=== PATIENT | female | born 1935 | race Hispanic/Latino ===

== ENCOUNTER 2018-01-11 03:57 | Inpatient (IN) | payer MEDICARE ==
[2018-01-11] MEDS ORDERED: Albuterol-Ipratrop 3 mg / 0.5 (3 ml) UD ONE (04:16)
[2018-01-11] MEDS ORDERED: Albuterol-Ipratrop 3 mg / 0.5 (3 ml) UD INH STA ×3 (04:17→04:22)
--- NOTE | 2018-01-11 04:21 | C.PDOC ---
History Of Present Illness <Abelardo Mane R - Last Filed: 01/11/18 06:49> <Arnol May M - Last Filed: 01/11/18 07:44> 82 year old female presents to the ER with a complaint a sudden onset of SOB tonight. Patient has a Hx of COPD and is on a nebulizer at home. Denies chest pain. (Abelardo Mane) History Per: Patient History/Exam Limitations: no limitations Onset/Duration Of Symptoms: Hrs, Sudden Onset Current Symptoms Are (Timing): Still Present Initiating Event: Other (Not known) Current Respiratory Medications: Other (Nebulizer) Associated Symptoms: denies: Fever, Chills, Chest Pain Recent travel outside of the [place]: No <Abelardo Mane - Last Filed: 01/11/18 06:49> <Arnol May M - Last Filed: 01/11/18 07:44> Chief Complaint (Nursing): Respiratory Distress Past Medical History Reviewed: Historical Data, Nursing Documentation, Vital Signs - Medical History PMH: Anxiety, Arthritis, COPD (on home O2), Rheumatoid Arthritis Surgical History: Cholecystectomy Family History: States: Unknown Family Hx - Social History Hx Tobacco Use: Yes (2 years when teenager) Hx Alcohol Use: No Hx Substance Use: No - Immunization History Hx Tetanus Toxoid Vaccination: No Hx Influenza Vaccination: No Hx Pneumococcal Vaccination: No <Abelardo Mane - Last Filed: 01/11/18 06:49> Vital Signs: Last Vital Signs Temp 97.6 F 01/11/18 04:06 Pulse 105 H 01/11/18 06:18 Resp 24 01/11/18 06:18 BP 118/90 01/11/18 06:18 Pulse Ox 95 01/11/18 06:18 - [facility] Procedures ASSISTANCE WITH RESPIRATORY VENTILATION, 24-96 HRS, CPAP (07/23/15) Review Of Systems Constitutional: Negative for: Fever, Chills Eyes: Negative for: Vision Change ENT: Negative for: Mouth Swelling, Throat Swelling Cardiovascular: Negative for: Chest Pain, Palpitations Respiratory: Positive for: Shortness of Breath Gastrointestinal: Negative for: Nausea, Vomiting Genitourinary: Negative for: Dysuria, Hematuria Skin: Negative for: Rash Neurological: Negative for: Weakness, Numbness <Abelardo aMne - Last Filed: 01/11/18 06:49> Physical Exam - Physical Exam Appears: Other (Moderately dyspneic) Skin: Normal Color, Warm, Dry Head: Atraumatic, Normacephalic Eye(s): bilateral: Normal Inspection Oral Mucosa: Moist Throat: Normal, No Other (Swelling) Neck: Normal, Supple Chest: Symmetrical, No Tenderness Cardiovascular: Rhythm Regular Respiratory: Decreased Breath Sounds, Rales (Bilateral at bases), No Rhonchi, No Wheezing Gastrointestinal/Abdominal: Soft, No Tenderness Extremity: No Pedal Edema Neurological/Psych: Oriented x3, Normal Speech <Abelardo Mane - Last Filed: 01/11/18 06:49> ED Course And Treatment - Laboratory Results Result Diagrams: 01/11/18 04:25 01/11/18 04:25 ECG: Interpreted By Me, Viewed By Me ECG Rhythm: Sinus Rhythm, R BBB, ST/T Changes ECG Interpretation: Abnormal Interpretation Of ECG: Sinus tachycardia, no acute changes, St-T abnormality . Rate From EC - Radiology CXR: Viewed By Me, Read By Radiologist CXR Interpretation: Yes: Other (Abnormal, patchy densities in the left lower lobe, a new finding, suspicious for pneumonia.) Progress Note: Blood work, EKG, and CXR ordered. Albuterol and mag sulfate administered. Dr. Solis called and will evaluate patient at bedside for possible ICU admission. <Abelardo Mane - Last Filed: 01/11/18 06:49> - Laboratory Results Result Diagrams: 01/11/18 04:25 01/11/18 04:25 <Arnol May M - Last Filed: 01/11/18 07:44> Disposition Counseled Patient/Family Regarding: Diagnosis - POA Present On Arrival: None <Abelardo Mane - Last Filed: 01/11/18 06:49> Discussed With : Rivas Mendez Doctor Will See Patient In The: ED - Disposition Disposition Time: 07:44 <Arnol May - Last Filed: 01/11/18 07:44> - Disposition Disposition: HOSPITALIZED Condition: GUARDED Forms: [facility] (Vietnamese) - Clinical Impression Clinical Impression: COPD exacerbation, Respiratory failure, Pneumonia, Non-ST elevated myocardial infarction (non-STEMI) - Scribe Statement The provider has reviewed the documentation as recorded by the Scribe <Abelardo Mane - Last Filed: 01/11/18 06:49> <Arnol May - Last Filed: 01/11/18 07:44> - Scribe Statement Raymond Chavira All medical record entries made by the Scribe were at my direction and personally dictated by me. I have reviewed the chart and agree that the record accurately reflects my personal performance of the history, physical exam, medical decision making, and the department course for this patient. I have also personally directed, reviewed, and agree with the discharge instructions and disposition. (Abelardo Mane) Addendum <Abelardo Mane - Last Filed: 01/11/18 06:49> <Arnol May - Last Filed: 01/11/18 07:44> Addendum: 01/11/18 07:43 Received patient in s/o pending critical care consult. ICU has agreed to admit patient to ICU, hospitalist service. (Arnol May)
[2018-01-11 04:33] LABS: BASO # 0.1 K/uL (0.0-0.2); BASO % 0.7 % (0.0-2.0); EOS # 0.2 K/uL (0.0-0.7); HEMOGLOBIN 11.6 g/dL (11.0-16.0); LYMPH # 2.6 K/uL (1.0-4.3); LYMPH % 14.6 % (20.0-40.0); MEAN CELL VOLUME 90.7 fL (81.0-99.0); MEAN CORPUSCULAR HEMOGLOBIN 28.5 pg (27.0-31.0); MEAN CORPUSCULAR HGB CONC 31.4 g/dL (33.0-37.0); MEAN PLATELET VOLUME 7.9 fL (7.2-11.7); MONO # 1.6 K/uL (0.0-0.8); MONO % 8.9 % (0.0-10.0); NEUT # 13.5 K/uL (1.8-7.0); NEUT % 74.8 % (50.0-75.0); RBC 4.09 Mil/uL (3.80-5.20); RED CELL DISTRIBUTION WIDTH 13.4 % (11.5-14.5); WHITE BLOOD COUNT 18.1 K/uL (4.8-10.8)
[2018-01-11 04:36] LABS: ABG ALLEN TEST POS; ARTERIAL BLOOD GAS HEMOGLOBIN 11.2 g/dL (11.7-17.4); ARTERIAL BLOOD GAS O2 SAT 99.6 % (95-98); ARTERIAL BLOOD GAS PCO2 92 mm/Hg (35-45); ARTERIAL BLOOD GAS PH 7.24 (7.35-7.45); ARTERIAL BLOOD GAS PO2 336 mm/Hg (80-100); ARTERIAL BLOOD GAS TCO2 42.2 mmol/L (22-28)
[2018-01-11] MEDS ORDERED: Magnesium Sulfate 1 gm in D5W 1 GM/100 ML BAG IVPB ONE ×2 (04:40→04:41)
[2018-01-11] MEDS ORDERED: Magnesium Sulfate 1 gm in D5W 2 GM/200 ML BAG IVPB ONE (04:51)
[2018-01-11 05:14] LABS: CALCIUM 8.4 mg/dl (8.6-10.4); GFR AFRICAN-AMERICAN > 60; GFR NON-AFRICAN AMERICAN > 60
[2018-01-11] MEDS ORDERED: Albuterol 0.083% Inhal Sol (2.5 mg/3 mL) UD ONE (05:26)
[2018-01-11 05:28] LABS: ABG ALLEN TEST POS; ARTERIAL BLOOD GAS HCO3 33.5 mmol/L (21-28); ARTERIAL BLOOD GAS HEMOGLOBIN 10.9 g/dL (11.7-17.4); ARTERIAL BLOOD GAS O2 SAT 93.9 % (95-98); ARTERIAL BLOOD GAS PCO2 69 mm/Hg (35-45); ARTERIAL BLOOD GAS PH 7.36 (7.35-7.45); ARTERIAL BLOOD GAS PO2 59 mm/Hg (80-100); ARTERIAL BLOOD GAS TCO2 41.1 mmol/L (22-28)
[2018-01-11 05:32] LABS: ALB/GLOB RATIO 1.2 (1.0-2.1); ALBUMIN 4.7 g/dL (3.5-5.0); ALT/SGPT < 6 U/L (9-52); AST/SGOT 50 U/L (14-36); B-TYPE NATRIURETIC PEPTIDE 2970 pg/mL (0-900); BLOOD UREA NITROGEN 19 mg/dL (7-17)
--- NOTE | 2018-01-11 05:33 | RAD ---
EXAM: XR Chest, 1 View EXAM DATE/TIME: 01/11/2018 4:16 AM CLINICAL HISTORY: 82 years old, female; Signs and symptoms; Shortness of breath; Additional info: SOB TECHNIQUE: Frontal view of the chest. COMPARISON: Prior chest radiographs of 2015-07-26 FINDINGS: LIMITATIONS: Patient rotation. LUNGS: Abnormal, patchy densities seen in the left lower lobe, a new finding, suspicious for pneumonia, in an acute setting. Lungs are hyperinflated, suggestive of underlying COPD. No evidence of diffuse pulmonary vascular congestion. PLEURAL SPACE: No pneumothorax or pleural effusions seen. HEART: Heart appears mildly enlarged. Heart size appears stable. MEDIASTINUM: See below. BONES/JOINTS: Bony structures appear demineralized. VASCULATURE: Thoracic aorta appears mildly ectatic. IMPRESSION: - Abnormal, patchy densities in the left lower lobe, a new finding, suspicious for pneumonia. Recommend radiographic followup to document clearing. - See above for remaining findings.
[2018-01-11] MEDS ORDERED: Azithromycin 500mg/250ML NS 500 MG/250 ML BAG IV STA (06:08)
[2018-01-11] MEDS ORDERED: cefTRIAXone IV 1 gm in Dextros 50 ML IVPB ONE ×2 (06:08→06:25)
[2018-01-11] MEDS ORDERED: Enoxaparin 40 mg Syringe SC STA ×2 (06:30→06:55)
[2018-01-11] MEDS ORDERED: Enoxaparin 40 mg Syringe ONE (06:37)
[2018-01-11 06:42] LABS: PROTHROMBIN TIME 10.6 SECONDS (9.7-12.2)
--- NOTE | 2018-01-11 07:22 | CP.PCM.HP ---
<Vipin Junior - Last Filed: 01/11/18 08:50> History of Present Illness - History of Present Illness History of Present Illness: CC: Sudden onset SOB FULL CODE PMD: Dr. Mayen This is an 82yo F w/ a PMhx of HTN, CAD, RA, COPD (lifelong non smoker) on 2L of 24 hour home O2, CHF systolic and diastolic dysfunction from 2014, who is coming into the hospital with a 12hour history of sudden onset shortness of breath and "gas" in the epigastric region; the patient states she was at home and suddenly got short of breath sitting in her chair which did not get better which is why she came in. For the past week, she has also had a cough with white sputum, but denies fevers/chills, chest pain, N/V/D, dysuria/freq/urg or lower extremity pain/swelling at that time. She denies sick contacts, recent travel, and has never smoked. In the ED, the patient was placed on BiPap, given azithromycin and breathing treatments which helped the patients shortness of breath. She is pending CT PE protocol study, venous duplex of the lower extremities, and echo. PMhx: HTN, CAD, RA, COPD (lifelong non smoker) on 2L of 24 hour home O2, CHF systolic and diastolic dysfunction from 2014 Meds: Breo Ellipta 100/24, Incruse 62.5, Leflumonide 20mg, Bisoprodol 5mg, Moteleuklast 10mg, Xanax 0.25mg, Feosol, Metalazone 2.5mg, Celebrex 200, Chlorthiadone 25mg Allergies: Denies Surgeries: C section 40+ years ago Social: On home O2 2L, does not walk with cane, independent in ADL and most IADL ; son lives with her and is main grand scribe, denies smoking history or illicit drug use. Present on Admission - Present on Admission Any Indicators Present on Admission: Yes History of DVT/PE: No History of Uncontrolled Diabetes: No Urinary Catheter: No Decubitus Ulcer Present: No Past Patient History - Infectious Disease Hx of Infectious Diseases: None - Past Medical History & Family History Past Medical History?: Yes - Past Social History Smoking Status: Never Smoked - CARDIAC Hx Cardiac Disorders: No - PULMONARY Hx Chronic Obstructive Pulmonary Disease (COPD): Yes (on home O2) - NEUROLOGICAL Hx Neurological Disorder: No - HEENT Hx HEENT Problems: No - RENAL Hx Chronic Kidney Disease: No - ENDOCRINE/METABOLIC Hx Endocrine Disorders: No - HEMATOLOGICAL/ONCOLOGICAL Hx Blood Disorders: No - INTEGUMENTARY Hx Dermatological Problems: No - MUSCULOSKELETAL/RHEUMATOLOGICAL Hx Arthritis: Yes Hx Rheumatoid Arthritis: Yes - GASTROINTESTINAL Hx Gastrointestinal Disorders: No - GENITOURINARY/GYNECOLOGICAL Hx Genitourinary Disorders: No - PSYCHIATRIC Hx Anxiety: Yes Hx Substance Use: No - SURGICAL HISTORY Hx Cholecystectomy: Yes - ANESTHESIA Hx Anesthesia: Yes Hx Anesthesia Reactions: No Hx Malignant Hyperthermia: No Meds Allergies/Adverse Reactions: Allergies Allergy/AdvReac Type Severity Reaction Status Date / Time No Known Allergies Allergy Verified 01/11/18 04:10 Physical Exam - Constitutional Appears: Non-toxic, No Acute Distress - Head Exam Head Exam: ATRAUMATIC (with BiPap on, speaking through BiPap) - Eye Exam Eye Exam: EOMI, Normal appearance, PERRL. absent: Scleral icterus - ENT Exam ENT Exam: Mucous Membranes Dry - Neck Exam Neck exam: Positive for: Full Rom. Negative for: Lymphadenopathy - Respiratory Exam Respiratory Exam: Prolonged Expiratory Phase, Rales. absent: Chest Wall Tenderness, Clear to Auscultation Bilateral, Rhonchi, Wheezes, Respiratory Distress, Stridor, NORMAL BREATHING PATTERN (tachypneic ) - Cardiovascular Exam Cardiovascular Exam: Tachycardia, +S1, +S2, Systolic Murmur - GI/Abdominal Exam GI & Abdominal Exam: Normal Bowel Sounds, Soft. absent: Tenderness - Extremities Exam Extremities exam: Positive for: calf tenderness, pedal edema (+2 pitting edema up to knees ) - Back Exam Back exam: NORMAL INSPECTION. absent: CVA tenderness (L), CVA tenderness (R) - Neurological Exam Neurological exam: Alert, Oriented x3 Results - Vital Signs Recent Vital Signs: Last Vital Signs Temp 97.6 F 01/11/18 04:06 Pulse 105 H 01/11/18 06:18 Resp 24 01/11/18 06:18 BP 118/90 01/11/18 06:18 Pulse Ox 95 01/11/18 06:18 - Labs Result Diagrams: 01/11/18 04:25 01/11/18 04:25 Labs: Laboratory Results - last 24 hr 01/11/18 01/11/18 01/11/18 04:25 04:25 04:25 WBC 18.1 H D RBC 4.09 Hgb 11.6 Hct 37.1 MCV 90.7 MCH 28.5 MCHC 31.4 L RDW 13.4 Plt Count 364 MPV 7.9 Neut % (Auto) 74.8 Lymph % (Auto) 14.6 L [place] % (Auto) 8.9 Eos % (Auto) 1.0 Baso % (Auto) 0.7 Neut # (Auto) 13.5 H Lymph # (Auto) 2.6 [place] # (Auto) 1.6 H Eos # (Auto) 0.2 Baso # (Auto) 0.1 PT INR APTT D-Dimer, Quantitative 526 H Puncture Site pCO2 pO2 HCO3 ABG pH ABG Total CO2 ABG O2 Saturation ABG Base Excess ABG Hemoglobin ABG Carboxyhemoglobin POC ABG HHb (Measured) ABG Methemoglobin Steve Test A-a O2 Difference Respiratory Index Hgb O2 Saturation Vent Mode FiO2 Inspiratory BiPAP Expiratory BiPAP Crit Value Called To Crit Value Called By Crit Value Read Back Blood Gas Notified Time Sodium 141 Potassium 5.9 H Chloride 97 L Carbon Dioxide 35 H Anion Gap 15 BUN 19 H Creatinine 0.7 Est GFR ( Amer) > 60 Est GFR (Non-Af Amer) > 60 Random Glucose 185 H Calcium 8.4 L Total Bilirubin 1.7 H AST 50 H D ALT < 6 L D Alkaline Phosphatase 96 Troponin I 1.6700 H* NT-Pro-B Natriuret Pep 2970 H Total Protein 8.8 H Albumin 4.7 Globulin 4.0 H Albumin/Globulin Ratio 1.2 01/11/18 01/11/18 01/11/18 04:30 05:24 06:35 WBC RBC Hgb Hct MCV MCH MCHC RDW Plt Count MPV Neut % (Auto) Lymph % (Auto) [place] % (Auto) Eos % (Auto) Baso % (Auto) Neut # (Auto) Lymph # (Auto) [place] # (Auto) Eos # (Auto) Baso # (Auto) PT 10.6 INR 1.0 APTT 30 D-Dimer, Quantitative Puncture Site Rr Rr pCO2 92 H* 69 H pO2 336 H 59 L HCO3 32.0 H 33.5 H ABG pH 7.24 L 7.36 ABG Total CO2 42.2 H 41.1 H ABG O2 Saturation 99.6 H 93.9 L ABG Base Excess 9.1 H 11.2 H ABG Hemoglobin 11.2 L 10.9 L ABG Carboxyhemoglobin 1.4 2.3 H POC ABG HHb (Measured) 0.4 5.9 H ABG Methemoglobin 1.1 1.5 Steve Test Pos Pos A-a O2 Difference 262.0 69.0 Respiratory Index 0.8 1.2 Hgb O2 Saturation 97.0 90.4 L Vent Mode Bipap Bipap FiO2 100.0 30.0 Inspiratory BiPAP 12 20 Expiratory BiPAP 6 10 Crit Value Called To Dr. muñiz Crit Value Called By Eva living coach Crit Value Read Back Y Blood Gas Notified Time 435 Sodium Potassium Chloride Carbon Dioxide Anion Gap BUN Creatinine Est GFR ( Amer) Est GFR (Non-Af Amer) Random Glucose Calcium Total Bilirubin AST ALT Alkaline Phosphatase Troponin I NT-Pro-B Natriuret Pep Total Protein Albumin Globulin Albumin/Globulin Ratio Assessment & Plan - Assessment and Plan (Free Text) Assessment: 82yo F admitted for hypercapneic respiratory failure 2/2 to PNA vs PE vs NSTEMI Hypercapneic respiratory failure 2/2 to PNA vs PE vs NSTEMI; acute on chronic -Co2 retention on ABG; from previous admissions Co2 is actually lower than previous -currently on BiPap; tolerating; patient is able to speak through BiPap -troponin 1.67-->will trend Q8H with serial EKG -f/u Chest PE protocol -f/u b/l lower extremity dopplers -f/u echo -lactic acid 3.0; f/u repeat; elevated WBC, signs of L Lower Lobe Infiltrate on X-Ray; f/u UA/UCx; Procal -c/w ceftriaxone/azithromycin for CAP -received tx dose for PE/NSTEMI Lovenox in ER -Cardiology, Dr. Skaggs; thank you for your help -Pulmonology: Dr. Tse; thank you for your help Hyperkalemia; acute -will give kayhexalate 30mg PO once -will follow Pmhx of COPD; acute on chronic -c/w home breathing tx Breo and Incruse -PRN breathing treatments -on home O2 2L Hx of RA -c/w leflunomide and Celebrex daily Hx of HTN -currently normotensive; took medications -c/w Bisoprodol, Metalazone, Chlorthiadone Hx of CHF systolic and diastolic failure; EF not documented; acute on chronic -f/u repeat echo -BNP elevated with signs of CHF overload clinically Proph -Lovenox 80mg received; depending on PE/DVT/Cardiology can continue -Gi prophylaxis not indicated at this time -NPO until tests are completed Case discussed with Dr. Vanessa Junior PGY2 Decision To Admit - Pt Status Changed To: Hospital Disposition Of: Inpatient - Admit Certification Admit to Inpatient:: After my assessment, the patient will require hospitalization for at least two midnights. This is because of the severity of symptoms shown, intensity of services needed, and/or the medical risk in this patient being treated as an outpatient. - InPatient: Physician Admission Certification:: NSTEMI PE PNA - . Bed Request Type: ICU Admitting Physician: Rivas Mendez <Rivas Mendez - Last Filed: 01/11/18 09:33> Results - Vital Signs Recent Vital Signs: Last Vital Signs Temp 98 F 01/11/18 08:00 Pulse 98 H 01/11/18 08:00 Resp 22 01/11/18 08:00 BP 113/65 01/11/18 08:00 Pulse Ox 97 01/11/18 08:00 - Labs Result Diagrams: 01/11/18 04:25 01/11/18 04:25 Labs: Laboratory Results - last 24 hr 01/11/18 01/11/18 01/11/18 04:25 04:25 04:25 WBC 18.1 H D RBC 4.09 Hgb 11.6 Hct 37.1 MCV 90.7 MCH 28.5 MCHC 31.4 L RDW 13.4 Plt Count 364 MPV 7.9 Neut % (Auto) 74.8 Lymph % (Auto) 14.6 L [place] % (Auto) 8.9 Eos % (Auto) 1.0 Baso % (Auto) 0.7 Neut # (Auto) 13.5 H Lymph # (Auto) 2.6 [place] # (Auto) 1.6 H Eos # (Auto) 0.2 Baso # (Auto) 0.1 PT INR APTT D-Dimer, Quantitative 526 H Puncture Site pCO2 pO2 HCO3 ABG pH ABG Total CO2 ABG O2 Saturation ABG Base Excess ABG Hemoglobin ABG Carboxyhemoglobin POC ABG HHb (Measured) ABG Methemoglobin Steve Test A-a O2 Difference Respiratory Index Hgb O2 Saturation Vent Mode FiO2 Inspiratory BiPAP Expiratory BiPAP Crit Value Called To Crit Value Called By Crit Value Read Back Blood Gas Notified Time Sodium 141 Potassium 5.9 H Chloride 97 L Carbon Dioxide 35 H Anion Gap 15 BUN 19 H Creatinine 0.7 Est GFR ( Amer) > 60 Est GFR (Non-Af Amer) > 60 Random Glucose 185 H Lactic Acid Calcium 8.4 L Total Bilirubin 1.7 H AST 50 H D ALT < 6 L D Alkaline Phosphatase 96 Troponin I 1.6700 H* NT-Pro-B Natriuret Pep 2970 H Total Protein 8.8 H Albumin 4.7 Globulin 4.0 H Albumin/Globulin Ratio 1.2 01/11/18 01/11/18 01/11/18 04:30 05:24 06:35 WBC RBC Hgb Hct MCV MCH MCHC RDW Plt Count MPV Neut % (Auto) Lymph % (Auto) [place] % (Auto) Eos % (Auto) Baso % (Auto) Neut # (Auto) Lymph # (Auto) [place] # (Auto) Eos # (Auto) Baso # (Auto) PT 10.6 INR 1.0 APTT 30 D-Dimer, Quantitative Puncture Site Rr Rr pCO2 92 H* 69 H pO2 336 H 59 L HCO3 32.0 H 33.5 H ABG pH 7.24 L 7.36 ABG Total CO2 42.2 H 41.1 H ABG O2 Saturation 99.6 H 93.9 L ABG Base Excess 9.1 H 11.2 H ABG Hemoglobin 11.2 L 10.9 L ABG Carboxyhemoglobin 1.4 2.3 H POC ABG HHb (Measured) 0.4 5.9 H ABG Methemoglobin 1.1 1.5 Steve Test Pos Pos A-a O2 Difference 262.0 69.0 Respiratory Index 0.8 1.2 Hgb O2 Saturation 97.0 90.4 L Vent Mode Bipap Bipap FiO2 100.0 30.0 Inspiratory BiPAP 12 20 Expiratory BiPAP 6 10 Crit Value Called To Dr. muñiz Crit Value Called By Eva living coach Crit Value Read Back Y Blood Gas Notified Time 435 Sodium Potassium Chloride Carbon Dioxide Anion Gap BUN Creatinine Est GFR ( Amer) Est GFR (Non-Af Amer) Random Glucose Lactic Acid Calcium Total Bilirubin AST ALT Alkaline Phosphatase Troponin I NT-Pro-B Natriuret Pep Total Protein Albumin Globulin Albumin/Globulin Ratio 01/11/18 08:04 WBC RBC Hgb Hct MCV MCH MCHC RDW Plt Count MPV Neut % (Auto) Lymph % (Auto) [place] % (Auto) Eos % (Auto) Baso % (Auto) Neut # (Auto) Lymph # (Auto) [place] # (Auto) Eos # (Auto) Baso # (Auto) PT INR APTT D-Dimer, Quantitative Puncture Site pCO2 pO2 HCO3 ABG pH ABG Total CO2 ABG O2 Saturation ABG Base Excess ABG Hemoglobin ABG Carboxyhemoglobin POC ABG HHb (Measured) ABG Methemoglobin Steve Test A-a O2 Difference Respiratory Index Hgb O2 Saturation Vent Mode FiO2 Inspiratory BiPAP Expiratory BiPAP Crit Value Called To Crit Value Called By Crit Value Read Back Blood Gas Notified Time Sodium Potassium Chloride Carbon Dioxide Anion Gap BUN Creatinine Est GFR ( Amer) Est GFR (Non-Af Amer) Random Glucose Lactic Acid 3.0 H Calcium Total Bilirubin AST ALT Alkaline Phosphatase Troponin I NT-Pro-B Natriuret Pep Total Protein Albumin Globulin Albumin/Globulin Ratio Attending/Attestation - Attestation I have personally seen and examined this patient.: Yes I have fully participated in the care of the patient.: Yes I have reviewed all pertinent clinical information: Yes Notes (Text): 01/11/18 09:29 Medical attending: Patient was seen and examined by me. Agree with the above note by the medical coding specialist Patient was also seen by me in the ER bed 12. Family member present She was already on Bipap when Is aw her. She was pending a CT scan of the chest She reported some relief with the Bipap on. The patient has hypercapnia probably from history of COPD as well as metabolic compensation. It appears to be a chronic process. She wears oxygen at home She also had a positive troponin spill as well. She has already received Lovenox and additional troponins are pending. CXRAY shows there maybe some process occuring in the right lung base, we are pending a CT at this time Rivas Mendez
--- NOTE | 2018-01-11 07:45 | CP.PCM.CON ---
<Agustina Hamilton - Last Filed: 01/11/18 11:29> History of Present Illness - History of Present Illness History of Present Illness: Critical Care Consult Note Patient admitted to ICU for Hypercapneic failure 2/2 NSTEMI vs PE with Multifocal LLL Pneumonia. Past Patient History - Infectious Disease Hx of Infectious Diseases: None - Past Medical History & Family History Past Medical History?: Yes - Past Social History Smoking Status: Never Smoked - CARDIAC Hx Cardiac Disorders: No - PULMONARY Hx Chronic Obstructive Pulmonary Disease (COPD): Yes (on home O2) - NEUROLOGICAL Hx Neurological Disorder: No - HEENT Hx HEENT Problems: No - RENAL Hx Chronic Kidney Disease: No - ENDOCRINE/METABOLIC Hx Endocrine Disorders: No - HEMATOLOGICAL/ONCOLOGICAL Hx Blood Disorders: No - INTEGUMENTARY Hx Dermatological Problems: No - MUSCULOSKELETAL/RHEUMATOLOGICAL Hx Arthritis: Yes Hx Rheumatoid Arthritis: Yes - GASTROINTESTINAL Hx Gastrointestinal Disorders: No - GENITOURINARY/GYNECOLOGICAL Hx Genitourinary Disorders: No - PSYCHIATRIC Hx Anxiety: Yes Hx Substance Use: No - SURGICAL HISTORY Hx Cholecystectomy: Yes - ANESTHESIA Hx Anesthesia: Yes Hx Anesthesia Reactions: No Hx Malignant Hyperthermia: No Meds Allergies/Adverse Reactions: Allergies Allergy/AdvReac Type Severity Reaction Status Date / Time No Known Allergies Allergy Verified 01/11/18 04:10 - Medications Medications: Current Medications Aspirin (Aspirin) 325 mg PO ONCE ONE Stop: 01/11/18 08:01 Clopidogrel Bisulfate (Plavix) 300 mg PO ONCE ONE Stop: 01/11/18 07:46 Results - Vital Signs Recent Vital Signs: Last Vital Signs Temp 97.6 F 01/11/18 04:06 Pulse 105 H 01/11/18 06:18 Resp 24 01/11/18 06:18 BP 118/90 01/11/18 06:18 Pulse Ox 95 01/11/18 06:18 - Labs Result Diagrams: 01/11/18 04:25 01/11/18 10:24 Labs: Laboratory Results - last 24 hr 01/11/18 01/11/18 01/11/18 04:25 04:25 04:25 WBC 18.1 H D RBC 4.09 Hgb 11.6 Hct 37.1 MCV 90.7 MCH 28.5 MCHC 31.4 L RDW 13.4 Plt Count 364 MPV 7.9 Neut % (Auto) 74.8 Lymph % (Auto) 14.6 L [place] % (Auto) 8.9 Eos % (Auto) 1.0 Baso % (Auto) 0.7 Neut # (Auto) 13.5 H Lymph # (Auto) 2.6 [place] # (Auto) 1.6 H Eos # (Auto) 0.2 Baso # (Auto) 0.1 PT INR APTT D-Dimer, Quantitative 526 H Puncture Site pCO2 pO2 HCO3 ABG pH ABG Total CO2 ABG O2 Saturation ABG Base Excess ABG Hemoglobin ABG Carboxyhemoglobin POC ABG HHb (Measured) ABG Methemoglobin Steve Test A-a O2 Difference Respiratory Index Hgb O2 Saturation Vent Mode FiO2 Inspiratory BiPAP Expiratory BiPAP Crit Value Called To Crit Value Called By Crit Value Read Back Blood Gas Notified Time Sodium 141 Potassium 5.9 H Chloride 97 L Carbon Dioxide 35 H Anion Gap 15 BUN 19 H Creatinine 0.7 Est GFR ( Amer) > 60 Est GFR (Non-Af Amer) > 60 Random Glucose 185 H Calcium 8.4 L Total Bilirubin 1.7 H AST 50 H D ALT < 6 L D Alkaline Phosphatase 96 Troponin I 1.6700 H* NT-Pro-B Natriuret Pep 2970 H Total Protein 8.8 H Albumin 4.7 Globulin 4.0 H Albumin/Globulin Ratio 1.2 01/11/18 01/11/18 01/11/18 04:30 05:24 06:35 WBC RBC Hgb Hct MCV MCH MCHC RDW Plt Count MPV Neut % (Auto) Lymph % (Auto) [place] % (Auto) Eos % (Auto) Baso % (Auto) Neut # (Auto) Lymph # (Auto) [place] # (Auto) Eos # (Auto) Baso # (Auto) PT 10.6 INR 1.0 APTT 30 D-Dimer, Quantitative Puncture Site Rr Rr pCO2 92 H* 69 H pO2 336 H 59 L HCO3 32.0 H 33.5 H ABG pH 7.24 L 7.36 ABG Total CO2 42.2 H 41.1 H ABG O2 Saturation 99.6 H 93.9 L ABG Base Excess 9.1 H 11.2 H ABG Hemoglobin 11.2 L 10.9 L ABG Carboxyhemoglobin 1.4 2.3 H POC ABG HHb (Measured) 0.4 5.9 H ABG Methemoglobin 1.1 1.5 Steve Test Pos Pos A-a O2 Difference 262.0 69.0 Respiratory Index 0.8 1.2 Hgb O2 Saturation 97.0 90.4 L Vent Mode Bipap Bipap FiO2 100.0 30.0 Inspiratory BiPAP 12 20 Expiratory BiPAP 6 10 Crit Value Called To Dr. muñiz Crit Value Called By Eva roofer apprentice Crit Value Read Back Y Blood Gas Notified Time 435 Sodium Potassium Chloride Carbon Dioxide Anion Gap BUN Creatinine Est GFR ( Amer) Est GFR (Non-Af Amer) Random Glucose Calcium Total Bilirubin AST ALT Alkaline Phosphatase Troponin I NT-Pro-B Natriuret Pep Total Protein Albumin Globulin Albumin/Globulin Ratio Assessment & Plan - Assessment and Plan (Free Text) Assessment: This is a 82 year old female with PMHx of HTN, CAD with ?? Stents, COPD ( nonsmoker) on home oxygen, 2L NC, RA, HF with systolic and diastolic dysfunction (2014), coming from home with ~12-14 hours of SOB and burning in her chest. Found to be hypercapneic on ABG, she did not improve clinically after breathing treatments, steroids, was then started on bipap, repeat ABG shows improvement. Patient admitted to ICU for Hypercapneic failure 2/2 NSTEMI vs PE with Multifocal LLL Pneumonia. Plan: Neuro: GCS 15 Cardio: A: NSTEMI Dr. Duff consulted - EKG: new RBBB when compared to EKG in 2015 - Troponin 1.67 --> 1.61 --> - Started therapeutic lovenox A: CAD with stents - Patient reports ASA, Plavix was stopped by Dr. Chong (partner with Dr. Duff) - Restarted ASA, Plavix - pending reccs from Cardio A: HF systolic and diastolic dysfunction - Last ECHO was in 2014 - BNP 2970 - Resume home medications: Chlorthalidone 25mg, Bystolic 5mg (held due to acute CHF) - Repeat ECHO, HLD, HA1C, TSH, FREE T4 A: HTN - Resume home medications: Chlorthalidone 25mg, Bystolic 5mg (held due to acute CHF) Pulm: A: Hypercapneic Failure 2/2 NSTEMI vs PE - Elevated D - Dimer, hypercapneic on ABG - Currently on BIPAP - Negative for PE, pending venous dopplers - Duonebs Q4, Azithro, Rocephin /, Florastor BID, Singulair A: Multifocal LLL Pneumonia - Afebrile, leukocytosis with left shift, no bandemia, lactate 3.0 - 3.6 --> - CXR: Abnormal, patchy densities in the left lower lobe, a new finding, suspicious for pneumonia. Recommend radiographic followup to document clearing. - CTA: No evidence of pulmonary embolism. Multifocal opacities throughout left lung, likely infectious. Rule out neoplastic. Followup to clearing. Multiple small right-sided pulmonary nodules common nonspecific. No calcified nodules are appreciated. Small nodules but 1 are 5 mm or less. 7 mm nodule right lower lobe. - Started Duonebs Q4, Azithro, Rocephin 01/11, Florastor BID, Singulair A: COPD - Started Duonebs Q4, Azithro, Rocephin /, Florastor BID, Singulair A: Pulmonary Nodules - Multiple small right-sided pulmonary nodules common nonspecific. No calcified nodules are appreciated. Small nodules but 1 are 5 mm or less. 7 mm nodule right lower lobe. - Follow-up with chest CT 6-12 months. Rheum: A: Hx RA Prophylaxis - Protonix - SCDs, Therapeutic lovenox DW Agustina Lema DO, PGY-1 <Zuleima Hector - Last Filed: 01/11/18 19:13> Meds - Medications Medications: Current Medications Albuterol/Ipratropium (Duoneb 3 Mg/0.5 Mg (3 Ml) Ud) 3 ml INH RQ4 JUNIE Last Admin: 01/11/18 16:39 Dose: 3 ml Alprazolam (Xanax) 0.25 mg PO HS JUNIE Stop: 01/18/18 22:01 Aspirin (Aspirin Chewable) 81 mg PO DAILY [facility] Carvedilol (Coreg) 3.125 mg PO BID [facility] Chlorthalidone (Hygroton) 25 mg PO DAILY [facility] Clopidogrel Bisulfate (Plavix) 75 mg PO DAILY [facility] Enoxaparin Sodium (Lovenox) 80 mg SC Q12 [facility] Last Admin: 01/11/18 18:39 Dose: 80 mg Famotidine (Pepcid) 20 mg PO DAILY [facility] Azithromycin 500 mg/ Sodium (Chloride) 250 mls @ 250 mls/hr IVPB DAILY [facility] PRN Reason: Protocol Ceftriaxone Sodium 1 gm/ (Sodium Chloride) 100 mls @ 100 mls/hr IVPB DAILY [facility] PRN Reason: Protocol Sodium Chloride (Sodium Chloride 0.9%) 1,000 mls @ 75 mls/hr IV .[id number] [facility] Last Admin: 01/11/18 15:43 Dose: 75 mls/hr Montelukast Sodium (Singulair) 10 mg PO HS [facility] Saccharomyces Boulardii (Florastor) 250 mg PO BID [facility] Last Admin: 01/11/18 18:38 Dose: 250 mg Results - Vital Signs Recent Vital Signs: Last Vital Signs Temp 97.6 F 01/11/18 16:00 Pulse 89 01/11/18 16:00 Resp 19 01/11/18 16:00 BP 117/48 L 01/11/18 16:00 Pulse Ox 100 01/11/18 16:00 - Labs Result Diagrams: 01/11/18 04:25 01/11/18 10:24 Labs: Laboratory Results - last 24 hr 01/11/18 01/11/18 01/11/18 04:25 04:25 04:25 WBC 18.1 H D RBC 4.09 Hgb 11.6 Hct 37.1 MCV 90.7 MCH 28.5 MCHC 31.4 L RDW 13.4 Plt Count 364 MPV 7.9 Neut % (Auto) 74.8 Lymph % (Auto) 14.6 L [place] % (Auto) 8.9 Eos % (Auto) 1.0 Baso % (Auto) 0.7 Neut # (Auto) 13.5 H Lymph # (Auto) 2.6 [place] # (Auto) 1.6 H Eos # (Auto) 0.2 Baso # (Auto) 0.1 PT INR APTT D-Dimer, Quantitative 526 H Puncture Site pCO2 pO2 HCO3 ABG pH ABG Total CO2 ABG O2 Saturation ABG Base Excess ABG Hemoglobin ABG Carboxyhemoglobin POC ABG HHb (Measured) ABG Methemoglobin Steve Test ABG Potassium A-a O2 Difference Respiratory Index Hgb O2 Saturation Glucose Lactate Vent Mode FiO2 Inspiratory BiPAP Expiratory BiPAP Crit Value Called To Crit Value Called By Crit Value Read Back Blood Gas Notified Time Sodium 141 Potassium 5.9 H Chloride 97 L Carbon Dioxide 35 H Anion Gap 15 BUN 19 H Creatinine 0.7 Est GFR ( Amer) > 60 Est GFR (Non-Af Amer) > 60 Random Glucose 185 H Lactic Acid Calcium 8.4 L Total Bilirubin 1.7 H AST 50 H D ALT < 6 L D Alkaline Phosphatase 96 Total Creatine Kinase CK-MB (Mass) Troponin I 1.6700 H* NT-Pro-B Natriuret Pep 2970 H Total Protein 8.8 H Albumin 4.7 Globulin 4.0 H Albumin/Globulin Ratio 1.2 Arterial Blood Potassium 01/11/18 01/11/18 01/11/18 04:30 05:24 06:35 WBC RBC Hgb Hct MCV MCH MCHC RDW Plt Count MPV Neut % (Auto) Lymph % (Auto) [place] % (Auto) Eos % (Auto) Baso % (Auto) Neut # (Auto) Lymph # (Auto) [place] # (Auto) Eos # (Auto) Baso # (Auto) PT 10.6 INR 1.0 APTT 30 D-Dimer, Quantitative Puncture Site Rr Rr pCO2 92 H* 69 H pO2 336 H 59 L HCO3 32.0 H 33.5 H ABG pH 7.24 L 7.36 ABG Total CO2 42.2 H 41.1 H ABG O2 Saturation 99.6 H 93.9 L ABG Base Excess 9.1 H 11.2 H ABG Hemoglobin 11.2 L 10.9 L ABG Carboxyhemoglobin 1.4 2.3 H POC ABG HHb (Measured) 0.4 5.9 H ABG Methemoglobin 1.1 1.5 Steve Test Pos Pos ABG Potassium A-a O2 Difference 262.0 69.0 Respiratory Index 0.8 1.2 Hgb O2 Saturation 97.0 90.4 L Glucose Lactate Vent Mode Bipap Bipap FiO2 100.0 30.0 Inspiratory BiPAP 12 20 Expiratory BiPAP 6 10 Crit Value Called To Dr. muñiz Crit Value Called By Eva roofer apprentice Crit Value Read Back Y Blood Gas Notified Time 435 Sodium Potassium Chloride Carbon Dioxide Anion Gap BUN Creatinine Est GFR ( Amer) Est GFR (Non-Af Amer) Random Glucose Lactic Acid Calcium Total Bilirubin AST ALT Alkaline Phosphatase Total Creatine Kinase CK-MB (Mass) Troponin I NT-Pro-B Natriuret Pep Total Protein Albumin Globulin Albumin/Globulin Ratio Arterial Blood Potassium 01/11/18 01/11/18 01/11/18 08:04 10:24 10:24 WBC RBC Hgb Hct MCV MCH MCHC RDW Plt Count MPV Neut % (Auto) Lymph % (Auto) [place] % (Auto) Eos % (Auto) Baso % (Auto) Neut # (Auto) Lymph # (Auto) [place] # (Auto) Eos # (Auto) Baso # (Auto) PT INR APTT D-Dimer, Quantitative Puncture Site pCO2 pO2 HCO3 ABG pH ABG Total CO2 ABG O2 Saturation ABG Base Excess ABG Hemoglobin ABG Carboxyhemoglobin POC ABG HHb (Measured) ABG Methemoglobin Steve Test ABG Potassium A-a O2 Difference Respiratory Index Hgb O2 Saturation Glucose Lactate Vent Mode FiO2 Inspiratory BiPAP Expiratory BiPAP Crit Value Called To Crit Value Called By Crit Value Read Back Blood Gas Notified Time Sodium 143 Potassium 4.3 Chloride 92 L Carbon Dioxide 36 H Anion Gap 19 BUN 18 H Creatinine 0.8 Est GFR ( Amer) > 60 Est GFR (Non-Af Amer) > 60 Random Glucose 199 H Lactic Acid 3.0 H 3.6 H Calcium 8.8 Total Bilirubin AST ALT Alkaline Phosphatase Total Creatine Kinase 105 CK-MB (Mass) 7.39 H Troponin I 1.6100 H* NT-Pro-B Natriuret Pep Total Protein Albumin Globulin Albumin/Globulin Ratio Arterial Blood Potassium 01/11/18 01/11/18 01/11/18 13:38 15:54 17:50 WBC RBC Hgb Hct MCV MCH MCHC RDW Plt Count MPV Neut % (Auto) Lymph % (Auto) [place] % (Auto) Eos % (Auto) Baso % (Auto) Neut # (Auto) Lymph # (Auto) [place] # (Auto) Eos # (Auto) Baso # (Auto) PT INR APTT D-Dimer, Quantitative Puncture Site Rba pCO2 60 H pO2 157 H HCO3 31.4 H ABG pH 7.38 ABG Total CO2 37.3 H ABG O2 Saturation 99.1 H ABG Base Excess 8.2 H ABG Hemoglobin ABG Carboxyhemoglobin POC ABG HHb (Measured) ABG Methemoglobin Steve Test Na ABG Potassium 3.4 L A-a O2 Difference 53.0 Respiratory Index 0.3 Hgb O2 Saturation Glucose 222 H Lactate 4.0 H* Vent Mode FiO2 40.0 Inspiratory BiPAP 12 Expiratory BiPAP 6 Crit Value Called To Crit Value Called By Crit Value Read Back Blood Gas Notified Time Sodium 139.0 Potassium Chloride 101.0 Carbon Dioxide Anion Gap BUN Creatinine Est GFR ( Amer) Est GFR (Non-Af Amer) Random Glucose Lactic Acid 5.1 H* Calcium Total Bilirubin AST ALT Alkaline Phosphatase Total Creatine Kinase 111 CK-MB (Mass) 6.79 H Troponin I 2.0000 H* NT-Pro-B Natriuret Pep Total Protein Albumin Globulin Albumin/Globulin Ratio Arterial Blood Potassium 3.4 L Attending/Attestation - Attestation I have personally seen and examined this patient.: Yes I have fully participated in the care of the patient.: Yes I have reviewed all pertinent clinical information: Yes Notes (Text): 01/11/18 19:12 Patient examined during the rounds. Comfortable with the BiPAP. Mild expiratory distress noted. Lactate is reviewed in Elevation noted. Most likely related to heart failure as well as acute non-ST elevation PR. And associate with the COPD exacerbation. Improving at this time. Continue the current treatment.
[2018-01-11] MEDS ORDERED: Iodixanol 320 MG/ML 100 ML BOTTLE IV ONE (08:53)
[2018-01-11] MEDS ORDERED: Sod Polystyrene Sulf 15 gm/60 ml Susp PO ONE (09:15)
[2018-01-11] MEDS: Albuterol-Ipratrop 3 mg / 0.5 (3 ml) UD INH SCH ×4 (09:30→20:01)
[2018-01-11] MEDS ORDERED: Enoxaparin 80 mg Syringe SC SCH (10:00)
[2018-01-11] MEDS ORDERED: Fluticasone-Salmeterol 250-50mcg Diskus IH SCH (10:00)
[2018-01-11] MEDS: Saccharomyces Boulardi 250 mg Cap PO SCH ×2 (10:25→18:38)
--- NOTE | 2018-01-11 10:28 | CT ---
PROCEDURE: CT Chest with contrast (Pulmonary Angiogram) HISTORY: SOB COMPARISON: 11/24/2014 TECHNIQUE: Axial computed tomography images were obtained of the chest in the pulmonary arterial phase of enhancement. Coronal and sagittal reformatted images were created and reviewed. Intravenous contrast dose: 100 mL Visipaque 3 to Radiation dose: Total exam DLP = 503.30 mGy-cm. This CT exam was performed using one or more of the following dose reduction techniques: Automated exposure control, adjustment of the mA and/or kV according to patient size, and/or use of iterative reconstruction technique. FINDINGS: PULMONARY ARTERIES: Unremarkable. No pulmonary embolism. AORTA: No acute findings. No thoracic aortic aneurysm. LUNGS: Multifocal vaguely rounded opacities of varying size throughout the left upper and lower lobes. Largest approximately 1.7 cm in left lower lobe. Likely infectious etiology. However, followup to clearing to rule out neoplastic process. Numerous small nodules 5 mm or less in right upper, middle and lower lobes. There is a 7 mm right lower lobe nodule common nonspecific. Followup with noncontrast CT in 6-12 months. PLEURAL SPACES: Unremarkable. No effusion or pneuomothorax. HEART: Unremarkable. No cardiomegaly. No significant pericardial effusion. LYMPH NODES: No lymphadenopathy. BONES, CHEST WALL: Unremarkable. No fracture or destructive lesion OTHER FINDINGS: Multiple left upper pole renal cortical cysts unchanged from 11/25/2019. IMPRESSION: No evidence of pulmonary embolism. Multifocal opacities throughout left lung, likely infectious. Rule out neoplastic. Followup to clearing. Multiple small right-sided pulmonary nodules common nonspecific. No calcified nodules are appreciated. Small nodules but 1 are 5 mm or less. 7 mm nodule right lower lobe. Follow-up with chest CT 6-12 months. Additional minor findings as above.
[2018-01-11 11:09] LABS: BLOOD UREA NITROGEN 18 mg/dL (7-17); CALCIUM 8.8 mg/dl (8.6-10.4); CK-MB 7.39 ng/mL (0.0-3.38); GFR AFRICAN-AMERICAN > 60; GFR NON-AFRICAN AMERICAN > 60
--- NOTE | 2018-01-11 12:24 | CP.PCM.CON ---
History of Present Illness - History of Present Illness History of Present Illness: The patient is n 82 year old woam with severe COPD. Pt was seen recently at [facility] for copd exacerbation, and follows with Dr Guajardo. Pt has a RBBB, and recent echo revealed nomal LV EF and mild . There is no history of CHF or CAD. The pt had an outpatient holter demonstrating NSR. The pt now presents with dyspnea for 24 hours. CXR shows pneumonia. There is mild TNi elevation of 1.6. ECG shows RBBB. NSR. Pt has received asa and lovenox. She is on bipap. Antibiotics. Review of Systems - Review of Systems All systems: reviewed and no additional remarkable complaints except (as above. No chest pain) Past Patient History - Infectious Disease Hx of Infectious Diseases: None - Past Medical History & Family History Past Medical History?: Yes - Past Social History Smoking Status: Never Smoked - CARDIAC Hx Cardiac Disorders: No - PULMONARY Hx Chronic Obstructive Pulmonary Disease (COPD): Yes (on home O2) - NEUROLOGICAL Hx Neurological Disorder: No - HEENT Hx HEENT Problems: No - RENAL Hx Chronic Kidney Disease: No - ENDOCRINE/METABOLIC Hx Endocrine Disorders: No - HEMATOLOGICAL/ONCOLOGICAL Hx Blood Disorders: No - INTEGUMENTARY Hx Dermatological Problems: No - MUSCULOSKELETAL/RHEUMATOLOGICAL Hx Falls: No - GASTROINTESTINAL Hx Gastrointestinal Disorders: No - GENITOURINARY/GYNECOLOGICAL Hx Genitourinary Disorders: No - PSYCHIATRIC Hx Anxiety: Yes Hx Substance Use: No - SURGICAL HISTORY Hx Cholecystectomy: Yes - ANESTHESIA Hx Anesthesia: Yes Hx Anesthesia Reactions: No Hx Malignant Hyperthermia: No Meds Allergies/Adverse Reactions: Allergies Allergy/AdvReac Type Severity Reaction Status Date / Time No Known Allergies Allergy Verified 01/11/18 04:10 - Medications Medications: Current Medications Albuterol/Ipratropium (Duoneb 3 Mg/0.5 Mg (3 Ml) Ud) 3 ml INH RQ4 J[facility]EI Alprazolam (Xanax) 0.25 mg PO HS JUNIE Stop: 01/18/18 22:01 Aspirin (Aspirin Chewable) 81 mg PO DAILY [facility] Chlorthalidone (Hygroton) 25 mg PO DAILY [facility] Clopidogrel Bisulfate (Plavix) 75 mg PO DAILY [facility] Enoxaparin Sodium (Lovenox) 80 mg SC Q12 [facility] Famotidine (Pepcid) 20 mg PO DAILY [facility] Azithromycin 500 mg/ Sodium (Chloride) 250 mls @ 250 mls/hr IVPB DAILY [facility] PRN Reason: Protocol Ceftriaxone Sodium 1 gm/ (Sodium Chloride) 100 mls @ 100 mls/hr IVPB DAILY [facility] PRN Reason: Protocol Montelukast Sodium (Singulair) 10 mg PO HS [facility] Saccharomyces Boulardii (Florastor) 250 mg PO BID [facility] Last Admin: 01/11/18 10:25 Dose: 250 mg Physical Exam - Constitutional Appears: In Acute Distress - Head Exam Head Exam: ATRAUMATIC - Eye Exam Eye Exam: EOMI, PERRL - ENT Exam ENT Exam: Mucous Membranes Moist - Neck Exam Neck exam: Positive for: Normal Inspection - Respiratory Exam Respiratory Exam: Respiratory Distress - Cardiovascular Exam Cardiovascular Exam: REGULAR RHYTHM - GI/Abdominal Exam GI & Abdominal Exam: Normal Bowel Sounds - Exam External exam: Swelling - Extremities Exam Extremities exam: Positive for: pedal edema - Back Exam Back exam: NORMAL INSPECTION - Neurological Exam Neurological exam: Alert, Oriented x3 - Skin Skin Exam: Dry Results - Vital Signs Recent Vital Signs: Last Vital Signs Temp 98 F 01/11/18 08:00 Pulse 98 H 01/11/18 09:30 Resp 22 01/11/18 08:00 BP 113/65 01/11/18 08:00 Pulse Ox 97 01/11/18 08:00 - Labs Result Diagrams: 01/11/18 04:25 01/11/18 10:24 Labs: Laboratory Results - last 24 hr 01/11/18 01/11/18 01/11/18 04:25 04:25 04:25 WBC 18.1 H D RBC 4.09 Hgb 11.6 Hct 37.1 MCV 90.7 MCH 28.5 MCHC 31.4 L RDW 13.4 Plt Count 364 MPV 7.9 Neut % (Auto) 74.8 Lymph % (Auto) 14.6 L [place] % (Auto) 8.9 Eos % (Auto) 1.0 Baso % (Auto) 0.7 Neut # (Auto) 13.5 H Lymph # (Auto) 2.6 Marion # (Auto) 1.6 H Eos # (Auto) 0.2 Baso # (Auto) 0.1 PT INR APTT D-Dimer, Quantitative 526 H Puncture Site pCO2 pO2 HCO3 ABG pH ABG Total CO2 ABG O2 Saturation ABG Base Excess ABG Hemoglobin ABG Carboxyhemoglobin POC ABG HHb (Measured) ABG Methemoglobin Steve Test A-a O2 Difference Respiratory Index Hgb O2 Saturation Vent Mode FiO2 Inspiratory BiPAP Expiratory BiPAP Crit Value Called To Crit Value Called By Crit Value Read Back Blood Gas Notified Time Sodium 141 Potassium 5.9 H Chloride 97 L Carbon Dioxide 35 H Anion Gap 15 BUN 19 H Creatinine 0.7 Est GFR ( Amer) > 60 Est GFR (Non-Af Amer) > 60 Random Glucose 185 H Lactic Acid Calcium 8.4 L Total Bilirubin 1.7 H AST 50 H D ALT < 6 L D Alkaline Phosphatase 96 Total Creatine Kinase CK-MB (Mass) Troponin I 1.6700 H* NT-Pro-B Natriuret Pep 2970 H Total Protein 8.8 H Albumin 4.7 Globulin 4.0 H Albumin/Globulin Ratio 1.2 01/11/18 01/11/18 01/11/18 04:30 05:24 06:35 WBC RBC Hgb Hct MCV MCH MCHC RDW Plt Count MPV Neut % (Auto) Lymph % (Auto) [place] % (Auto) Eos % (Auto) Baso % (Auto) Neut # (Auto) Lymph # (Auto) Marion # (Auto) Eos # (Auto) Baso # (Auto) PT 10.6 INR 1.0 APTT 30 D-Dimer, Quantitative Puncture Site Rr Rr pCO2 92 H* 69 H pO2 336 H 59 L HCO3 32.0 H 33.5 H ABG pH 7.24 L 7.36 ABG Total CO2 42.2 H 41.1 H ABG O2 Saturation 99.6 H 93.9 L ABG Base Excess 9.1 H 11.2 H ABG Hemoglobin 11.2 L 10.9 L ABG Carboxyhemoglobin 1.4 2.3 H POC ABG HHb (Measured) 0.4 5.9 H ABG Methemoglobin 1.1 1.5 Steve Test Pos Pos A-a O2 Difference 262.0 69.0 Respiratory Index 0.8 1.2 Hgb O2 Saturation 97.0 90.4 L Vent Mode Bipap Bipap FiO2 100.0 30.0 Inspiratory BiPAP 12 20 Expiratory BiPAP 6 10 Crit Value Called To Dr. muñiz Crit Value Called By Eva chemical laboratory tester Crit Value Read Back Y Blood Gas Notified Time 435 Sodium Potassium Chloride Carbon Dioxide Anion Gap BUN Creatinine Est GFR ( Amer) Est GFR (Non-Af Amer) Random Glucose Lactic Acid Calcium Total Bilirubin AST ALT Alkaline Phosphatase Total Creatine Kinase CK-MB (Mass) Troponin I NT-Pro-B Natriuret Pep Total Protein Albumin Globulin Albumin/Globulin Ratio 01/11/18 01/11/18 01/11/18 08:04 10:24 10:24 WBC RBC Hgb Hct MCV MCH MCHC RDW Plt Count MPV Neut % (Auto) Lymph % (Auto) [place] % (Auto) Eos % (Auto) Baso % (Auto) Neut # (Auto) Lymph # (Auto) Marion # (Auto) Eos # (Auto) Baso # (Auto) PT INR APTT D-Dimer, Quantitative Puncture Site pCO2 pO2 HCO3 ABG pH ABG Total CO2 ABG O2 Saturation ABG Base Excess ABG Hemoglobin ABG Carboxyhemoglobin POC ABG HHb (Measured) ABG Methemoglobin Steve Test A-a O2 Difference Respiratory Index Hgb O2 Saturation Vent Mode FiO2 Inspiratory BiPAP Expiratory BiPAP Crit Value Called To Crit Value Called By Crit Value Read Back Blood Gas Notified Time Sodium 143 Potassium 4.3 Chloride 92 L Carbon Dioxide 36 H Anion Gap 19 BUN 18 H Creatinine 0.8 Est GFR ( Amer) > 60 Est GFR (Non-Af Amer) > 60 Random Glucose 199 H Lactic Acid 3.0 H 3.6 H Calcium 8.8 Total Bilirubin AST ALT Alkaline Phosphatase Total Creatine Kinase 105 CK-MB (Mass) 7.39 H Troponin I 1.6100 H* NT-Pro-B Natriuret Pep Total Protein Albumin Globulin Albumin/Globulin Ratio - EKG Data EKG Interpreted by: Myself EKG shows normal: Sinus rhythm (rbbb) Assessment & Plan - Assessment and Plan (Free Text) Assessment: The patient has had a non stemi due to demand ischemia from hypoxia. Previous assessment with recent echo revealed normal LV EF and mild . Pt has not had chf in the past. Plan: continue asa lovenox, supportive care. antibiotics. Improving respiratory status will reduce cardiac oxygen demands. Will consider cath once patient's pneumonia has resolved and pt is stable. No beta maikel for now due to severe copd.
--- NOTE | 2018-01-11 12:49 | VASCLAB ---
PROCEDURE: Lower Extremity Venous Duplex Exam. HISTORY: B/L lower extremity edema and pain SOB PRIORS: None. TECHNIQUE: Bilateral common femoral, femoral, popliteal and posterior tibial, peroneal and great saphenous veins were evaluated. Flow was assessed with color Doppler, compressibility, assessment of phasic flow and augmentation response. Report prepared by Itz Roberto, RVT FINDINGS: RIGHT: 1. Common Femoral Vein: 1.1. Compressibility - Fully compressible: Thrombus - None : Flow - Phasic: Augmentation -Normal: Reflux - . 2. Femoral Vein: 2.1. Compressibility - Fully compressible: Thrombus - None : Flow - Phasic: Augmentation -Normal: Reflux - . 3. Popliteal Vein: 3.1. Compressibility - Fully compressible: Thrombus - None : Flow - Phasic: Augmentation -Normal: Reflux - . 4. Posterior Tibial Vein: 4.1. Compressibility - Fully compressible: Thrombus - None: Flow - : Augmentation -: Reflux - . 5. Peroneal Vein: 5.1. Compressibility - Fully compressible: Thrombus - None: Flow - : Augmentation -: Reflux - . 6. Great Saphenous Vein: 6.1. Compressibility - Fully compressible: Thrombus - None: Flow - Phasic: Augmentation - l: Reflux - . LEFT: 1. Common Femoral Vein: 1.1. Compressibility - Fully compressible: Thrombus - None: Flow - Phasic: Augmentation -Normal: Reflux - . 2. Femoral Vein: 2.1. Compressibility - Fully compressible: Thrombus - None: Flow - Phasic: Augmentation -Normal: Reflux - . 3. Popliteal Vein: 3.1. Compressibility - Fully compressible: Thrombus - None : Flow - Phasic: Augmentation -Normal: Reflux - . 4. Posterior Tibial Vein: 4.1. Compressibility - Fully compressible: Thrombus - None: Flow - : Augmentation -: Reflux - . 5. Peroneal Vein: 5.1. Compressibility - Fully compressible: Thrombus - None: Flow - : Augmentation -: Reflux - . 6. Great Saphenous Vein: 6.1. Compressibility - Fully compressible: Thrombus - None: Flow - Phasic: Augmentation - : Reflux - . OTHER FINDINGS: Right: None significant. Left: None significant. IMPRESSION: Right: No evidence of deep or superficial vein thrombosis of the right lower extremity. Left: No evidence of deep or superficial vein thrombosis of the left lower extremity.
[2018-01-11] MEDS ORDERED: Sodium Chloride 0.9% 1,000 ML IV SCH (14:45)
[2018-01-11] MEDS: Sodium Chloride 0.9% 1,000 ML IV SCH (15:43)
[2018-01-11 16:07] LABS: ARTERIAL BLOOD GAS HCO3 31.4 mmol/L (21-28); ARTERIAL BLOOD GAS O2 SAT 99.1 % (95-98); ARTERIAL BLOOD GAS PCO2 60 mm/Hg (35-45); ARTERIAL BLOOD GAS PH 7.38 (7.35-7.45); ARTERIAL BLOOD GAS PO2 157 mm/Hg (80-100); ARTERIAL BLOOD GAS TCO2 37.3 mmol/L (22-28)
--- NOTE | 2018-01-11 17:30 | CP.PCM.CON ---
History of Present Illness - History of Present Illness History of Present Illness: Reason for consult = COPD Exacerbation + Pneumonia Patient is an 82 year old female with past medical history of COPD, HTN, CAD and RA who presented who presented today (01/11) with sudden onset shortness of breath. Patient also endorses a history of productive cough of one week's duration, productive of white sputum. Patient seen and examined in the ICU and was comfortably conversational on BiPap. Patient Chest CT ordered in the ER shows possible pneumonia of the left lung. Assessment/Plan 1. Pneumonia Patient afebrile at 98.0F, but tachypneic (RR = 30) and tachycardic (HR = 98); Patient initially saturating low on 30 O2 BiPap, but currently saturating in the high 90's on 40. Continue antibiotics, 2. COPD Oxygenation improved on BiPap 40. Continue Singulair 10 mg PO HS and Duonebs q6H scheduled. 3. Pulmonary nodules Chest CT shows "multiple small right-sided pulmonary nodules..." measuring 1-5 mm, but no calcified nodules. Patient denies smoking history,and continue followup CAT scan of the chest Past Patient History - Infectious Disease Hx of Infectious Diseases: None - Past Medical History & Family History Past Medical History?: Yes - Past Social History Smoking Status: Never Smoked - CARDIAC Hx Cardiac Disorders: Yes Hx Congestive Heart Failure: Yes Hx Hypertension: Yes Other/Comment: CAD - PULMONARY Hx Respiratory Disorders: Yes Hx Chronic Obstructive Pulmonary Disease (COPD): Yes (on home O2) - NEUROLOGICAL Hx Neurological Disorder: No - HEENT Hx HEENT Problems: No Hx Cataracts: Yes Other/Comment: ATQ[place] RT EAR - RENAL Hx Chronic Kidney Disease: No - ENDOCRINE/METABOLIC Hx Endocrine Disorders: No - HEMATOLOGICAL/ONCOLOGICAL Hx Blood Disorders: No - INTEGUMENTARY Hx Dermatological Problems: No - MUSCULOSKELETAL/RHEUMATOLOGICAL Hx Musculoskeletal Disorders: Yes Hx Arthritis: Yes Hx Falls: No - GASTROINTESTINAL Hx Gastrointestinal Disorders: No - GENITOURINARY/GYNECOLOGICAL Hx Genitourinary Disorders: No - PSYCHIATRIC Hx Anxiety: Yes Hx Substance Use: No - SURGICAL HISTORY Hx Section: Yes Hx Cholecystectomy: Yes - ANESTHESIA Hx Anesthesia: Yes Hx Anesthesia Reactions: No Hx Malignant Hyperthermia: No Meds Allergies/Adverse Reactions: Allergies Allergy/AdvReac Type Severity Reaction Status Date / Time No Known Allergies Allergy Verified 01/11/18 04:10 - Medications Medications: Current Medications Albuterol/Ipratropium (Duoneb 3 Mg/0.5 Mg (3 Ml) Ud) 3 ml INH RQ4 [facility] Last Admin: 01/11/18 16:39 Dose: 3 ml Alprazolam (Xanax) 0.25 mg PO HS [facility] Stop: 01/18/18 22:01 Aspirin (Aspirin Chewable) 81 mg PO DAILY [facility] Chlorthalidone (Hygroton) 25 mg PO DAILY [facility] Clopidogrel Bisulfate (Plavix) 75 mg PO DAILY [facility] Enoxaparin Sodium (Lovenox) 80 mg SC Q12 [facility] Famotidine (Pepcid) 20 mg PO DAILY [facility] Azithromycin 500 mg/ Sodium (Chloride) 250 mls @ 250 mls/hr IVPB DAILY [facility] PRN Reason: Protocol Ceftriaxone Sodium 1 gm/ (Sodium Chloride) 100 mls @ 100 mls/hr IVPB DAILY [facility] PRN Reason: Protocol Sodium Chloride (Sodium Chloride 0.9%) 1,000 mls @ 75 mls/hr IV .[id number] [facility] Last Admin: 01/11/18 15:43 Dose: 75 mls/hr Montelukast Sodium (Singulair) 10 mg PO HS [facility] Saccharomyces Boulardii (Florastor) 250 mg PO BID [facility] Last Admin: 01/11/18 10:25 Dose: 250 mg Results - Vital Signs Recent Vital Signs: Last Vital Signs Temp 97.6 F 01/11/18 16:00 Pulse 89 01/11/18 16:00 Resp 19 01/11/18 16:00 BP 117/48 L 01/11/18 16:00 Pulse Ox 100 01/11/18 16:00 - Labs Result Diagrams: 01/11/18 04:25 01/11/18 10:24 Labs: Laboratory Results - last 24 hr 01/11/18 01/11/18 01/11/18 04:25 04:25 04:25 WBC 18.1 H D RBC 4.09 Hgb 11.6 Hct 37.1 MCV 90.7 MCH 28.5 MCHC 31.4 L RDW 13.4 Plt Count 364 MPV 7.9 Neut % (Auto) 74.8 Lymph % (Auto) 14.6 L Hopkins % (Auto) 8.9 Eos % (Auto) 1.0 Baso % (Auto) 0.7 Neut # (Auto) 13.5 H Lymph # (Auto) 2.6 Hopkins # (Auto) 1.6 H Eos # (Auto) 0.2 Baso # (Auto) 0.1 PT INR APTT D-Dimer, Quantitative 526 H Puncture Site pCO2 pO2 HCO3 ABG pH ABG Total CO2 ABG O2 Saturation ABG Base Excess ABG Hemoglobin ABG Carboxyhemoglobin POC ABG HHb (Measured) ABG Methemoglobin Steve Test ABG Potassium A-a O2 Difference Respiratory Index Hgb O2 Saturation Glucose Lactate Vent Mode FiO2 Inspiratory BiPAP Expiratory BiPAP Crit Value Called To Crit Value Called By Crit Value Read Back Blood Gas Notified Time Sodium 141 Potassium 5.9 H Chloride 97 L Carbon Dioxide 35 H Anion Gap 15 BUN 19 H Creatinine 0.7 Est GFR ( Amer) > 60 Est GFR (Non-Af Amer) > 60 Random Glucose 185 H Lactic Acid Calcium 8.4 L Total Bilirubin 1.7 H AST 50 H D ALT < 6 L D Alkaline Phosphatase 96 Total Creatine Kinase CK-MB (Mass) Troponin I 1.6700 H* NT-Pro-B Natriuret Pep 2970 H Total Protein 8.8 H Albumin 4.7 Globulin 4.0 H Albumin/Globulin Ratio 1.2 Arterial Blood Potassium 01/11/18 01/11/18 01/11/18 04:30 05:24 06:35 WBC RBC Hgb Hct MCV MCH MCHC RDW Plt Count MPV Neut % (Auto) Lymph % (Auto) Hopkins % (Auto) Eos % (Auto) Baso % (Auto) Neut # (Auto) Lymph # (Auto) Hopkins # (Auto) Eos # (Auto) Baso # (Auto) PT 10.6 INR 1.0 APTT 30 D-Dimer, Quantitative Puncture Site Rr Rr pCO2 92 H* 69 H pO2 336 H 59 L HCO3 32.0 H 33.5 H ABG pH 7.24 L 7.36 ABG Total CO2 42.2 H 41.1 H ABG O2 Saturation 99.6 H 93.9 L ABG Base Excess 9.1 H 11.2 H ABG Hemoglobin 11.2 L 10.9 L ABG Carboxyhemoglobin 1.4 2.3 H POC ABG HHb (Measured) 0.4 5.9 H ABG Methemoglobin 1.1 1.5 Stvee Test Pos Pos ABG Potassium A-a O2 Difference 262.0 69.0 Respiratory Index 0.8 1.2 Hgb O2 Saturation 97.0 90.4 L Glucose Lactate Vent Mode Bipap Bipap FiO2 100.0 30.0 Inspiratory BiPAP 12 20 Expiratory BiPAP 6 10 Crit Value Called To Dr. muñiz Crit Value Called By Eva security business analyst Crit Value Read Back Y Blood Gas Notified Time 435 Sodium Potassium Chloride Carbon Dioxide Anion Gap BUN Creatinine Est GFR ( Amer) Est GFR (Non-Af Amer) Random Glucose Lactic Acid Calcium Total Bilirubin AST ALT Alkaline Phosphatase Total Creatine Kinase CK-MB (Mass) Troponin I NT-Pro-B Natriuret Pep Total Protein Albumin Globulin Albumin/Globulin Ratio Arterial Blood Potassium 01/11/18 01/11/18 01/11/18 08:04 10:24 10:24 WBC RBC Hgb Hct MCV MCH MCHC RDW Plt Count MPV Neut % (Auto) Lymph % (Auto) Hopkins % (Auto) Eos % (Auto) Baso % (Auto) Neut # (Auto) Lymph # (Auto) Hopkins # (Auto) Eos # (Auto) Baso # (Auto) PT INR APTT D-Dimer, Quantitative Puncture Site pCO2 pO2 HCO3 ABG pH ABG Total CO2 ABG O2 Saturation ABG Base Excess ABG Hemoglobin ABG Carboxyhemoglobin POC ABG HHb (Measured) ABG Methemoglobin Steve Test ABG Potassium A-a O2 Difference Respiratory Index Hgb O2 Saturation Glucose Lactate Vent Mode FiO2 Inspiratory BiPAP Expiratory BiPAP Crit Value Called To Crit Value Called By Crit Value Read Back Blood Gas Notified Time Sodium 143 Potassium 4.3 Chloride 92 L Carbon Dioxide 36 H Anion Gap 19 BUN 18 H Creatinine 0.8 Est GFR ( Amer) > 60 Est GFR (Non-Af Amer) > 60 Random Glucose 199 H Lactic Acid 3.0 H 3.6 H Calcium 8.8 Total Bilirubin AST ALT Alkaline Phosphatase Total Creatine Kinase 105 CK-MB (Mass) 7.39 H Troponin I 1.6100 H* NT-Pro-B Natriuret Pep Total Protein Albumin Globulin Albumin/Globulin Ratio Arterial Blood Potassium 01/11/18 01/11/18 13:38 15:54 WBC RBC Hgb Hct MCV MCH MCHC RDW Plt Count MPV Neut % (Auto) Lymph % (Auto) Hopkins % (Auto) Eos % (Auto) Baso % (Auto) Neut # (Auto) Lymph # (Auto) Hopkins # (Auto) Eos # (Auto) Baso # (Auto) PT INR APTT D-Dimer, Quantitative Puncture Site Rba pCO2 60 H pO2 157 H HCO3 31.4 H ABG pH 7.38 ABG Total CO2 37.3 H ABG O2 Saturation 99.1 H ABG Base Excess 8.2 H ABG Hemoglobin ABG Carboxyhemoglobin POC ABG HHb (Measured) ABG Methemoglobin Steve Test Na ABG Potassium 3.4 L A-a O2 Difference 53.0 Respiratory Index 0.3 Hgb O2 Saturation Glucose 222 H Lactate 4.0 H* Vent Mode FiO2 40.0 Inspiratory BiPAP 12 Expiratory BiPAP 6 Crit Value Called To Crit Value Called By Crit Value Read Back Blood Gas Notified Time Sodium 139.0 Potassium Chloride 101.0 Carbon Dioxide Anion Gap BUN Creatinine Est GFR ( Amer) Est GFR (Non-Af Amer) Random Glucose Lactic Acid 5.1 H* Calcium Total Bilirubin AST ALT Alkaline Phosphatase Total Creatine Kinase CK-MB (Mass) Troponin I NT-Pro-B Natriuret Pep Total Protein Albumin Globulin Albumin/Globulin Ratio Arterial Blood Potassium 3.4 L
[2018-01-11] MEDS ORDERED: Dextrose 50% SYRINGE Inj (50 ml) IV STA (17:53)
[2018-01-11 18:29] LABS: CK-MB 6.79 ng/mL (0.0-3.38)
[2018-01-11] MEDS: Enoxaparin 80 mg Syringe SC SCH ×2 (18:39→21:16)
[2018-01-12] MEDS: Albuterol-Ipratrop 3 mg / 0.5 (3 ml) UD INH SCH ×6 (00:03→20:33)
[2018-01-12 06:38] LABS: SQUAMOUS EPITHIAL 1 /hpf (0-5); URINE AMORPHOUS SEDIMENT RARE /ul (<OCC); URINE BACTERIA RARE (<OCC); URINE BILIRUBIN NEGATIVE (NEGATIVE); URINE BLOOD NEGATIVE (NEGATIVE); URINE CLARITY Hazy (Clear); URINE COLOR Yellow (YELLOW); URINE GLUCOSE (UA) 1+ mg/dL (Normal); URINE LEUKOCYTE ESTERASE NEG Leu/uL (Negative); URINE PROTEIN NEGATIVE (NEGATIVE); URINE UROBILINOGEN NORMAL mg/dL (0.2-1.0)
[2018-01-12 06:39] LABS: BASO # 0.1 K/uL (0.0-0.2); BASO % 0.3 % (0.0-2.0); HEMOGLOBIN 9.7 g/dL (11.0-16.0); LYMPH # 1.2 K/uL (1.0-4.3); LYMPH % 5.1 % (20.0-40.0); MEAN CORPUSCULAR HEMOGLOBIN 29.1 pg (27.0-31.0); MEAN CORPUSCULAR HGB CONC 32.7 g/dL (33.0-37.0); MEAN PLATELET VOLUME 8.3 fL (7.2-11.7); MONO # 1.8 K/uL (0.0-0.8); MONO % 7.6 % (0.0-10.0); PLATELET COUNT 275 K/uL (130-400); RBC 3.33 Mil/uL (3.80-5.20); RED CELL DISTRIBUTION WIDTH 13.7 % (11.5-14.5); WHITE BLOOD COUNT 24.1 K/uL (4.8-10.8)
[2018-01-12] MEDS: Sodium Chloride 0.9% 1,000 ML IV SCH ×2 (06:47→17:09)
[2018-01-12 07:02] LABS: ALB/GLOB RATIO 1.2 (1.0-2.1); ALBUMIN 3.5 g/dL (3.5-5.0); ALT/SGPT 22 U/L (9-52); AST/SGOT 23 U/L (14-36); BLOOD UREA NITROGEN 19 mg/dL (7-17); GFR AFRICAN-AMERICAN > 60; GFR NON-AFRICAN AMERICAN > 60
--- NOTE | 2018-01-12 07:22 | CARD ---
APPROVED REPORT EXAM: Two-dimensional and M-mode echocardiogram with Doppler and color Doppler. Other Information Quality : TDSRhythm : INDICATION Dyspnea Chest Pain 2D DIMENSIONS IVSd1.0 (0.7-1.1cm)LVDd5.1 (3.9-5.9cm) LVOT Diameter2.0 (1.8-2.4cm)PWd1.0 (0.7-1.1cm) LVDs3.6 (2.5-4.0cm)FS (%) 29.2 % LVEF (%)49.0 (>50%) M-Mode DIMENSIONS Left Atrium (MM)3.73 (2.5-4.0cm)IVSd1.14 (0.7-1.1cm) Aortic Root3.39 (2.2-3.7cm)LVDd5.03 (4.0-5.6cm) Aortic Cusp Exc.1.45 (1.5-2.0cm)PWd1.09 (0.7-1.1cm) FS (%) 25 %LVDs3.80 (2.0-3.8cm) LVEF (%)48 (>50%) Aortic Valve AoV Peak Agfajfih483.9cm/sAoV VTI47.0cmAO Peak GR.20mmHg LVOT Peak Reivnaqq407.7cm/sLVOT VTI25.40cmAO Mean GR.12mmHg DAISY (VMAX)1.45zq9YOI (VTI)1.72cm2 Mitral Valve MV E Dqweityi856.0cm/sMV A Fobgwexb967.8cm/sE/A ratio1.0 TDI E/Lateral E'0.0E/Medial E'0.0 Tricuspid Valve TR Peak Nyrnujzu377ke/sTR Peak Gr.41wxHnBWOJ33yuZq LEFT VENTRICLE The left ventricle is normal size. There is normal left ventricular wall thickness. Left ventricle systolic function is borderline. The Ejection Fraction is 45-50%. There is normal LV segmental wall motion. Tissue Doppler imaging reveals abnormal left ventricular diastolic dysfunction. No left ventricle thrombus noted on this study. RIGHT VENTRICLE The right ventricle is normal size. There is normal right ventricular wall thickness. The right ventricular systolic function is normal. ATRIA The left atrium size is normal. The right atrium size is normal. The interatrial septum is intact with no evidence for an atrial septal defect. AORTIC VALVE The aortic valve is calcified and displays mild decreased opening. No aortic regurgitation is present. Calculated aortic valve area is 1.72 cm2 with maximum pressure gradient of 20 mmHg and mean pressure gradient of 12 mmHg. Mild aortic stenosis. MITRAL VALVE Mild mitral annular calcification most profound in the posterior mitral valve leaflet. There is no evidence of mitral valve prolapse. There is no mitral valve stenosis. There is no mitral valve regurgitation noted. TRICUSPID VALVE The tricuspid valve is normal in structure. There is mild tricuspid regurgitation. Right ventricular systolic pressure is estimated at 30 mmHg. There is borderline pulmonary hypertension. PULMONIC VALVE The pulmonic valve is not well visualized. There is no pulmonic valvular regurgitation. GREAT VESSELS The aortic root is normal in size. PERICARDIAL EFFUSION There is no pericardial effusion. <Conclusion> Left ventricle systolic function is borderline. The Ejection Fraction is 45-50%. Diastolic dysfunction. Mild aortic stenosis. No aortic regurgitation is present. There is no mitral valve regurgitation noted. There is mild tricuspid regurgitation. There is borderline pulmonary hypertension. There is no pulmonic valvular regurgitation.
[2018-01-12 08:25] LABS: BANDS 1 % (0-2); LYMPHOCYTE 5 % (20-40); MONOCYTE 6 % (0-10); NEUTROPHIL 87 % (50-75); PLATELET ESTIMATE NORMAL (NORMAL); TOTAL CELLS COUNTED 100
[2018-01-12 08:26] LABS: ANISOCYTOSIS SLIGHT; HYPOCHROMIC SLIGHT; POIKILOCYTOSIS SLIGHT
--- NOTE | 2018-01-12 09:30 | CP.PCM.PN ---
Subjective - Date & Time of Evaluation Date of Evaluation: 01/12/18 Time of Evaluation: 09:30 - Subjective Subjective: Patient reported that she slept ok overnight. Denied chest pain. She explains that last night she had the bipap off briefly but became very short of breath when moving around to eat and use the commode. She did report minimal epigastric pain at night - currently no epigastric pain, denied headache, denied nausea, denied vommitting, tolerated food ok. Troponin increased to 2 HR on telemetry has been in the 90s to low 100s. BP systolic in the 100s As mentioned previously this is a a 82 year old female with a history HTN, RA, COPD (she says a lot of second hand smoking in family) on home oxygen, she was very short of breath, there is also an NSTEMI from demand ischemia. The patient is also being treated for pneumonia as well and is on IV abx. Cultures negative at this moment. Objective - Vital Signs/Intake and Output Vital Signs (last 24 hours): Temp Pulse Resp BP Pulse Ox 97.5 F L 85 22 105/43 L 99 01/12/18 04:00 01/12/18 07:10 01/12/18 06:00 01/12/18 06:00 01/12/18 06:00 Intake and Output: 01/12/18 01/12/18 06:59 18:59 Intake Total 1020 Output Total 750 Balance 270 - Medications Medications: Current Medications Albuterol/Ipratropium (Duoneb 3 Mg/0.5 Mg (3 Ml) Ud) 3 ml INH RQ4 [facility] Last Admin: 01/12/18 07:10 Dose: 3 ml Alprazolam (Xanax) 0.25 mg PO HS [facility] Stop: 01/18/18 22:01 Last Admin: 01/11/18 21:17 Dose: 0.25 mg Aspirin (Aspirin Chewable) 81 mg PO DAILY [facility] Carvedilol (Coreg) 3.125 mg PO BID [facility] Chlorthalidone (Hygroton) 25 mg PO DAILY [facility] Clopidogrel Bisulfate (Plavix) 75 mg PO DAILY [facility] Enoxaparin Sodium (Lovenox) 80 mg SC Q12 [facility] Last Admin: 01/11/18 21:16 Dose: 80 mg Famotidine (Pepcid) 20 mg PO DAILY [facility] Azithromycin 500 mg/ Sodium (Chloride) 250 mls @ 250 mls/hr IVPB DAILY [facility] PRN Reason: Protocol Ceftriaxone Sodium 1 gm/ (Sodium Chloride) 100 mls @ 100 mls/hr IVPB DAILY [facility] PRN Reason: Protocol Sodium Chloride (Sodium Chloride 0.9%) 1,000 mls @ 75 mls/hr IV .[id number] [facility] Last Admin: 01/12/18 06:47 Dose: 75 mls/hr Montelukast Sodium (Singulair) 10 mg PO HS [facility] Last Admin: 01/11/18 21:17 Dose: 10 mg Saccharomyces Boulardii (Florastor) 250 mg PO BID [facility] Last Admin: 01/11/18 18:38 Dose: 250 mg - Labs Labs: 01/12/18 06:28 01/12/18 06:27 PT 10.6 SECONDS (9.7-12.2) 01/11/18 06:35 INR 1.0 01/11/18 06:35 APTT 30 SECONDS (21-34) 01/11/18 06:35 Assessment and Plan - Assessment and Plan (Free Text) Assessment: Assessment: 82yo F admitted for hypercapneic respiratory failure 2/2 to PNA vs PE vs NSTEMI Hypercapneic respiratory failure 2/2 to PNA and COPD 01/12: Not short of breath at rest, however needs Bipap. Currently on IV abx rocephin and azithromycin IV. Blood cultures negative at this moment. She does have an elevated WBC. Afebrile. Checking also atypical cultures and procalcitonin. CT scan was negative for PE, it did note pulmonary nodules. -Co2 retention on ABG; from previous admissions Co2 is actually lower than previous -currently on BiPap; tolerating; patient is able to speak through BiPap NSTEMI 01/12: Conitnue with Plavix and Lovenox SC BID Remains on statin and ASA Likley demand ischemia causing NSTEMI Per cardiology patient will need cardiac catherization at some point Pmhx of COPD; acute on chronic Continue with tx Breo and Incruse Remains on Bipap Hx of RA -c/w leflunomide and Celebrex daily Hx of HTN 01/12: BB on hold due to COPD at this moment. Currently the systolic BP is in the 100 emeterio. -c/w Bisoprodol, Metalazone, Chlorthiadone Hx of CHF systolic and diastolic failure; EF not documented; acute on chronic 01/12: Echo returned reporting EF 40 to 45% Proph -Lovenox 80mg received; depending on PE/DVT/Cardiology can continue -Gi prophylaxis not indicated at this time -NPO until tests are completed
[2018-01-12] MEDS: Azithromycin 500 MG in Sodium Chloride 0.9% 250 ML IVPB SCH (09:46)
[2018-01-12] MEDS: Enoxaparin 80 mg Syringe SC SCH ×2 (09:47→22:20)
[2018-01-12] MEDS: Saccharomyces Boulardi 250 mg Cap PO SCH ×2 (09:48→17:07)
--- NOTE | 2018-01-12 10:16 | CP.PCM.PN ---
Subjective - Date & Time of Evaluation Date of Evaluation: 01/12/18 Time of Evaluation: 13:55 - Subjective Subjective: Pulm Progress Note- Dr. Tse's service Patient seen and examined resting. Son present bedside. Son inquired about mother's medical course thus far. Per nursing, patient is extremely anxious at times. Patient relies on BiPAP therapy almost exclusively except during meals. Patient could not be asked a ROS at this time because she was sleeping. Objective - Vital Signs/Intake and Output Vital Signs (last 24 hours): Temp Pulse Resp BP Pulse Ox 97.5 F L 85 22 105/43 L 99 01/12/18 04:00 01/12/18 07:10 01/12/18 06:00 01/12/18 06:00 01/12/18 06:00 Intake and Output: 01/12/18 01/12/18 06:59 18:59 Intake Total 1020 Output Total 750 Balance 270 - Medications Medications: Current Medications Albuterol/Ipratropium (Duoneb 3 Mg/0.5 Mg (3 Ml) Ud) 3 ml INH RQ4 [facility] Last Admin: 01/12/18 07:10 Dose: 3 ml Alprazolam (Xanax) 0.25 mg PO HS [facility] Stop: 01/18/18 22:01 Last Admin: 01/11/18 21:17 Dose: 0.25 mg Aspirin (Aspirin Chewable) 81 mg PO DAILY [facility] Last Admin: 01/12/18 09:48 Dose: 81 mg Carvedilol (Coreg) 3.125 mg PO BID [facility] Chlorthalidone (Hygroton) 25 mg PO DAILY [facility] Last Admin: 01/12/18 09:48 Dose: 25 mg Clopidogrel Bisulfate (Plavix) 75 mg PO DAILY [facility] Last Admin: 01/12/18 09:48 Dose: 75 mg Enoxaparin Sodium (Lovenox) 80 mg SC Q12 [facility] Last Admin: 01/12/18 09:47 Dose: 80 mg Famotidine (Pepcid) 20 mg PO DAILY [facility] Last Admin: 01/12/18 09:48 Dose: 20 mg Azithromycin 500 mg/ Sodium (Chloride) 250 mls @ 250 mls/hr IVPB DAILY [facility] PRN Reason: Protocol Last Admin: 01/12/18 09:46 Dose: 250 mls/hr Ceftriaxone Sodium 1 gm/ (Sodium Chloride) 100 mls @ 100 mls/hr IVPB DAILY [facility] PRN Reason: Protocol Last Admin: 01/12/18 09:47 Dose: 100 mls/hr Sodium Chloride (Sodium Chloride 0.9%) 1,000 mls @ 75 mls/hr IV .[id number] [facility] Last Admin: 01/12/18 06:47 Dose: 75 mls/hr Montelukast Sodium (Singulair) 10 mg PO HS [facility] Last Admin: 01/11/18 21:17 Dose: 10 mg Saccharomyces Boulardii (Florastor) 250 mg PO BID [facility] Last Admin: 01/12/18 09:48 Dose: 250 mg - Labs Labs: 01/12/18 06:28 01/12/18 06:27 PT 10.6 SECONDS (9.7-12.2) 01/11/18 06:35 INR 1.0 01/11/18 06:35 APTT 30 SECONDS (21-34) 01/11/18 06:35 - Constitutional Appears: Non-toxic, No Acute Distress - Head Exam Head Exam: ATRAUMATIC - Eye Exam Eye Exam: EOMI Pupil Exam: PERRL - ENT Exam ENT Exam: Mucous Membranes Moist - Neck Exam Neck Exam: Full ROM - Respiratory Exam Respiratory Exam: Decreased Breath Sounds. absent: Wheezes - Cardiovascular Exam Cardiovascular Exam: +S1, +S2 - GI/Abdominal Exam GI & Abdominal Exam: Soft - Neurological Exam Neurological Exam: absent: Awake - Psychiatric Exam Psychiatric exam: Normal Affect, Normal Mood - Skin Skin Exam: Dry, Warm Assessment and Plan (1) Acute respiratory failure with hypercapnia Assessment & Plan: Likely secondary to underlying pneumonia and COPD exacerbation Elevated white count noted- On abx therapy BiPAP therapy, Duonebs PRN, Singulair Cont to monitor Status: Acute (2) Pneumonia Assessment & Plan: on antibiotics therapy started 01/11/18 On Florastor Sputum culture pending Status: Acute (3) COPD exacerbation Assessment & Plan: on BiPAP therapy, singulair, duonebs Status: Acute (4) Elevated troponin Assessment & Plan: Elevated troponin likely due to demand ischemia Cont to monitor Status: Acute (5) Pulmonary nodule Assessment & Plan: Chest CT shows multiple nonspecific small right sided pulm nodules. No apparent calcifications noted. Recommendations for repeat Chest CT in 6-12 months for surveillance. Status: Acute (6) History of second hand smoke exposure Assessment & Plan: Counseling warranted Status: Chronic
[2018-01-12 11:06] LABS: MYCOPLASMA PNEUMONIAE IGM NEGATIVE (NEGATIVE)
--- NOTE | 2018-01-12 12:33 | CP.CCUPN ---
<Agustina Hamilton - Last Filed: 01/12/18 12:41> CCU Subjective - Physician Review Subjective (Free Text): Patient seen and examined at bedside. Patient reports her breathing has improved. CCU Objective - Vital Signs / Intake & Output Intake and Output (Last 8hrs): Intake & Output 01/11/18 01/12/18 01/12/18 22:59 06:59 14:59 Intake Total 765 600 Output Total 750 Balance 765 -150 Weight 211 lb 3 oz Intake: Intake, IV Amount 525 600 Right Forearm 525 600 Oral 240 Output: Urine 750 Urine, Voided 750 - Physical Exam Head: Positive for: Atraumatic, Normocephalic Pupils: Positive for: PERRL Extroacular Muscles: Positive for: EOMI Conjunctiva: Positive for: Normal Mouth: Positive for: Moist Mucous Membranes Respiratory/Chest: Positive for: Decreased Breath Sounds Cardiovascular: Positive for: Regular Rate and Rhythm Abdomen: Positive for: Normal Bowel Sounds. Negative for: Tenderness, Distention Upper Extremity: Positive for: Normal Inspection, Normal ROM, NORMAL PULSES, Neurovascularly Intact, Capillary Refill < 2s Lower Extremity: Positive for: Normal Inspection, NORMAL PULSES, Neurovascularly Intact, Capillary Refill < 2 s Neurological: Positive for: GCS=15, CN II-XII Intact Skin: Positive for: Warm, Dry, Normal Color Psychiatric: Positive for: Alert, Oriented x 3 - Medications Active Medications: Active Medications Generic Name Dose Route Start Last Admin Trade Name Freq PRN Reason Stop Dose Admin Albuterol/Ipratropium 3 ml 01/11/18 09:45 01/12/18 07:10 Duoneb 3 Mg/0.5 Mg (3 Ml) Ud INH 3 ml RQ4 JUNIE Administration Alprazolam 0.25 mg 01/11/18 22:00 01/11/18 21:17 Xanax PO 01/18/18 22:01 0.25 mg HS JUNIE Administration Alprazolam 1 mg 01/12/18 12:00 01/12/18 12:15 Xanax PO 1 mg Q8 PRN Administration Anxiety Aspirin 81 mg 01/12/18 10:00 01/12/18 09:48 Aspirin Chewable PO 81 mg DAILY JUNIE Administration Carvedilol 3.125 mg 01/12/18 10:00 Coreg PO BID JUNIE Chlorthalidone 25 mg 01/12/18 10:00 01/12/18 09:48 Hygroton PO 25 mg DAILY JUNIE Administration Clopidogrel Bisulfate 75 mg 01/12/18 10:00 01/12/18 09:48 Plavix PO 75 mg DAILY JUNIE Administration Enoxaparin Sodium 80 mg 01/11/18 18:00 01/12/18 09:47 Lovenox SC 80 mg Q12 JUNIE Administration Famotidine 20 mg 01/12/18 10:00 01/12/18 09:48 Pepcid PO 20 mg DAILY JUNIE Administration Azithromycin 500 mg/ Sodium 250 mls @ 250 mls/hr 01/12/18 10:00 01/12/18 09: 46 Chloride IVPB 250 mls/hr DAILY JUNIE Administration Protocol Ceftriaxone Sodium 1 gm/ 100 mls @ 100 mls/hr 01/12/18 10:00 01/12/18 09:47 Sodium Chloride IVPB 100 mls/hr DAILY JUNIE Administration Protocol Sodium Chloride 1,000 mls @ 75 mls/hr 01/11/18 15:20 01/12/18 06:47 Sodium Chloride 0.9% IV 75 mls/hr .[id number] JUNIE Administration Montelukast Sodium 10 mg 01/11/18 22:00 01/11/18 21:17 Singulair PO 10 mg HS JUNIE Administration Saccharomyces Boulardii 250 mg 01/11/18 10:00 01/12/18 09:48 Florastor PO 250 mg BID JUNIE Administration - Patient Studies Lab Studies: Microbiology Studies 01/11/18 10:24 MRSA Culture (Admit) - Final Naris MRSA NOT DETECTED 01/11/18 04:44 Blood Culture - Preliminary Blood NO GROWTH AFTER 24 HOURS 01/11/18 04:44 Blood Culture - Preliminary Blood NO GROWTH AFTER 24 HOURS 01/11/18 Unknown Gram Stain - Final Sputum Induced Lab Studies 01/12/18 01/12/18 01/12/18 Range/Units 10:27 06:29 06:28 WBC 24.1 H (4.8-10.8) K/uL RBC 3.33 L (3.80-5.20) Mil/uL Hgb 9.7 L (11.0-16.0) g/dL Hct 29.7 L (34.0-47.0) % MCV 89.0 (81.0-99.0) fL MCH 29.1 (27.0-31.0) pg MCHC 32.7 L (33.0-37.0) g/dL RDW 13.7 (11.5-14.5) % Plt Count 275 (130-400) K/uL MPV 8.3 (7.2-11.7) fL Neut % (Auto) 87.0 H (50.0-75.0) % Lymph % (Auto) 5.1 L (20.0-40.0) % Moca % (Auto) 7.6 (0.0-10.0) % Eos % (Auto) 0.0 (0.0-4.0) % Baso % (Auto) 0.3 (0.0-2.0) % Neut # (Auto) 21.0 H (1.8-7.0) K/uL Lymph # (Auto) 1.2 (1.0-4.3) K/uL Moca # (Auto) 1.8 H (0.0-0.8) K/uL Eos # (Auto) 0.0 (0.0-0.7) K/uL Baso # (Auto) 0.1 (0.0-0.2) K/uL Neutrophils % (Manual) 87 H (50-75) % Band Neutrophils % 1 (0-2) % Lymphocytes % (Manual) 5 L (20-40) % Monocytes % (Manual) 6 (0-10) % Platelet Estimate Normal (NORMAL) Hypochromasia (manual) Slight Poikilocytosis (manual Slight Anisocytosis (manual) Slight Puncture Site pCO2 (35-45) mm/Hg pO2 (80-100) mm/Hg HCO3 (21-28) mmol/L ABG pH (7.35-7.45) ABG Total CO2 (22-28) mmol/L ABG O2 Saturation (95-98) % ABG Base Excess (-2.0-3.0) mmol/L Steve Test ABG Potassium (3.6-5.2) mmol/L A-a O2 Difference mm/Hg Respiratory Index Sodium (132-148) mmol/l Chloride (98-107) mmol/L Glucose (65-105) mg/dl Lactate (0.7-2.1) mmol/L FiO2 % Inspiratory BiPAP Expiratory BiPAP Potassium (3.6-5.2) mmol/L Carbon Dioxide (22-30) mmol/L Anion Gap (10-20) BUN (7-17) mg/dL Creatinine (0.7-1.2) mg/dL Est GFR ( Amer) Est GFR (Non-Af Amer) Random Glucose (65-105) mg/dL Hemoglobin A1c (4.2-6.5) % Lactic Acid (0.7-2.1) mmol/L Calcium (8.6-10.4) mg/dl Phosphorus (2.5-4.5) mg/dL Magnesium (1.6-2.3) mg/dL Total Bilirubin (0.2-1.3) mg/dL AST (14-36) U/L ALT (9-52) U/L Alkaline Phosphatase (38-126) U/L Total Creatine Kinase (30-135) U/L CK-MB (Mass) (0.0-3.38) ng/mL Troponin I (0.00-0.120) ng/mL Total Protein (6.3-8.3) g/dL Albumin (3.5-5.0) g/dL Globulin (2.2-3.9) gm/dL Albumin/Globulin Ratio (1.0-2.1) Triglycerides (0-149) mg/dL Cholesterol (0-199) mg/dL LDL Cholesterol Direct (0-129) mg/dL HDL Cholesterol (30-70) mg/dL Procalcitonin (0.19-0.49) NG/ML Free T4 (0.78-2.19) ng/dL TSH 3rd Generation (0.46-4.68) mIU/L Arterial Blood Potassium (3.6-5.2) mmol/L Urine Color Yellow (YELLOW) Urine Clarity Hazy (Clear) Urine pH 5.0 (5.0-8.0) Ur Specific [place] 1.046 H (1.003-1.030) Urine Protein Negative (NEGATIVE) mg/dL Urine Glucose (UA) 1+ (Normal) mg/dL Urine Ketones Negative (NEGATIVE) mg/dL Urine Blood Negative (NEGATIVE) Urine Nitrate Negative (NEGATIVE) Urine Bilirubin Negative (NEGATIVE) Urine Urobilinogen Normal (0.2-1.0) mg/dL Ur Leukocyte Esterase Neg (Negative) Gisela/uL Urine WBC (Auto) 2 (0-5) /hpf Urine RBC (Auto) 2 (0-3) /hpf Ur Squamous Epith Cells 1 (0-5) /hpf Amorphous Sediment Rare H (<OCC) /ul Urine Bacteria Rare (<OCC) Mycoplasma pneumon IgM Negative (NEGATIVE) 01/12/18 01/12/18 01/12/18 Range/Units 06:28 06:28 06:27 WBC (4.8-10.8) K/uL RBC (3.80-5.20) Mil/uL Hgb (11.0-16.0) g/dL Hct (34.0-47.0) % MCV (81.0-99.0) fL MCH (27.0-31.0) pg MCHC (33.0-37.0) g/dL RDW (11.5-14.5) % Plt Count (130-400) K/uL MPV (7.2-11.7) fL Neut % (Auto) (50.0-75.0) % Lymph % (Auto) (20.0-40.0) % Moca % (Auto) (0.0-10.0) % Eos % (Auto) (0.0-4.0) % Baso % (Auto) (0.0-2.0) % Neut # (Auto) (1.8-7.0) K/uL Lymph # (Auto) (1.0-4.3) K/uL Moca # (Auto) (0.0-0.8) K/uL Eos # (Auto) (0.0-0.7) K/uL Baso # (Auto) (0.0-0.2) K/uL Neutrophils % (Manual) (50-75) % Band Neutrophils % (0-2) % Lymphocytes % (Manual) (20-40) % Monocytes % (Manual) (0-10) % Platelet Estimate (NORMAL) Hypochromasia (manual) Poikilocytosis (manual Anisocytosis (manual) Puncture Site pCO2 (35-45) mm/Hg pO2 (80-100) mm/Hg HCO3 (21-28) mmol/L ABG pH (7.35-7.45) ABG Total CO2 (22-28) mmol/L ABG O2 Saturation (95-98) % ABG Base Excess (-2.0-3.0) mmol/L Steve Test ABG Potassium (3.6-5.2) mmol/L A-a O2 Difference mm/Hg Respiratory Index Sodium 142 (132-148) mmol/l Chloride 95 L (98-107) mmol/L Glucose (65-105) mg/dl Lactate (0.7-2.1) mmol/L FiO2 % Inspiratory BiPAP Expiratory BiPAP Potassium 3.8 (3.6-5.2) mmol/L Carbon Dioxide 40 H* (22-30) mmol/L Anion Gap 11 (10-20) BUN 19 H (7-17) mg/dL Creatinine 0.8 (0.7-1.2) mg/dL Est GFR ( Amer) > 60 Est GFR (Non-Af Amer) > 60 Random Glucose 132 H (65-105) mg/dL Hemoglobin A1c 5.8 (4.2-6.5) % Lactic Acid (0.7-2.1) mmol/L Calcium 8.0 L (8.6-10.4) mg/dl Phosphorus 2.9 (2.5-4.5) mg/dL Magnesium 2.6 H (1.6-2.3) mg/dL Total Bilirubin 0.3 (0.2-1.3) mg/dL AST 23 (14-36) U/L ALT 22 (9-52) U/L Alkaline Phosphatase 84 (38-126) U/L Total Creatine Kinase (30-135) U/L CK-MB (Mass) (0.0-3.38) ng/mL Troponin I (0.00-0.120) ng/mL Total Protein 6.5 (6.3-8.3) g/dL Albumin 3.5 D (3.5-5.0) g/dL Globulin 3.0 (2.2-3.9) gm/dL Albumin/Globulin Ratio 1.2 (1.0-2.1) Triglycerides (0-149) mg/dL Cholesterol (0-199) mg/dL LDL Cholesterol Direct (0-129) mg/dL HDL Cholesterol (30-70) mg/dL Procalcitonin (0.19-0.49) NG/ML Free T4 1.10 (0.78-2.19) ng/dL TSH 3rd Generation (0.46-4.68) mIU/L Arterial Blood Potassium (3.6-5.2) mmol/L Urine Color (YELLOW) Urine Clarity (Clear) Urine pH (5.0-8.0) Ur Specific [place] (1.003-1.030) Urine Protein (NEGATIVE) mg/dL Urine Glucose (UA) (Normal) mg/dL Urine Ketones (NEGATIVE) mg/dL Urine Blood (NEGATIVE) Urine Nitrate (NEGATIVE) Urine Bilirubin (NEGATIVE) Urine Urobilinogen (0.2-1.0) mg/dL Ur Leukocyte Esterase (Negative) Gisela/uL Urine WBC (Auto) (0-5) /hpf Urine RBC (Auto) (0-3) /hpf Ur Squamous Epith Cells (0-5) /hpf Amorphous Sediment (<OCC) /ul Urine Bacteria (<OCC) Mycoplasma pneumon IgM (NEGATIVE) 01/12/18 01/11/18 01/11/18 Range/Units 06:27 17:50 17:50 WBC (4.8-10.8) K/uL RBC (3.80-5.20) Mil/uL Hgb (11.0-16.0) g/dL Hct (34.0-47.0) % MCV (81.0-99.0) fL MCH (27.0-31.0) pg MCHC (33.0-37.0) g/dL RDW (11.5-14.5) % Plt Count (130-400) K/uL MPV (7.2-11.7) fL Neut % (Auto) (50.0-75.0) % Lymph % (Auto) (20.0-40.0) % Moca % (Auto) (0.0-10.0) % Eos % (Auto) (0.0-4.0) % Baso % (Auto) (0.0-2.0) % Neut # (Auto) (1.8-7.0) K/uL Lymph # (Auto) (1.0-4.3) K/uL Moca # (Auto) (0.0-0.8) K/uL Eos # (Auto) (0.0-0.7) K/uL Baso # (Auto) (0.0-0.2) K/uL Neutrophils % (Manual) (50-75) % Band Neutrophils % (0-2) % Lymphocytes % (Manual) (20-40) % Monocytes % (Manual) (0-10) % Platelet Estimate (NORMAL) Hypochromasia (manual) Poikilocytosis (manual Anisocytosis (manual) Puncture Site pCO2 (35-45) mm/Hg pO2 (80-100) mm/Hg HCO3 (21-28) mmol/L ABG pH (7.35-7.45) ABG Total CO2 (22-28) mmol/L ABG O2 Saturation (95-98) % ABG Base Excess (-2.0-3.0) mmol/L Steve Test ABG Potassium (3.6-5.2) mmol/L A-a O2 Difference mm/Hg Respiratory Index Sodium (132-148) mmol/l Chloride (98-107) mmol/L Glucose (65-105) mg/dl Lactate (0.7-2.1) mmol/L FiO2 % Inspiratory BiPAP Expiratory BiPAP Potassium (3.6-5.2) mmol/L Carbon Dioxide (22-30) mmol/L Anion Gap (10-20) BUN (7-17) mg/dL Creatinine (0.7-1.2) mg/dL Est GFR ( Amer) Est GFR (Non-Af Amer) Random Glucose (65-105) mg/dL Hemoglobin A1c (4.2-6.5) % Lactic Acid (0.7-2.1) mmol/L Calcium (8.6-10.4) mg/dl Phosphorus (2.5-4.5) mg/dL Magnesium (1.6-2.3) mg/dL Total Bilirubin (0.2-1.3) mg/dL AST (14-36) U/L ALT (9-52) U/L Alkaline Phosphatase (38-126) U/L Total Creatine Kinase 111 (30-135) U/L CK-MB (Mass) 6.79 H (0.0-3.38) ng/mL Troponin I 2.0000 H* (0.00-0.120) ng/mL Total Protein (6.3-8.3) g/dL Albumin (3.5-5.0) g/dL Globulin (2.2-3.9) gm/dL Albumin/Globulin Ratio (1.0-2.1) Triglycerides 125 (0-149) mg/dL Cholesterol 171 (0-199) mg/dL LDL Cholesterol Direct 96 (0-129) mg/dL HDL Cholesterol 39 (30-70) mg/dL Procalcitonin 0.61 H (0.19-0.49) NG/ML Free T4 (0.78-2.19) ng/dL TSH 3rd Generation 0.46 (0.46-4.68) mIU/L Arterial Blood Potassium (3.6-5.2) mmol/L Urine Color (YELLOW) Urine Clarity (Clear) Urine pH (5.0-8.0) Ur Specific [place] (1.003-1.030) Urine Protein (NEGATIVE) mg/dL Urine Glucose (UA) (Normal) mg/dL Urine Ketones (NEGATIVE) mg/dL Urine Blood (NEGATIVE) Urine Nitrate (NEGATIVE) Urine Bilirubin (NEGATIVE) Urine Urobilinogen (0.2-1.0) mg/dL Ur Leukocyte Esterase (Negative) Gisela/uL Urine WBC (Auto) (0-5) /hpf Urine RBC (Auto) (0-3) /hpf Ur Squamous Epith Cells (0-5) /hpf Amorphous Sediment (<OCC) /ul Urine Bacteria (<OCC) Mycoplasma pneumon IgM (NEGATIVE) 01/11/18 01/11/18 Range/Units 15:54 13:38 WBC (4.8-10.8) K/uL RBC (3.80-5.20) Mil/uL Hgb (11.0-16.0) g/dL Hct (34.0-47.0) % MCV (81.0-99.0) fL MCH (27.0-31.0) pg MCHC (33.0-37.0) g/dL RDW (11.5-14.5) % Plt Count (130-400) K/uL MPV (7.2-11.7) fL Neut % (Auto) (50.0-75.0) % Lymph % (Auto) (20.0-40.0) % [place]oca % (Auto) (0.0-10.0) % Eos % (Auto) (0.0-4.0) % Baso % (Auto) (0.0-2.0) % Neut # (Auto) (1.8-7.0) K/uL Lymph # (Auto) (1.0-4.3) K/uL Moca # (Auto) (0.0-0.8) K/uL Eos # (Auto) (0.0-0.7) K/uL Baso # (Auto) (0.0-0.2) K/uL Neutrophils % (Manual) (50-75) % Band Neutrophils % (0-2) % Lymphocytes % (Manual) (20-40) % Monocytes % (Manual) (0-10) % Platelet Estimate (NORMAL) Hypochromasia (manual) Poikilocytosis (manual Anisocytosis (manual) Puncture Site Rba pCO2 60 H (35-45) mm/Hg pO2 157 H (80-100) mm/Hg HCO3 31.4 H (21-28) mmol/L ABG pH 7.38 (7.35-7.45) ABG Total CO2 37.3 H (22-28) mmol/L ABG O2 Saturation 99.1 H (95-98) % ABG Base Excess 8.2 H (-2.0-3.0) mmol/L Steve Test Na ABG Potassium 3.4 L (3.6-5.2) mmol/L A-a O2 Difference 53.0 mm/Hg Respiratory Index 0.3 Sodium 139.0 (132-148) mmol/l Chloride 101.0 (98-107) mmol/L Glucose 222 H (65-105) mg/dl Lactate 4.0 H* (0.7-2.1) mmol/L FiO2 40.0 % Inspiratory BiPAP 12 Expiratory BiPAP 6 Potassium (3.6-5.2) mmol/L Carbon Dioxide (22-30) mmol/L Anion Gap (10-20) BUN (7-17) mg/dL Creatinine (0.7-1.2) mg/dL Est GFR ( Amer) Est GFR (Non-Af Amer) Random Glucose (65-105) mg/dL Hemoglobin A1c (4.2-6.5) % Lactic Acid 5.1 H* (0.7-2.1) mmol/L Calcium (8.6-10.4) mg/dl Phosphorus (2.5-4.5) mg/dL Magnesium (1.6-2.3) mg/dL Total Bilirubin (0.2-1.3) mg/dL AST (14-36) U/L ALT (9-52) U/L Alkaline Phosphatase (38-126) U/L Total Creatine Kinase (30-135) U/L CK-MB (Mass) (0.0-3.38) ng/mL Troponin I (0.00-0.120) ng/mL Total Protein (6.3-8.3) g/dL Albumin (3.5-5.0) g/dL Globulin (2.2-3.9) gm/dL Albumin/Globulin Ratio (1.0-2.1) Triglycerides (0-149) mg/dL Cholesterol (0-199) mg/dL LDL Cholesterol Direct (0-129) mg/dL HDL Cholesterol (30-70) mg/dL Procalcitonin (0.19-0.49) NG/ML Free T4 (0.78-2.19) ng/dL TSH 3rd Generation (0.46-4.68) mIU/L Arterial Blood Potassium 3.4 L (3.6-5.2) mmol/L Urine Color (YELLOW) Urine Clarity (Clear) Urine pH (5.0-8.0) Ur Specific [place] (1.003-1.030) Urine Protein (NEGATIVE) mg/dL Urine Glucose (UA) (Normal) mg/dL Urine Ketones (NEGATIVE) mg/dL Urine Blood (NEGATIVE) Urine Nitrate (NEGATIVE) Urine Bilirubin (NEGATIVE) Urine Urobilinogen (0.2-1.0) mg/dL Ur Leukocyte Esterase (Negative) Gisela/uL Urine WBC (Auto) (0-5) /hpf Urine RBC (Auto) (0-3) /hpf Ur Squamous Epith Cells (0-5) /hpf Amorphous Sediment (<OCC) /ul Urine Bacteria (<OCC) Mycoplasma pneumon IgM (NEGATIVE) Laboratory Results - last 24 hr 01/11/18 01/11/18 01/11/18 13:38 15:54 17:50 WBC RBC Hgb Hct MCV MCH MCHC RDW Plt Count MPV Neut % (Auto) Lymph % (Auto) Moca % (Auto) Eos % (Auto) Baso % (Auto) Neut # (Auto) Lymph # (Auto) [place]oca # (Auto) Eos # (Auto) Baso # (Auto) Neutrophils % (Manual) Band Neutrophils % Lymphocytes % (Manual) Monocytes % (Manual) Platelet Estimate Hypochromasia (manual) Poikilocytosis (manual Anisocytosis (manual) Puncture Site Rba pCO2 60 H pO2 157 H HCO3 31.4 H ABG pH 7.38 ABG Total CO2 37.3 H ABG O2 Saturation 99.1 H ABG Base Excess 8.2 H Steve Test Na ABG Potassium 3.4 L A-a O2 Difference 53.0 Respiratory Index 0.3 Sodium 139.0 Chloride 101.0 Glucose 222 H Lactate 4.0 H* FiO2 40.0 Inspiratory BiPAP 12 Expiratory BiPAP 6 Potassium Carbon Dioxide Anion Gap BUN Creatinine Est GFR ( Amer) Est GFR (Non-Af Amer) Random Glucose Hemoglobin A1c Lactic Acid 5.1 H* Calcium Phosphorus Magnesium Total Bilirubin AST ALT Alkaline Phosphatase Total Creatine Kinase CK-MB (Mass) Troponin I Total Protein Albumin Globulin Albumin/Globulin Ratio Triglycerides Cholesterol LDL Cholesterol Direct HDL Cholesterol Procalcitonin 0.61 H Free T4 TSH 3rd Generation Arterial Blood Potassium 3.4 L Urine Color Urine Clarity Urine pH Ur Specific [place] Urine Protein Urine Glucose (UA) Urine Ketones Urine Blood Urine Nitrate Urine Bilirubin Urine Urobilinogen Ur Leukocyte Esterase Urine WBC (Auto) Urine RBC (Auto) Ur Squamous Epith Cells Amorphous Sediment Urine Bacteria Mycoplasma pneumon IgM 01/11/18 01/12/18 01/12/18 17:50 06:27 06:27 WBC RBC Hgb Hct MCV MCH MCHC RDW Plt Count MPV Neut % (Auto) Lymph % (Auto) [place]oca % (Auto) Eos % (Auto) Baso % (Auto) Neut # (Auto) Lymph # (Auto) Moca # (Auto) Eos # (Auto) Baso # (Auto) Neutrophils % (Manual) Band Neutrophils % Lymphocytes % (Manual) Monocytes % (Manual) Platelet Estimate Hypochromasia (manual) Poikilocytosis (manual Anisocytosis (manual) Puncture Site pCO2 pO2 HCO3 ABG pH ABG Total CO2 ABG O2 Saturation ABG Base Excess Steve Test ABG Potassium A-a O2 Difference Respiratory Index Sodium 142 Chloride 95 L Glucose Lactate FiO2 Inspiratory BiPAP Expiratory BiPAP Potassium 3.8 Carbon Dioxide 40 H* Anion Gap 11 BUN 19 H Creatinine 0.8 Est GFR ( Amer) > 60 Est GFR (Non-Af Amer) > 60 Random Glucose 132 H Hemoglobin A1c Lactic Acid Calcium 8.0 L Phosphorus 2.9 Magnesium 2.6 H Total Bilirubin 0.3 AST 23 ALT 22 Alkaline Phosphatase 84 Total Creatine Kinase 111 CK-MB (Mass) 6.79 H Troponin I 2.0000 H* Total Protein 6.5 Albumin 3.5 D Globulin 3.0 Albumin/Globulin Ratio 1.2 Triglycerides 125 Cholesterol 171 LDL Cholesterol Direct 96 HDL Cholesterol 39 Procalcitonin Free T4 TSH 3rd Generation 0.46 Arterial Blood Potassium Urine Color Urine Clarity Urine pH Ur Specific [place] Urine Protein Urine Glucose (UA) Urine Ketones Urine Blood Urine Nitrate Urine Bilirubin Urine Urobilinogen Ur Leukocyte Esterase Urine WBC (Auto) Urine RBC (Auto) Ur Squamous Epith Cells Amorphous Sediment Urine Bacteria Mycoplasma pneumon IgM 01/12/18 01/12/18 01/12/18 06:28 06:28 06:28 WBC 24.1 H RBC 3.33 L Hgb 9.7 L Hct 29.7 L MCV 89.0 MCH 29.1 MCHC 32.7 L RDW 13.7 Plt Count 275 MPV 8.3 Neut % (Auto) 87.0 H Lymph % (Auto) 5.1 L [place]oca % (Auto) 7.6 Eos % (Auto) 0.0 Baso % (Auto) 0.3 Neut # (Auto) 21.0 H Lymph # (Auto) 1.2 Moca # (Auto) 1.8 H Eos # (Auto) 0.0 Baso # (Auto) 0.1 Neutrophils % (Manual) 87 H Band Neutrophils % 1 Lymphocytes % (Manual) 5 L Monocytes % (Manual) 6 Platelet Estimate Normal Hypochromasia (manual) Slight Poikilocytosis (manual Slight Anisocytosis (manual) Slight Puncture Site pCO2 pO2 HCO3 ABG pH ABG Total CO2 ABG O2 Saturation ABG Base Excess Steve Test ABG Potassium A-a O2 Difference Respiratory Index Sodium Chloride Glucose Lactate FiO2 Inspiratory BiPAP Expiratory BiPAP Potassium Carbon Dioxide Anion Gap BUN Creatinine Est GFR ( Amer) Est GFR (Non-Af Amer) Random Glucose Hemoglobin A1c 5.8 Lactic Acid Calcium Phosphorus Magnesium Total Bilirubin AST ALT Alkaline Phosphatase Total Creatine Kinase CK-MB (Mass) Troponin I Total Protein Albumin Globulin Albumin/Globulin Ratio Triglycerides Cholesterol LDL Cholesterol Direct HDL Cholesterol Procalcitonin Free T4 1.10 TSH 3rd Generation Arterial Blood Potassium Urine Color Urine Clarity Urine pH Ur Specific [place] Urine Protein Urine Glucose (UA) Urine Ketones Urine Blood Urine Nitrate Urine Bilirubin Urine Urobilinogen Ur Leukocyte Esterase Urine WBC (Auto) Urine RBC (Auto) Ur Squamous Epith Cells Amorphous Sediment Urine Bacteria Mycoplasma pneumon IgM 01/12/18 01/12/18 06:29 10:27 WBC RBC Hgb Hct MCV MCH MCHC RDW Plt Count MPV Neut % (Auto) Lymph % (Auto) [place] % (Auto) Eos % (Auto) Baso % (Auto) Neut # (Auto) Lymph # (Auto) [place] # (Auto) Eos # (Auto) Baso # (Auto) Neutrophils % (Manual) Band Neutrophils % Lymphocytes % (Manual) Monocytes % (Manual) Platelet Estimate Hypochromasia (manual) Poikilocytosis (manual Anisocytosis (manual) Puncture Site pCO2 pO2 HCO3 ABG pH ABG Total CO2 ABG O2 Saturation ABG Base Excess Steve Test ABG Potassium A-a O2 Difference Respiratory Index Sodium Chloride Glucose Lactate FiO2 Inspiratory BiPAP Expiratory BiPAP Potassium Carbon Dioxide Anion Gap BUN Creatinine Est GFR ( Amer) Est GFR (Non-Af Amer) Random Glucose Hemoglobin A1c Lactic Acid Calcium Phosphorus Magnesium Total Bilirubin AST ALT Alkaline Phosphatase Total Creatine Kinase CK-MB (Mass) Troponin I Total Protein Albumin Globulin Albumin/Globulin Ratio Triglycerides Cholesterol LDL Cholesterol Direct HDL Cholesterol Procalcitonin Free T4 TSH 3rd Generation Arterial Blood Potassium Urine Color Yellow Urine Clarity Hazy Urine pH 5.0 Ur Specific [place] 1.046 H Urine Protein Negative Urine Glucose (UA) 1+ Urine Ketones Negative Urine Blood Negative Urine Nitrate Negative Urine Bilirubin Negative Urine Urobilinogen Normal Ur Leukocyte Esterase Neg Urine WBC (Auto) 2 Urine RBC (Auto) 2 Ur Squamous Epith Cells 1 Amorphous Sediment Rare H Urine Bacteria Rare Mycoplasma pneumon IgM Negative EKG/Cardiology Studies: Cardiology / EKG Studies 01/11/18 18:00 EKG [ELECTROCARDIOGRAM] Q8H Comment: Mode Of Transportation: Reason For Exam: chest pain Critical Care Progress Note - Nutrition Nutrition: Nutrition Category Date Time Status Heart Healthy Diet [DIET] Diets 01/11/18 Lunch Active Assessment/Plan - Assessment and Plan (Free Text) Assessment: This is a 82 year old female with PMHx of HTN, CAD with ?? Stents, COPD ( nonsmoker) on home oxygen, 2L NC, RA, HF with systolic and diastolic dysfunction (2014), coming from home with ~12-14 hours of SOB and burning in her chest. Found to be hypercapneic on ABG, she did not improve clinically after breathing treatments, steroids, was then started on bipap, repeat ABG shows improvement. Patient admitted to ICU for Hypercapneic failure 2/2 NSTEMI vs PE with Multifocal LLL Pneumonia. Plan: Neuro: GCS 15 Cardio: A: NSTEMI Dr. Duff consulted - EKG: new RBBB when compared to EKG in 2015 - Troponin 1.67 --> 1.61 --> 2.0 - Started therapeutic lovenox - Will plan for cath once patient has stabilized A: CAD with stents - Patient reports ASA, Plavix was stopped by Dr. Chong (partner with Dr. Duff) - Restarted ASA, Plavix - pending reccs from Cardio A: HF Diastolic dysfunction - Last ECHO was in 2014 - Repeat ECHO: EF 45-50%, with diastolic dysfunction - BNP 2970 - Labs - WNL - Resume home medications: Chlorthalidone 25mg, Bystolic 5mg (held due to acute CHF) A: HTN - Resume home medications: Chlorthalidone 25mg, Bystolic 5mg (held due to acute CHF) Pulm: A: Hypercapneic Failure 2/2 NSTEMI vs PE - Elevated D - Dimer, hypercapneic on ABG - Currently on BIPAP - Negative for PE, venous dopplers- negative for DVT - Duonebs Q4, Azithro, Rocephin 6/, Florastor BID, Singulair A: COPD - Started Duonebs Q4, Azithro, Rocephin /, Florastor BID, Singulair A: Pulmonary Nodules - Multiple small right-sided pulmonary nodules common nonspecific. No calcified nodules are appreciated. Small nodules but 1 are 5 mm or less. 7 mm nodule right lower lobe. - Follow-up with chest CT 6-12 months. ID: A: Multifocal LLL Pneumonia - Afebrile, leukocytosis with left shift, no bandemia, lactate 3.0 - 3.6 -->5.1 --> 4.0; procal 0.61--> - CXR: Abnormal, patchy densities in the left lower lobe, a new finding, suspicious for pneumonia. Recommend radiographic followup to document clearing. - CTA: No evidence of pulmonary embolism. Multifocal opacities throughout left lung, likely infectious. Rule out neoplastic. Followup to clearing. Multiple small right-sided pulmonary nodules common nonspecific. No calcified nodules are appreciated. Small nodules but 1 are 5 mm or less. 7 mm nodule right lower lobe. - Started Duonebs Q4, ArtithroMarkephin 01/11, Florastor BID, Singulair Endo: A: IGT Rheum: A: Hx RA Heme/Onc A: Hx Breast Cancer - S/P lumpectomy Prophylaxis - Protonix - SCDs, Therapeutic lovenox DW Dr. Gardiner, Agustina Hamilton DO, PGY-1 <Bert Gardiner M - Last Filed: 01/12/18 15:10> CCU Objective - Vital Signs / Intake & Output Vital Signs (Last 4 hours): Vital Signs Pulse 01/12/18 12:30 112 H Intake and Output (Last 8hrs): Intake & Output 01/12/18 01/12/18 01/12/18 06:59 14:59 22:59 Intake Total 600 270 Output Total 750 Balance -150 270 Weight 211 lb 3 oz Intake: Intake, IV Amount 600 150 Right Forearm 600 150 Oral 120 Output: Urine 750 Urine, Voided 750 Other: # Bowel Movements 1 - Medications Active Medications: Active Medications Generic Name Dose Route Start Last Admin Trade Name Freq PRN Reason Stop Dose Admin Albuterol/Ipratropium 3 ml 01/11/18 09:45 01/12/18 12:30 Duoneb 3 Mg/0.5 Mg (3 Ml) Ud INH 3 ml RQ4 JUNIE Administration Alprazolam 0.25 mg 01/11/18 22:00 01/11/18 21:17 Xanax PO 01/18/18 22:01 0.25 mg HS JUNIE Administration Alprazolam 0.25 mg 01/12/18 12:35 Xanax PO 01/19/18 12:36 Q8 PRN Anxiety Aspirin 81 mg 01/12/18 10:00 01/12/18 09:48 Aspirin Chewable PO 81 mg DAILY JUNIE Administration Chlorthalidone 25 mg 01/12/18 10:00 01/12/18 09:48 [place] PO 25 mg DAILY JUNIE Administration Clopidogrel Bisulfate 75 mg 01/12/18 10:00 01/12/18 09:48 Plavix PO 75 mg DAILY JUNIE Administration Enoxaparin Sodium 80 mg 01/11/18 18:00 01/12/18 09:47 Lovenox SC 80 mg Q12 JUNIE Administration Famotidine 20 mg 01/12/18 10:00 01/12/18 09:48 Pepcid PO 20 mg DAILY JUNIE Administration Azithromycin 500 mg/ Sodium 250 mls @ 250 mls/hr 01/12/18 10:00 01/12/18 09: 46 Chloride IVPB 250 mls/hr DAILY JUNIE Administration Protocol Ceftriaxone Sodium 1 gm/ 100 mls @ 100 mls/hr 01/12/18 10:00 01/12/18 09:47 Sodium Chloride IVPB 100 mls/hr DAILY JUNIE Administration Protocol Sodium Chloride 1,000 mls @ 75 mls/hr 01/11/18 15:20 01/12/18 06:47 Sodium Chloride 0.9% IV 75 mls/hr .[id number] JUNIE Administration Montelukast Sodium 10 mg 01/11/18 22:00 01/11/18 21:17 Singulair PO 10 mg HS JUNIE Administration Saccharomyces Boulardii 250 mg 01/11/18 10:00 01/12/18 09:48 Florastor PO 250 mg BID JUNIE Administration - Patient Studies Lab Studies: Microbiology Studies 01/11/18 10:24 MRSA Culture (Admit) - Final Naris MRSA NOT DETECTED 01/11/18 04:44 Blood Culture - Preliminary Blood NO GROWTH AFTER 24 HOURS 01/11/18 04:44 Blood Culture - Preliminary Blood NO GROWTH AFTER 24 HOURS 01/11/18 Unknown Gram Stain - Final Sputum Induced Lab Studies 01/12/18 01/12/18 01/12/18 Range/Units 10:27 06:29 06:28 WBC 24.1 H (4.8-10.8) K/uL RBC 3.33 L (3.80-5.20) Mil/uL Hgb 9.7 L (11.0-16.0) g/dL Hct 29.7 L (34.0-47.0) % MCV 89.0 (81.0-99.0) fL MCH 29.1 (27.0-31.0) pg MCHC 32.7 L (33.0-37.0) g/dL RDW 13.7 (11.5-14.5) % Plt Count 275 (130-400) K/uL MPV 8.3 (7.2-11.7) fL Neut % (Auto) 87.0 H (50.0-75.0) % Lymph % (Auto) 5.1 L (20.0-40.0) % Moca % (Auto) 7.6 (0.0-10.0) % Eos % (Auto) 0.0 (0.0-4.0) % Baso % (Auto) 0.3 (0.0-2.0) % Neut # (Auto) 21.0 H (1.8-7.0) K/uL Lymph # (Auto) 1.2 (1.0-4.3) K/uL Moca # (Auto) 1.8 H (0.0-0.8) K/uL Eos # (Auto) 0.0 (0.0-0.7) K/uL Baso # (Auto) 0.1 (0.0-0.2) K/uL Neutrophils % (Manual) 87 H (50-75) % Band Neutrophils % 1 (0-2) % Lymphocytes % (Manual) 5 L (20-40) % Monocytes % (Manual) 6 (0-10) % Platelet Estimate Normal (NORMAL) Hypochromasia (manual) Slight Poikilocytosis (manual Slight Anisocytosis (manual) Slight Puncture Site pCO2 (35-45) mm/Hg pO2 (80-100) mm/Hg HCO3 (21-28) mmol/L ABG pH (7.35-7.45) ABG Total CO2 (22-28) mmol/L ABG O2 Saturation (95-98) % ABG Base Excess (-2.0-3.0) mmol/L Steve Test ABG Potassium (3.6-5.2) mmol/L A-a O2 Difference mm/Hg Respiratory Index Sodium (132-148) mmol/l Chloride (98-107) mmol/L Glucose (65-105) mg/dl Lactate (0.7-2.1) mmol/L FiO2 % Inspiratory BiPAP Expiratory BiPAP Potassium (3.6-5.2) mmol/L Carbon Dioxide (22-30) mmol/L Anion Gap (10-20) BUN (7-17) mg/dL Creatinine (0.7-1.2) mg/dL Est GFR ( Amer) Est GFR (Non-Af Amer) Random Glucose (65-105) mg/dL Hemoglobin A1c (4.2-6.5) % Calcium (8.6-10.4) mg/dl Phosphorus (2.5-4.5) mg/dL Magnesium (1.6-2.3) mg/dL Total Bilirubin (0.2-1.3) mg/dL AST (14-36) U/L ALT (9-52) U/L Alkaline Phosphatase (38-126) U/L Total Creatine Kinase (30-135) U/L CK-MB (Mass) (0.0-3.38) ng/mL Troponin I (0.00-0.120) ng/mL Total Protein (6.3-8.3) g/dL Albumin (3.5-5.0) g/dL Globulin (2.2-3.9) gm/dL Albumin/Globulin Ratio (1.0-2.1) Triglycerides (0-149) mg/dL Cholesterol (0-199) mg/dL LDL Cholesterol Direct (0-129) mg/dL HDL Cholesterol (30-70) mg/dL Procalcitonin 0.65 H (0.19-0.49) NG/ML Free T4 (0.78-2.19) ng/dL TSH 3rd Generation (0.46-4.68) mIU/L Arterial Blood Potassium (3.6-5.2) mmol/L Urine Color Yellow (YELLOW) Urine Clarity Hazy (Clear) Urine pH 5.0 (5.0-8.0) Ur Specific [place] 1.046 H (1.003-1.030) Urine Protein Negative (NEGATIVE) mg/dL Urine Glucose (UA) 1+ (Normal) mg/dL Urine Ketones Negative (NEGATIVE) mg/dL Urine Blood Negative (NEGATIVE) Urine Nitrate Negative (NEGATIVE) Urine Bilirubin Negative (NEGATIVE) Urine Urobilinogen Normal (0.2-1.0) mg/dL Ur Leukocyte Esterase Neg (Negative) Gisela/uL Urine WBC (Auto) 2 (0-5) /hpf Urine RBC (Auto) 2 (0-3) /hpf Ur Squamous Epith Cells 1 (0-5) /hpf Amorphous Sediment Rare H (<OCC) /ul Urine Bacteria Rare (<OCC) Ur L.pneumophila Ag Negative (NEGATIVE) Mycoplasma pneumon IgM Negative (NEGATIVE) 01/12/18 01/12/18 01/12/18 Range/Units 06:28 06:28 06:27 WBC (4.8-10.8) K/uL RBC (3.80-5.20) Mil/uL Hgb (11.0-16.0) g/dL Hct (34.0-47.0) % MCV (81.0-99.0) fL MCH (27.0-31.0) pg MCHC (33.0-37.0) g/dL RDW (11.5-14.5) % Plt Count (130-400) K/uL MPV (7.2-11.7) fL Neut % (Auto) (50.0-75.0) % Lymph % (Auto) (20.0-40.0) % Moca % (Auto) (0.0-10.0) % Eos % (Auto) (0.0-4.0) % Baso % (Auto) (0.0-2.0) % Neut # (Auto) (1.8-7.0) K/uL Lymph # (Auto) (1.0-4.3) K/uL Moca # (Auto) (0.0-0.8) K/uL Eos # (Auto) (0.0-0.7) K/uL Baso # (Auto) (0.0-0.2) K/uL Neutrophils % (Manual) (50-75) % Band Neutrophils % (0-2) % Lymphocytes % (Manual) (20-40) % Monocytes % (Manual) (0-10) % Platelet Estimate (NORMAL) Hypochromasia (manual) Poikilocytosis (manual Anisocytosis (manual) Puncture Site pCO2 (35-45) mm/Hg pO2 (80-100) mm/Hg HCO3 (21-28) mmol/L ABG pH (7.35-7.45) ABG Total CO2 (22-28) mmol/L ABG O2 Saturation (95-98) % ABG Base Excess (-2.0-3.0) mmol/L Steve Test ABG Potassium (3.6-5.2) mmol/L A-a O2 Difference mm/Hg Respiratory Index Sodium 142 (132-148) mmol/l Chloride 95 L (98-107) mmol/L Glucose (65-105) mg/dl Lactate (0.7-2.1) mmol/L FiO2 % Inspiratory BiPAP Expiratory BiPAP Potassium 3.8 (3.6-5.2) mmol/L Carbon Dioxide 40 H* (22-30) mmol/L Anion Gap 11 (10-20) BUN 19 H (7-17) mg/dL Creatinine 0.8 (0.7-1.2) mg/dL Est GFR ( Amer) > 60 Est GFR (Non-Af Amer) > 60 Random Glucose 132 H (65-105) mg/dL Hemoglobin A1c 5.8 (4.2-6.5) % Calcium 8.0 L (8.6-10.4) mg/dl Phosphorus 2.9 (2.5-4.5) mg/dL Magnesium 2.6 H (1.6-2.3) mg/dL Total Bilirubin 0.3 (0.2-1.3) mg/dL AST 23 (14-36) U/L ALT 22 (9-52) U/L Alkaline Phosphatase 84 (38-126) U/L Total Creatine Kinase (30-135) U/L CK-MB (Mass) (0.0-3.38) ng/mL Troponin I (0.00-0.120) ng/mL Total Protein 6.5 (6.3-8.3) g/dL Albumin 3.5 D (3.5-5.0) g/dL Globulin 3.0 (2.2-3.9) gm/dL Albumin/Globulin Ratio 1.2 (1.0-2.1) Triglycerides (0-149) mg/dL Cholesterol (0-199) mg/dL LDL Cholesterol Direct (0-129) mg/dL HDL Cholesterol (30-70) mg/dL Procalcitonin (0.19-0.49) NG/ML Free T4 1.10 (0.78-2.19) ng/dL TSH 3rd Generation (0.46-4.68) mIU/L Arterial Blood Potassium (3.6-5.2) mmol/L Urine Color (YELLOW) Urine Clarity (Clear) Urine pH (5.0-8.0) Ur Specific [place] (1.003-1.030) Urine Protein (NEGATIVE) mg/dL Urine Glucose (UA) (Normal) mg/dL Urine Ketones (NEGATIVE) mg/dL Urine Blood (NEGATIVE) Urine Nitrate (NEGATIVE) Urine Bilirubin (NEGATIVE) Urine Urobilinogen (0.2-1.0) mg/dL Ur Leukocyte Esterase (Negative) Gisela/uL Urine WBC (Auto) (0-5) /hpf Urine RBC (Auto) (0-3) /hpf Ur Squamous Epith Cells (0-5) /hpf Amorphous Sediment (<OCC) /ul Urine Bacteria (<OCC) Ur L.pneumophila Ag (NEGATIVE) Mycoplasma pneumon IgM (NEGATIVE) 01/12/18 01/11/18 01/11/18 Range/Units 06:27 17:50 17:50 WBC (4.8-10.8) K/uL RBC (3.80-5.20) Mil/uL Hgb (11.0-16.0) g/dL Hct (34.0-47.0) % MCV (81.0-99.0) fL MCH (27.0-31.0) pg MCHC (33.0-37.0) g/dL RDW (11.5-14.5) % Plt Count (130-400) K/uL MPV (7.2-11.7) fL Neut % (Auto) (50.0-75.0) % Lymph % (Auto) (20.0-40.0) % Moca % (Auto) (0.0-10.0) % Eos % (Auto) (0.0-4.0) % Baso % (Auto) (0.0-2.0) % Neut # (Auto) (1.8-7.0) K/uL Lymph # (Auto) (1.0-4.3) K/uL Moca # (Auto) (0.0-0.8) K/uL Eos # (Auto) (0.0-0.7) K/uL Baso # (Auto) (0.0-0.2) K/uL Neutrophils % (Manual) (50-75) % Band Neutrophils % (0-2) % Lymphocytes % (Manual) (20-40) % Monocytes % (Manual) (0-10) % Platelet Estimate (NORMAL) Hypochromasia (manual) Poikilocytosis (manual Anisocytosis (manual) Puncture Site pCO2 (35-45) mm/Hg pO2 (80-100) mm/Hg HCO3 (21-28) mmol/L ABG pH (7.35-7.45) ABG Total CO2 (22-28) mmol/L ABG O2 Saturation (95-98) % ABG Base Excess (-2.0-3.0) mmol/L Steve Test ABG Potassium (3.6-5.2) mmol/L A-a O2 Difference mm/Hg Respiratory Index Sodium (132-148) mmol/l Chloride (98-107) mmol/L Glucose (65-105) mg/dl Lactate (0.7-2.1) mmol/L FiO2 % Inspiratory BiPAP Expiratory BiPAP Potassium (3.6-5.2) mmol/L Carbon Dioxide (22-30) mmol/L Anion Gap (10-20) BUN (7-17) mg/dL Creatinine (0.7-1.2) mg/dL Est GFR ( Amer) Est GFR (Non-Af Amer) Random Glucose (65-105) mg/dL Hemoglobin A1c (4.2-6.5) % Calcium (8.6-10.4) mg/dl Phosphorus (2.5-4.5) mg/dL Magnesium (1.6-2.3) mg/dL Total Bilirubin (0.2-1.3) mg/dL AST (14-36) U/L ALT (9-52) U/L Alkaline Phosphatase (38-126) U/L Total Creatine Kinase 111 (30-135) U/L CK-MB (Mass) 6.79 H (0.0-3.38) ng/mL Troponin I 2.0000 H* (0.00-0.120) ng/mL Total Protein (6.3-8.3) g/dL Albumin (3.5-5.0) g/dL Globulin (2.2-3.9) gm/dL Albumin/Globulin Ratio (1.0-2.1) Triglycerides 125 (0-149) mg/dL Cholesterol 171 (0-199) mg/dL LDL Cholesterol Direct 96 (0-129) mg/dL HDL Cholesterol 39 (30-70) mg/dL Procalcitonin 0.61 H (0.19-0.49) NG/ML Free T4 (0.78-2.19) ng/dL TSH 3rd Generation 0.46 (0.46-4.68) mIU/L Arterial Blood Potassium (3.6-5.2) mmol/L Urine Color (YELLOW) Urine Clarity (Clear) Urine pH (5.0-8.0) Ur Specific [place] (1.003-1.030) Urine Protein (NEGATIVE) mg/dL Urine Glucose (UA) (Normal) mg/dL Urine Ketones (NEGATIVE) mg/dL Urine Blood (NEGATIVE) Urine Nitrate (NEGATIVE) Urine Bilirubin (NEGATIVE) Urine Urobilinogen (0.2-1.0) mg/dL Ur Leukocyte Esterase (Negative) Gisela/uL Urine WBC (Auto) (0-5) /hpf Urine RBC (Auto) (0-3) /hpf Ur Squamous Epith Cells (0-5) /hpf Amorphous Sediment (<OCC) /ul Urine Bacteria (<OCC) Ur L.pneumophila Ag (NEGATIVE) Mycoplasma pneumon IgM (NEGATIVE) 01/11/18 Range/Units 15:54 WBC (4.8-10.8) K/uL RBC (3.80-5.20) Mil/uL Hgb (11.0-16.0) g/dL Hct (34.0-47.0) % MCV (81.0-99.0) fL MCH (27.0-31.0) pg MCHC (33.0-37.0) g/dL RDW (11.5-14.5) % Plt Count (130-400) K/uL MPV (7.2-11.7) fL Neut % (Auto) (50.0-75.0) % Lymph % (Auto) (20.0-40.0) % [place]oca % (Auto) (0.0-10.0) % Eos % (Auto) (0.0-4.0) % Baso % (Auto) (0.0-2.0) % Neut # (Auto) (1.8-7.0) K/uL Lymph # (Auto) (1.0-4.3) K/uL Moca # (Auto) (0.0-0.8) K/uL Eos # (Auto) (0.0-0.7) K/uL Baso # (Auto) (0.0-0.2) K/uL Neutrophils % (Manual) (50-75) % Band Neutrophils % (0-2) % Lymphocytes % (Manual) (20-40) % Monocytes % (Manual) (0-10) % Platelet Estimate (NORMAL) Hypochromasia (manual) Poikilocytosis (manual Anisocytosis (manual) Puncture Site Rba pCO2 60 H (35-45) mm/Hg pO2 157 H (80-100) mm/Hg HCO3 31.4 H (21-28) mmol/L ABG pH 7.38 (7.35-7.45) ABG Total CO2 37.3 H (22-28) mmol/L ABG O2 Saturation 99.1 H (95-98) % ABG Base Excess 8.2 H (-2.0-3.0) mmol/L Steve Test Na ABG Potassium 3.4 L (3.6-5.2) mmol/L A-a O2 Difference 53.0 mm/Hg Respiratory Index 0.3 Sodium 139.0 (132-148) mmol/l Chloride 101.0 (98-107) mmol/L Glucose 222 H (65-105) mg/dl Lactate 4.0 H* (0.7-2.1) mmol/L FiO2 40.0 % Inspiratory BiPAP 12 Expiratory BiPAP 6 Potassium (3.6-5.2) mmol/L Carbon Dioxide (22-30) mmol/L Anion Gap (10-20) BUN (7-17) mg/dL Creatinine (0.7-1.2) mg/dL Est GFR ( Amer) Est GFR (Non-Af Amer) Random Glucose (65-105) mg/dL Hemoglobin A1c (4.2-6.5) % Calcium (8.6-10.4) mg/dl Phosphorus (2.5-4.5) mg/dL Magnesium (1.6-2.3) mg/dL Total Bilirubin (0.2-1.3) mg/dL AST (14-36) U/L ALT (9-52) U/L Alkaline Phosphatase (38-126) U/L Total Creatine Kinase (30-135) U/L CK-MB (Mass) (0.0-3.38) ng/mL Troponin I (0.00-0.120) ng/mL Total Protein (6.3-8.3) g/dL Albumin (3.5-5.0) g/dL Globulin (2.2-3.9) gm/dL Albumin/Globulin Ratio (1.0-2.1) Triglycerides (0-149) mg/dL Cholesterol (0-199) mg/dL LDL Cholesterol Direct (0-129) mg/dL HDL Cholesterol (30-70) mg/dL Procalcitonin (0.19-0.49) NG/ML Free T4 (0.78-2.19) ng/dL TSH 3rd Generation (0.46-4.68) mIU/L Arterial Blood Potassium 3.4 L (3.6-5.2) mmol/L Urine Color (YELLOW) Urine Clarity (Clear) Urine pH (5.0-8.0) Ur Specific [place] (1.003-1.030) Urine Protein (NEGATIVE) mg/dL Urine Glucose (UA) (Normal) mg/dL Urine Ketones (NEGATIVE) mg/dL Urine Blood (NEGATIVE) Urine Nitrate (NEGATIVE) Urine Bilirubin (NEGATIVE) Urine Urobilinogen (0.2-1.0) mg/dL Ur Leukocyte Esterase (Negative) Gisela/uL Urine WBC (Auto) (0-5) /hpf Urine RBC (Auto) (0-3) /hpf Ur Squamous Epith Cells (0-5) /hpf Amorphous Sediment (<OCC) /ul Urine Bacteria (<OCC) Ur L.pneumophila Ag (NEGATIVE) Mycoplasma pneumon IgM (NEGATIVE) Laboratory Results - last 24 hr 01/11/18 01/11/18 01/11/18 15:54 17:50 17:50 WBC RBC Hgb Hct MCV MCH MCHC RDW Plt Count MPV Neut % (Auto) Lymph % (Auto) [place]oca % (Auto) Eos % (Auto) Baso % (Auto) Neut # (Auto) Lymph # (Auto) [place]oca # (Auto) Eos # (Auto) Baso # (Auto) Neutrophils % (Manual) Band Neutrophils % Lymphocytes % (Manual) Monocytes % (Manual) Platelet Estimate Hypochromasia (manual) Poikilocytosis (manual Anisocytosis (manual) Puncture Site Rba pCO2 60 H pO2 157 H HCO3 31.4 H ABG pH 7.38 ABG Total CO2 37.3 H ABG O2 Saturation 99.1 H ABG Base Excess 8.2 H Steve Test Na ABG Potassium 3.4 L A-a O2 Difference 53.0 Respiratory Index 0.3 Sodium 139.0 Chloride 101.0 Glucose 222 H Lactate 4.0 H* FiO2 40.0 Inspiratory BiPAP 12 Expiratory BiPAP 6 Potassium Carbon Dioxide Anion Gap BUN Creatinine Est GFR ( Amer) Est GFR (Non-Af Amer) Random Glucose Hemoglobin A1c Calcium Phosphorus Magnesium Total Bilirubin AST ALT Alkaline Phosphatase Total Creatine Kinase 111 CK-MB (Mass) 6.79 H Troponin I 2.0000 H* Total Protein Albumin Globulin Albumin/Globulin Ratio Triglycerides Cholesterol LDL Cholesterol Direct HDL Cholesterol Procalcitonin 0.61 H Free T4 TSH 3rd Generation Arterial Blood Potassium 3.4 L Urine Color Urine Clarity Urine pH Ur Specific [place] Urine Protein Urine Glucose (UA) Urine Ketones Urine Blood Urine Nitrate Urine Bilirubin Urine Urobilinogen Ur Leukocyte Esterase Urine WBC (Auto) Urine RBC (Auto) Ur Squamous Epith Cells Amorphous Sediment Urine Bacteria Ur L.pneumophila Ag Mycoplasma pneumon IgM 01/12/18 01/12/18 01/12/18 06:27 06:27 06:28 WBC RBC Hgb Hct MCV MCH MCHC RDW Plt Count MPV Neut % (Auto) Lymph % (Auto) [place] % (Auto) Eos % (Auto) Baso % (Auto) Neut # (Auto) Lymph # (Auto) Moca # (Auto) Eos # (Auto) Baso # (Auto) Neutrophils % (Manual) Band Neutrophils % Lymphocytes % (Manual) Monocytes % (Manual) Platelet Estimate Hypochromasia (manual) Poikilocytosis (manual Anisocytosis (manual) Puncture Site pCO2 pO2 HCO3 ABG pH ABG Total CO2 ABG O2 Saturation ABG Base Excess Steve Test ABG Potassium A-a O2 Difference Respiratory Index Sodium 142 Chloride 95 L Glucose Lactate FiO2 Inspiratory BiPAP Expiratory BiPAP Potassium 3.8 Carbon Dioxide 40 H* Anion Gap 11 BUN 19 H Creatinine 0.8 Est GFR ( Amer) > 60 Est GFR (Non-Af Amer) > 60 Random Glucose 132 H Hemoglobin A1c 5.8 Calcium 8.0 L Phosphorus 2.9 Magnesium 2.6 H Total Bilirubin 0.3 AST 23 ALT 22 Alkaline Phosphatase 84 Total Creatine Kinase CK-MB (Mass) Troponin I Total Protein 6.5 Albumin 3.5 D Globulin 3.0 Albumin/Globulin Ratio 1.2 Triglycerides 125 Cholesterol 171 LDL Cholesterol Direct 96 HDL Cholesterol 39 Procalcitonin Free T4 TSH 3rd Generation 0.46 Arterial Blood Potassium Urine Color Urine Clarity Urine pH Ur Specific [place] Urine Protein Urine Glucose (UA) Urine Ketones Urine Blood Urine Nitrate Urine Bilirubin Urine Urobilinogen Ur Leukocyte Esterase Urine WBC (Auto) Urine RBC (Auto) Ur Squamous Epith Cells Amorphous Sediment Urine Bacteria Ur L.pneumophila Ag Mycoplasma pneumon IgM 01/12/18 01/12/18 01/12/18 06:28 06:28 06:29 WBC 24.1 H RBC 3.33 L Hgb 9.7 L Hct 29.7 L MCV 89.0 MCH 29.1 MCHC 32.7 L RDW 13.7 Plt Count 275 MPV 8.3 Neut % (Auto) 87.0 H Lymph % (Auto) 5.1 L [place] % (Auto) 7.6 Eos % (Auto) 0.0 Baso % (Auto) 0.3 Neut # (Auto) 21.0 H Lymph # (Auto) 1.2 [place]oca # (Auto) 1.8 H Eos # (Auto) 0.0 Baso # (Auto) 0.1 Neutrophils % (Manual) 87 H Band Neutrophils % 1 Lymphocytes % (Manual) 5 L Monocytes % (Manual) 6 Platelet Estimate Normal Hypochromasia (manual) Slight Poikilocytosis (manual Slight Anisocytosis (manual) Slight Puncture Site pCO2 pO2 HCO3 ABG pH ABG Total CO2 ABG O2 Saturation ABG Base Excess Steve Test ABG Potassium A-a O2 Difference Respiratory Index Sodium Chloride Glucose Lactate FiO2 Inspiratory BiPAP Expiratory BiPAP Potassium Carbon Dioxide Anion Gap BUN Creatinine Est GFR ( Amer) Est GFR (Non-Af Amer) Random Glucose Hemoglobin A1c Calcium Phosphorus Magnesium Total Bilirubin AST ALT Alkaline Phosphatase Total Creatine Kinase CK-MB (Mass) Troponin I Total Protein Albumin Globulin Albumin/Globulin Ratio Triglycerides Cholesterol LDL Cholesterol Direct HDL Cholesterol Procalcitonin Free T4 1.10 TSH 3rd Generation Arterial Blood Potassium Urine Color Yellow Urine Clarity Hazy Urine pH 5.0 Ur Specific [place] 1.046 H Urine Protein Negative Urine Glucose (UA) 1+ Urine Ketones Negative Urine Blood Negative Urine Nitrate Negative Urine Bilirubin Negative Urine Urobilinogen Normal Ur Leukocyte Esterase Neg Urine WBC (Auto) 2 Urine RBC (Auto) 2 Ur Squamous Epith Cells 1 Amorphous Sediment Rare H Urine Bacteria Rare Ur L.pneumophila Ag Mycoplasma pneumon IgM 01/12/18 10:27 WBC RBC Hgb Hct MCV MCH MCHC RDW Plt Count MPV Neut % (Auto) Lymph % (Auto) [place] % (Auto) Eos % (Auto) Baso % (Auto) Neut # (Auto) Lymph # (Auto) [place]oca # (Auto) Eos # (Auto) Baso # (Auto) Neutrophils % (Manual) Band Neutrophils % Lymphocytes % (Manual) Monocytes % (Manual) Platelet Estimate Hypochromasia (manual) Poikilocytosis (manual Anisocytosis (manual) Puncture Site pCO2 pO2 HCO3 ABG pH ABG Total CO2 ABG O2 Saturation ABG Base Excess Steve Test ABG Potassium A-a O2 Difference Respiratory Index Sodium Chloride Glucose Lactate FiO2 Inspiratory BiPAP Expiratory BiPAP Potassium Carbon Dioxide Anion Gap BUN Creatinine Est GFR ( Amer) Est GFR (Non-Af Amer) Random Glucose Hemoglobin A1c Calcium Phosphorus Magnesium Total Bilirubin AST ALT Alkaline Phosphatase Total Creatine Kinase CK-MB (Mass) Troponin I Total Protein Albumin Globulin Albumin/Globulin Ratio Triglycerides Cholesterol LDL Cholesterol Direct HDL Cholesterol Procalcitonin 0.65 H Free T4 TSH 3rd Generation Arterial Blood Potassium Urine Color Urine Clarity Urine pH Ur Specific [place] Urine Protein Urine Glucose (UA) Urine Ketones Urine Blood Urine Nitrate Urine Bilirubin Urine Urobilinogen Ur Leukocyte Esterase Urine WBC (Auto) Urine RBC (Auto) Ur Squamous Epith Cells Amorphous Sediment Urine Bacteria Ur L.pneumophila Ag Negative Mycoplasma pneumon IgM Negative EKG/Cardiology Studies: Cardiology / EKG Studies 01/11/18 18:00 EKG [ELECTROCARDIOGRAM] Q8H Comment: Mode Of Transportation: Reason For Exam: chest pain Critical Care Progress Note - Nutrition Nutrition: Nutrition Category Date Time Status Heart Healthy Diet [DIET] Diets 01/11/18 Lunch Active Attending/Attestation - Attestation I have personally seen and examined this patient.: Yes I have fully participated in the care of the patient.: Yes I have reviewed all pertinent clinical information: Yes Notes (Text): 01/12/18 15:10 Today: Friday, January 12, 2018 The Patient was seen and examined at the bedside, Medical records reviewed, and management issues were discussed and formulated with the house staff. I have reviewed all the relevant clinical, laboratory, hemodynamic, radiographic data and medications Events reviewed Pain issues, skin care, head of the bed elevation, glycemic control were addressed. Agree with above resident's assessment and treatment plans of care as transcribed in Dr. Hamilton note.
[2018-01-12 13:05] LABS: LEGIONELLA AG URINE NEGATIVE (NEGATIVE)
--- NOTE | 2018-01-12 17:13 | CP.PCM.PN ---
Subjective - Date & Time of Evaluation Date of Evaluation: 01/12/18 Time of Evaluation: 17:06 - Subjective Subjective: The patient is still short of breath, s tach. TNI max 2.0 so far. Objective - Vital Signs/Intake and Output Vital Signs (last 24 hours): Temp Pulse Resp BP Pulse Ox 98.0 F 117 H 36 H 157/76 H 97 01/12/18 12:00 01/12/18 16:10 01/12/18 12:00 01/12/18 12:00 01/12/18 12:00 Intake and Output: 01/12/18 01/12/18 06:59 18:59 Intake Total 1020 830 Output Total 750 Balance 270 830 - Medications Medications: Current Medications Albuterol/Ipratropium (Duoneb 3 Mg/0.5 Mg (3 Ml) Ud) 3 ml INH RQ4 [facility] Last Admin: 01/12/18 12:30 Dose: 3 ml Alprazolam (Xanax) 0.25 mg PO HS [facility] Stop: 01/18/18 22:01 Last Admin: 01/11/18 21:17 Dose: 0.25 mg Alprazolam (Xanax) 0.25 mg PO Q8 PRN PRN Reason: Anxiety Stop: 01/19/18 12:36 Aspirin (Aspirin Chewable) 81 mg PO DAILY [facility] Last Admin: 01/12/18 09:48 Dose: 81 mg Chlorthalidone (Hygroton) 25 mg PO DAILY [facility] Last Admin: 01/12/18 09:48 Dose: 25 mg Clopidogrel Bisulfate (Plavix) 75 mg PO DAILY [facility] Last Admin: 01/12/18 09:48 Dose: 75 mg Enoxaparin Sodium (Lovenox) 80 mg SC Q12 [facility] Last Admin: 01/12/18 09:47 Dose: 80 mg Famotidine (Pepcid) 20 mg PO DAILY [facility] Last Admin: 01/12/18 09:48 Dose: 20 mg Azithromycin 500 mg/ Sodium (Chloride) 250 mls @ 250 mls/hr IVPB DAILY [facility] PRN Reason: Protocol Last Admin: 01/12/18 09:46 Dose: 250 mls/hr Ceftriaxone Sodium 1 gm/ (Sodium Chloride) 100 mls @ 100 mls/hr IVPB DAILY [facility] PRN Reason: Protocol Last Admin: 01/12/18 09:47 Dose: 100 mls/hr Sodium Chloride (Sodium Chloride 0.9%) 1,000 mls @ 75 mls/hr IV .[id number] [facility] Last Admin: 01/12/18 06:47 Dose: 75 mls/hr Montelukast Sodium (Singulair) 10 mg PO HS [facility] Last Admin: 01/11/18 21:17 Dose: 10 mg Saccharomyces Boulardii (Florastor) 250 mg PO BID [facility] Last Admin: 01/12/18 09:48 Dose: 250 mg - Labs Labs: 01/12/18 06:28 01/12/18 06:27 PT 10.6 SECONDS (9.7-12.2) 01/11/18 06:35 INR 1.0 01/11/18 06:35 APTT 30 SECONDS (21-34) 01/11/18 06:35 - Constitutional Appears: Chronically Ill - Head Exam Head Exam: ATRAUMATIC - Eye Exam Eye Exam: EOMI - ENT Exam ENT Exam: Mucous Membranes Dry - Neck Exam Neck Exam: Full ROM - Respiratory Exam Respiratory Exam: Decreased Breath Sounds, Prolonged Expiratory Phase - Cardiovascular Exam Cardiovascular Exam: REGULAR RHYTHM - GI/Abdominal Exam GI & Abdominal Exam: Normal Bowel Sounds - Rectal Exam Rectal Exam: NORMAL INSPECTION - Exam Exam: NORMAL INSPECTION External exam: NORMAL EXTERNAL EXAM - Extremities Exam Extremities Exam: Normal Inspection - Neurological Exam Neurological Exam: Alert, Awake - Psychiatric Exam Psychiatric exam: Anxious - Skin Skin Exam: Normal Color Assessment and Plan - Assessment and Plan (Free Text) Assessment: Pt has had non stemi due to demand ischemia supportive care with dapt, IV heparin.
[2018-01-13 00:37] LABS: ABG ALLEN TEST POS; ARTERIAL BLOOD GAS HCO3 32.3 mmol/L (21-28); ARTERIAL BLOOD GAS HEMOGLOBIN 10.7 g/dL (11.7-17.4); ARTERIAL BLOOD GAS PCO2 117 mm/Hg (35-45); ARTERIAL BLOOD GAS PH 7.16 (7.35-7.45); ARTERIAL BLOOD GAS PO2 56 mm/Hg (80-100); ARTERIAL BLOOD GAS TCO2 45.3 mmol/L (22-28)
[2018-01-13] MEDS: Albuterol-Ipratrop 3 mg / 0.5 (3 ml) UD INH SCH ×6 (00:52→20:04)
[2018-01-13 06:05] LABS: ABG ALLEN TEST POS; ARTERIAL BLOOD GAS HCO3 34.3 mmol/L (21-28); ARTERIAL BLOOD GAS HEMOGLOBIN 10.9 g/dL (11.7-17.4); ARTERIAL BLOOD GAS O2 SAT 99.5 % (95-98); ARTERIAL BLOOD GAS PCO2 77 mm/Hg (35-45); ARTERIAL BLOOD GAS PH 7.33 (7.35-7.45); ARTERIAL BLOOD GAS PO2 139 mm/Hg (80-100)
[2018-01-13 06:21] LABS: BASO # 0.1 K/uL (0.0-0.2); BASO % 0.3 % (0.0-2.0); EOS % 0.1 % (0.0-4.0); HEMOGLOBIN 9.3 g/dL (11.0-16.0); LYMPH # 0.6 K/uL (1.0-4.3); LYMPH % 2.3 % (20.0-40.0); MEAN CELL VOLUME 90.3 fL (81.0-99.0); MEAN CORPUSCULAR HEMOGLOBIN 28.9 pg (27.0-31.0); MEAN PLATELET VOLUME 8.3 fL (7.2-11.7); MONO # 1.9 K/uL (0.0-0.8); MONO % 7.4 % (0.0-10.0); NEUT # 23.1 K/uL (1.8-7.0); NEUT % 89.9 % (50.0-75.0); PLATELET COUNT 261 K/uL (130-400); RBC 3.22 Mil/uL (3.80-5.20); RED CELL DISTRIBUTION WIDTH 13.3 % (11.5-14.5); WHITE BLOOD COUNT 25.7 K/uL (4.8-10.8)
[2018-01-13 06:43] LABS: ALB/GLOB RATIO 1.2 (1.0-2.1); ALBUMIN 3.3 g/dL (3.5-5.0); ALT/SGPT 36 U/L (9-52); AST/SGOT 34 U/L (14-36); BLOOD UREA NITROGEN 18 mg/dL (7-17); CALCIUM 7.6 mg/dl (8.6-10.4); GFR AFRICAN-AMERICAN > 60; GFR NON-AFRICAN AMERICAN > 60
--- NOTE | 2018-01-13 07:46 | CP.PCM.PN ---
Subjective - Date & Time of Evaluation Date of Evaluation: 01/13/18 Time of Evaluation: 07:30 - Subjective Subjective: Patient was seen and examined She reports breathing is ok at rest. Denied chest pain at rest, however explained she has pain when coughing. The patient had further adjustments of the Bipap settings overnight. WBC remains elevated, cultures are negative, afebrile, the procalcitonin is slightly elevated. The troponin decreased to 1.6 As mentioned previously this is a a 82 year old female with a history HTN, RA, COPD (she says a lot of second hand smoking in family) on home oxygen, she was very short of breath, there is also an NSTEMI from demand ischemia. The patient is also being treated for pneumonia as well and is on IV abx. Cultures negative at this moment. CT scan of the chest from 01/11 also shows nodules as well. Objective - Vital Signs/Intake and Output Vital Signs (last 24 hours): Temp Pulse Resp BP Pulse Ox 98.2 F 96 H 25 H 101/51 L 99 01/13/18 04:00 01/13/18 06:12 01/13/18 06:00 01/13/18 06:00 01/13/18 06:00 Intake and Output: 01/13/18 01/13/18 06:59 18:59 Intake Total 1020 Output Total 750 Balance 270 - Medications Medications: Current Medications Albuterol/Ipratropium (Duoneb 3 Mg/0.5 Mg (3 Ml) Ud) 3 ml INH RQ4 [facility] Last Admin: 01/13/18 07:38 Dose: Not Given Alprazolam (Xanax) 0.25 mg PO HS [facility] Stop: 01/18/18 22:01 Last Admin: 01/12/18 22:00 Dose: Not Given Alprazolam (Xanax) 0.25 mg PO Q8 PRN PRN Reason: Anxiety Stop: 01/19/18 12:36 Aspirin (Aspirin Chewable) 81 mg PO DAILY [facility] Last Admin: 01/12/18 09:48 Dose: 81 mg Chlorthalidone (Hygroton) 25 mg PO DAILY [facility] Last Admin: 01/12/18 09:48 Dose: 25 mg Clopidogrel Bisulfate (Plavix) 75 mg PO DAILY [facility] Last Admin: 01/12/18 09:48 Dose: 75 mg Enoxaparin Sodium (Lovenox) 80 mg SC Q12 [facility] Last Admin: 01/12/18 22:20 Dose: 80 mg Famotidine (Pepcid) 20 mg PO DAILY [facility] Last Admin: 01/12/18 09:48 Dose: 20 mg Azithromycin 500 mg/ Sodium (Chloride) 250 mls @ 250 mls/hr IVPB DAILY [facility] PRN Reason: Protocol Last Admin: 01/12/18 09:46 Dose: 250 mls/hr Ceftriaxone Sodium 1 gm/ (Sodium Chloride) 100 mls @ 100 mls/hr IVPB DAILY [facility] PRN Reason: Protocol Last Admin: 01/12/18 09:47 Dose: 100 mls/hr Sodium Chloride (Sodium Chloride 0.9%) 1,000 mls @ 75 mls/hr IV .[id number] [facility] Last Admin: 01/12/18 17:09 Dose: Not Given Montelukast Sodium (Singulair) 10 mg PO HS [facility] Last Admin: 01/12/18 22:20 Dose: 10 mg Saccharomyces Boulardii (Florastor) 250 mg PO BID [facility] Last Admin: 01/12/18 17:07 Dose: 250 mg - Labs Labs: 01/13/18 06:07 01/13/18 06:04 PT 10.6 SECONDS (9.7-12.2) 01/11/18 06:35 INR 1.0 01/11/18 06:35 APTT 30 SECONDS (21-34) 01/11/18 06:35 - Constitutional Appears: Chronically Ill - Head Exam Head Exam: NORMAL INSPECTION - Eye Exam Eye Exam: EOMI - ENT Exam ENT Exam: Mucous Membranes Moist - Respiratory Exam Respiratory Exam: Decreased Breath Sounds, Rales, Rhonchi - Cardiovascular Exam Cardiovascular Exam: REGULAR RHYTHM - GI/Abdominal Exam GI & Abdominal Exam: Soft, Normal Bowel Sounds. absent: Tenderness - Neurological Exam Neurological Exam: Alert, Awake, Oriented x3 Neuro motor strength exam: Left Upper Extremity: 4, Right Upper Extremity: 4, Left Lower Extremity: 4, Right Lower Extremity: 4 - Psychiatric Exam Psychiatric exam: Depressed, Flat Affect - Skin Skin Exam: Pallor, Warm Assessment and Plan - Assessment and Plan (Free Text) Assessment: 82yo F admitted with hypercapneic respiratory failure from PNA and NSTEMI Hypercapneic respiratory failure from PNA and COPD 01/13: Further adjustment to Bipap were done overnight. Checking portable XRAY today. 01/12: Not short of breath at rest, however needs Bipap. Currently on IV abx rocephin and azithromycin IV. Blood cultures negative at this moment. She does have an elevated WBC. Afebrile. Checking also atypical cultures and procalcitonin. CT scan was negative for PE, it did note pulmonary nodules. -Co2 retention on ABG; from previous admissions Co2 is actually lower than previous -currently on BiPap; tolerating; patient is able to speak through BiPap NSTEMI 01/13: Troponin decreased again 01/12: Conitnue with Plavix and Lovenox SC BID Remains on statin and ASA [place] demand ischemia causing NSTEMI Per cardiology patient will need cardiac catherization at some point Pmhx of COPD; acute on chronic 01/13: Remains on Bipap. IV solumedrol Continue with tx Breo and Incruse Remains on Bipap Hx of RA Currently on hold - Leflunomide and Celebrex daily Hx of HTN 01/13: Systolic BPs in the low 100s 01/12: BB on hold due to COPD at this moment. Currently the systolic BP is in the 100 emeterio. -c/w Bisoprodol, Metalazone, Chlorthiadone Hx of CHF systolic and diastolic failure; EF not documented; acute on chronic 01/12: Echo returned reporting EF 40 to 45% Proph Lovenox 80mg received; depending on PE/DVT/Cardiology can continue Gi prophylaxis not indicated at this time
[2018-01-13] MEDS ORDERED: Potassium Phosphate 15 MMOLE in Sodium Chloride 0.9% 250 ML IVPB ONE (08:30)
[2018-01-13 09:24] LABS: BANDS 2 % (0-2); LYMPHOCYTE 2 % (20-40); MONOCYTE 5 % (0-10); NEUTROPHIL 91 % (50-75); PLATELET ESTIMATE NORMAL (NORMAL); TOTAL CELLS COUNTED 100
[2018-01-13 09:25] LABS: HYPOCHROMIC SLIGHT
[2018-01-13] MEDS: Enoxaparin 80 mg Syringe SC SCH ×2 (09:32→22:45)
[2018-01-13] MEDS: Saccharomyces Boulardi 250 mg Cap PO SCH ×2 (09:32→17:11)
[2018-01-13] MEDS: Azithromycin 500 MG in Sodium Chloride 0.9% 250 ML IVPB SCH (10:40)
[2018-01-13] MEDS ORDERED: Tiotropium 18 mcg Cap For Inhalation INH SCH (11:00)
--- NOTE | 2018-01-13 11:07 | RAD ---
HISTORY: shortness of breath COMPARISON: Chest radiograph dated 01/11/2018. FINDINGS: LUNGS: Stable chronic prominence of the bilateral interstitial markings. No focal consolidation. Multiple rounded opacities varying sizes throughout the left lung field, unchanged PLEURA: No significant pleural effusion identified, no pneumothorax apparent. CARDIOVASCULAR: Atherosclerotic aortic calcifications. Cardiomediastinal silhouette stably enlarged. OSSEOUS STRUCTURES: Unchanged. VISUALIZED UPPER ABDOMEN: Normal. OTHER FINDINGS: None. IMPRESSION: Multifocal opacities throughout the left lung field, grossly unchanged. No focal consolidation or pleural effusion.
--- NOTE | 2018-01-13 12:46 | CP.CCUPN ---
<Agustina Hamilton - Last Filed: 01/13/18 12:44> CCU Subjective - Physician Review Subjective (Free Text): Patient seen and examined at bedside. Patient reports her breathing is somewhat getting better. Denied any chest pain. 01/13/18 12:50 Patient is clinically improving CCU Objective - Vital Signs / Intake & Output Intake and Output (Last 8hrs): Intake & Output 01/12/18 01/13/18 01/13/18 22:59 06:59 14:59 Intake Total 840 600 Output Total 750 Balance 840 -150 Weight 209 lb 8 oz Intake: Intake, IV Amount 600 600 Right Forearm 600 600 Oral 240 Output: Urine 750 Urine, Voided 750 - Physical Exam Head: Positive for: Atraumatic, Normocephalic Pupils: Positive for: PERRL Extroacular Muscles: Positive for: EOMI Conjunctiva: Positive for: Normal Mouth: Positive for: Moist Mucous Membranes Respiratory/Chest: Positive for: Decreased Breath Sounds Cardiovascular: Positive for: Regular Rate and Rhythm Abdomen: Positive for: Normal Bowel Sounds. Negative for: Tenderness, Distention Upper Extremity: Positive for: Normal Inspection, Normal ROM, NORMAL PULSES, Neurovascularly Intact, Capillary Refill < 2s Lower Extremity: Positive for: Normal Inspection, NORMAL PULSES, Neurovascularly Intact, Capillary Refill < 2 s Neurological: Positive for: GCS=15, CN II-XII Intact Skin: Positive for: Warm, Dry, Normal Color Psychiatric: Positive for: Alert, Oriented x 3 - Medications Active Medications: Active Medications Generic Name Dose Route Start Last Admin Trade Name Freq PRN Reason Stop Dose Admin Albuterol/Ipratropium 3 ml 01/11/18 09:45 01/13/18 10:59 Duoneb 3 Mg/0.5 Mg (3 Ml) Ud INH 3 ml RQ4 JUNIE Administration Alprazolam 0.25 mg 01/11/18 22:00 01/12/18 22:00 Xanax PO 01/18/18 22:01 Not Given HS JUNIE Alprazolam 0.25 mg 01/12/18 12:35 01/13/18 08:36 Xanax PO 01/19/18 12:36 0.25 mg Q8 PRN Administration Anxiety Aspirin 81 mg 01/12/18 10:00 01/13/18 09:32 Aspirin Chewable PO 81 mg DAILY JUNIE Administration Chlorthalidone 25 mg 01/12/18 10:00 01/13/18 09:32 Hygroton PO 25 mg DAILY JUNIE Administration Clopidogrel Bisulfate 75 mg 01/12/18 10:00 01/13/18 09:32 Plavix PO 75 mg DAILY JUNIE Administration Enoxaparin Sodium 80 mg 01/11/18 18:00 01/13/18 09:32 Lovenox SC 80 mg Q12 JUNIE Administration Famotidine 20 mg 01/12/18 10:00 01/13/18 09:31 Pepcid PO 20 mg DAILY JUNIE Administration Azithromycin 500 mg/ Sodium 250 mls @ 250 mls/hr 01/12/18 10:00 01/13/18 10: 40 Chloride IVPB 250 mls/hr DAILY JUNIE Administration Protocol Ceftriaxone Sodium 1 gm/ 100 mls @ 100 mls/hr 01/12/18 10:00 01/13/18 09:32 Sodium Chloride IVPB 100 mls/hr DAILY JUNIE Administration Protocol Potassium Phosphate 15 mmole/ 255 mls @ 42.5 mls/hr 01/13/18 08:30 01/13/18 08:46 Sodium Chloride IVPB 01/13/18 14:29 42.5 mls/hr ONCE ONE Administration Methylprednisolone 40 mg 01/13/18 10:00 01/13/18 09:31 Solu-Medrol IV 40 mg Q12 JUNIE Administration Montelukast Sodium 10 mg 01/11/18 22:00 01/12/18 22:20 Singulair PO 10 mg HS JUNIE Administration Saccharomyces Boulardii 250 mg 01/11/18 10:00 01/13/18 09:32 Florastor PO 250 mg BID JUNIE Administration - Patient Studies Lab Studies: Microbiology Studies 01/11/18 Unknown Gram Stain - Final Sputum Induced Sputum Culture - Final NORMAL ORAL RIGO 01/12/18 06:29 Urine Culture - Final Urine No Growth (<1,000 CFU/ML) 01/11/18 04:44 Blood Culture - Preliminary Blood NO GROWTH AFTER 48 HOURS 01/11/18 04:44 Blood Culture - Preliminary Blood NO GROWTH AFTER 48 HOURS 01/11/18 10:24 MRSA Culture (Admit) - Final Naris MRSA NOT DETECTED Lab Studies 01/13/18 01/13/18 01/13/18 Range/Units 06:07 06:04 05:29 WBC 25.7 H (4.8-10.8) K/uL RBC 3.22 L (3.80-5.20) Mil/uL Hgb 9.3 L (11.0-16.0) g/dL Hct 29.1 L (34.0-47.0) % MCV 90.3 (81.0-99.0) fL MCH 28.9 (27.0-31.0) pg MCHC 32.0 L (33.0-37.0) g/dL RDW 13.3 (11.5-14.5) % Plt Count 261 (130-400) K/uL MPV 8.3 (7.2-11.7) fL Neut % (Auto) 89.9 H (50.0-75.0) % Lymph % (Auto) 2.3 L (20.0-40.0) % [place] % (Auto) 7.4 (0.0-10.0) % Eos % (Auto) 0.1 (0.0-4.0) % Baso % (Auto) 0.3 (0.0-2.0) % Neut # (Auto) 23.1 H (1.8-7.0) K/uL Lymph # (Auto) 0.6 L (1.0-4.3) K/uL [place] # (Auto) 1.9 H (0.0-0.8) K/uL Eos # (Auto) 0.0 (0.0-0.7) K/uL Baso # (Auto) 0.1 (0.0-0.2) K/uL Neutrophils % (Manual) 91 H (50-75) % Band Neutrophils % 2 (0-2) % Lymphocytes % (Manual) 2 L (20-40) % Monocytes % (Manual) 5 (0-10) % Platelet Estimate Normal (NORMAL) Hypochromasia (manual) Slight Puncture Site R rad pCO2 77 H* (35-45) mm/Hg pO2 139 H (80-100) mm/Hg HCO3 34.3 H (21-28) mmol/L ABG pH 7.33 L (7.35-7.45) ABG Total CO2 43.0 H (22-28) mmol/L ABG O2 Saturation 99.5 H (95-98) % ABG Base Excess 12.0 H (-2.0-3.0) mmol/L ABG Hemoglobin 10.9 L (11.7-17.4) g/dL ABG Carboxyhemoglobin 2.1 H (0.5-1.5) % POC ABG HHb (Measured) 0.5 (0.0-5.0) % ABG Methemoglobin 0.8 (0.0-3.0) % Steve Test Pos A-a O2 Difference 50.0 mm/Hg Respiratory Index 0.4 Hgb O2 Saturation 96.7 (95.0-98.0) % Vent Mode Bipap Mechanical Rate 20 FiO2 40.0 % Inspiratory BiPAP 18 Expiratory BiPAP 7 Crit Value Called To Loan [employer] Crit Value Called By Kaci castro rt Crit Value Read Back Y Blood Gas Notified Time 607 Sodium 141 (132-148) mmol/L Potassium 3.2 L (3.6-5.2) mmol/L Chloride 98 (98-107) mmol/L Carbon Dioxide 38 H (22-30) mmol/L Anion Gap 9 L (10-20) BUN 18 H (7-17) mg/dL Creatinine 0.7 (0.7-1.2) mg/dL Est GFR ( Amer) > 60 Est GFR (Non-Af Amer) > 60 POC Glucose (mg/dL) (65-110) mg/dL Random Glucose 171 H (65-105) mg/dL Calcium 7.6 L (8.6-10.4) mg/dl Phosphorus 1.9 L (2.5-4.5) mg/dL Magnesium 2.4 H (1.6-2.3) mg/dL Total Bilirubin 0.3 (0.2-1.3) mg/dL AST 34 (14-36) U/L ALT 36 (9-52) U/L Alkaline Phosphatase 91 (38-126) U/L Troponin I 1.3300 H* (0.00-0.120) ng/mL Total Protein 6.2 L (6.3-8.3) g/dL Albumin 3.3 L (3.5-5.0) g/dL Globulin 2.9 (2.2-3.9) gm/dL Albumin/Globulin Ratio 1.2 (1.0-2.1) Procalcitonin (0.19-0.49) NG/ML Ur L.pneumophila Ag (NEGATIVE) 01/13/18 01/13/18 01/12/18 Range/Units 00:24 00:23 10:27 WBC (4.8-10.8) K/uL RBC (3.80-5.20) Mil/uL Hgb (11.0-16.0) g/dL Hct (34.0-47.0) % MCV (81.0-99.0) fL MCH (27.0-31.0) pg MCHC (33.0-37.0) g/dL RDW (11.5-14.5) % Plt Count (130-400) K/uL MPV (7.2-11.7) fL Neut % (Auto) (50.0-75.0) % Lymph % (Auto) (20.0-40.0) % [place] % (Auto) (0.0-10.0) % Eos % (Auto) (0.0-4.0) % Baso % (Auto) (0.0-2.0) % Neut # (Auto) (1.8-7.0) K/uL Lymph # (Auto) (1.0-4.3) K/uL [place] # (Auto) (0.0-0.8) K/uL Eos # (Auto) (0.0-0.7) K/uL Baso # (Auto) (0.0-0.2) K/uL Neutrophils % (Manual) (50-75) % Band Neutrophils % (0-2) % Lymphocytes % (Manual) (20-40) % Monocytes % (Manual) (0-10) % Platelet Estimate (NORMAL) Hypochromasia (manual) Puncture Site R rad pCO2 117 H* (35-45) mm/Hg pO2 56 L (80-100) mm/Hg HCO3 32.3 H (21-28) mmol/L ABG pH 7.16 L* (7.35-7.45) ABG Total CO2 45.3 H (22-28) mmol/L ABG O2 Saturation 90.0 L (95-98) % ABG Base Excess 9.7 H (-2.0-3.0) mmol/L ABG Hemoglobin 10.7 L (11.7-17.4) g/dL ABG Carboxyhemoglobin 2.5 H (0.5-1.5) % POC ABG HHb (Measured) 9.7 H (0.0-5.0) % ABG Methemoglobin 0.6 (0.0-3.0) % Steve Test Pos A-a O2 Difference 83.0 mm/Hg Respiratory Index 1.5 Hgb O2 Saturation 87.2 L (95.0-98.0) % Vent Mode Bipap Mechanical Rate FiO2 40.0 % Inspiratory BiPAP 12 Expiratory BiPAP 6 Crit Value Called To Dr muñoz Crit Value Called By Naomy Crit Value Read Back Y Blood Gas Notified Time 40 Sodium (132-148) mmol/L Potassium (3.6-5.2) mmol/L Chloride (98-107) mmol/L Carbon Dioxide (22-30) mmol/L Anion Gap (10-20) BUN (7-17) mg/dL Creatinine (0.7-1.2) mg/dL Est GFR ( Amer) Est GFR (Non-Af Amer) POC Glucose (mg/dL) 208 H (65-110) mg/dL Random Glucose (65-105) mg/dL Calcium (8.6-10.4) mg/dl Phosphorus (2.5-4.5) mg/dL Magnesium (1.6-2.3) mg/dL Total Bilirubin (0.2-1.3) mg/dL AST (14-36) U/L ALT (9-52) U/L Alkaline Phosphatase (38-126) U/L Troponin I (0.00-0.120) ng/mL Total Protein (6.3-8.3) g/dL Albumin (3.5-5.0) g/dL Globulin (2.2-3.9) gm/dL Albumin/Globulin Ratio (1.0-2.1) Procalcitonin 0.65 H (0.19-0.49) NG/ML Ur L.pneumophila Ag Negative (NEGATIVE) Laboratory Results - last 24 hr 01/12/18 01/13/18 01/13/18 10:27 00:23 00:24 WBC RBC Hgb Hct MCV MCH MCHC RDW Plt Count MPV Neut % (Auto) Lymph % (Auto) [place] % (Auto) Eos % (Auto) Baso % (Auto) Neut # (Auto) Lymph # (Auto) [place] # (Auto) Eos # (Auto) Baso # (Auto) Neutrophils % (Manual) Band Neutrophils % Lymphocytes % (Manual) Monocytes % (Manual) Platelet Estimate Hypochromasia (manual) Puncture Site R rad pCO2 117 H* pO2 56 L HCO3 32.3 H ABG pH 7.16 L* ABG Total CO2 45.3 H ABG O2 Saturation 90.0 L ABG Base Excess 9.7 H ABG Hemoglobin 10.7 L ABG Carboxyhemoglobin 2.5 H POC ABG HHb (Measured) 9.7 H ABG Methemoglobin 0.6 Steve Test Pos A-a O2 Difference 83.0 Respiratory Index 1.5 Hgb O2 Saturation 87.2 L Vent Mode Bipap Mechanical Rate FiO2 40.0 Inspiratory BiPAP 12 Expiratory BiPAP 6 Crit Value Called To Dr muñoz Crit Value Called By Naomy Crit Value Read Back Y Blood Gas Notified Time 40 Sodium Potassium Chloride Carbon Dioxide Anion Gap BUN Creatinine Est GFR ( Amer) Est GFR (Non-Af Amer) POC Glucose (mg/dL) 208 H Random Glucose Calcium Phosphorus Magnesium Total Bilirubin AST ALT Alkaline Phosphatase Troponin I Total Protein Albumin Globulin Albumin/Globulin Ratio Procalcitonin 0.65 H Ur L.pneumophila Ag Negative 01/13/18 01/13/18 01/13/18 05:29 06:04 06:07 WBC 25.7 H RBC 3.22 L Hgb 9.3 L Hct 29.1 L MCV 90.3 MCH 28.9 MCHC 32.0 L RDW 13.3 Plt Count 261 MPV 8.3 Neut % (Auto) 89.9 H Lymph % (Auto) 2.3 L [place] % (Auto) 7.4 Eos % (Auto) 0.1 Baso % (Auto) 0.3 Neut # (Auto) 23.1 H Lymph # (Auto) 0.6 L [place] # (Auto) 1.9 H Eos # (Auto) 0.0 Baso # (Auto) 0.1 Neutrophils % (Manual) 91 H Band Neutrophils % 2 Lymphocytes % (Manual) 2 L Monocytes % (Manual) 5 Platelet Estimate Normal Hypochromasia (manual) Slight Puncture Site R rad pCO2 77 H* pO2 139 H HCO3 34.3 H ABG pH 7.33 L ABG Total CO2 43.0 H ABG O2 Saturation 99.5 H ABG Base Excess 12.0 H ABG Hemoglobin 10.9 L ABG Carboxyhemoglobin 2.1 H POC ABG HHb (Measured) 0.5 ABG Methemoglobin 0.8 Steve Test Pos A-a O2 Difference 50.0 Respiratory Index 0.4 Hgb O2 Saturation 96.7 Vent Mode Bipap Mechanical Rate 20 FiO2 40.0 Inspiratory BiPAP 18 Expiratory BiPAP 7 Crit Value Called To Loan [employer] Crit Value Called By Kaci castro rt Crit Value Read Back Y Blood Gas Notified Time 607 Sodium 141 Potassium 3.2 L Chloride 98 Carbon Dioxide 38 H Anion Gap 9 L BUN 18 H Creatinine 0.7 Est GFR ( Amer) > 60 Est GFR (Non-Af Amer) > 60 POC Glucose (mg/dL) Random Glucose 171 H Calcium 7.6 L Phosphorus 1.9 L Magnesium 2.4 H Total Bilirubin 0.3 AST 34 ALT 36 Alkaline Phosphatase 91 Troponin I 1.3300 H* Total Protein 6.2 L Albumin 3.3 L Globulin 2.9 Albumin/Globulin Ratio 1.2 Procalcitonin Ur L.pneumophila Ag Critical Care Progress Note - Nutrition Nutrition: Nutrition Category Date Time Status Heart Healthy Diet [DIET] Diets 01/11/18 Lunch Active Assessment/Plan - Assessment and Plan (Free Text) Assessment: This is a 82 year old female with PMHx of HTN, CAD with ?? Stents, COPD ( nonsmoker) on home oxygen, 2L NC, RA, HF with systolic and diastolic dysfunction (2014), coming from home with ~12-14 hours of SOB and burning in her chest. Found to be hypercapneic on ABG, she did not improve clinically after breathing treatments, steroids, was then started on bipap, repeat ABG shows improvement. Patient admitted to ICU for Hypercapneic failure 2/2 NSTEMI with Multifocal LLL Pneumonia. Plan: Neuro: GCS 15 Cardio: A: NSTEMI Dr. Duff consulted - EKG: new RBBB when compared to EKG in 2015 - Troponin 1.67 --> 1.61 --> 2.0 --> 1.33 - Started therapeutic lovenox - Will plan for cath once patient has stabilized A: CAD with stents - Patient reports ASA, Plavix was stopped by Dr. Chong (partner with Dr. Duff) - Restarted ASA, Plavix - pending reccs from Cardio A: HF Diastolic dysfunction - Last ECHO was in 2014 - Repeat ECHO: EF 45-50%, with diastolic dysfunction - BNP 2970 - Labs - WNL - Resume home medications: Chlorthalidone 25mg, Bystolic 5mg (held due to acute CHF) A: HTN - Resume home medications: Chlorthalidone 25mg, Bystolic 5mg (held due to acute CHF) Pulm: A: Hypercapneic Failure 2/2 NSTEMI and Multifocal PNA - Elevated D - Dimer, hypercapneic on ABG - Currently on BIPAP - continue - Negative for PE, venous dopplers- negative for DVT - Duonebs Q4, Azithro, Rocephin 6, Solumedrol 40mg Q12, Florastor BID, Singulair A: COPD - Started Duonebs Q4, Azithro, Rocephin 01/11, Florastor BID, Singulair A: Pulmonary Nodules - Multiple small right-sided pulmonary nodules common nonspecific. No calcified nodules are appreciated. Small nodules but 1 are 5 mm or less. 7 mm nodule right lower lobe. - Follow-up with chest CT 6-12 months. ID: A: Multifocal LLL Pneumonia - Afebrile, leukocytosis with left shift, no bandemia, lactate 3.0 - 3.6 -->5.1 --> 4.0 --> 0.9; procal 0.61--> 0.65 - CXR: Abnormal, patchy densities in the left lower lobe, a new finding, suspicious for pneumonia. Recommend radiographic followup to document clearing. - CTA: No evidence of pulmonary embolism. Multifocal opacities throughout left lung, likely infectious. Rule out neoplastic. Followup to clearing. Multiple small right-sided pulmonary nodules common nonspecific. No calcified nodules are appreciated. Small nodules but 1 are 5 mm or less. 7 mm nodule right lower lobe. - Blood, UC, Sputum - negative - Started Duonebs Q4, Azithro, Rocephin 6/11, Florastor BID, Singulair Endo: A: IGT - A1C 5.8 Rheum: A: Hx RA Heme/Onc A: Hx Breast Cancer - S/P lumpectomy Prophylaxis - Protonix - SCDs, Therapeutic lovenox DW Agustina Kurtz DO, PGY-1 <Lyle Tse S - Last Filed: 01/13/18 18:13> CCU Objective - Vital Signs / Intake & Output Vital Signs (Last 4 hours): Vital Signs Pulse Resp BP Pulse Ox 01/13/18 16:13 100 H 01/13/18 16:01 104 H 18 134/60 100 01/13/18 16:00 102 H 28 H 01/13/18 15:01 106 H 28 H 134/68 100 01/13/18 15:00 105 H 27 H 100 Intake and Output (Last 8hrs): Intake & Output 01/13/18 01/13/18 01/13/18 06:59 14:59 22:59 Intake Total 600 855.0 267.5 Output Total 750 Balance -150 855.0 267.5 Weight 209 lb 8 oz Intake: Intake, IV Amount 600 855.0 267.5 Left Hand 255.0 42.5 Right Forearm 600 600 225 Output: Urine 750 Urine, Voided 750 - Medications Active Medications: Active Medications Generic Name Dose Route Start Last Admin Trade Name Freq PRN Reason Stop Dose Admin Albuterol/Ipratropium 3 ml 01/11/18 09:45 01/13/18 16:13 Duoneb 3 Mg/0.5 Mg (3 Ml) Ud INH 3 ml RQ4 JUNIE Administration Alprazolam 0.25 mg 01/11/18 22:00 01/12/18 22:00 Xanax PO 01/18/18 22:01 Not Given HS JUNIE Alprazolam 0.25 mg 01/12/18 12:35 01/13/18 08:36 Xanax PO 01/19/18 12:36 0.25 mg Q8 PRN Administration Anxiety Aspirin 81 mg 01/12/18 10:00 01/13/18 09:32 Aspirin Chewable PO 81 mg DAILY JUNIE Administration Chlorthalidone 25 mg 01/12/18 10:00 01/13/18 09:32 Hygroton PO 25 mg DAILY JUNIE Administration Clopidogrel Bisulfate 75 mg 01/12/18 10:00 01/13/18 09:32 Plavix PO 75 mg DAILY JUNIE Administration Enoxaparin Sodium 80 mg 01/11/18 18:00 01/13/18 09:32 Lovenox SC 80 mg Q12 JUNIE Administration Famotidine 20 mg 01/12/18 10:00 01/13/18 09:31 Pepcid PO 20 mg DAILY JUNIE Administration Azithromycin 500 mg/ Sodium 250 mls @ 250 mls/hr 01/12/18 10:00 01/13/18 10: 40 Chloride IVPB 250 mls/hr DAILY JUNIE Administration Protocol Ceftriaxone Sodium 1 gm/ 100 mls @ 100 mls/hr 01/12/18 10:00 01/13/18 09:32 Sodium Chloride IVPB 100 mls/hr DAILY JUNIE Administration Protocol Methylprednisolone 40 mg 01/13/18 10:00 01/13/18 09:31 Solu-Medrol IV 40 mg Q12 JUNIE Administration Montelukast Sodium 10 mg 01/11/18 22:00 01/12/18 22:20 Singulair PO 10 mg HS JUNIE Administration Saccharomyces Boulardii 250 mg 01/11/18 10:00 01/13/18 17:11 Florastor PO 250 mg BID JUNIE Administration - Patient Studies Lab Studies: Microbiology Studies 01/11/18 Unknown Gram Stain - Final Sputum Induced Sputum Culture - Final NORMAL ORAL RIGO 01/12/18 06:29 Urine Culture - Final Urine No Growth (<1,000 CFU/ML) 01/11/18 04:44 Blood Culture - Preliminary Blood NO GROWTH AFTER 48 HOURS 01/11/18 04:44 Blood Culture - Preliminary Blood NO GROWTH AFTER 48 HOURS Lab Studies 01/13/18 01/13/18 01/13/18 Range/Units 12:00 06:07 06:04 WBC 25.7 H (4.8-10.8) K/uL RBC 3.22 L (3.80-5.20) Mil/uL Hgb 9.3 L (11.0-16.0) g/dL Hct 29.1 L (34.0-47.0) % MCV 90.3 (81.0-99.0) fL MCH 28.9 (27.0-31.0) pg MCHC 32.0 L (33.0-37.0) g/dL RDW 13.3 (11.5-14.5) % Plt Count 261 (130-400) K/uL MPV 8.3 (7.2-11.7) fL Neut % (Auto) 89.9 H (50.0-75.0) % Lymph % (Auto) 2.3 L (20.0-40.0) % [place] % (Auto) 7.4 (0.0-10.0) % Eos % (Auto) 0.1 (0.0-4.0) % Baso % (Auto) 0.3 (0.0-2.0) % Neut # (Auto) 23.1 H (1.8-7.0) K/uL Lymph # (Auto) 0.6 L (1.0-4.3) K/uL [place] # (Auto) 1.9 H (0.0-0.8) K/uL Eos # (Auto) 0.0 (0.0-0.7) K/uL Baso # (Auto) 0.1 (0.0-0.2) K/uL Neutrophils % (Manual) 91 H (50-75) % Band Neutrophils % 2 (0-2) % Lymphocytes % (Manual) 2 L (20-40) % Monocytes % (Manual) 5 (0-10) % Platelet Estimate Normal (NORMAL) Hypochromasia (manual) Slight Puncture Site pCO2 (35-45) mm/Hg pO2 (80-100) mm/Hg HCO3 (21-28) mmol/L ABG pH (7.35-7.45) ABG Total CO2 (22-28) mmol/L ABG O2 Saturation (95-98) % ABG Base Excess (-2.0-3.0) mmol/L ABG Hemoglobin (11.7-17.4) g/dL ABG Carboxyhemoglobin (0.5-1.5) % POC ABG HHb (Measured) (0.0-5.0) % ABG Methemoglobin (0.0-3.0) % Steve Test A-a O2 Difference mm/Hg Respiratory Index Hgb O2 Saturation (95.0-98.0) % Vent Mode Mechanical Rate FiO2 % Inspiratory BiPAP Expiratory BiPAP Crit Value Called To Crit Value Called By Crit Value Read Back Blood Gas Notified Time Sodium 141 (132-148) mmol/L Potassium 3.2 L (3.6-5.2) mmol/L Chloride 98 (98-107) mmol/L Carbon Dioxide 38 H (22-30) mmol/L Anion Gap 9 L (10-20) BUN 18 H (7-17) mg/dL Creatinine 0.7 (0.7-1.2) mg/dL Est GFR ( Amer) > 60 Est GFR (Non-Af Amer) > 60 POC Glucose (mg/dL) (65-110) mg/dL Random Glucose 171 H (65-105) mg/dL Lactic Acid 0.9 (0.7-2.1) mmol/L Calcium 7.6 L (8.6-10.4) mg/dl Phosphorus 1.9 L (2.5-4.5) mg/dL Magnesium 2.4 H (1.6-2.3) mg/dL Total Bilirubin 0.3 (0.2-1.3) mg/dL AST 34 (14-36) U/L ALT 36 (9-52) U/L Alkaline Phosphatase 91 (38-126) U/L Troponin I 1.3300 H* (0.00-0.120) ng/mL Total Protein 6.2 L (6.3-8.3) g/dL Albumin 3.3 L (3.5-5.0) g/dL Globulin 2.9 (2.2-3.9) gm/dL Albumin/Globulin Ratio 1.2 (1.0-2.1) 01/13/18 01/13/18 01/13/18 Range/Units 05:29 00:24 00:23 WBC (4.8-10.8) K/uL RBC (3.80-5.20) Mil/uL Hgb (11.0-16.0) g/dL Hct (34.0-47.0) % MCV (81.0-99.0) fL MCH (27.0-31.0) pg MCHC (33.0-37.0) g/dL RDW (11.5-14.5) % Plt Count (130-400) K/uL MPV (7.2-11.7) fL Neut % (Auto) (50.0-75.0) % Lymph % (Auto) (20.0-40.0) % [place] % (Auto) (0.0-10.0) % Eos % (Auto) (0.0-4.0) % Baso % (Auto) (0.0-2.0) % Neut # (Auto) (1.8-7.0) K/uL Lymph # (Auto) (1.0-4.3) K/uL [place] # (Auto) (0.0-0.8) K/uL Eos # (Auto) (0.0-0.7) K/uL Baso # (Auto) (0.0-0.2) K/uL Neutrophils % (Manual) (50-75) % Band Neutrophils % (0-2) % Lymphocytes % (Manual) (20-40) % Monocytes % (Manual) (0-10) % Platelet Estimate (NORMAL) Hypochromasia (manual) Puncture Site R rad R rad pCO2 77 H* 117 H* (35-45) mm/Hg pO2 139 H 56 L (80-100) mm/Hg HCO3 34.3 H 32.3 H (21-28) mmol/L ABG pH 7.33 L 7.16 L* (7.35-7.45) ABG Total CO2 43.0 H 45.3 H (22-28) mmol/L ABG O2 Saturation 99.5 H 90.0 L (95-98) % ABG Base Excess 12.0 H 9.7 H (-2.0-3.0) mmol/L ABG Hemoglobin 10.9 L 10.7 L (11.7-17.4) g/dL ABG Carboxyhemoglobin 2.1 H 2.5 H (0.5-1.5) % POC ABG HHb (Measured) 0.5 9.7 H (0.0-5.0) % ABG Methemoglobin 0.8 0.6 (0.0-3.0) % Steve Test Pos Pos A-a O2 Difference 50.0 83.0 mm/Hg Respiratory Index 0.4 1.5 Hgb O2 Saturation 96.7 87.2 L (95.0-98.0) % Vent Mode Bipap Bipap Mechanical Rate 20 FiO2 40.0 40.0 % Inspiratory BiPAP 18 12 Expiratory BiPAP 7 6 Crit Value Called To Loan [employer]er Dr muñoz Crit Value Called By Kaci Moralez Crit Value Read Back Y Y Blood Gas Notified Time 607 40 Sodium (132-148) mmol/L Potassium (3.6-5.2) mmol/L Chloride (98-107) mmol/L Carbon Dioxide (22-30) mmol/L Anion Gap (10-20) BUN (7-17) mg/dL Creatinine (0.7-1.2) mg/dL Est GFR ( Amer) Est GFR (Non-Af Amer) POC Glucose (mg/dL) 208 H (65-110) mg/dL Random Glucose (65-105) mg/dL Lactic Acid (0.7-2.1) mmol/L Calcium (8.6-10.4) mg/dl Phosphorus (2.5-4.5) mg/dL Magnesium (1.6-2.3) mg/dL Total Bilirubin (0.2-1.3) mg/dL AST (14-36) U/L ALT (9-52) U/L Alkaline Phosphatase (38-126) U/L Troponin I (0.00-0.120) ng/mL Total Protein (6.3-8.3) g/dL Albumin (3.5-5.0) g/dL Globulin (2.2-3.9) gm/dL Albumin/Globulin Ratio (1.0-2.1) Laboratory Results - last 24 hr 01/13/18 01/13/18 01/13/18 00:23 00:24 05:29 WBC RBC Hgb Hct MCV MCH MCHC RDW Plt Count MPV Neut % (Auto) Lymph % (Auto) [place] % (Auto) Eos % (Auto) Baso % (Auto) Neut # (Auto) Lymph # (Auto) [place] # (Auto) Eos # (Auto) Baso # (Auto) Neutrophils % (Manual) Band Neutrophils % Lymphocytes % (Manual) Monocytes % (Manual) Platelet Estimate Hypochromasia (manual) Puncture Site R rad R rad pCO2 117 H* 77 H* pO2 56 L 139 H HCO3 32.3 H 34.3 H ABG pH 7.16 L* 7.33 L ABG Total CO2 45.3 H 43.0 H ABG O2 Saturation 90.0 L 99.5 H ABG Base Excess 9.7 H 12.0 H ABG Hemoglobin 10.7 L 10.9 L ABG Carboxyhemoglobin 2.5 H 2.1 H POC ABG HHb (Measured) 9.7 H 0.5 ABG Methemoglobin 0.6 0.8 Steve Test Pos Pos A-a O2 Difference 83.0 50.0 Respiratory Index 1.5 0.4 Hgb O2 Saturation 87.2 L 96.7 Vent Mode Bipap Bipap Mechanical Rate 20 FiO2 40.0 40.0 Inspiratory BiPAP 12 18 Expiratory BiPAP 6 7 Crit Value Called To Dr wanda arrington [employer] Crit Value Called By Naomy castro rt Crit Value Read Back Y Y Blood Gas Notified Time 40 607 Sodium Potassium Chloride Carbon Dioxide Anion Gap BUN Creatinine Est GFR ( Amer) Est GFR (Non-Af Amer) POC Glucose (mg/dL) 208 H Random Glucose Lactic Acid Calcium Phosphorus Magnesium Total Bilirubin AST ALT Alkaline Phosphatase Troponin I Total Protein Albumin Globulin Albumin/Globulin Ratio 01/13/18 01/13/18 01/13/18 06:04 06:07 12:00 WBC 25.7 H RBC 3.22 L Hgb 9.3 L Hct 29.1 L MCV 90.3 MCH 28.9 MCHC 32.0 L RDW 13.3 Plt Count 261 MPV 8.3 Neut % (Auto) 89.9 H Lymph % (Auto) 2.3 L [place] % (Auto) 7.4 Eos % (Auto) 0.1 Baso % (Auto) 0.3 Neut # (Auto) 23.1 H Lymph # (Auto) 0.6 L [place] # (Auto) 1.9 H Eos # (Auto) 0.0 Baso # (Auto) 0.1 Neutrophils % (Manual) 91 H Band Neutrophils % 2 Lymphocytes % (Manual) 2 L Monocytes % (Manual) 5 Platelet Estimate Normal Hypochromasia (manual) Slight Puncture Site pCO2 pO2 HCO3 ABG pH ABG Total CO2 ABG O2 Saturation ABG Base Excess ABG Hemoglobin ABG Carboxyhemoglobin POC ABG HHb (Measured) ABG Methemoglobin Steve Test A-a O2 Difference Respiratory Index Hgb O2 Saturation Vent Mode Mechanical Rate FiO2 Inspiratory BiPAP Expiratory BiPAP Crit Value Called To Crit Value Called By Crit Value Read Back Blood Gas Notified Time Sodium 141 Potassium 3.2 L Chloride 98 Carbon Dioxide 38 H Anion Gap 9 L BUN 18 H Creatinine 0.7 Est GFR ( Amer) > 60 Est GFR (Non-Af Amer) > 60 POC Glucose (mg/dL) Random Glucose 171 H Lactic Acid 0.9 Calcium 7.6 L Phosphorus 1.9 L Magnesium 2.4 H Total Bilirubin 0.3 AST 34 ALT 36 Alkaline Phosphatase 91 Troponin I 1.3300 H* Total Protein 6.2 L Albumin 3.3 L Globulin 2.9 Albumin/Globulin Ratio 1.2 Critical Care Progress Note - Nutrition Nutrition: Nutrition Category Date Time Status Heart Healthy Diet [DIET] Diets 01/11/18 Lunch Active Attending/Attestation - Attestation I have personally seen and examined this patient.: Yes I have fully participated in the care of the patient.: Yes I have reviewed all pertinent clinical information: Yes Notes (Text): 01/13/18 18:12 Patient seen and examined in the intensive care unit. Last night patient became more lethargic with elevated PCO2 but is much more awake and responsive now Continue BiPAP Continue steroids and nebulizer treatment Continue antibiotics pneumonia Clinically improving
--- NOTE | 2018-01-13 19:08 | CP.PCM.PN ---
Subjective - Date & Time of Evaluation Date of Evaluation: 01/13/18 Time of Evaluation: 19:05 - Subjective Subjective: Pt is more alert, breathing better, although cxr is unchanged TNi trending downward. Objective - Vital Signs/Intake and Output Vital Signs (last 24 hours): Temp Pulse Resp BP Pulse Ox 98.6 F 96 H 24 123/50 L 97 01/13/18 16:00 01/13/18 18:02 01/13/18 18:02 01/13/18 18:02 01/13/18 18:02 Intake and Output: 01/13/18 01/14/18 18:59 06:59 Intake Total 1197.5 Balance 1197.5 - Medications Medications: Current Medications Albuterol/Ipratropium (Duoneb 3 Mg/0.5 Mg (3 Ml) Ud) 3 ml INH RQ4 [facility] Last Admin: 01/13/18 16:13 Dose: 3 ml Alprazolam (Xanax) 0.25 mg PO HS [facility] Stop: 01/18/18 22:01 Last Admin: 01/12/18 22:00 Dose: Not Given Alprazolam (Xanax) 0.25 mg PO Q8 PRN PRN Reason: Anxiety Stop: 01/19/18 12:36 Last Admin: 01/13/18 08:36 Dose: 0.25 mg Aspirin (Aspirin Chewable) 81 mg PO DAILY [facility] Last Admin: 01/13/18 09:32 Dose: 81 mg Chlorthalidone (Hygroton) 25 mg PO DAILY [facility] Last Admin: 01/13/18 09:32 Dose: 25 mg Clopidogrel Bisulfate (Plavix) 75 mg PO DAILY [facility] Last Admin: 01/13/18 09:32 Dose: 75 mg Enoxaparin Sodium (Lovenox) 80 mg SC Q12 [facility] Last Admin: 01/13/18 09:32 Dose: 80 mg Famotidine (Pepcid) 20 mg PO DAILY [facility] Last Admin: 01/13/18 09:31 Dose: 20 mg Azithromycin 500 mg/ Sodium (Chloride) 250 mls @ 250 mls/hr IVPB DAILY [facility] PRN Reason: Protocol Last Admin: 01/13/18 10:40 Dose: 250 mls/hr Ceftriaxone Sodium 1 gm/ (Sodium Chloride) 100 mls @ 100 mls/hr IVPB DAILY [facility] PRN Reason: Protocol Last Admin: 01/13/18 09:32 Dose: 100 mls/hr Methylprednisolone (Solu-Medrol) 40 mg IV Q12 [facility] Last Admin: 01/13/18 09:31 Dose: 40 mg Montelukast Sodium (Singulair) 10 mg PO HS [facility] Last Admin: 01/12/18 22:20 Dose: 10 mg Saccharomyces Boulardii (Florastor) 250 mg PO BID [facility] Last Admin: 01/13/18 17:11 Dose: 250 mg - Labs Labs: 01/13/18 06:07 01/13/18 06:04 PT 10.6 SECONDS (9.7-12.2) 01/11/18 06:35 INR 1.0 01/11/18 06:35 APTT 30 SECONDS (21-34) 01/11/18 06:35 - Constitutional Appears: Chronically Ill - Head Exam Head Exam: ATRAUMATIC - Eye Exam Eye Exam: EOMI - ENT Exam ENT Exam: Mucous Membranes Dry - Respiratory Exam Respiratory Exam: Decreased Breath Sounds, Wheezes - Cardiovascular Exam Cardiovascular Exam: Tachycardia - GI/Abdominal Exam GI & Abdominal Exam: Normal Bowel Sounds - Exam External exam: Swelling - Extremities Exam Extremities Exam: Pedal Edema - Neurological Exam Neurological Exam: Alert, Awake - Psychiatric Exam Psychiatric exam: Anxious - Skin Skin Exam: Normal Color Assessment and Plan - Assessment and Plan (Free Text) Assessment: 1. Acute non stemi from demand ischemia. 2. DAPT,heparin 3. Will order echo to assess PA pressure, LV EF. 4. W?u for CAD once pneomonia has resolved. 5/. Pt has alternating sinus an short svt runs. Observe, but if more prolonged, cardezem po can be used.
[2018-01-14] MEDS: Albuterol-Ipratrop 3 mg / 0.5 (3 ml) UD INH SCH ×6 (00:24→22:51)
[2018-01-14 05:20] LABS: ABG ALLEN TEST POS; ARTERIAL BLOOD GAS HCO3 34.4 mmol/L (21-28); ARTERIAL BLOOD GAS HEMOGLOBIN 8.7 g/dL (11.7-17.4); ARTERIAL BLOOD GAS O2 SAT 99.2 % (95-98); ARTERIAL BLOOD GAS PCO2 66 mm/Hg (35-45); ARTERIAL BLOOD GAS PH 7.38 (7.35-7.45); ARTERIAL BLOOD GAS PO2 143 mm/Hg (80-100)
[2018-01-14 05:33] LABS: BASO % 0.2 % (0.0-2.0); EOS # 0.1 K/uL (0.0-0.7); EOS % 0.5 % (0.0-4.0); HEMOGLOBIN 9.7 g/dL (11.0-16.0); LYMPH # 0.3 K/uL (1.0-4.3); LYMPH % 1.7 % (20.0-40.0); MEAN CELL VOLUME 91.2 fL (81.0-99.0); MEAN CORPUSCULAR HEMOGLOBIN 28.2 pg (27.0-31.0); MEAN CORPUSCULAR HGB CONC 30.9 g/dL (33.0-37.0); MEAN PLATELET VOLUME 8.5 fL (7.2-11.7); MONO # 0.4 K/uL (0.0-0.8); MONO % 2.2 % (0.0-10.0); NEUT # 18.1 K/uL (1.8-7.0); NEUT % 95.4 % (50.0-75.0); NRBC % 0.1 % (0.0-2.0); PLATELET COUNT 241 K/uL (130-400); RBC 3.43 Mil/uL (3.80-5.20); RED CELL DISTRIBUTION WIDTH 13.6 % (11.5-14.5)
[2018-01-14 06:03] LABS: ALB/GLOB RATIO 1.2 (1.0-2.1); ALBUMIN 3.6 g/dL (3.5-5.0); ALT/SGPT 33 U/L (9-52); AST/SGOT 28 U/L (14-36); BLOOD UREA NITROGEN 21 mg/dL (7-17); CALCIUM 7.7 mg/dl (8.6-10.4); GFR AFRICAN-AMERICAN > 60; GFR NON-AFRICAN AMERICAN > 60
[2018-01-14 06:23] LABS: LYMPHOCYTE 1 % (20-40); MONOCYTE 1 % (0-10); NEUTROPHIL 98 % (50-75); PLATELET ESTIMATE NORMAL (NORMAL); TOTAL CELLS COUNTED 100
[2018-01-14 06:24] LABS: ANISOCYTOSIS SLIGHT; OVALOCYTES SLIGHT; POIKILOCYTOSIS SLIGHT
--- NOTE | 2018-01-14 08:53 | CP.PCM.PN ---
Subjective - Date & Time of Evaluation Date of Evaluation: 01/14/18 - Subjective Subjective: patient is seen and examined in the intensive care unit Remains on BiPAP Patient is awake and responsive Afebrile Objective - Vital Signs/Intake and Output Vital Signs (last 24 hours): Temp Pulse Resp BP Pulse Ox 98.6 F 115 H 24 139/64 99 01/14/18 04:00 01/14/18 07:28 01/14/18 06:00 01/14/18 06:00 01/14/18 06:00 Intake and Output: 01/14/18 01/14/18 06:59 18:59 Intake Total 300 0 Output Total 500 Balance -200 0 - Medications Medications: Current Medications Albuterol/Ipratropium (Duoneb 3 Mg/0.5 Mg (3 Ml) Ud) 3 ml INH RQ4 [facility] Last Admin: 01/14/18 07:27 Dose: 3 ml Alprazolam (Xanax) 0.25 mg PO HS [facility] Stop: 01/18/18 22:01 Last Admin: 01/13/18 22:44 Dose: 0.25 mg Alprazolam (Xanax) 0.25 mg PO Q8 PRN PRN Reason: Anxiety Stop: 01/19/18 12:36 Last Admin: 01/13/18 08:36 Dose: 0.25 mg Aspirin (Aspirin Chewable) 81 mg PO DAILY [facility] Last Admin: 01/13/18 09:32 Dose: 81 mg Chlorthalidone (Hygroton) 25 mg PO DAILY [facility] Last Admin: 01/13/18 09:32 Dose: 25 mg Clopidogrel Bisulfate (Plavix) 75 mg PO DAILY [facility] Last Admin: 01/13/18 09:32 Dose: 75 mg Enoxaparin Sodium (Lovenox) 80 mg SC Q12 [facility] Last Admin: 01/13/18 22:45 Dose: 80 mg Famotidine (Pepcid) 20 mg PO DAILY [facility] Last Admin: 01/13/18 09:31 Dose: 20 mg Azithromycin 500 mg/ Sodium (Chloride) 250 mls @ 250 mls/hr IVPB DAILY [facility] PRN Reason: Protocol Last Admin: 01/13/18 10:40 Dose: 250 mls/hr Ceftriaxone Sodium 1 gm/ (Sodium Chloride) 100 mls @ 100 mls/hr IVPB DAILY [facility] PRN Reason: Protocol Last Admin: 01/13/18 09:32 Dose: 100 mls/hr Methylprednisolone (Solu-Medrol) 40 mg IV Q12 [facility] Last Admin: 01/13/18 22:44 Dose: 40 mg Montelukast Sodium (Singulair) 10 mg PO HS [facility] Last Admin: 01/13/18 22:43 Dose: 10 mg Potassium Phos/Sodium Phos (Neutra-Phos) 1 pkt PO Q4H [facility] Stop: 01/14/18 12:31 Saccharomyces Boulardii (Florastor) 250 mg PO BID [facility] Last Admin: 01/13/18 17:11 Dose: 250 mg - Labs Labs: 01/14/18 05:17 01/14/18 05:17 PT 10.6 SECONDS (9.7-12.2) 01/11/18 06:35 INR 1.0 01/11/18 06:35 APTT 30 SECONDS (21-34) 01/11/18 06:35 - Head Exam Head Exam: ATRAUMATIC, NORMOCEPHALIC - Eye Exam Eye Exam: Normal appearance - ENT Exam ENT Exam: Mucous Membranes Moist - Respiratory Exam Respiratory Exam: Decreased Breath Sounds - Cardiovascular Exam Cardiovascular Exam: REGULAR RHYTHM - GI/Abdominal Exam GI & Abdominal Exam: Soft, Normal Bowel Sounds - Extremities Exam Extremities Exam: Pedal Edema Assessment and Plan (1) Acute respiratory failure with hypercapnia Assessment & Plan: continue BiPAP IV steroids Nebulizer treatment Lasix Continue IV antibiotics Monitor chest x-ray and abg Status: Acute (2) Pneumonia Status: Acute (3) COPD exacerbation Status: Acute
--- NOTE | 2018-01-14 08:59 | CP.PCM.PN ---
Subjective - Date & Time of Evaluation Date of Evaluation: 01/14/18 Time of Evaluation: 08:45 - Subjective Subjective: Patient was seen and examined by me. She explained she felt short of breath this morning. Remains on Bipap. She briefly took off the Bipap to talk to me but quickly placed it back on herself since it gave her a lot of help On exam had some rales and rhochi, congested sounding cough. Not on IVF at this moment. Will give lasix x 1 WBC decreased to 19. Afebrile. The cultures remains negative at this time As mentioned before this is a a 82 year old female with a history HTN, RA, COPD (she says a lot of second hand smoking in family) on home oxygen, she was very short of breath, there is also an NSTEMI from demand ischemia. The patient is also being treated for pneumonia as well and is on IV abx. Cultures negative at this moment. CT scan of the chest from 01/11 also shows nodules as well. Objective - Vital Signs/Intake and Output Vital Signs (last 24 hours): Temp Pulse Resp BP Pulse Ox 98.6 F 115 H 24 139/64 99 01/14/18 04:00 01/14/18 07:28 01/14/18 06:00 01/14/18 06:00 01/14/18 06:00 Intake and Output: 01/14/18 01/14/18 06:59 18:59 Intake Total 300 0 Output Total 500 Balance -200 0 - Medications Medications: Current Medications Albuterol/Ipratropium (Duoneb 3 Mg/0.5 Mg (3 Ml) Ud) 3 ml INH RQ4 [facility] Last Admin: 01/14/18 07:27 Dose: 3 ml Alprazolam (Xanax) 0.25 mg PO HS [facility] Stop: 01/18/18 22:01 Last Admin: 01/13/18 22:44 Dose: 0.25 mg Alprazolam (Xanax) 0.25 mg PO Q8 PRN PRN Reason: Anxiety Stop: 01/19/18 12:36 Last Admin: 01/13/18 08:36 Dose: 0.25 mg Aspirin (Aspirin Chewable) 81 mg PO DAILY [facility] Last Admin: 01/13/18 09:32 Dose: 81 mg Chlorthalidone (Hygroton) 25 mg PO DAILY [facility] Last Admin: 01/13/18 09:32 Dose: 25 mg Clopidogrel Bisulfate (Plavix) 75 mg PO DAILY [facility] Last Admin: 01/13/18 09:32 Dose: 75 mg Enoxaparin Sodium (Lovenox) 80 mg SC Q12 [facility] Last Admin: 01/13/18 22:45 Dose: 80 mg Famotidine (Pepcid) 20 mg PO DAILY [facility] Last Admin: 01/13/18 09:31 Dose: 20 mg Azithromycin 500 mg/ Sodium (Chloride) 250 mls @ 250 mls/hr IVPB DAILY [facility] PRN Reason: Protocol Last Admin: 01/13/18 10:40 Dose: 250 mls/hr Ceftriaxone Sodium 1 gm/ (Sodium Chloride) 100 mls @ 100 mls/hr IVPB DAILY [facility] PRN Reason: Protocol Last Admin: 01/13/18 09:32 Dose: 100 mls/hr Methylprednisolone (Solu-Medrol) 40 mg IV Q12 [facility] Last Admin: 01/13/18 22:44 Dose: 40 mg Montelukast Sodium (Singulair) 10 mg PO HS [facility] Last Admin: 01/13/18 22:43 Dose: 10 mg Potassium Phos/Sodium Phos (Neutra-Phos) 1 pkt PO Q4H [facility] Stop: 01/14/18 12:31 Saccharomyces Boulardii (Florastor) 250 mg PO BID [facility] Last Admin: 01/13/18 17:11 Dose: 250 mg - Labs Labs: 01/14/18 05:17 01/14/18 05:17 PT 10.6 SECONDS (9.7-12.2) 01/11/18 06:35 INR 1.0 01/11/18 06:35 APTT 30 SECONDS (21-34) 01/11/18 06:35 - Constitutional Appears: Chronically Ill - Head Exam Head Exam: NORMAL INSPECTION - Eye Exam Eye Exam: EOMI - ENT Exam ENT Exam: Mucous Membranes Moist - Respiratory Exam Respiratory Exam: Decreased Breath Sounds, Rales, Rhonchi - GI/Abdominal Exam GI & Abdominal Exam: Soft. absent: Tenderness - Neurological Exam Neurological Exam: Alert, Awake Neuro motor strength exam: Left Upper Extremity: 4, Right Upper Extremity: 4, Left Lower Extremity: 4, Right Lower Extremity: 4 - Psychiatric Exam Psychiatric exam: Depressed, Flat Affect - Skin Skin Exam: Normal Color, Warm Assessment and Plan - Assessment and Plan (Free Text) Assessment: 82yo F admitted with hypercapneic respiratory failure from PNA and NSTEMI Hypercapneic respiratory failure from PNA and COPD 01/14: A lot of congestion when coughing, rales, ehonchi on exam. Will give lasix 40 x 1 dose to see if this helps. The echo from 01/12 reported diastolic dystfunction and mild , EF 45% 01/13: Further adjustment to Bipap were done overnight. Checking portable XRAY today. 01/12: Not short of breath at rest, however needs Bipap. Currently on IV abx rocephin and azithromycin IV. Blood cultures negative at this moment. She does have an elevated WBC. Afebrile. Checking also atypical cultures and procalcitonin. CT scan was negative for PE, it did note pulmonary nodules. -Co2 retention on ABG; from previous admissions Co2 is actually lower than previous -currently on BiPap; tolerating; patient is able to speak through BiPap NSTEMI 01/13: Troponin decreased again 01/12: Conitnue with Plavix and Lovenox SC BID Remains on statin and ASA [place] demand ischemia causing NSTEMI Per cardiology patient will need cardiac catherization at some point Sepsis from pneumonia 01/14: WBC decreased to 19, procalcitonin slightly elavated. Continue on IV abx Pmhx of COPD; acute on chronic 01/13: Remains on Bipap. IV solumedrol Continue with tx Breo and Incruse Remains on Bipap Hx of RA Currently on hold - Leflunomide and Celebrex daily Hx of HTN 01/13: Systolic BPs in the low 100s 01/12: BB on hold due to COPD at this moment. Currently the systolic BP is in the 100 emeterio. -c/w Bisoprodol, Metalazone, Chlorthiadone Hx of CHF systolic and diastolic failure; EF not documented; acute on chronic 01/12: Echo returned reporting EF 40 to 45%, mild aortic stenosis, diastolic dysfunction Proph Lovenox 80mg received; depending on PE/DVT/Cardiology can continue Gi prophylaxis not indicated at this time
[2018-01-14] MEDS: Potassium & Sodium Phosphate PO SCH ×2 (09:43→12:29)
[2018-01-14] MEDS: Saccharomyces Boulardi 250 mg Cap PO SCH ×2 (09:44→19:30)
[2018-01-14] MEDS: Azithromycin 500 MG in Sodium Chloride 0.9% 250 ML IVPB SCH (09:45)
[2018-01-14] MEDS: Enoxaparin 80 mg Syringe SC SCH ×2 (09:54→21:48)
[2018-01-14] MEDS ORDERED: Verapamil 120 mg ER Tab PO SCH (10:45)
--- NOTE | 2018-01-14 12:17 | CARD ---
APPROVED REPORT EKG Measurement Heart [id number] <Conclusion> Normal sinus rhythm Left axis deviation Right bundle branch block Abnormal ECG
--- NOTE | 2018-01-14 12:24 | CARD ---
APPROVED REPORT EKG Measurement Heart [id number] <Conclusion> Normal sinus rhythm Right bundle branch block Left anterior fascicular block Bifascicular block Abnormal ECG
--- NOTE | 2018-01-14 12:27 | CARD ---
APPROVED REPORT EKG Measurement Heart [id number] [id number] <Conclusion> Sinus tachycardia with premature atrial complexes Right bundle branch block Septal infarct, age undetermined Abnormal ECG
--- NOTE | 2018-01-14 14:51 | CP.CCUPN ---
<Agustina Hamilton - Last Filed: 01/14/18 14:47> CCU Subjective - Physician Review Subjective (Free Text): Patient seen and examined at bedside. Patient reports her breathing is somewhat getting better only when she is on BiPAP. Denied any chest pain. CCU Objective - Vital Signs / Intake & Output Vital Signs (Last 4 hours): Vital Signs Temp Pulse 01/14/18 14:00 98.3 F 01/14/18 11:14 109 H Intake and Output (Last 8hrs): Intake & Output 01/13/18 01/14/18 01/14/18 22:59 06:59 14:59 Intake Total 542.5 100 590 Output Total 400 500 Balance 142.5 -400 590 Weight 210 lb 8.663 oz Intake: Intake, IV Amount 417.5 350 Left Hand 42.5 Right Forearm 375 350 Oral 125 100 240 Output: Urine 400 500 Urine, Voided 400 500 Other: # Bowel Movements 0 - Physical Exam Head: Positive for: Atraumatic, Normocephalic Pupils: Positive for: PERRL Extroacular Muscles: Positive for: EOMI Conjunctiva: Positive for: Normal Mouth: Positive for: Moist Mucous Membranes Respiratory/Chest: Positive for: Decreased Breath Sounds Cardiovascular: Positive for: Regular Rate and Rhythm Abdomen: Positive for: Normal Bowel Sounds. Negative for: Tenderness, Distention Upper Extremity: Positive for: Normal Inspection, Normal ROM, NORMAL PULSES, Neurovascularly Intact, Capillary Refill < 2s Lower Extremity: Positive for: Normal Inspection, NORMAL PULSES, Neurovascularly Intact, Capillary Refill < 2 s Neurological: Positive for: GCS=15, CN II-XII Intact Skin: Positive for: Warm, Dry, Normal Color Psychiatric: Positive for: Alert, Oriented x 3 - Medications Active Medications: Active Medications Generic Name Dose Route Start Last Admin Trade Name Freq PRN Reason Stop Dose Admin Albuterol/Ipratropium 3 ml 01/11/18 09:45 01/14/18 11:13 Duoneb 3 Mg/0.5 Mg (3 Ml) Ud INH 3 ml RQ4 JUNIE Administration Alprazolam 1 mg 01/14/18 10:36 Xanax PO 01/21/18 10:46 Q8H PRN Anxiety Aspirin 81 mg 01/12/18 10:00 01/14/18 09:44 Aspirin Chewable PO 81 mg DAILY JUNIE Administration Chlordiazepoxide 10 mg 01/14/18 11:00 01/14/18 12:23 Librium PO 10 mg Q12 JUNIE Administration Chlorthalidone 25 mg 01/12/18 10:00 01/14/18 09:44 Hygroton PO 25 mg DAILY JUNIE Administration Clopidogrel Bisulfate 75 mg 01/12/18 10:00 01/14/18 09:44 Plavix PO 75 mg DAILY JUNIE Administration Enoxaparin Sodium 80 mg 01/11/18 18:00 01/14/18 09:54 Lovenox SC 80 mg Q12 JUNIE Administration Famotidine 20 mg 01/12/18 10:00 01/14/18 09:44 Pepcid PO 20 mg DAILY JUNIE Administration Azithromycin 500 mg/ Sodium 250 mls @ 250 mls/hr 01/12/18 10:00 01/14/18 09: 45 Chloride IVPB 250 mls/hr DAILY JUNIE Administration Protocol Ceftriaxone Sodium 1 gm/ 100 mls @ 100 mls/hr 01/12/18 10:00 01/14/18 09:44 Sodium Chloride IVPB 100 mls/hr DAILY JUNIE Administration Protocol Methylprednisolone 40 mg 01/13/18 10:00 01/14/18 09:44 Solu-Medrol IV 40 mg Q12 JUNIE Administration Montelukast Sodium 10 mg 01/11/18 22:00 01/13/18 22:43 Singulair PO 10 mg HS JUNIE Administration Saccharomyces Boulardii 250 mg 01/11/18 10:00 01/14/18 09:44 Florastor PO 250 mg BID JUNIE Administration Verapamil HCl 120 mg 01/14/18 10:45 01/14/18 12:22 Calan Sr Tab PO 120 mg DAILY JUNIE Administration - Patient Studies Lab Studies: Microbiology Studies 01/11/18 04:44 Blood Culture - Preliminary Blood NO GROWTH AFTER 3 DAYS 01/11/18 04:44 Blood Culture - Preliminary Blood NO GROWTH AFTER 3 DAYS 01/11/18 Unknown Gram Stain - Final Sputum Induced Sputum Culture - Final NORMAL ORAL RIGO Lab Studies 01/14/18 01/14/18 01/14/18 Range/Units 05:17 05:17 05:00 WBC 19.0 H (4.8-10.8) K/uL RBC 3.43 L (3.80-5.20) Mil/uL Hgb 9.7 L (11.0-16.0) g/dL Hct 31.2 L (34.0-47.0) % MCV 91.2 (81.0-99.0) fL MCH 28.2 (27.0-31.0) pg MCHC 30.9 L (33.0-37.0) g/dL RDW 13.6 (11.5-14.5) % Plt Count 241 (130-400) K/uL MPV 8.5 (7.2-11.7) fL Neut % (Auto) 95.4 H (50.0-75.0) % Lymph % (Auto) 1.7 L (20.0-40.0) % [place] % (Auto) 2.2 (0.0-10.0) % Eos % (Auto) 0.5 (0.0-4.0) % Baso % (Auto) 0.2 (0.0-2.0) % Neut # (Auto) 18.1 H (1.8-7.0) K/uL Lymph # (Auto) 0.3 L (1.0-4.3) K/uL [place] # (Auto) 0.4 (0.0-0.8) K/uL Eos # (Auto) 0.1 (0.0-0.7) K/uL Baso # (Auto) 0.0 (0.0-0.2) K/uL Neutrophils % (Manual) 98 H (50-75) % Lymphocytes % (Manual) 1 L (20-40) % Monocytes % (Manual) 1 (0-10) % Platelet Estimate Normal (NORMAL) Poikilocytosis (manual Slight Anisocytosis (manual) Slight Ovalocytes Slight Puncture Site Rr pCO2 66 H (35-45) mm/Hg pO2 143 H (80-100) mm/Hg HCO3 34.4 H (21-28) mmol/L ABG pH 7.38 (7.35-7.45) ABG Total CO2 41.0 H (22-28) mmol/L ABG O2 Saturation 99.2 H (95-98) % ABG Base Excess 12.1 H (-2.0-3.0) mmol/L ABG Hemoglobin 8.7 L (11.7-17.4) g/dL ABG Carboxyhemoglobin 1.6 H (0.5-1.5) % POC ABG HHb (Measured) 0.8 (0.0-5.0) % ABG Methemoglobin 1.1 (0.0-3.0) % Steve Test Pos A-a O2 Difference 60.0 mm/Hg Respiratory Index 0.4 Hgb O2 Saturation 96.5 (95.0-98.0) % Vent Mode Bipap FiO2 40.0 % Inspiratory BiPAP 18 Expiratory BiPAP 7 Sodium 144 (132-148) mmol/L Potassium 3.6 (3.6-5.2) mmol/L Chloride 95 L (98-107) mmol/L Carbon Dioxide 38 H (22-30) mmol/L Anion Gap 15 (10-20) BUN 21 H (7-17) mg/dL Creatinine 0.7 (0.7-1.2) mg/dL Est GFR ( Amer) > 60 Est GFR (Non-Af Amer) > 60 Random Glucose 133 H (65-105) mg/dL Calcium 7.7 L (8.6-10.4) mg/dl Phosphorus 2.1 L (2.5-4.5) mg/dL Magnesium 2.5 H (1.6-2.3) mg/dL Total Bilirubin 0.6 (0.2-1.3) mg/dL AST 28 (14-36) U/L ALT 33 (9-52) U/L Alkaline Phosphatase 90 (38-126) U/L Total Protein 6.6 (6.3-8.3) g/dL Albumin 3.6 (3.5-5.0) g/dL Globulin 3.0 (2.2-3.9) gm/dL Albumin/Globulin Ratio 1.2 (1.0-2.1) Laboratory Results - last 24 hr 01/14/18 01/14/18 01/14/18 05:00 05:17 05:17 WBC 19.0 H RBC 3.43 L Hgb 9.7 L Hct 31.2 L MCV 91.2 MCH 28.2 MCHC 30.9 L RDW 13.6 Plt Count 241 MPV 8.5 Neut % (Auto) 95.4 H Lymph % (Auto) 1.7 L [place] % (Auto) 2.2 Eos % (Auto) 0.5 Baso % (Auto) 0.2 Neut # (Auto) 18.1 H Lymph # (Auto) 0.3 L [place] # (Auto) 0.4 Eos # (Auto) 0.1 Baso # (Auto) 0.0 Neutrophils % (Manual) 98 H Lymphocytes % (Manual) 1 L Monocytes % (Manual) 1 Platelet Estimate Normal Poikilocytosis (manual Slight Anisocytosis (manual) Slight Ovalocytes Slight Puncture Site Rr pCO2 66 H pO2 143 H HCO3 34.4 H ABG pH 7.38 ABG Total CO2 41.0 H ABG O2 Saturation 99.2 H ABG Base Excess 12.1 H ABG Hemoglobin 8.7 L ABG Carboxyhemoglobin 1.6 H POC ABG HHb (Measured) 0.8 ABG Methemoglobin 1.1 Steve Test Pos A-a O2 Difference 60.0 Respiratory Index 0.4 Hgb O2 Saturation 96.5 Vent Mode Bipap FiO2 40.0 Inspiratory BiPAP 18 Expiratory BiPAP 7 Sodium 144 Potassium 3.6 Chloride 95 L Carbon Dioxide 38 H Anion Gap 15 BUN 21 H Creatinine 0.7 Est GFR ( Amer) > 60 Est GFR (Non-Af Amer) > 60 Random Glucose 133 H Calcium 7.7 L Phosphorus 2.1 L Magnesium 2.5 H Total Bilirubin 0.6 AST 28 ALT 33 Alkaline Phosphatase 90 Total Protein 6.6 Albumin 3.6 Globulin 3.0 Albumin/Globulin Ratio 1.2 Critical Care Progress Note - Nutrition Nutrition: Nutrition Category Date Time Status Heart Healthy Diet [DIET] Diets 01/11/18 Lunch Active Assessment/Plan - Assessment and Plan (Free Text) Assessment: This is a 82 year old female with PMHx of HTN, CAD with ?? Stents, COPD ( nonsmoker) on home oxygen, 2L NC, RA, HF with systolic and diastolic dysfunction (2014), coming from home with ~12-14 hours of SOB and burning in her chest. Found to be hypercapneic on ABG, she did not improve clinically after breathing treatments, steroids, was then started on bipap, repeat ABG shows improvement. Patient admitted to ICU for Hypercapneic failure 2/2 NSTEMI with Multifocal LLL Pneumonia. Plan: Neuro: GCS 15 Cardio: A: NSTEMI Dr. Duff consulted - EKG: new RBBB when compared to EKG in 2015 - Troponin 1.67 --> 1.61 --> 2.0 --> 1.33 - Started therapeutic lovenox - Will plan for cath once patient has stabilized A: CAD with stents - Patient reports ASA, Plavix was stopped by Dr. Chong (partner with Dr. Duff) - Restarted ASA, Plavix - pending reccs from Cardio A: HF Diastolic dysfunction - Last ECHO was in 2014 - Repeat ECHO: EF 45-50%, with diastolic dysfunction - BNP 2970 - Labs - WNL - Resume home medications: Chlorthalidone 25mg, Bystolic 5mg (held due to acute CHF) A: HTN - Resume home medications: Chlorthalidone 25mg, Bystolic 5mg (held due to acute CHF) Pulm: A: Hypercapneic Failure 2/2 NSTEMI and Multifocal PNA - Elevated D - Dimer, hypercapneic on ABG - Currently on BIPAP - continue - Negative for PE, venous dopplers- negative for DVT - Duonebs Q4, Azithro, Rocephin 01/11, Solumedrol 40mg Q12, Florastor BID, Singulair A: COPD - Started Duonebs Q4, Azithro, Rocephin 01/11, Florastor BID, Singulair A: Pulmonary Nodules - Multiple small right-sided pulmonary nodules common nonspecific. No calcified nodules are appreciated. Small nodules but 1 are 5 mm or less. 7 mm nodule right lower lobe. - Follow-up with chest CT 6-12 months. ID: A: Multifocal LLL Pneumonia - Afebrile, leukocytosis with left shift, no bandemia, lactate 3.0 - 3.6 -->5.1 --> 4.0 --> 0.9; procal 0.61--> 0.65 - CXR: Abnormal, patchy densities in the left lower lobe, a new finding, suspicious for pneumonia. Recommend radiographic followup to document clearing. - CTA: No evidence of pulmonary embolism. Multifocal opacities throughout left lung, likely infectious. Rule out neoplastic. Followup to clearing. Multiple small right-sided pulmonary nodules common nonspecific. No calcified nodules are appreciated. Small nodules but 1 are 5 mm or less. 7 mm nodule right lower lobe. - Blood, UC, Sputum - negative - Started Duonebs Q4, Azithro, Rocephin 01/11, Florastor BID, Singulair Endo: A: IGT - A1C 5.8 Rheum: A: Hx RA Heme/Onc A: Hx Breast Cancer - S/P lumpectomy Psych: A: Anxiety - Takes Xanax 2mg PO QID - Will taper xanax: Xanax 1mg PO Q8H PRN, started Klonipin 1mg PO Q12 JUNIE Disposition: Patient is clinically improving slowly. Prophylaxis - Protonix - SCDs, Therapeutic lovenox DW Agustina Nichols DO, PGY-1 <Laura Valdes - Last Filed: 01/15/18 08:20> CCU Objective - Vital Signs / Intake & Output Vital Signs (Last 4 hours): Vital Signs Pulse Resp BP Pulse Ox 01/15/18 07:21 92 H 01/15/18 06:02 107 H 46 H 128/67 96 01/15/18 05:56 91 H 01/15/18 05:01 90 22 104/48 L 97 Intake and Output (Last 8hrs): Intake & Output 01/14/18 01/15/18 01/15/18 22:59 06:59 14:59 Intake Total 365 150 Output Total 550 800 Balance -185 -650 Weight 188 lb 7.924 oz Intake: Oral 365 150 Output: Urine 550 800 Urine, Voided 550 800 Other: # Voids Urine, Voided 1 - Medications Active Medications: Active Medications Generic Name Dose Route Start Last Admin Trade Name Freq PRN Reason Stop Dose Admin Albuterol/Ipratropium 3 ml 01/11/18 09:45 01/15/18 07:19 Duoneb 3 Mg/0.5 Mg (3 Ml) Ud INH 3 ml RQ4 JUNIE Administration Alprazolam 1 mg 01/14/18 10:36 Xanax PO 01/21/18 10:46 Q8H PRN Anxiety Aspirin 81 mg 01/12/18 10:00 01/14/18 09:44 Aspirin Chewable PO 81 mg DAILY JUNIE Administration Chlorthalidone 25 mg 01/12/18 10:00 01/14/18 09:44 Hygroton PO 25 mg DAILY JUNIE Administration Clonazepam 1 mg 01/14/18 22:00 01/14/18 21:45 Klonopin PO 1 mg Q12 JUNIE Administration Clopidogrel Bisulfate 75 mg 01/12/18 10:00 01/14/18 09:44 Plavix PO 75 mg DAILY JUNIE Administration Enoxaparin Sodium 80 mg 01/11/18 18:00 01/14/18 21:48 Lovenox SC 80 mg Q12 JUNIE Administration Famotidine 20 mg 01/12/18 10:00 01/14/18 09:44 Pepcid PO 20 mg DAILY JUNIE Administration Azithromycin 500 mg/ Sodium 250 mls @ 250 mls/hr 01/12/18 10:00 01/14/18 09: 45 Chloride IVPB 250 mls/hr DAILY JUNIE Administration Protocol Ceftriaxone Sodium 1 gm/ 100 mls @ 100 mls/hr 01/12/18 10:00 01/14/18 09:44 Sodium Chloride IVPB 100 mls/hr DAILY JUNIE Administration Protocol Methylprednisolone 40 mg 01/13/18 10:00 01/14/18 21:45 Solu-Medrol IV 40 mg Q12 JUNIE Administration Montelukast Sodium 10 mg 01/11/18 22:00 01/14/18 21:45 Singulair PO 10 mg HS JUNIE Administration Saccharomyces Boulardii 250 mg 01/11/18 10:00 01/14/18 19:30 Florastor PO 250 mg BID JUNIE Administration Verapamil HCl 180 mg 01/15/18 10:00 Calan Sr Tab PO DAILY JUNIE - Patient Studies Lab Studies: Microbiology Studies 01/11/18 04:44 Blood Culture - Preliminary Blood NO GROWTH AFTER 3 DAYS 01/11/18 04:44 Blood Culture - Preliminary Blood NO GROWTH AFTER 3 DAYS Lab Studies 01/15/18 01/15/18 Range/Units 06:27 05:00 Puncture Site Rr pCO2 76 H* (35-45) mm/Hg pO2 140 H (80-100) mm/Hg HCO3 41.0 H* (21-28) mmol/L ABG pH 7.41 (7.35-7.45) ABG Total CO2 50.5 H (22-28) mmol/L ABG O2 Saturation 98.8 H (95-98) % ABG Base Excess 20.6 H (-2.0-3.0) mmol/L ABG Hemoglobin 9.0 L (11.7-17.4) g/dL ABG Carboxyhemoglobin 1.6 H (0.5-1.5) % POC ABG HHb (Measured) 1.2 (0.0-5.0) % ABG Methemoglobin 1.3 (0.0-3.0) % Steve Test Pos A-a O2 Difference 50.0 mm/Hg Respiratory Index 0.4 Hgb O2 Saturation 95.9 (95.0-98.0) % Vent Mode Bipap FiO2 40.0 % Inspiratory BiPAP 18 Expiratory BiPAP 7 Crit Value Called To Luca rn Crit Value Called By Eva service delivery analyst Crit Value Read Back Y Blood Gas Notified Time 516 Sodium 141 (132-148) mmol/L Potassium 3.4 L (3.6-5.2) mmol/L Chloride 89 L (98-107) mmol/L Carbon Dioxide 45 H* (22-30) mmol/L Anion Gap 10 (10-20) BUN 27 H (7-17) mg/dL Creatinine 0.8 (0.7-1.2) mg/dL Est GFR ( Amer) > 60 Est GFR (Non-Af Amer) > 60 Random Glucose 147 H (65-105) mg/dL Calcium 7.9 L (8.6-10.4) mg/dl Phosphorus 2.5 (2.5-4.5) mg/dL Magnesium 2.3 (1.6-2.3) mg/dL Total Bilirubin 0.4 (0.2-1.3) mg/dL AST 20 (14-36) U/L ALT 31 (9-52) U/L Alkaline Phosphatase 77 (38-126) U/L Total Protein 6.3 (6.3-8.3) g/dL Albumin 3.3 L (3.5-5.0) g/dL Globulin 2.9 (2.2-3.9) gm/dL Albumin/Globulin Ratio 1.1 (1.0-2.1) Laboratory Results - last 24 hr 01/15/18 01/15/18 05:00 06:27 Puncture Site Rr pCO2 76 H* pO2 140 H HCO3 41.0 H* ABG pH 7.41 ABG Total CO2 50.5 H ABG O2 Saturation 98.8 H ABG Base Excess 20.6 H ABG Hemoglobin 9.0 L ABG Carboxyhemoglobin 1.6 H POC ABG HHb (Measured) 1.2 ABG Methemoglobin 1.3 Steve Test Pos A-a O2 Difference 50.0 Respiratory Index 0.4 Hgb O2 Saturation 95.9 Vent Mode Bipap FiO2 40.0 Inspiratory BiPAP 18 Expiratory BiPAP 7 Crit Value Called To Luca rn Crit Value Called By Eva service delivery analyst Crit Value Read Back Y Blood Gas Notified Time 516 Sodium 141 Potassium 3.4 L Chloride 89 L Carbon Dioxide 45 H* Anion Gap 10 BUN 27 H Creatinine 0.8 Est GFR ( Amer) > 60 Est GFR (Non-Af Amer) > 60 Random Glucose 147 H Calcium 7.9 L Phosphorus 2.5 Magnesium 2.3 Total Bilirubin 0.4 AST 20 ALT 31 Alkaline Phosphatase 77 Total Protein 6.3 Albumin 3.3 L Globulin 2.9 Albumin/Globulin Ratio 1.1 Critical Care Progress Note - Nutrition Nutrition: Nutrition Category Date Time Status Heart Healthy Diet [DIET] Diets 01/11/18 Lunch Active Assessment/Plan - Assessment and Plan (Free Text) Plan: Patient seen and examined at bedside with above resident. Patient with h/o COPD (O2 requirement at home), presents [facility] with chest discomfort dx with NSTEMI and basline chronic xanax use. Patient dx with lobar pneumonia -CHast discomfort/NSTEMI: c/w NSTEMI: will benefit from rate control with ccb as patient the severe COPD (wheezing), continue DAPT, AC (lovenox), statin, and acei as BP tolerates -Lobar pneumonia: leukoctysosi presents (productive cough) currently on CAP rx with ctx/azithro, complete course, f.u sputum culture, -CPOD: contine solumedrol + duonebs + singulair, + oxygen supplementation -Patient with chronic opoid use, will switch to low dose long acting librium and then titrate off xanax, start SSRI and psych eval for follow up -Patient will benefit from bi-pap at night 2nd obesity hypoventilation -Patient's HR will be controlled with verapamil and bi-pap titrated off to nasal canula -PT/OT -continue to monitor Cardiac cath as per cardiology. - Date & Time Date: 01/14/18 Time: 08:19
--- NOTE | 2018-01-14 18:29 | CP.PCM.PN ---
Subjective - Date & Time of Evaluation Date of Evaluation: 01/14/18 Time of Evaluation: 18:26 - Subjective Subjective: Pt now on O2. Breathing better but still dyspneic. Objective - Vital Signs/Intake and Output Vital Signs (last 24 hours): Temp Pulse Resp BP Pulse Ox 98.3 F 100 H 24 123/61 99 01/14/18 14:00 01/14/18 16:02 01/14/18 06:00 01/14/18 09:46 01/14/18 06:00 Intake and Output: 01/14/18 01/14/18 06:59 18:59 Intake Total 300 830 Output Total 500 Balance -200 830 - Medications Medications: Current Medications Albuterol/Ipratropium (Duoneb 3 Mg/0.5 Mg (3 Ml) Ud) 3 ml INH RQ4 [facility] Last Admin: 01/14/18 16:01 Dose: 3 ml Alprazolam (Xanax) 1 mg PO Q8H PRN PRN Reason: Anxiety Stop: 01/21/18 10:46 Aspirin (Aspirin Chewable) 81 mg PO DAILY [facility] Last Admin: 01/14/18 09:44 Dose: 81 mg Chlorthalidone (Hygroton) 25 mg PO DAILY [facility] Last Admin: 01/14/18 09:44 Dose: 25 mg Clonazepam (Klonopin) 1 mg PO Q12 [facility] Clopidogrel Bisulfate (Plavix) 75 mg PO DAILY [facility] Last Admin: 01/14/18 09:44 Dose: 75 mg Enoxaparin Sodium (Lovenox) 80 mg SC Q12 [facility] Last Admin: 01/14/18 09:54 Dose: 80 mg Famotidine (Pepcid) 20 mg PO DAILY [facility] Last Admin: 01/14/18 09:44 Dose: 20 mg Azithromycin 500 mg/ Sodium (Chloride) 250 mls @ 250 mls/hr IVPB DAILY [facility] PRN Reason: Protocol Last Admin: 01/14/18 09:45 Dose: 250 mls/hr Ceftriaxone Sodium 1 gm/ (Sodium Chloride) 100 mls @ 100 mls/hr IVPB DAILY [facility] PRN Reason: Protocol Last Admin: 01/14/18 09:44 Dose: 100 mls/hr Methylprednisolone (Solu-Medrol) 40 mg IV Q12 [facility] Last Admin: 01/14/18 09:44 Dose: 40 mg Montelukast Sodium (Singulair) 10 mg PO HS [facility] Last Admin: 01/13/18 22:43 Dose: 10 mg Saccharomyces Boulardii (Florastor) 250 mg PO BID [facility] Last Admin: 01/14/18 09:44 Dose: 250 mg Verapamil HCl (Calan Sr Tab) 120 mg PO DAILY [facility] Last Admin: 01/14/18 12:22 Dose: 120 mg - Labs Labs: 01/14/18 05:17 01/14/18 05:17 PT 10.6 SECONDS (9.7-12.2) 01/11/18 06:35 INR 1.0 01/11/18 06:35 APTT 30 SECONDS (21-34) 01/11/18 06:35 - Constitutional Appears: Chronically Ill - Head Exam Head Exam: ATRAUMATIC - Eye Exam Eye Exam: EOMI - ENT Exam ENT Exam: Mucous Membranes Dry - Respiratory Exam Respiratory Exam: Prolonged Expiratory Phase, Wheezes - Cardiovascular Exam Cardiovascular Exam: REGULAR RHYTHM - Exam External exam: Swelling - Extremities Exam Extremities Exam: Pedal Edema - Neurological Exam Neurological Exam: Alert, Awake, Oriented x3 - Psychiatric Exam Psychiatric exam: Anxious - Skin Skin Exam: Normal Color Assessment and Plan - Assessment and Plan (Free Text) Assessment: the patient has clinically improved. Non stemi: dapt ,heparin Echo demonstrates mildly reduced LV EF, mild aortic stnosis, no wall motion abnormalities. work up for cad when stable.
[2018-01-15] MEDS: Albuterol-Ipratrop 3 mg / 0.5 (3 ml) UD INH SCH ×6 (00:16→20:21)
[2018-01-15 05:16] LABS: ABG ALLEN TEST POS; ARTERIAL BLOOD GAS O2 SAT 98.8 % (95-98); ARTERIAL BLOOD GAS PCO2 76 mm/Hg (35-45); ARTERIAL BLOOD GAS PH 7.41 (7.35-7.45); ARTERIAL BLOOD GAS PO2 140 mm/Hg (80-100); ARTERIAL BLOOD GAS TCO2 50.5 mmol/L (22-28)
[2018-01-15 06:50] LABS: ALB/GLOB RATIO 1.1 (1.0-2.1); ALBUMIN 3.3 g/dL (3.5-5.0); ALT/SGPT 31 U/L (9-52); AST/SGOT 20 U/L (14-36); BLOOD UREA NITROGEN 27 mg/dL (7-17); CALCIUM 7.9 mg/dl (8.6-10.4); GFR AFRICAN-AMERICAN > 60; GFR NON-AFRICAN AMERICAN > 60
--- NOTE | 2018-01-15 08:23 | RAD ---
HISTORY: ongoing shortness of breath COMPARISON: 01/14/2020. FINDINGS: LUNGS: The lungs are hyperinflated and there is peribronchial thickening with chronic changes in both lungs. No focal consolidation. PLEURA: No significant pleural effusion identified, no pneumothorax apparent. CARDIOVASCULAR: Normal. OSSEOUS STRUCTURES: No significant abnormalities. VISUALIZED UPPER ABDOMEN: Normal. OTHER FINDINGS: None. IMPRESSION: No active pulmonary disease. COPD.
[2018-01-15 08:47] LABS: BASO % 0.1 % (0.0-2.0); LYMPH # 0.5 K/uL (1.0-4.3); LYMPH % 5.8 % (20.0-40.0); MEAN CELL VOLUME 90.4 fL (81.0-99.0); MEAN CORPUSCULAR HEMOGLOBIN 29.1 pg (27.0-31.0); MEAN CORPUSCULAR HGB CONC 32.2 g/dL (33.0-37.0); MEAN PLATELET VOLUME 8.3 fL (7.2-11.7); MONO # 0.5 K/uL (0.0-0.8); MONO % 5.5 % (0.0-10.0); NEUT # 8.1 K/uL (1.8-7.0); NEUT % 88.6 % (50.0-75.0); NRBC % 0.1 % (0.0-2.0); PLATELET COUNT 249 K/uL (130-400); RBC 3.41 Mil/uL (3.80-5.20); WHITE BLOOD COUNT 9.1 K/uL (4.8-10.8)
--- NOTE | 2018-01-15 08:47 | CP.PCM.PN ---
Subjective - Date & Time of Evaluation Date of Evaluation: 01/15/18 Time of Evaluation: 08:45 - Subjective Subjective: Patient is currently off of the Bipap when I saw her. SpO2 was in the 97 to 99% range with nasal canula. Not in any acute distress. Speaking in full sentences She denied chest pain, denied abdominal pain, denied shortness of breath when at rest, tolerated breakfast ok. She had a lot of anxiety last night and felt better after she was given klonopin. Objective - Vital Signs/Intake and Output Vital Signs (last 24 hours): Temp Pulse Resp BP Pulse Ox 98.1 F 92 H 46 H 128/67 96 01/15/18 04:00 01/15/18 07:21 01/15/18 06:02 01/15/18 06:02 01/15/18 06:02 Intake and Output: 01/15/18 01/15/18 06:59 18:59 Intake Total 275 120 Output Total 800 0 Balance -525 120 - Medications Medications: Current Medications Albuterol/Ipratropium (Duoneb 3 Mg/0.5 Mg (3 Ml) Ud) 3 ml INH RQ4 [facility] Last Admin: 01/15/18 07:19 Dose: 3 ml Alprazolam (Xanax) 1 mg PO Q8H PRN PRN Reason: Anxiety Stop: 01/21/18 10:46 Aspirin (Aspirin Chewable) 81 mg PO DAILY [facility] Last Admin: 01/14/18 09:44 Dose: 81 mg Chlorthalidone (Hygroton) 25 mg PO DAILY [facility] Last Admin: 01/14/18 09:44 Dose: 25 mg Clonazepam (Klonopin) 1 mg PO Q12 [facility] Last Admin: 01/14/18 21:45 Dose: 1 mg Clopidogrel Bisulfate (Plavix) 75 mg PO DAILY [facility] Last Admin: 01/14/18 09:44 Dose: 75 mg Enoxaparin Sodium (Lovenox) 80 mg SC Q12 [facility] Last Admin: 01/14/18 21:48 Dose: 80 mg Famotidine (Pepcid) 20 mg PO DAILY [facility] Last Admin: 01/14/18 09:44 Dose: 20 mg Azithromycin 500 mg/ Sodium (Chloride) 250 mls @ 250 mls/hr IVPB DAILY [facility] PRN Reason: Protocol Last Admin: 01/14/18 09:45 Dose: 250 mls/hr Ceftriaxone Sodium 1 gm/ (Sodium Chloride) 100 mls @ 100 mls/hr IVPB DAILY [facility] PRN Reason: Protocol Last Admin: 01/14/18 09:44 Dose: 100 mls/hr Methylprednisolone (Solu-Medrol) 40 mg IV Q12 [facility] Last Admin: 01/14/18 21:45 Dose: 40 mg Montelukast Sodium (Singulair) 10 mg PO HS [facility] Last Admin: 01/14/18 21:45 Dose: 10 mg Saccharomyces Boulardii (Florastor) 250 mg PO BID [facility] Last Admin: 01/14/18 19:30 Dose: 250 mg Verapamil HCl (Calan Sr Tab) 180 mg PO DAILY [facility] - Labs Labs: 01/14/18 05:17 01/15/18 06:27 PT 10.6 SECONDS (9.7-12.2) 01/11/18 06:35 INR 1.0 01/11/18 06:35 APTT 30 SECONDS (21-34) 01/11/18 06:35 - Constitutional Appears: No Acute Distress, Chronically Ill - Head Exam Head Exam: NORMAL INSPECTION, NORMOCEPHALIC - Eye Exam Eye Exam: EOMI, Normal appearance - ENT Exam ENT Exam: Mucous Membranes Moist - Respiratory Exam Respiratory Exam: Decreased Breath Sounds - Cardiovascular Exam Cardiovascular Exam: REGULAR RHYTHM - GI/Abdominal Exam GI & Abdominal Exam: Soft, Normal Bowel Sounds - Neurological Exam Neurological Exam: Alert, Awake, Oriented x3 Neuro motor strength exam: Left Upper Extremity: 5, Right Upper Extremity: 5, Left Lower Extremity: 5, Right Lower Extremity: 5 - Skin Skin Exam: Pallor, Warm Assessment and Plan - Assessment and Plan (Free Text) Assessment: 82yo F admitted with hypercapneic respiratory failure from PNA and NSTEMI Hypercapneic respiratory failure from PNA and COPD 01/15: Off of bipap this morning. On nasal cannula. SpO2 are in the high 90s. 01/14: A lot of congestion when coughing, rales, ehonchi on exam. Will give lasix 40 x 1 dose to see if this helps. The echo from 01/12 reported diastolic dystfunction and mild , EF 45% 01/13: Further adjustment to Bipap were done overnight. Checking portable XRAY today. 01/12: Not short of breath at rest, however needs Bipap. Currently on IV abx rocephin and azithromycin IV. Blood cultures negative at this moment. She does have an elevated WBC. Afebrile. Checking also atypical cultures and procalcitonin. CT scan was negative for PE, it did note pulmonary nodules. -Co2 retention on ABG; from previous admissions Co2 is actually lower than previous -currently on BiPap; tolerating; patient is able to speak through BiPap NSTEMI 01/13: Troponin decreased again 01/12: Conitnue with Plavix and Lovenox SC BID Remains on statin and ASA Likley demand ischemia causing NSTEMI Per cardiology patient will need cardiac catherization at some point Sepsis from pneumonia 01/15: Pending morning CBC, afebrile 01/14: WBC decreased to 19, procalcitonin slightly elavated. Continue on IV abx Pmhx of COPD; acute on chronic 01/15: Now off of Bipap, Continue with IV solumedrol, pulmicort BID, and spiriva and nebulizers 01/13: Remains on Bipap. IV solumedrol Continue with tx Breo and Incruse Remains on Bipap Hx of RA Currently on hold - Leflunomide and Celebrex daily Hx of HTN 01/13: Systolic BPs in the low 100s 01/12: BB on hold due to COPD at this moment. Currently the systolic BP is in the 100 emeterio. -c/w Bisoprodol, Metalazone, Chlorthiadone Hx of CHF systolic and diastolic failure; EF not documented; acute on chronic 01/12: Echo returned reporting EF 40 to 45%, mild aortic stenosis, diastolic dysfunction Proph Lovexon BID Gi prophylaxis not indicated at this time
--- NOTE | 2018-01-15 08:48 | CP.PCM.PN ---
Subjective - Date & Time of Evaluation Date of Evaluation: 01/15/18 Time of Evaluation: 08:33 - Subjective Subjective: Pulmonary Follow up Covering Dr. Tse The Patient was seen and examined at the bedside, Medical records reviewed, and management issues were discussed and formulated with the house staff. Events reviewed Improved respiratory status Comfortable, Less anxiuos, started on Klonopin last night. requires less BIPAP support Pt Alert and oriented, follows some commands Denies any chest pain, SOB or Palpitations Afebrile, NSR on the monitor On IV Rocephin & Zithromax Objective - Vital Signs/Intake and Output Vital Signs (last 24 hours): Temp Pulse Resp BP Pulse Ox 98.1 F 92 H 46 H 128/67 96 01/15/18 04:00 01/15/18 07:21 01/15/18 06:02 01/15/18 06:02 01/15/18 06:02 Intake and Output: 01/15/18 01/15/18 06:59 18:59 Intake Total 275 120 Output Total 800 0 Balance -525 120 - Medications Medications: Current Medications Albuterol/Ipratropium (Duoneb 3 Mg/0.5 Mg (3 Ml) Ud) 3 ml INH RQ4 [facility] Last Admin: 01/15/18 07:19 Dose: 3 ml Alprazolam (Xanax) 1 mg PO Q8H PRN PRN Reason: Anxiety Stop: 01/21/18 10:46 Aspirin (Aspirin Chewable) 81 mg PO DAILY [facility] Last Admin: 01/14/18 09:44 Dose: 81 mg Chlorthalidone (Hygroton) 25 mg PO DAILY [facility] Last Admin: 01/14/18 09:44 Dose: 25 mg Clonazepam (Klonopin) 1 mg PO Q12 [facility] Last Admin: 01/14/18 21:45 Dose: 1 mg Clopidogrel Bisulfate (Plavix) 75 mg PO DAILY [facility] Last Admin: 01/14/18 09:44 Dose: 75 mg Enoxaparin Sodium (Lovenox) 80 mg SC Q12 [facility] Last Admin: 01/14/18 21:48 Dose: 80 mg Famotidine (Pepcid) 20 mg PO DAILY [facility] Last Admin: 01/14/18 09:44 Dose: 20 mg Azithromycin 500 mg/ Sodium (Chloride) 250 mls @ 250 mls/hr IVPB DAILY [facility] PRN Reason: Protocol Last Admin: 01/14/18 09:45 Dose: 250 mls/hr Ceftriaxone Sodium 1 gm/ (Sodium Chloride) 100 mls @ 100 mls/hr IVPB DAILY [facility] PRN Reason: Protocol Last Admin: 01/14/18 09:44 Dose: 100 mls/hr Methylprednisolone (Solu-Medrol) 40 mg IV Q12 [facility] Last Admin: 01/14/18 21:45 Dose: 40 mg Montelukast Sodium (Singulair) 10 mg PO HS [facility] Last Admin: 01/14/18 21:45 Dose: 10 mg Saccharomyces Boulardii (Florastor) 250 mg PO BID [facility] Last Admin: 01/14/18 19:30 Dose: 250 mg Verapamil HCl (Calan Sr Tab) 180 mg PO DAILY [facility] - Labs Labs: 01/14/18 05:17 01/15/18 06:27 PT 10.6 SECONDS (9.7-12.2) 01/11/18 06:35 INR 1.0 01/11/18 06:35 APTT 30 SECONDS (21-34) 01/11/18 06:35 - Constitutional Appears: Well, Non-toxic - Eye Exam Eye Exam: PERRL Pupil Exam: NORMAL ACCOMODATION, PERRL - ENT Exam ENT Exam: Mucous Membranes Dry - Neck Exam Neck Exam: Full ROM. absent: Lymphadenopathy, Tenderness, Thyromegaly - Respiratory Exam Respiratory Exam: Decreased Breath Sounds, Prolonged Expiratory Phase, Rhonchi. absent: Accessory Muscle Use, Chest Wall Tenderness - Cardiovascular Exam Cardiovascular Exam: REGULAR RHYTHM, RRR, +S1, +S2. absent: JVD - GI/Abdominal Exam GI & Abdominal Exam: Distended, Soft, Normal Bowel Sounds. absent: Firm, Guarding, Rigid - Back Exam Back Exam: absent: CVA tenderness (L), CVA tenderness (R) - Neurological Exam Neurological Exam: Alert, Awake Assessment and Plan (1) Acute respiratory failure with hypercapnia Status: Acute (2) COPD exacerbation Status: Acute (3) Pneumonia Status: Acute (4) Pulmonary nodule Status: Acute (5) Anxiety Status: Acute - Assessment and Plan (Free Text) Assessment: Continue IV antibiotics x7 days, Blood and sputum cultures negative Wean off BiPAP Continue Solu-Medrol 40 mg IVP Q12 and Start tapering in Am if continue improving Nebulizer treatment Continue Lasix Continue Singular
[2018-01-15] MEDS: Azithromycin 500 MG in Sodium Chloride 0.9% 250 ML IVPB SCH (09:04)
[2018-01-15] MEDS: Enoxaparin 80 mg Syringe SC SCH (09:04)
[2018-01-15] MEDS: Verapamil 180 mg ER Tab PO SCH (09:04)
[2018-01-15] MEDS: Saccharomyces Boulardi 250 mg Cap PO SCH ×2 (09:05→17:43)
[2018-01-15 09:26] LABS: HYPOCHROMIC SLIGHT; LYMPHOCYTE 9 % (20-40); MONOCYTE 4 % (0-10); MYELOCYTE 1 % (0-0); NEUTROPHIL 86 % (50-75); PLATELET ESTIMATE NORMAL (NORMAL); TOTAL CELLS COUNTED 100
--- NOTE | 2018-01-15 17:12 | CP.CCUPN ---
<Agustina Hamilton - Last Filed: 01/15/18 17:12> CCU Subjective - Physician Review Subjective (Free Text): Patient seen and examined at bedside. Patient reports her breathing is somewhat getting better only when she is on BiPAP. Denied any chest pain. CCU Objective - Vital Signs / Intake & Output Vital Signs (Last 4 hours): Vital Signs Pulse Resp BP Pulse Ox 01/15/18 15:01 95 H 33 H 138/64 92 L 01/15/18 15:00 97 H 31 H 93 L 01/15/18 14:01 98 H 31 H 143/66 99 01/15/18 14:00 99 H 36 H 99 Intake and Output (Last 8hrs): Intake & Output 01/15/18 01/15/18 01/15/18 06:59 14:59 22:59 Intake Total 150 440 Output Total 800 600 Balance -650 -160 Weight 188 lb 7.924 oz Intake: Oral 150 440 Output: Urine 800 600 Urine, Voided 800 600 Emesis 0 Other: # Bowel Movements 0 - Physical Exam Head: Positive for: Atraumatic, Normocephalic Pupils: Positive for: PERRL Extroacular Muscles: Positive for: EOMI Conjunctiva: Positive for: Normal Mouth: Positive for: Moist Mucous Membranes Respiratory/Chest: Positive for: Decreased Breath Sounds Cardiovascular: Positive for: Regular Rate and Rhythm Abdomen: Positive for: Normal Bowel Sounds. Negative for: Tenderness, Distention Upper Extremity: Positive for: Normal Inspection, Normal ROM, NORMAL PULSES, Neurovascularly Intact, Capillary Refill < 2s Lower Extremity: Positive for: Normal Inspection, NORMAL PULSES, Neurovascularly Intact, Capillary Refill < 2 s Neurological: Positive for: GCS=15, CN II-XII Intact Skin: Positive for: Warm, Dry, Normal Color Psychiatric: Positive for: Alert, Oriented x 3 - Medications Active Medications: Active Medications Generic Name Dose Route Start Last Admin Trade Name Freq PRN Reason Stop Dose Admin Albuterol/Ipratropium 3 ml 01/11/18 09:45 01/15/18 16:25 Duoneb 3 Mg/0.5 Mg (3 Ml) Ud INH 3 ml RQ4 JUNIE Administration Aspirin 81 mg 01/12/18 10:00 01/15/18 09:05 Aspirin Chewable PO 81 mg DAILY JUNIE Administration Budesonide 0.5 mg 01/15/18 20:00 Pulmicort Respules INH RQ12 JUNIE Chlorthalidone 25 mg 01/12/18 10:00 01/15/18 09:05 Hygroton PO 25 mg DAILY JUNIE Administration Clopidogrel Bisulfate 75 mg 01/12/18 10:00 01/15/18 09:04 Plavix PO 75 mg DAILY JUNIE Administration Enoxaparin Sodium 80 mg 01/11/18 18:00 01/15/18 09:04 Lovenox SC 80 mg Q12 JUNIE Administration Famotidine 20 mg 01/12/18 10:00 01/15/18 09:05 Pepcid PO 20 mg DAILY JUNIE Administration Azithromycin 500 mg/ Sodium 250 mls @ 250 mls/hr 01/12/18 10:00 01/15/18 09: 04 Chloride IVPB 250 mls/hr DAILY JUNIE Administration Protocol Ceftriaxone Sodium 1 gm/ 100 mls @ 100 mls/hr 01/12/18 10:00 01/15/18 09:03 Sodium Chloride IVPB 100 mls/hr DAILY JUNIE Administration Protocol Methylprednisolone 40 mg 01/13/18 10:00 01/15/18 09:06 Solu-Medrol IV 40 mg Q12 JUNIE Administration Montelukast Sodium 10 mg 01/11/18 22:00 01/14/18 21:45 Singulair PO 10 mg HS JUNIE Administration Saccharomyces Boulardii 250 mg 01/11/18 10:00 01/15/18 09:05 Florastor PO 250 mg BID JUNIE Administration Verapamil HCl 180 mg 01/15/18 10:00 01/15/18 09:04 Calan Sr Tab PO 180 mg DAILY JUNIE Administration - Patient Studies Lab Studies: Microbiology Studies 01/11/18 04:44 S.aureus & Coag-Neg Staph PNA FISH - Final Blood Blood Culture - Preliminary Gram Positive Cocci Gram Stain - Final 01/11/18 04:44 Blood Culture - Preliminary Blood NO GROWTH AFTER 4 DAYS Lab Studies 01/15/18 01/15/18 01/15/18 Range/Units 08:39 06:27 05:00 WBC 9.1 D (4.8-10.8) K/uL RBC 3.41 L (3.80-5.20) Mil/uL Hgb 10.0 L (11.0-16.0) g/dL Hct 30.9 L (34.0-47.0) % MCV 90.4 (81.0-99.0) fL MCH 29.1 (27.0-31.0) pg MCHC 32.2 L (33.0-37.0) g/dL RDW 13.0 (11.5-14.5) % Plt Count 249 (130-400) K/uL MPV 8.3 (7.2-11.7) fL Neut % (Auto) 88.6 H (50.0-75.0) % Lymph % (Auto) 5.8 L (20.0-40.0) % Kershaw % (Auto) 5.5 (0.0-10.0) % Eos % (Auto) 0.0 (0.0-4.0) % Baso % (Auto) 0.1 (0.0-2.0) % Neut # (Auto) 8.1 H (1.8-7.0) K/uL Lymph # (Auto) 0.5 L (1.0-4.3) K/uL Kershaw # (Auto) 0.5 (0.0-0.8) K/uL Eos # (Auto) 0.0 (0.0-0.7) K/uL Baso # (Auto) 0.0 (0.0-0.2) K/uL Neutrophils % (Manual) 86 H (50-75) % Lymphocytes % (Manual) 9 L (20-40) % Monocytes % (Manual) 4 (0-10) % Myelocytes % 1 H (0-0) % Platelet Estimate Normal (NORMAL) Hypochromasia (manual) Slight Puncture Site Rr pCO2 76 H* (35-45) mm/Hg pO2 140 H (80-100) mm/Hg HCO3 41.0 H* (21-28) mmol/L ABG pH 7.41 (7.35-7.45) ABG Total CO2 50.5 H (22-28) mmol/L ABG O2 Saturation 98.8 H (95-98) % ABG Base Excess 20.6 H (-2.0-3.0) mmol/L ABG Hemoglobin 9.0 L (11.7-17.4) g/dL ABG Carboxyhemoglobin 1.6 H (0.5-1.5) % POC ABG HHb (Measured) 1.2 (0.0-5.0) % ABG Methemoglobin 1.3 (0.0-3.0) % Steve Test Pos A-a O2 Difference 50.0 mm/Hg Respiratory Index 0.4 Hgb O2 Saturation 95.9 (95.0-98.0) % Vent Mode Bipap FiO2 40.0 % Inspiratory BiPAP 18 Expiratory BiPAP 7 Crit Value Called To Luca rn Crit Value Called By Eva commercial property manager Crit Value Read Back Y Blood Gas Notified Time 516 Sodium 141 (132-148) mmol/L Potassium 3.4 L (3.6-5.2) mmol/L Chloride 89 L (98-107) mmol/L Carbon Dioxide 45 H* (22-30) mmol/L Anion Gap 10 (10-20) BUN 27 H (7-17) mg/dL Creatinine 0.8 (0.7-1.2) mg/dL Est GFR ( Amer) > 60 Est GFR (Non-Af Amer) > 60 Random Glucose 147 H (65-105) mg/dL Calcium 7.9 L (8.6-10.4) mg/dl Phosphorus 2.5 (2.5-4.5) mg/dL Magnesium 2.3 (1.6-2.3) mg/dL Total Bilirubin 0.4 (0.2-1.3) mg/dL AST 20 (14-36) U/L ALT 31 (9-52) U/L Alkaline Phosphatase 77 (38-126) U/L Total Protein 6.3 (6.3-8.3) g/dL Albumin 3.3 L (3.5-5.0) g/dL Globulin 2.9 (2.2-3.9) gm/dL Albumin/Globulin Ratio 1.1 (1.0-2.1) Laboratory Results - last 24 hr 01/15/18 01/15/18 01/15/18 05:00 06:27 08:39 WBC 9.1 D RBC 3.41 L Hgb 10.0 L Hct 30.9 L MCV 90.4 MCH 29.1 MCHC 32.2 L RDW 13.0 Plt Count 249 MPV 8.3 Neut % (Auto) 88.6 H Lymph % (Auto) 5.8 L Kershaw % (Auto) 5.5 Eos % (Auto) 0.0 Baso % (Auto) 0.1 Neut # (Auto) 8.1 H Lymph # (Auto) 0.5 L Kershaw # (Auto) 0.5 Eos # (Auto) 0.0 Baso # (Auto) 0.0 Neutrophils % (Manual) 86 H Lymphocytes % (Manual) 9 L Monocytes % (Manual) 4 Myelocytes % 1 H Platelet Estimate Normal Hypochromasia (manual) Slight Puncture Site Rr pCO2 76 H* pO2 140 H HCO3 41.0 H* ABG pH 7.41 ABG Total CO2 50.5 H ABG O2 Saturation 98.8 H ABG Base Excess 20.6 H ABG Hemoglobin 9.0 L ABG Carboxyhemoglobin 1.6 H POC ABG HHb (Measured) 1.2 ABG Methemoglobin 1.3 Steve Test Pos A-a O2 Difference 50.0 Respiratory Index 0.4 Hgb O2 Saturation 95.9 Vent Mode Bipap FiO2 40.0 Inspiratory BiPAP 18 Expiratory BiPAP 7 Crit Value Called To Luca rn Crit Value Called By Eva commercial property manager Crit Value Read Back Y Blood Gas Notified Time 516 Sodium 141 Potassium 3.4 L Chloride 89 L Carbon Dioxide 45 H* Anion Gap 10 BUN 27 H Creatinine 0.8 Est GFR ( Amer) > 60 Est GFR (Non-Af Amer) > 60 Random Glucose 147 H Calcium 7.9 L Phosphorus 2.5 Magnesium 2.3 Total Bilirubin 0.4 AST 20 ALT 31 Alkaline Phosphatase 77 Total Protein 6.3 Albumin 3.3 L Globulin 2.9 Albumin/Globulin Ratio 1.1 Critical Care Progress Note - Nutrition Nutrition: Nutrition Category Date Time Status Heart Healthy Diet [DIET] Diets 01/11/18 Lunch Active Assessment/Plan - Assessment and Plan (Free Text) Assessment: This is a 82 year old female with PMHx of HTN, CAD with ?? Stents, COPD ( nonsmoker) on home oxygen, 2L NC, RA, HF with systolic and diastolic dysfunction (2014), coming from home with ~12-14 hours of SOB and burning in her chest. Found to be hypercapneic on ABG, she did not improve clinically after breathing treatments, steroids, was then started on bipap, repeat ABG shows improvement. Patient admitted to ICU for Hypercapneic failure 2/2 NSTEMI with Multifocal LLL Pneumonia. Plan: Neuro: GCS 15 Cardio: A: NSTEMI Dr. Duff consulted - EKG: new RBBB when compared to EKG in 2015 - Troponin 1.67 --> 1.61 --> 2.0 --> 1.33 - Started therapeutic lovenox - Will plan for cath once patient has stabilized A: CAD with stents - Patient reports ASA, Plavix was stopped by Dr. Chong (partner with Dr. Duff) - Restarted ASA, Plavix - pending reccs from Cardio A: HF Diastolic dysfunction - Last ECHO was in 2014 - Repeat ECHO: EF 45-50%, with diastolic dysfunction - BNP 2970 - Labs - WNL - Resume home medications: Chlorthalidone 25mg, Bystolic 5mg (held due to acute CHF) A: HTN - Resume home medications: Chlorthalidone 25mg, Bystolic 5mg (held due to acute CHF) Pulm: A: Hypercapneic Failure 2/2 NSTEMI and Multifocal PNA - Elevated D - Dimer, hypercapneic on ABG - Currently on BIPAP - continue - Negative for PE, venous dopplers- negative for DVT - Duonebs Q4, Azithro, Rocephin 6/, Solumedrol 40mg Q12, Florastor BID, Singulair A: COPD - Started Duonebs Q4, Azithro, Rocephin 6/11, Florastor BID, Singulair A: Pulmonary Nodules - Multiple small right-sided pulmonary nodules common nonspecific. No calcified nodules are appreciated. Small nodules but 1 are 5 mm or less. 7 mm nodule right lower lobe. - Follow-up with chest CT 6-12 months. ID: A: Multifocal LLL Pneumonia - Afebrile, leukocytosis with left shift, no bandemia, lactate 3.0 - 3.6 -->5.1 --> 4.0 --> 0.9; procal 0.61--> 0.65 - CXR: Abnormal, patchy densities in the left lower lobe, a new finding, suspicious for pneumonia. Recommend radiographic followup to document clearing. - CTA: No evidence of pulmonary embolism. Multifocal opacities throughout left lung, likely infectious. Rule out neoplastic. Followup to clearing. Multiple small right-sided pulmonary nodules common nonspecific. No calcified nodules are appreciated. Small nodules but 1 are 5 mm or less. 7 mm nodule right lower lobe. - Blood, UC, Sputum - negative to date - 1 vial BC - gram + --> ordered repeat BC - Started Duonebs Q4, Azithro, Rocephin 01/11, Florastor BID, Singulair Endo: A: IGT - A1C 5.8 Rheum: A: Hx RA Heme/Onc A: Hx Breast Cancer - S/P lumpectomy Psych: A: Anxiety - Remove xanax taper Disposition: Patient is stable for transfer to Telemetry. Prophylaxis - Protonix - SCDs, Therapeutic lovenox - PT eval DW Agustina Nichols DO, PGY-1 <Laura Valdes - Last Filed: 01/15/18 18:27> CCU Objective - Vital Signs / Intake & Output Vital Signs (Last 4 hours): Vital Signs Pulse Resp BP Pulse Ox 01/15/18 15:01 95 H 33 H 138/64 92 L 01/15/18 15:00 97 H 31 H 93 L Intake and Output (Last 8hrs): Intake & Output 01/15/18 01/15/18 01/15/18 06:59 14:59 22:59 Intake Total 150 440 Output Total 800 600 Balance -650 -160 Weight 188 lb 7.924 oz Intake: Oral 150 440 Output: Urine 800 600 Urine, Voided 800 600 Emesis 0 Other: # Bowel Movements 0 - Medications Active Medications: Active Medications Generic Name Dose Route Start Last Admin Trade Name Freq PRN Reason Stop Dose Admin Albuterol/Ipratropium 3 ml 01/11/18 09:45 01/15/18 16:25 Duoneb 3 Mg/0.5 Mg (3 Ml) Ud INH 3 ml RQ4 JUNIE Administration Aspirin 81 mg 01/12/18 10:00 01/15/18 09:05 Aspirin Chewable PO 81 mg DAILY JUNIE Administration Budesonide 0.5 mg 01/15/18 20:00 Pulmicort Respules INH RQ12 JUNIE Chlorthalidone 25 mg 01/12/18 10:00 01/15/18 09:05 Hygroton PO 25 mg DAILY JUNIE Administration Clopidogrel Bisulfate 75 mg 01/12/18 10:00 01/15/18 09:04 Plavix PO 75 mg DAILY JUNIE Administration Enoxaparin Sodium 40 mg 01/16/18 10:00 Lovenox SC 01/16/18 10:01 ONCE ONE Famotidine 20 mg 01/12/18 10:00 01/15/18 09:05 Pepcid PO 20 mg DAILY JUNIE Administration Azithromycin 500 mg/ Sodium 250 mls @ 250 mls/hr 01/12/18 10:00 01/15/18 09: 04 Chloride IVPB 250 mls/hr DAILY JUNIE Administration Protocol Ceftriaxone Sodium 1 gm/ 100 mls @ 100 mls/hr 01/12/18 10:00 01/15/18 09:03 Sodium Chloride IVPB 100 mls/hr DAILY JUNIE Administration Protocol Vancomycin HCl 500 mg/ Sodium 100 mls @ 100 mls/hr 01/15/18 18:30 Chloride IVPB 01/15/18 19:29 ONCE ONE Protocol Methylprednisolone 40 mg 01/13/18 10:00 01/15/18 09:06 Solu-Medrol IV 40 mg Q12 JUNIE Administration Montelukast Sodium 10 mg 01/11/18 22:00 01/14/18 21:45 Singulair PO 10 mg HS JUNIE Administration Saccharomyces Boulardii 250 mg 01/11/18 10:00 01/15/18 17:43 Florastor PO 250 mg BID JUNIE Administration Verapamil HCl 180 mg 01/15/18 10:00 01/15/18 09:04 Calan Sr Tab PO 180 mg DAILY JUNIE Administration - Patient Studies Lab Studies: Microbiology Studies 01/11/18 04:44 S.aureus & Coag-Neg Staph PNA FISH - Final Blood Blood Culture - Preliminary Gram Positive Cocci Gram Stain - Final 01/11/18 04:44 Blood Culture - Preliminary Blood NO GROWTH AFTER 4 DAYS Lab Studies 01/15/18 01/15/18 01/15/18 Range/Units 08:39 06:27 05:00 WBC 9.1 D (4.8-10.8) K/uL RBC 3.41 L (3.80-5.20) Mil/uL Hgb 10.0 L (11.0-16.0) g/dL Hct 30.9 L (34.0-47.0) % MCV 90.4 (81.0-99.0) fL MCH 29.1 (27.0-31.0) pg MCHC 32.2 L (33.0-37.0) g/dL RDW 13.0 (11.5-14.5) % Plt Count 249 (130-400) K/uL MPV 8.3 (7.2-11.7) fL Neut % (Auto) 88.6 H (50.0-75.0) % Lymph % (Auto) 5.8 L (20.0-40.0) % Kershaw % (Auto) 5.5 (0.0-10.0) % Eos % (Auto) 0.0 (0.0-4.0) % Baso % (Auto) 0.1 (0.0-2.0) % Neut # (Auto) 8.1 H (1.8-7.0) K/uL Lymph # (Auto) 0.5 L (1.0-4.3) K/uL Kershaw # (Auto) 0.5 (0.0-0.8) K/uL Eos # (Auto) 0.0 (0.0-0.7) K/uL Baso # (Auto) 0.0 (0.0-0.2) K/uL Neutrophils % (Manual) 86 H (50-75) % Lymphocytes % (Manual) 9 L (20-40) % Monocytes % (Manual) 4 (0-10) % Myelocytes % 1 H (0-0) % Platelet Estimate Normal (NORMAL) Hypochromasia (manual) Slight Puncture Site Rr pCO2 76 H* (35-45) mm/Hg pO2 140 H (80-100) mm/Hg HCO3 41.0 H* (21-28) mmol/L ABG pH 7.41 (7.35-7.45) ABG Total CO2 50.5 H (22-28) mmol/L ABG O2 Saturation 98.8 H (95-98) % ABG Base Excess 20.6 H (-2.0-3.0) mmol/L ABG Hemoglobin 9.0 L (11.7-17.4) g/dL ABG Carboxyhemoglobin 1.6 H (0.5-1.5) % POC ABG HHb (Measured) 1.2 (0.0-5.0) % ABG Methemoglobin 1.3 (0.0-3.0) % Steve Test Pos A-a O2 Difference 50.0 mm/Hg Respiratory Index 0.4 Hgb O2 Saturation 95.9 (95.0-98.0) % Vent Mode Bipap FiO2 40.0 % Inspiratory BiPAP 18 Expiratory BiPAP 7 Crit Value Called To Luca rn Crit Value Called By Eva commercial property manager Crit Value Read Back Y Blood Gas Notified Time 516 Sodium 141 (132-148) mmol/L Potassium 3.4 L (3.6-5.2) mmol/L Chloride 89 L (98-107) mmol/L Carbon Dioxide 45 H* (22-30) mmol/L Anion Gap 10 (10-20) BUN 27 H (7-17) mg/dL Creatinine 0.8 (0.7-1.2) mg/dL Est GFR ( Amer) > 60 Est GFR (Non-Af Amer) > 60 Random Glucose 147 H (65-105) mg/dL Calcium 7.9 L (8.6-10.4) mg/dl Phosphorus 2.5 (2.5-4.5) mg/dL Magnesium 2.3 (1.6-2.3) mg/dL Total Bilirubin 0.4 (0.2-1.3) mg/dL AST 20 (14-36) U/L ALT 31 (9-52) U/L Alkaline Phosphatase 77 (38-126) U/L Total Protein 6.3 (6.3-8.3) g/dL Albumin 3.3 L (3.5-5.0) g/dL Globulin 2.9 (2.2-3.9) gm/dL Albumin/Globulin Ratio 1.1 (1.0-2.1) Laboratory Results - last 24 hr 01/15/18 01/15/18 01/15/18 05:00 06:27 08:39 WBC 9.1 D RBC 3.41 L Hgb 10.0 L Hct 30.9 L MCV 90.4 MCH 29.1 MCHC 32.2 L RDW 13.0 Plt Count 249 MPV 8.3 Neut % (Auto) 88.6 H Lymph % (Auto) 5.8 L Kershaw % (Auto) 5.5 Eos % (Auto) 0.0 Baso % (Auto) 0.1 Neut # (Auto) 8.1 H Lymph # (Auto) 0.5 L [place]haw # (Auto) 0.5 Eos # (Auto) 0.0 Baso # (Auto) 0.0 Neutrophils % (Manual) 86 H Lymphocytes % (Manual) 9 L Monocytes % (Manual) 4 Myelocytes % 1 H Platelet Estimate Normal Hypochromasia (manual) Slight Puncture Site Rr pCO2 76 H* pO2 140 H HCO3 41.0 H* ABG pH 7.41 ABG Total CO2 50.5 H ABG O2 Saturation 98.8 H ABG Base Excess 20.6 H ABG Hemoglobin 9.0 L ABG Carboxyhemoglobin 1.6 H POC ABG HHb (Measured) 1.2 ABG Methemoglobin 1.3 Steve Test Pos A-a O2 Difference 50.0 Respiratory Index 0.4 Hgb O2 Saturation 95.9 Vent Mode Bipap FiO2 40.0 Inspiratory BiPAP 18 Expiratory BiPAP 7 Crit Value Called To Luca rn Crit Value Called By Eva commercial property manager Crit Value Read Back Y Blood Gas Notified Time 516 Sodium 141 Potassium 3.4 L Chloride 89 L Carbon Dioxide 45 H* Anion Gap 10 BUN 27 H Creatinine 0.8 Est GFR ( Amer) > 60 Est GFR (Non-Af Amer) > 60 Random Glucose 147 H Calcium 7.9 L Phosphorus 2.5 Magnesium 2.3 Total Bilirubin 0.4 AST 20 ALT 31 Alkaline Phosphatase 77 Total Protein 6.3 Albumin 3.3 L Globulin 2.9 Albumin/Globulin Ratio 1.1 Critical Care Progress Note - Nutrition Nutrition: Nutrition Category Date Time Status Heart Healthy Diet [DIET] Diets 01/11/18 Lunch Active Assessment/Plan - Assessment and Plan (Free Text) Plan: PAtient seen and examined at bedside with above resident. PAtietn awake, alert off bi-pap and toelrating nasal canula. -COPD: bi-pap at night and NC during day keeping SPO2 b/w 90-92 (NOT 100%), continue bronchodilators -PNA: continue empirical abx -continue PT/OT -continue DVT/PUD ppx -all benzos discontinued as patient manifestes signs of respiratoy depression with small amounts of benzos. -psych follow up for anxietry disorder Patient remains hemodynamically stable. - Date & Time Date: 01/15/18 Time: 18:27
[2018-01-15] MEDS ORDERED: Vancomycin 500mg/D5W 100 ml 500 MG/100 ML BAG IVPB ONE (18:00)
--- NOTE | 2018-01-15 18:08 | CP.PCM.PN ---
Subjective - Date & Time of Evaluation Date of Evaluation: 01/15/18 Time of Evaluation: 18:03 - Subjective Subjective: Pt is in the chair.Breathing better. In nsr with apbs. Objective - Vital Signs/Intake and Output Vital Signs (last 24 hours): Temp Pulse Resp BP Pulse Ox 98.4 F 95 H 33 H 138/64 92 L 01/15/18 12:00 01/15/18 15:01 01/15/18 15:01 01/15/18 15:01 01/15/18 15:01 Intake and Output: 01/15/18 01/15/18 06:59 18:59 Intake Total 275 440 Output Total 800 600 Balance -525 -160 - Medications Medications: Current Medications Albuterol/Ipratropium (Duoneb 3 Mg/0.5 Mg (3 Ml) Ud) 3 ml INH RQ4 [facility] Last Admin: 01/15/18 16:25 Dose: 3 ml Aspirin (Aspirin Chewable) 81 mg PO DAILY [facility] Last Admin: 01/15/18 09:05 Dose: 81 mg Budesonide (Pulmicort Respules) 0.5 mg INH RQ12 [facility] Chlorthalidone (Hygroton) 25 mg PO DAILY [facility] Last Admin: 01/15/18 09:05 Dose: 25 mg Clopidogrel Bisulfate (Plavix) 75 mg PO DAILY [facility] Last Admin: 01/15/18 09:04 Dose: 75 mg Enoxaparin Sodium (Lovenox) 80 mg SC Q12 [facility] Last Admin: 01/15/18 09:04 Dose: 80 mg Famotidine (Pepcid) 20 mg PO DAILY [facility] Last Admin: 01/15/18 09:05 Dose: 20 mg Azithromycin 500 mg/ Sodium (Chloride) 250 mls @ 250 mls/hr IVPB DAILY [facility] PRN Reason: Protocol Last Admin: 01/15/18 09:04 Dose: 250 mls/hr Ceftriaxone Sodium 1 gm/ (Sodium Chloride) 100 mls @ 100 mls/hr IVPB DAILY [facility] PRN Reason: Protocol Last Admin: 01/15/18 09:03 Dose: 100 mls/hr Vancomycin HCl/Dextrose (Vancocin) 500 mg in 100 mls @ 100 mls/hr IVPB ONCE ONE PRN Reason: Protocol Stop: 01/15/18 18:59 Methylprednisolone (Solu-Medrol) 40 mg IV Q12 [facility] Last Admin: 01/15/18 09:06 Dose: 40 mg Montelukast Sodium (Singulair) 10 mg PO HS [facility] Last Admin: 01/14/18 21:45 Dose: 10 mg Saccharomyces Boulardii (Florastor) 250 mg PO BID [facility] Last Admin: 01/15/18 17:43 Dose: 250 mg Verapamil HCl (Calan Sr Tab) 180 mg PO DAILY [facility] Last Admin: 01/15/18 09:04 Dose: 180 mg - Labs Labs: 01/15/18 08:39 01/15/18 06:27 PT 10.6 SECONDS (9.7-12.2) 01/11/18 06:35 INR 1.0 01/11/18 06:35 APTT 30 SECONDS (21-34) 01/11/18 06:35 - Constitutional Appears: Well - Head Exam Head Exam: NORMAL INSPECTION - Eye Exam Eye Exam: EOMI - ENT Exam ENT Exam: Mucous Membranes Moist - Respiratory Exam Respiratory Exam: Clear to Ausculation Bilateral - Cardiovascular Exam Cardiovascular Exam: REGULAR RHYTHM - GI/Abdominal Exam GI & Abdominal Exam: Normal Bowel Sounds - Exam External exam: NORMAL EXTERNAL EXAM - Extremities Exam Extremities Exam: Normal Inspection - Back Exam Back Exam: CVA tenderness (R) - Neurological Exam Neurological Exam: Alert, Awake, Oriented x3 - Psychiatric Exam Psychiatric exam: Normal Affect, Normal Mood - Skin Skin Exam: Normal Color Assessment and Plan - Assessment and Plan (Free Text) Assessment: Pt is better, but still MCCOLLUM. Small non stemi, that can be addressed in the future. Will change lovenox to 40 sq daily.
[2018-01-15] MEDS: Budesonide 0.5 mg/2 ml Inhal Susp UD INH SCH (20:21)
[2018-01-16] MEDS: Albuterol-Ipratrop 3 mg / 0.5 (3 ml) UD INH SCH ×6 (00:19→19:21)
[2018-01-16 05:41] LABS: ARTERIAL BLOOD GAS HCO3 43.6 mmol/L (21-28); ARTERIAL BLOOD GAS HEMOGLOBIN 10.2 g/dL (11.7-17.4); ARTERIAL BLOOD GAS O2 SAT 98.9 % (95-98); ARTERIAL BLOOD GAS PCO2 103 mm/Hg (35-45); ARTERIAL BLOOD GAS PH 7.33 (7.35-7.45); ARTERIAL BLOOD GAS PO2 105 mm/Hg (80-100); ARTERIAL BLOOD GAS TCO2 57.5 mmol/L (22-28)
[2018-01-16 06:21] LABS: BASO % 0.2 % (0.0-2.0); EOS % 0.1 % (0.0-4.0); HEMOGLOBIN 9.7 g/dL (11.0-16.0); LYMPH # 0.6 K/uL (1.0-4.3); LYMPH % 6.1 % (20.0-40.0); MEAN CELL VOLUME 90.5 fL (81.0-99.0); MEAN CORPUSCULAR HEMOGLOBIN 28.5 pg (27.0-31.0); MEAN CORPUSCULAR HGB CONC 31.5 g/dL (33.0-37.0); MEAN PLATELET VOLUME 8.9 fL (7.2-11.7); MONO # 0.6 K/uL (0.0-0.8); MONO % 6.7 % (0.0-10.0); NEUT # 8.4 K/uL (1.8-7.0); NEUT % 86.9 % (50.0-75.0); PLATELET COUNT 259 K/uL (130-400); RBC 3.42 Mil/uL (3.80-5.20); RED CELL DISTRIBUTION WIDTH 13.2 % (11.5-14.5); WHITE BLOOD COUNT 9.7 K/uL (4.8-10.8)
[2018-01-16 06:37] LABS: ALB/GLOB RATIO 1.1 (1.0-2.1); ALBUMIN 3.4 g/dL (3.5-5.0); ALT/SGPT 35 U/L (9-52); AST/SGOT 20 U/L (14-36); BLOOD UREA NITROGEN 33 mg/dL (7-17); CALCIUM 7.7 mg/dl (8.6-10.4); GFR AFRICAN-AMERICAN > 60; GFR NON-AFRICAN AMERICAN > 60
[2018-01-16] MEDS: Budesonide 0.5 mg/2 ml Inhal Susp UD INH SCH ×2 (08:00→19:35)
[2018-01-16 08:52] LABS: LYMPHOCYTE 4 % (20-40); MONOCYTE 6 % (0-10); NEUTROPHIL 90 % (50-75); PLATELET ESTIMATE NORMAL (NORMAL); TOTAL CELLS COUNTED 100
[2018-01-16] MEDS: Saccharomyces Boulardi 250 mg Cap PO SCH ×2 (09:36→18:09)
[2018-01-16] MEDS: Verapamil 180 mg ER Tab PO SCH (09:36)
--- NOTE | 2018-01-16 09:40 | CP.PCM.PN ---
Subjective - Date & Time of Evaluation Date of Evaluation: 01/16/18 Time of Evaluation: 09:40 - Subjective Subjective: Pulmonary Follow up Covering Dr. Tse The Patient was seen and examined at the bedside, Medical records reviewed, and management issues were discussed and formulated with the house staff. Events reviewed She was taken off the BIPAP for breakfast and medication and now in mild respiratory distress, Tachypnea Patient requires BIPAP support for most of the day Saturation 95% Pt Alert and oriented, follows some commands Pt Less anxiuos, started on Klonopin 01/14 Denies any chest pain, SOB or Palpitations Afebrile, NSR on the monitor On IV Rocephin & Zithromax AM Labs reviewed, ABG 7.33/103/105/43/98% Changed BIPAP sitting to 18/6 RR 20 Fio2 of 35% Will repeat ABG in couple of hours Objective - Vital Signs/Intake and Output Vital Signs (last 24 hours): Temp Pulse Resp BP Pulse Ox 97.9 F 102 H 20 122/58 L 95 01/16/18 09:00 01/16/18 09:00 01/16/18 09:00 01/16/18 09:00 01/16/18 09:00 Intake and Output: 01/16/18 01/16/18 06:59 18:59 Intake Total 325 Output Total 500 Balance -175 - Medications Medications: Current Medications Albuterol/Ipratropium (Duoneb 3 Mg/0.5 Mg (3 Ml) Ud) 3 ml INH RQ4 [facility] Last Admin: 01/16/18 08:00 Dose: 3 ml Aspirin (Aspirin Chewable) 81 mg PO DAILY [facility] Last Admin: 01/16/18 09:36 Dose: 81 mg Budesonide (Pulmicort Respules) 0.5 mg INH RQ12 [facility] Last Admin: 01/16/18 08:00 Dose: 0.5 mg Chlorthalidone (Hygroton) 25 mg PO DAILY [facility] Last Admin: 01/16/18 09:36 Dose: 25 mg Clopidogrel Bisulfate (Plavix) 75 mg PO DAILY [facility] Last Admin: 01/16/18 09:36 Dose: 75 mg Enoxaparin Sodium (Lovenox) 40 mg SC ONCE ONE Stop: 01/16/18 10:01 Last Admin: 01/16/18 09:37 Dose: 40 mg Famotidine (Pepcid) 20 mg PO DAILY [facility] Last Admin: 01/16/18 09:36 Dose: 20 mg Azithromycin 500 mg/ Sodium (Chloride) 250 mls @ 250 mls/hr IVPB DAILY [facility] PRN Reason: Protocol Last Admin: 01/15/18 09:04 Dose: 250 mls/hr Ceftriaxone Sodium 1 gm/ (Sodium Chloride) 100 mls @ 100 mls/hr IVPB DAILY [facility] PRN Reason: Protocol Last Admin: 01/16/18 09:37 Dose: 100 mls/hr Methylprednisolone (Solu-Medrol) 40 mg IV Q12 [facility] Last Admin: 01/16/18 09:37 Dose: 40 mg Montelukast Sodium (Singulair) 10 mg PO HS [facility] Last Admin: 01/15/18 21:18 Dose: 10 mg Saccharomyces Boulardii (Florastor) 250 mg PO BID [facility] Last Admin: 01/16/18 09:36 Dose: 250 mg Verapamil HCl (Calan Sr Tab) 180 mg PO DAILY [facility] Last Admin: 01/16/18 09:36 Dose: 180 mg - Labs Labs: 01/16/18 06:13 01/16/18 06:13 PT 10.6 SECONDS (9.7-12.2) 01/11/18 06:35 INR 1.0 01/11/18 06:35 APTT 30 SECONDS (21-34) 01/11/18 06:35 - Constitutional Appears: In Acute Distress (Mild resp distress, Tachypnea) - Neck Exam Neck Exam: Full ROM, Normal Inspection. absent: Lymphadenopathy, Meningismus - Respiratory Exam Respiratory Exam: Accessory Muscle Use, Decreased Breath Sounds, Prolonged Expiratory Phase, Rhonchi. absent: Chest Wall Tenderness, Clear to Ausculation Bilateral, Rales, Wheezes - Cardiovascular Exam Cardiovascular Exam: Tachycardia, RRR, +S1, +S2. absent: JVD - GI/Abdominal Exam GI & Abdominal Exam: Soft, Normal Bowel Sounds. absent: Distended, Guarding, Rigid - Extremities Exam Extremities Exam: Pedal Edema. absent: Calf Tenderness, Tenderness - Back Exam Back Exam: absent: CVA tenderness (L), CVA tenderness (R) - Neurological Exam Neurological Exam: Alert, Altered, Oriented x3 Assessment and Plan (1) Acute respiratory failure with hypercapnia Assessment & Plan: ABG 7.33/103/105/43/98% Changed BIPAP sitting to 18/6 RR 20 Fio2 of 35% Will repeat ABG in couple of hours Continue IV antibiotics x7 days, Blood and sputum cultures negative Wean off BiPAP Continue Solu-Medrol 40 mg IVP Q12 and Start tapering in Am if continue improving Nebulizer treatment Continue Lasix Continue Singular Status: Acute (2) COPD exacerbation Assessment & Plan: Continue BIPAP, IV solumedrol with no taper, frequent duonebs and singulair. Status: Acute (3) Pneumonia Status: Acute (4) Pulmonary nodule Status: Acute (5) Anxiety Status: Acute
[2018-01-16] MEDS ORDERED: Enoxaparin 40 mg Syringe SC ONE (10:00)
[2018-01-16] MEDS: Azithromycin 500 MG in Sodium Chloride 0.9% 250 ML IVPB SCH (10:55)
--- NOTE | 2018-01-16 11:42 | CP.PCM.PN ---
Subjective - Date & Time of Evaluation Date of Evaluation: 01/16/18 Time of Evaluation: 11:30 - Subjective Subjective: Patient was seen and examined by me. She is back on the Bipap this morning. She reported anxiety. Discussed with pulmonolgist on case. Because of ABG results further changes made to bipap and there is another ABG pending. Patient reports anxious and wants more xanax and klonopin saying that yesterday these helped her alot. However considering her breathing status and ABG probably should avoid these for the moment. As mentioned before this is a a 82 year old female with a history HTN, RA, COPD (she says a lot of second hand smoking in family) on home oxygen, she was very short of breath, there is also an NSTEMI from demand ischemia. The patient is also being treated for pneumonia as well and is on IV abx. Cultures negative at this moment. CT scan of the chest from 01/11 also shows nodules as well. Objective - Vital Signs/Intake and Output Vital Signs (last 24 hours): Temp Pulse Resp BP Pulse Ox 97.9 F 102 H 20 122/58 L 95 01/16/18 09:00 01/16/18 09:00 01/16/18 09:00 01/16/18 09:00 01/16/18 09:00 Intake and Output: 01/16/18 01/16/18 06:59 18:59 Intake Total 325 Output Total 500 Balance -175 - Medications Medications: Current Medications Albuterol/Ipratropium (Duoneb 3 Mg/0.5 Mg (3 Ml) Ud) 3 ml INH RQ4 [facility] Last Admin: 01/16/18 08:00 Dose: 3 ml Aspirin (Aspirin Chewable) 81 mg PO DAILY [facility] Last Admin: 01/16/18 09:36 Dose: 81 mg Budesonide (Pulmicort Respules) 0.5 mg INH RQ12 [facility] Last Admin: 01/16/18 08:00 Dose: 0.5 mg Clopidogrel Bisulfate (Plavix) 75 mg PO DAILY [facility] Last Admin: 01/16/18 09:36 Dose: 75 mg Famotidine (Pepcid) 20 mg PO DAILY [facility] Last Admin: 01/16/18 09:36 Dose: 20 mg Azithromycin 500 mg/ Sodium (Chloride) 250 mls @ 250 mls/hr IVPB DAILY [facility] PRN Reason: Protocol Last Admin: 01/16/18 10:55 Dose: 250 mls/hr Ceftriaxone Sodium 1 gm/ (Sodium Chloride) 100 mls @ 100 mls/hr IVPB DAILY [facility] PRN Reason: Protocol Last Admin: 01/16/18 09:37 Dose: 100 mls/hr Methylprednisolone (Solu-Medrol) 40 mg IV Q12 [facility] Last Admin: 01/16/18 09:37 Dose: 40 mg Montelukast Sodium (Singulair) 10 mg PO HS [facility] Last Admin: 01/15/18 21:18 Dose: 10 mg Saccharomyces Boulardii (Florastor) 250 mg PO BID [facility] Last Admin: 01/16/18 09:36 Dose: 250 mg Verapamil HCl (Calan Sr Tab) 180 mg PO DAILY [facility] Last Admin: 01/16/18 09:36 Dose: 180 mg - Labs Labs: 01/16/18 06:13 01/16/18 06:13 PT 10.6 SECONDS (9.7-12.2) 01/11/18 06:35 INR 1.0 01/11/18 06:35 APTT 30 SECONDS (21-34) 01/11/18 06:35 - Constitutional Appears: Chronically Ill - Head Exam Head Exam: NORMAL INSPECTION - Eye Exam Eye Exam: EOMI, Normal appearance - ENT Exam ENT Exam: Mucous Membranes Moist - Respiratory Exam Respiratory Exam: Decreased Breath Sounds - Cardiovascular Exam Cardiovascular Exam: REGULAR RHYTHM - GI/Abdominal Exam GI & Abdominal Exam: Soft, Normal Bowel Sounds - Neurological Exam Neurological Exam: Alert, Awake, Oriented x3 - Psychiatric Exam Psychiatric exam: Normal Affect, Normal Mood - Skin Skin Exam: Pallor, Warm Assessment and Plan - Assessment and Plan (Free Text) Assessment: 82yo F admitted with hypercapneic respiratory failure from PNA and NSTEMI Hypercapneic respiratory failure from PNA and COPD 01/16: The ABG showed worseing CO2 retention. Bipap changes were ordered. Also another ABG a few hours. Patient kept asking for benzodiazpines but considering her breathing status would avoid for the time being. 01/15: Off of bipap this morning. On nasal cannula. SpO2 are in the high 90s. 01/14: A lot of congestion when coughing, rales, ehonchi on exam. Will give lasix 40 x 1 dose to see if this helps. The echo from 01/12 reported diastolic dystfunction and mild , EF 45% 01/13: Further adjustment to Bipap were done overnight. Checking portable XRAY today. 01/12: Not short of breath at rest, however needs Bipap. Currently on IV abx rocephin and azithromycin IV. Blood cultures negative at this moment. She does have an elevated WBC. Afebrile. Checking also atypical cultures and procalcitonin. CT scan was negative for PE, it did note pulmonary nodules. -Co2 retention on ABG; from previous admissions Co2 is actually lower than previous -currently on BiPap; tolerating; patient is able to speak through BiPap NSTEMI 01/13: Troponin decreased again 01/12: Conitnue with Plavix and Lovenox SC BID Remains on statin and ASA Likley demand ischemia causing NSTEMI Per cardiology patient will need cardiac catherization at some point Sepsis from pneumonia 01/16: The WBC is normalized, afebrile. Yesterday a culture from admission was + staph aurres growth, vancomycin IV x1 was given. 01/15: Pending morning CBC, afebrile 01/14: WBC decreased to 19, procalcitonin slightly elavated. Continue on IV abx Pmhx of COPD; acute on chronic 01/16: Back on bipap today, adjustments to settings made 01/15: Now off of Bipap, Continue with IV solumedrol, pulmicort BID, and spiriva and nebulizers 01/13: Remains on Bipap. IV solumedrol Continue with tx Breo and Incruse Remains on Bipap Hx of RA Currently on hold - Leflunomide and Celebrex daily Hx of HTN 01/13: Systolic BPs in the low 100s 01/12: BB on hold due to COPD at this moment. Currently the systolic BP is in the 100 emeterio. -c/w Bisoprodol, Metalazone, Chlorthiadone Hx of CHF systolic and diastolic failure; EF not documented; acute on chronic 01/12: Echo returned reporting EF 40 to 45%, mild aortic stenosis, diastolic dysfunction Proph Lovexon BID Gi prophylaxis not indicated at this time
[2018-01-16 13:45] LABS: ARTERIAL BLOOD GAS HCO3 41.7 mmol/L (21-28); ARTERIAL BLOOD GAS O2 SAT 97.1 % (95-98); ARTERIAL BLOOD GAS PCO2 88 mm/Hg (35-45); ARTERIAL BLOOD GAS PH 7.38 (7.35-7.45); ARTERIAL BLOOD GAS PO2 70 mm/Hg (80-100); ARTERIAL BLOOD GAS TCO2 54.8 mmol/L (22-28)
[2018-01-16] MEDS ORDERED: Potassium Chloride 20 mEq ER Tab PO STA (22:06)
[2018-01-17] MEDS: Albuterol-Ipratrop 3 mg / 0.5 (3 ml) UD INH SCH ×7 (00:38→23:35)
[2018-01-17 07:23] LABS: BASO % 0.1 % (0.0-2.0); LYMPH # 0.5 K/uL (1.0-4.3); LYMPH % 5.8 % (20.0-40.0); MEAN CELL VOLUME 90.9 fL (81.0-99.0); MEAN CORPUSCULAR HEMOGLOBIN 29.1 pg (27.0-31.0); MEAN PLATELET VOLUME 8.3 fL (7.2-11.7); MONO # 0.7 K/uL (0.0-0.8); MONO % 7.3 % (0.0-10.0); NEUT # 8.1 K/uL (1.8-7.0); NEUT % 86.8 % (50.0-75.0); PLATELET COUNT 215 K/uL (130-400); RBC 3.45 Mil/uL (3.80-5.20); RED CELL DISTRIBUTION WIDTH 13.1 % (11.5-14.5); WHITE BLOOD COUNT 9.4 K/uL (4.8-10.8)
[2018-01-17 08:49] LABS: ANISOCYTOSIS SLIGHT; BANDS 1 % (0-2); LYMPHOCYTE 5 % (20-40); MONOCYTE 6 % (0-10); NEUTROPHIL 88 % (50-75); PLATELET ESTIMATE NORMAL (NORMAL); TOTAL CELLS COUNTED 100
[2018-01-17 08:50] LABS: HYPOCHROMIC SLIGHT; LARGE PLATELETS PRESENT; POLYCHROMIC SLIGHT; TOXIC GRANULATION PRESENT
[2018-01-17] MEDS: Saccharomyces Boulardi 250 mg Cap PO SCH ×2 (09:50→18:25)
[2018-01-17] MEDS: Verapamil 180 mg ER Tab PO SCH (09:50)
--- NOTE | 2018-01-17 10:17 | CP.PCM.PN ---
Subjective - Date & Time of Evaluation Date of Evaluation: 01/17/18 Time of Evaluation: 10:00 - Subjective Subjective: Patient remains on BIPAP 18/01 @ 35% FiO2 at this time. We are pending the ABG and CMP at this moment. She explains she did not sleep well. Less anxiety today Ordered PICC line for tommorow. As mentioned before this is a a 82 year old female with a history HTN, RA, COPD (she says a lot of second hand smoking in family) on home oxygen, she was very short of breath, there is also an NSTEMI from demand ischemia. The patient is also being treated for pneumonia as well and is on IV abx. Cultures negative at this moment. CT scan of the chest from 01/11 also shows nodules as well. Objective - Vital Signs/Intake and Output Vital Signs (last 24 hours): Temp Pulse Resp BP Pulse Ox 97.6 F 102 H 16 141/71 141 H 01/17/18 09:00 01/17/18 09:00 01/17/18 09:00 01/17/18 09:00 01/17/18 09:00 Intake and Output: 01/17/18 01/17/18 06:59 18:59 Intake Total 250 200 Output Total 200 550 Balance 50 -350 - Medications Medications: Current Medications Albuterol/Ipratropium (Duoneb 3 Mg/0.5 Mg (3 Ml) Ud) 3 ml INH RQ4 [facility] Last Admin: 01/17/18 07:25 Dose: 3 ml Aspirin (Aspirin Chewable) 81 mg PO DAILY [facility] Last Admin: 01/17/18 09:50 Dose: 81 mg Budesonide (Pulmicort Respules) 0.5 mg INH RQ12 [facility] Last Admin: 01/16/18 19:35 Dose: 0.5 mg Clopidogrel Bisulfate (Plavix) 75 mg PO DAILY [facility] Last Admin: 01/17/18 09:51 Dose: 75 mg Enoxaparin Sodium (Lovenox) 40 mg SC DAILY [facility] Famotidine (Pepcid) 20 mg PO DAILY [facility] Last Admin: 01/17/18 09:50 Dose: 20 mg Azithromycin 500 mg/ Sodium (Chloride) 250 mls @ 250 mls/hr IVPB DAILY [facility] PRN Reason: Protocol Last Admin: 01/16/18 10:55 Dose: 250 mls/hr Ceftriaxone Sodium 1 gm/ (Sodium Chloride) 100 mls @ 100 mls/hr IVPB DAILY [facility] PRN Reason: Protocol Last Admin: 01/17/18 09:49 Dose: 100 mls/hr Methylprednisolone (Solu-Medrol) 40 mg IV Q12 [facility] Last Admin: 01/17/18 09:50 Dose: 40 mg Montelukast Sodium (Singulair) 10 mg PO HS [facility] Last Admin: 01/16/18 22:27 Dose: 10 mg Saccharomyces Boulardii (Florastor) 250 mg PO BID [facility] Last Admin: 01/17/18 09:50 Dose: 250 mg Verapamil HCl (Calan Sr Tab) 180 mg PO DAILY [facility] Last Admin: 01/17/18 09:50 Dose: 180 mg - Labs Labs: 01/17/18 06:21 01/16/18 06:13 PT 10.6 SECONDS (9.7-12.2) 01/11/18 06:35 INR 1.0 01/11/18 06:35 APTT 30 SECONDS (21-34) 01/11/18 06:35 - Constitutional Appears: Unkempt, Chronically Ill - Head Exam Head Exam: NORMAL INSPECTION, NORMOCEPHALIC - Eye Exam Eye Exam: EOMI, Normal appearance - ENT Exam ENT Exam: Mucous Membranes Moist Additional comments: Wearing Bipap - Respiratory Exam Respiratory Exam: Decreased Breath Sounds, Rales, Rhonchi - Cardiovascular Exam Cardiovascular Exam: REGULAR RHYTHM - GI/Abdominal Exam GI & Abdominal Exam: Soft, Normal Bowel Sounds. absent: Guarding, Rigid, Tenderness - Neurological Exam Neurological Exam: Alert, Awake, Oriented x3 Neuro motor strength exam: Left Upper Extremity: 5, Right Upper Extremity: 5 - Psychiatric Exam Psychiatric exam: Depressed, Flat Affect - Skin Skin Exam: Pallor, Pallor, Warm Assessment and Plan - Assessment and Plan (Free Text) Assessment: Assessment: 82yo F admitted with hypercapneic respiratory failure from PNA and NSTEMI Hypercapneic respiratory failure from PNA and COPD 01/17: Less short of breath this morning. Remains on Bipap. Decrease solumedrol to 20mg IV BID. Continue with the pulmicort, singulair, and nebulizers. 01/16: The ABG showed worseing CO2 retention. Bipap changes were ordered. Also another ABG a few hours. Patient kept asking for benzodiazpines but considering her breathing status would avoid for the time being. 01/15: Off of bipap this morning. On nasal cannula. SpO2 are in the high 90s. 01/14: A lot of congestion when coughing, rales, ehonchi on exam. Will give lasix 40 x 1 dose to see if this helps. The echo from 01/12 reported diastolic dystfunction and mild , EF 45% 01/13: Further adjustment to Bipap were done overnight. Checking portable XRAY today. 01/12: Not short of breath at rest, however needs Bipap. Currently on IV abx rocephin and azithromycin IV. Blood cultures negative at this moment. She does have an elevated WBC. Afebrile. Checking also atypical cultures and procalcitonin. CT scan was negative for PE, it did note pulmonary nodules. -Co2 retention on ABG; from previous admissions Co2 is actually lower than previous -currently on BiPap; tolerating; patient is able to speak through BiPap NSTEMI 01/17: No chest pain, Remains on Statin, Plavx, ASA and blood pressure control 01/13: Troponin decreased again 01/12: Conitnue with Plavix and Lovenox SC BID Remains on statin and ASA Likley demand ischemia causing NSTEMI Per cardiology patient will need cardiac catherization at some point Sepsis from pneumonia 01/17: Afebrile, cultures negative at this time. Remains on Azithomycin abd Rocephin 01/16: The WBC is normalized, afebrile. Yesterday a culture from admission was + staph aurres growth, vancomycin IV x1 was given. 01/15: Pending morning CBC, afebrile 01/14: WBC decreased to 19, procalcitonin slightly elavated. Continue on IV abx Pmhx of COPD; acute on chronic 01/16: Back on bipap today, adjustments to settings made 01/15: Now off of Bipap, Continue with IV solumedrol, pulmicort BID, and spiriva and nebulizers 01/13: Remains on Bipap. IV solumedrol Continue with tx Breo and Incruse Remains on Bipap Hx of RA Currently on hold - Leflunomide and Celebrex daily Hx of HTN 01/13: Systolic BPs in the low 100s 01/12: BB on hold due to COPD at this moment. Currently the systolic BP is in the 100 emeterio. -c/w Bisoprodol, Metalazone, Chlorthiadone Hx of CHF systolic and diastolic failure; EF not documented; acute on chronic 01/12: Echo returned reporting EF 40 to 45%, mild aortic stenosis, diastolic dysfunction Proph Lovexon BID Gi prophylaxis not indicated at this time
[2018-01-17 11:01] LABS: ARTERIAL BLOOD GAS HCO3 47.6 mmol/L (21-28); ARTERIAL BLOOD GAS HEMOGLOBIN 10.3 g/dL (11.7-17.4); ARTERIAL BLOOD GAS O2 SAT 98.6 % (95-98); ARTERIAL BLOOD GAS PCO2 90 mm/Hg (35-45); ARTERIAL BLOOD GAS PH 7.42 (7.35-7.45); ARTERIAL BLOOD GAS PO2 94 mm/Hg (80-100); ARTERIAL BLOOD GAS TCO2 61.2 mmol/L (22-28)
[2018-01-17] MEDS: Azithromycin 500 MG in Sodium Chloride 0.9% 250 ML IVPB SCH (11:15)
[2018-01-17] MEDS: Budesonide 0.5 mg/2 ml Inhal Susp UD INH SCH ×2 (11:47→19:35)
[2018-01-17 11:50] LABS: ALB/GLOB RATIO 1.2 (1.0-2.1); ALBUMIN 3.5 g/dL (3.5-5.0); ALT/SGPT 35 U/L (9-52); AST/SGOT 23 U/L (14-36); BLOOD UREA NITROGEN 33 mg/dL (7-17); CALCIUM 8.4 mg/dl (8.6-10.4); GFR AFRICAN-AMERICAN > 60; GFR NON-AFRICAN AMERICAN > 60
[2018-01-17] MEDS ORDERED: Potassium & Sodium Phosphate PO ONE (14:53)
[2018-01-17] MEDS: MethylPREDNISolone 40 mg Vial IV SCH (23:00)
[2018-01-18] MEDS: Albuterol-Ipratrop 3 mg / 0.5 (3 ml) UD INH SCH ×5 (03:16→20:33)
[2018-01-18] MEDS: Budesonide 0.5 mg/2 ml Inhal Susp UD INH SCH ×2 (07:20→20:33)
[2018-01-18] MEDS: Verapamil 180 mg ER Tab PO SCH (10:07)
[2018-01-18] MEDS: Saccharomyces Boulardi 250 mg Cap PO SCH ×2 (10:07→18:20)
[2018-01-18] MEDS: Enoxaparin 40 mg Syringe SC SCH (10:08)
--- NOTE | 2018-01-18 10:42 | RAD ---
HISTORY: verify right PICC COMPARISON: 01/15/2018 FINDINGS: LUNGS: No active pulmonary disease. PLEURA: No significant pleural effusion identified, no pneumothorax apparent. CARDIOVASCULAR: Normal heart size. New right PICC catheter terminates in the region of the superior vena cava. OSSEOUS STRUCTURES: No significant abnormalities. VISUALIZED UPPER ABDOMEN: Normal. OTHER FINDINGS: None. IMPRESSION: New right PICC catheter terminating in the region of the superior vena cava. Otherwise unremarkable.
[2018-01-18] MEDS: MethylPREDNISolone 40 mg Vial IV SCH ×2 (11:04→21:30)
[2018-01-18] MEDS: Azithromycin 500 MG in Sodium Chloride 0.9% 250 ML IVPB SCH (12:16)
--- NOTE | 2018-01-18 16:12 | CP.PCM.PN ---
Subjective - Date & Time of Evaluation Date of Evaluation: 01/18/18 Time of Evaluation: 11:30 - Subjective Subjective: PGY-[address] Morillo. No acute events noted overnight. Patient was seen in cardiac chair with son at bedside. Patient was off bipap at that time, she was on nasal cannula 3L and breathing comfortably and speaking in full sentences. She complained of feeling "a little funny" and she attributed that to the antibiotics. She states she still needs the bipap but takes it off occasionally. She denied chest pain, cough, fevers. Had PICC line placement today. Objective - Vital Signs/Intake and Output Vital Signs (last 24 hours): Temp Pulse Resp BP Pulse Ox 98.9 F 83 25 H 120/62 100 01/18/18 12:00 01/18/18 12:00 01/18/18 12:00 01/18/18 12:00 01/18/18 12:00 Intake and Output: 01/18/18 01/18/18 06:59 18:59 Intake Total 120 650 Output Total 600 200 Balance -480 450 - Medications Medications: Current Medications Albuterol/Ipratropium (Duoneb 3 Mg/0.5 Mg (3 Ml) Ud) 3 ml INH RQ4 [facility] Last Admin: 01/18/18 13:50 Dose: 3 ml Aspirin (Aspirin Chewable) 81 mg PO DAILY [facility] Last Admin: 01/18/18 10:06 Dose: 81 mg Budesonide (Pulmicort Respules) 0.5 mg INH RQ12 [facility] Last Admin: 01/18/18 07:20 Dose: 0.5 mg Clopidogrel Bisulfate (Plavix) 75 mg PO DAILY [facility] Last Admin: 01/18/18 10:07 Dose: 75 mg Enoxaparin Sodium (Lovenox) 40 mg SC DAILY [facility] Last Admin: 01/18/18 10:08 Dose: 40 mg Famotidine (Pepcid) 20 mg PO DAILY [facility] Last Admin: 01/18/18 10:07 Dose: 20 mg Azithromycin 500 mg/ Sodium (Chloride) 250 mls @ 250 mls/hr IVPB DAILY [facility] PRN Reason: Protocol Last Admin: 01/18/18 12:16 Dose: 250 mls/hr Ceftriaxone Sodium 1 gm/ (Sodium Chloride) 100 mls @ 100 mls/hr IVPB DAILY [facility] PRN Reason: Protocol Last Admin: 01/18/18 11:09 Dose: 100 mls/hr Methylprednisolone (Solu-Medrol) 20 mg IV Q12 [facility] Last Admin: 01/18/18 11:04 Dose: 20 mg Montelukast Sodium (Singulair) 10 mg PO HS [facility] Last Admin: 01/17/18 23:00 Dose: 10 mg Saccharomyces Boulardii (Florastor) 250 mg PO BID [facility] Last Admin: 01/18/18 10:07 Dose: 250 mg Verapamil HCl (Calan Sr Tab) 180 mg PO DAILY [facility] Last Admin: 01/18/18 10:07 Dose: 180 mg - Labs Labs: 01/17/18 06:21 01/17/18 09:26 PT 10.6 SECONDS (9.7-12.2) 01/11/18 06:35 INR 1.0 01/11/18 06:35 APTT 30 SECONDS (21-34) 01/11/18 06:35 - Constitutional Appears: No Acute Distress, Chronically Ill - Head Exam Head Exam: ATRAUMATIC, NORMAL INSPECTION - Eye Exam Eye Exam: EOMI Pupil Exam: PERRL - ENT Exam ENT Exam: Mucous Membranes Moist - Neck Exam Neck Exam: Full ROM - Respiratory Exam Respiratory Exam: Clear to Ausculation Bilateral, Prolonged Expiratory Phase. absent: Chest Wall Tenderness, Rales, Rhonchi, Wheezes - Cardiovascular Exam Cardiovascular Exam: REGULAR RHYTHM, +S1, +S2. absent: Bradycardia, Tachycardia , Murmur - GI/Abdominal Exam GI & Abdominal Exam: Soft, Normal Bowel Sounds. absent: Tenderness - Extremities Exam Extremities Exam: Full ROM, Normal Capillary Refill, Normal Inspection - Neurological Exam Neurological Exam: Alert, Awake, Oriented x3 - Psychiatric Exam Psychiatric exam: Normal Affect, Normal Mood - Skin Skin Exam: Intact, Normal Color, Warm Assessment and Plan - Assessment and Plan (Free Text) Assessment: Assessment: 82yo F admitted with hypercapneic respiratory failure from PNA and NSTEMI Hypercapneic respiratory failure from PNA and COPD Pulmonary consult, Dr Tse Off bipap this morning but requires it most of the day - bipap set to FiO2 35% Afebrile, normal WBC, no bands Labs/Diagnostics: Multiple ABGs show chronic retainer of CO2 Blood culture 01/15/18 NEGATIVE up to date Urine Culture 01/12/18 NEGATIVE Sputum culture 01/11/18 NEGATIVE Legionella NEGATIVE, Mycoplasma NEGATIVE, Influenza NEGATIVE Imaging: CT chest w/ contrast 01/11/18: * No evidence of pulmonary embolism. Multifocal opacities throughout left lung , likely infectious. Rule out neoplastic. Followup to clearing. Multiple small right-sided pulmonary nodules common nonspecific. No calcified nodules are appreciated. Small nodules but 1 are 5 mm or less. 7 mm nodule right lower lobe. Follow-up with chest CT 6-12 months. Medications: Solumedrol decreased to 20mg IV BID on 01/17/18 Duoneb 3ml INH RQ4 Azithromycin 500mg IVPB QD (started 01/12/18) Ceftriaxone 1g IVPB QD (started 01/12/18) Montelukast 10mg PO HS Budesonide 0.5mg INH BID NSTEMI - Likely from Demand Ischemia Cardiology consult, Dr Duff * "Small non-stemi, that can be addressed in the future" Follows with [employer] Dr Guajardo [place] [facility] [place] No history of CAD or CHF No beta maikel for now due to severe COPD Labs/Diagnostics: Troponin I: 1.67 -> 1.61 -> 2.0 -> 1.33 EKG showed RBBB and NSR ECHO 01/11/18: EF 45-50%, mild aortic stenosis, mild tricuspid regurgitation, LV systolic function is borderline Medications: Aspirin 81mg PO QD Clopidogrel 75mg PO QD Verapamil 180mg PO QD Lovenox 40mg SC QD Sepsis from pneumonia SIRS criteria (RR > 20, HR > 90) + source of infection (Pneumonia) Afebrile, normal WBC, no bands Procalcitonin 01/12/18 0.65 (slightly elevated) Imaging: CT chest w/ contrast 01/11/18: * No evidence of pulmonary embolism. Multifocal opacities throughout left lung , likely infectious. Rule out neoplastic. Followup to clearing. Multiple small right-sided pulmonary nodules common nonspecific. No calcified nodules are appreciated. Small nodules but 1 are 5 mm or less. 7 mm nodule right lower lobe. Follow-up with chest CT 6-12 months. Medications: Azithromycin 500mg IVPB QD (started 01/12/18) Ceftriaxone 1g IVPB QD (started 01/12/18) Hx of RA Currently on hold - Leflunomide and Celebrex daily Hx of HTN BP well controlled Medications: Verapamil 180mg PO QD Elevated D-Dimer CT chest angio ruled out PE Prophylaxis Lovenox 40mg SC QD Famotidine 20mg PO QD Heart healthy diet DISPOSITION: Subacute Rehab
--- NOTE | 2018-01-18 18:59 | CP.PCM.PN ---
Subjective - Date & Time of Evaluation Date of Evaluation: 01/18/18 Time of Evaluation: 17:45 - Subjective Subjective: patient seen and examined sitting comfortably in no acute distress Patient is off BiPAP while sitting on chair Afebrile Objective - Vital Signs/Intake and Output Vital Signs (last 24 hours): Temp Pulse Resp BP Pulse Ox 98.5 F 93 H 25 H 139/64 99 01/18/18 16:00 01/18/18 16:00 01/18/18 16:00 01/18/18 16:00 01/18/18 16:00 Intake and Output: 01/18/18 01/18/18 06:59 18:59 Intake Total 120 850 Output Total 600 600 Balance -480 250 - Medications Medications: Current Medications Albuterol/Ipratropium (Duoneb 3 Mg/0.5 Mg (3 Ml) Ud) 3 ml INH RQ4 [facility] Last Admin: 01/18/18 13:50 Dose: 3 ml Aspirin (Aspirin Chewable) 81 mg PO DAILY [facility] Last Admin: 01/18/18 10:06 Dose: 81 mg Budesonide (Pulmicort Respules) 0.5 mg INH RQ12 [facility] Last Admin: 01/18/18 07:20 Dose: 0.5 mg Clopidogrel Bisulfate (Plavix) 75 mg PO DAILY [facility] Last Admin: 01/18/18 10:07 Dose: 75 mg Enoxaparin Sodium (Lovenox) 40 mg SC DAILY [facility] Last Admin: 01/18/18 10:08 Dose: 40 mg Famotidine (Pepcid) 20 mg PO DAILY [facility] Last Admin: 01/18/18 10:07 Dose: 20 mg Azithromycin 500 mg/ Sodium (Chloride) 250 mls @ 250 mls/hr IVPB DAILY [facility] PRN Reason: Protocol Last Admin: 01/18/18 12:16 Dose: 250 mls/hr Ceftriaxone Sodium 1 gm/ (Sodium Chloride) 100 mls @ 100 mls/hr IVPB DAILY [facility] PRN Reason: Protocol Last Admin: 01/18/18 11:09 Dose: 100 mls/hr Methylprednisolone (Solu-Medrol) 20 mg IV Q12 [facility] Last Admin: 01/18/18 11:04 Dose: 20 mg Montelukast Sodium (Singulair) 10 mg PO HS [facility] Last Admin: 01/17/18 23:00 Dose: 10 mg Saccharomyces Boulardii (Florastor) 250 mg PO BID [facility] Last Admin: 01/18/18 18:20 Dose: 250 mg Verapamil HCl (Calan Sr Tab) 180 mg PO DAILY [facility] Last Admin: 01/18/18 10:07 Dose: 180 mg - Labs Labs: 01/17/18 06:21 01/17/18 09:26 PT 10.6 SECONDS (9.7-12.2) 01/11/18 06:35 INR 1.0 01/11/18 06:35 APTT 30 SECONDS (21-34) 01/11/18 06:35 - Head Exam Head Exam: ATRAUMATIC, NORMOCEPHALIC - ENT Exam ENT Exam: Mucous Membranes Moist - Respiratory Exam Respiratory Exam: Decreased Breath Sounds - GI/Abdominal Exam GI & Abdominal Exam: Soft, Normal Bowel Sounds - Neurological Exam Neurological Exam: Alert Assessment and Plan (1) Acute respiratory failure with hypercapnia Assessment & Plan: continue BiPAP at night and as needed Continue IV steroids nebulizer treatment Antibiotics Chest x-ray showed no active infiltrate Status: Acute (2) Pneumonia Status: Acute (3) COPD exacerbation Status: Acute
[2018-01-19] MEDS: Albuterol-Ipratrop 3 mg / 0.5 (3 ml) UD INH SCH ×6 (00:36→19:42)
[2018-01-19 06:34] LABS: BASO % 0.1 % (0.0-2.0); LYMPH # 0.8 K/uL (1.0-4.3); LYMPH % 6.6 % (20.0-40.0); MEAN CELL VOLUME 90.7 fL (81.0-99.0); MEAN CORPUSCULAR HEMOGLOBIN 28.5 pg (27.0-31.0); MEAN CORPUSCULAR HGB CONC 31.4 g/dL (33.0-37.0); MEAN PLATELET VOLUME 8.3 fL (7.2-11.7); MONO # 0.8 K/uL (0.0-0.8); MONO % 6.7 % (0.0-10.0); NEUT # 10.8 K/uL (1.8-7.0); NEUT % 86.6 % (50.0-75.0); NRBC % 0.3 % (0.0-2.0); PLATELET COUNT 246 K/uL (130-400); RBC 3.53 Mil/uL (3.80-5.20); RED CELL DISTRIBUTION WIDTH 13.3 % (11.5-14.5); WHITE BLOOD COUNT 12.4 K/uL (4.8-10.8)
[2018-01-19 06:56] LABS: ALB/GLOB RATIO 1.6 (1.0-2.1); ALBUMIN 3.5 g/dL (3.5-5.0); ALT/SGPT 31 U/L (9-52); AST/SGOT 16 U/L (14-36); BLOOD UREA NITROGEN 28 mg/dL (7-17); CALCIUM 8.2 mg/dl (8.6-10.4); GFR AFRICAN-AMERICAN > 60; GFR NON-AFRICAN AMERICAN > 60
[2018-01-19] MEDS: Budesonide 0.5 mg/2 ml Inhal Susp UD INH SCH ×2 (07:33→19:42)
[2018-01-19 08:14] LABS: BANDS 1 % (0-2); LYMPHOCYTE 7 % (20-40); MONOCYTE 5 % (0-10); MYELOCYTE 1 % (0-0); NEUTROPHIL 86 % (50-75); PLATELET ESTIMATE NORMAL (NORMAL); TOTAL CELLS COUNTED 100
[2018-01-19 08:19] LABS: STOMATOCYTES SLIGHT
[2018-01-19 08:20] LABS: HYPOCHROMIC SLIGHT
[2018-01-19] MEDS: Saccharomyces Boulardi 250 mg Cap PO SCH ×2 (09:12→17:21)
[2018-01-19] MEDS: Enoxaparin 40 mg Syringe SC SCH (09:12)
[2018-01-19] MEDS: MethylPREDNISolone 40 mg Vial IV SCH ×2 (09:12→21:18)
[2018-01-19] MEDS: Verapamil 180 mg ER Tab PO SCH (09:25)
[2018-01-19] MEDS ORDERED: Magnesium Citrate Oral SOL (300 ml) PO ONE (09:37)
[2018-01-19] MEDS: Azithromycin 500 MG in Sodium Chloride 0.9% 250 ML IVPB SCH (10:25)
[2018-01-19] MEDS ORDERED: Potassium & Sodium Phosphate PO ONE (17:00)
--- NOTE | 2018-01-19 17:06 | CP.PCM.PN ---
Subjective - Date & Time of Evaluation Date of Evaluation: 01/19/18 Time of Evaluation: 12:30 - Subjective Subjective: patient seen and examined Breathing and cough much improved On BiPAP at night Patient is awake and responsive afebrile No chest pain Objective - Vital Signs/Intake and Output Vital Signs (last 24 hours): Temp Pulse Resp BP Pulse Ox 98 F 90 21 105/53 L 98 01/19/18 16:00 01/19/18 16:00 01/19/18 16:00 01/19/18 16:00 01/19/18 16:00 Intake and Output: 01/19/18 01/19/18 06:59 18:59 Intake Total 1170 Output Total 800 501 Balance -800 669 - Medications Medications: Current Medications Albuterol/Ipratropium (Duoneb 3 Mg/0.5 Mg (3 Ml) Ud) 3 ml INH RQ4 [facility] Last Admin: 01/19/18 16:11 Dose: 3 ml Aspirin (Aspirin Chewable) 81 mg PO DAILY [facility] Last Admin: 01/19/18 09:12 Dose: 81 mg Budesonide (Pulmicort Respules) 0.5 mg INH RQ12 [facility] Last Admin: 01/19/18 07:33 Dose: 0.5 mg Clopidogrel Bisulfate (Plavix) 75 mg PO DAILY [facility] Last Admin: 01/19/18 09:12 Dose: 75 mg Enoxaparin Sodium (Lovenox) 40 mg SC DAILY [facility] Last Admin: 01/19/18 09:12 Dose: 40 mg Famotidine (Pepcid) 20 mg PO DAILY [facility] Last Admin: 01/19/18 09:12 Dose: 20 mg Azithromycin 500 mg/ Sodium (Chloride) 250 mls @ 250 mls/hr IVPB DAILY [facility] PRN Reason: Protocol Last Admin: 01/19/18 10:25 Dose: 250 mls/hr Ceftriaxone Sodium 1 gm/ (Sodium Chloride) 100 mls @ 100 mls/hr IVPB DAILY [facility] PRN Reason: Protocol Last Admin: 01/19/18 09:11 Dose: 100 mls/hr Methylprednisolone (Solu-Medrol) 20 mg IV Q12 [facility] Last Admin: 01/19/18 09:12 Dose: 20 mg Montelukast Sodium (Singulair) 10 mg PO HS [facility] Last Admin: 01/18/18 21:30 Dose: 10 mg Saccharomyces Boulardii (Florastor) 250 mg PO BID [facility] Last Admin: 01/19/18 09:12 Dose: 250 mg Verapamil HCl (Calan Sr Tab) 180 mg PO DAILY [facility] Last Admin: 01/19/18 09:25 Dose: 180 mg - Labs Labs: 01/19/18 06:24 01/19/18 06:14 PT 10.6 SECONDS (9.7-12.2) 01/11/18 06:35 INR 1.0 01/11/18 06:35 APTT 30 SECONDS (21-34) 01/11/18 06:35 - Head Exam Head Exam: ATRAUMATIC, NORMOCEPHALIC - Eye Exam Eye Exam: Normal appearance - ENT Exam ENT Exam: Mucous Membranes Moist - Neck Exam Neck Exam: Normal Inspection - Respiratory Exam Respiratory Exam: Decreased Breath Sounds - Cardiovascular Exam Cardiovascular Exam: REGULAR RHYTHM Assessment and Plan (1) Acute respiratory failure with hypercapnia Assessment & Plan: Continue BiPAP at night or as needed Continue nebulizer treatment Steroids IV antibiotics Physical therapy Son refusing rehabilitation Status: Acute (2) Pneumonia Status: Acute (3) COPD exacerbation Status: Acute
--- NOTE | 2018-01-19 17:37 | CP.PCM.PN ---
Subjective - Date & Time of Evaluation Date of Evaluation: 01/19/18 Time of Evaluation: 11:45 - Subjective Subjective: PGY-[address] Morillo. No acute events noted overnight. Patient was breathing comfortably on nasal cannula 6L. She took off her bipap as it annoyed her. She stated she felt better than before. She complained of constipation. Otherwise no complaints. Her son was present, they were both adamant that they do not want to go to rehab and they prefer to go home after discharge and that the son will look out after her. Objective - Vital Signs/Intake and Output Vital Signs (last 24 hours): Temp Pulse Resp BP Pulse Ox 98 F 90 21 105/53 L 98 01/19/18 16:00 01/19/18 16:00 01/19/18 16:00 01/19/18 16:00 01/19/18 16:00 Intake and Output: 01/19/18 01/19/18 06:59 18:59 Intake Total 1170 Output Total 800 501 Balance -800 669 - Medications Medications: Current Medications Albuterol/Ipratropium (Duoneb 3 Mg/0.5 Mg (3 Ml) Ud) 3 ml INH RQ4 [facility] Last Admin: 01/19/18 16:11 Dose: 3 ml Aspirin (Aspirin Chewable) 81 mg PO DAILY [facility] Last Admin: 01/19/18 09:12 Dose: 81 mg Budesonide (Pulmicort Respules) 0.5 mg INH RQ12 [facility] Last Admin: 01/19/18 07:33 Dose: 0.5 mg Clopidogrel Bisulfate (Plavix) 75 mg PO DAILY [facility] Last Admin: 01/19/18 09:12 Dose: 75 mg Enoxaparin Sodium (Lovenox) 40 mg SC DAILY [facility] Last Admin: 01/19/18 09:12 Dose: 40 mg Famotidine (Pepcid) 20 mg PO DAILY [facility] Last Admin: 01/19/18 09:12 Dose: 20 mg Azithromycin 500 mg/ Sodium (Chloride) 250 mls @ 250 mls/hr IVPB DAILY [facility] PRN Reason: Protocol Last Admin: 01/19/18 10:25 Dose: 250 mls/hr Ceftriaxone Sodium 1 gm/ (Sodium Chloride) 100 mls @ 100 mls/hr IVPB DAILY [facility] PRN Reason: Protocol Last Admin: 01/19/18 09:11 Dose: 100 mls/hr Methylprednisolone (Solu-Medrol) 20 mg IV Q12 [facility] Last Admin: 01/19/18 09:12 Dose: 20 mg Montelukast Sodium (Singulair) 10 mg PO HS [facility] Last Admin: 01/18/18 21:30 Dose: 10 mg Saccharomyces Boulardii (Florastor) 250 mg PO BID [facility] Last Admin: 01/19/18 17:21 Dose: 250 mg Verapamil HCl (Calan Sr Tab) 180 mg PO DAILY [facility] Last Admin: 01/19/18 09:25 Dose: 180 mg - Labs Labs: 01/19/18 06:24 01/19/18 06:14 PT 10.6 SECONDS (9.7-12.2) 01/11/18 06:35 INR 1.0 01/11/18 06:35 APTT 30 SECONDS (21-34) 01/11/18 06:35 - Additional Findings Additional findings: - Constitutional Appears: No Acute Distress, Chronically Ill - Head Exam Head Exam: ATRAUMATIC, NORMAL INSPECTION - Eye Exam Eye Exam: EOMI Pupil Exam: PERRL - ENT Exam ENT Exam: Mucous Membranes Moist - Neck Exam Neck Exam: Full ROM - Respiratory Exam Respiratory Exam: Clear to Ausculation Bilateral, Prolonged Expiratory Phase. absent: Chest Wall Tenderness, Rales, Rhonchi, Wheezes - Cardiovascular Exam Cardiovascular Exam: REGULAR RHYTHM, +S1, +S2. absent: Bradycardia, Tachycardia , Murmur - GI/Abdominal Exam GI & Abdominal Exam: Soft, Normal Bowel Sounds. absent: Tenderness - Extremities Exam Extremities Exam: Full ROM, Normal Capillary Refill, Normal Inspection - Neurological Exam Neurological Exam: Alert, Awake, Oriented x3 - Psychiatric Exam Psychiatric exam: Normal Affect, Normal Mood - Skin Skin Exam: Intact, Normal Color, Warm Assessment and Plan - Assessment and Plan (Free Text) Assessment: 82yo F admitted with hypercapneic respiratory failure from PNA and NSTEMI Hypercapneic respiratory failure from PNA and COPD Pulmonary consult, Dr Tse Off bipap this morning but requires it most of the day - bipap set to FiO2 35% When not on bipap she's on NC 6L Afebrile, normal WBC, no bands Labs/Diagnostics: Multiple ABGs show chronic retainer of CO2 Blood culture 01/15/18 NEGATIVE up to date Urine Culture 01/12/18 NEGATIVE Sputum culture 01/11/18 NEGATIVE Legionella NEGATIVE, Mycoplasma NEGATIVE, Influenza NEGATIVE Imaging: CT chest w/ contrast 01/11/18: * No evidence of pulmonary embolism. Multifocal opacities throughout left lung , likely infectious. Rule out neoplastic. Followup to clearing. Multiple small right-sided pulmonary nodules common nonspecific. No calcified nodules are appreciated. Small nodules but 1 are 5 mm or less. 7 mm nodule right lower lobe. Follow-up with chest CT 6-12 months. Medications: Solumedrol decreased to 20mg IV BID on 01/17/18 Duoneb 3ml INH RQ4 Azithromycin 500mg IVPB QD (started 01/12/18) Ceftriaxone 1g IVPB QD (started 01/12/18) Montelukast 10mg PO HS Budesonide 0.5mg INH BID NSTEMI - Likely from Demand Ischemia Cardiology consult, Dr Duff * "Small non-stemi, that can be addressed in the future" Follows with [employer] [facility] [place] [facility] [place] history of CAD or CHF No beta maikel for now due to severe COPD Labs/Diagnostics: Troponin I: 1.67 -> 1.61 -> 2.0 -> 1.33 EKG showed RBBB and NSR ECHO 01/11/18: EF 45-50%, mild aortic stenosis, mild tricuspid regurgitation, LV systolic function is borderline Medications: Aspirin 81mg PO QD Clopidogrel 75mg PO QD Verapamil 180mg PO QD Lovenox 40mg SC QD Sepsis from pneumonia, Resolved SIRS criteria (RR > 20, HR > 90) + source of infection (Pneumonia) Afebrile, normal WBC, no bands Procalcitonin 01/12/18 0.65 (slightly elevated) Imaging: CT chest w/ contrast 01/11/18: * No evidence of pulmonary embolism. Multifocal opacities throughout left lung , likely infectious. Rule out neoplastic. Followup to clearing. Multiple small right-sided pulmonary nodules common nonspecific. No calcified nodules are appreciated. Small nodules but 1 are 5 mm or less. 7 mm nodule right lower lobe. Follow-up with chest CT 6-12 months. Medications: Azithromycin 500mg IVPB QD (started 01/12/18) Ceftriaxone 1g IVPB QD (started 01/12/18) Hx of RA Currently on hold - Leflunomide and Celebrex daily Hx of HTN BP well controlled Medications: Verapamil 180mg PO QD Elevated D-Dimer CT chest angio ruled out PE Prophylaxis Lovenox 40mg SC QD Famotidine 20mg PO QD Heart healthy diet PT eval and treat DISPOSITION: Subacute Rehab - however patient and son adamantly refuse rehab and prefer to go home where the son will lookout for her.
[2018-01-20] MEDS: Albuterol-Ipratrop 3 mg / 0.5 (3 ml) UD INH SCH ×6 (00:27→19:28)
[2018-01-20 06:14] LABS: BASO % 0.1 % (0.0-2.0); HEMOGLOBIN 9.4 g/dL (11.0-16.0); LYMPH # 0.6 K/uL (1.0-4.3); LYMPH % 5.1 % (20.0-40.0); MEAN CELL VOLUME 90.9 fL (81.0-99.0); MEAN CORPUSCULAR HEMOGLOBIN 29.1 pg (27.0-31.0); MEAN CORPUSCULAR HGB CONC 32.1 g/dL (33.0-37.0); MEAN PLATELET VOLUME 8.5 fL (7.2-11.7); MONO # 0.6 K/uL (0.0-0.8); NEUT # 11.4 K/uL (1.8-7.0); NEUT % 89.8 % (50.0-75.0); NRBC % 0.1 % (0.0-2.0); PLATELET COUNT 203 K/uL (130-400); RBC 3.23 Mil/uL (3.80-5.20); RED CELL DISTRIBUTION WIDTH 13.8 % (11.5-14.5); WHITE BLOOD COUNT 12.7 K/uL (4.8-10.8)
[2018-01-20 06:51] LABS: ALB/GLOB RATIO 1.4 (1.0-2.1); ALBUMIN 3.3 g/dL (3.5-5.0); ALT/SGPT 39 U/L (9-52); AST/SGOT 20 U/L (14-36); BLOOD UREA NITROGEN 27 mg/dL (7-17); CALCIUM 8.3 mg/dl (8.6-10.4); GFR AFRICAN-AMERICAN > 60; GFR NON-AFRICAN AMERICAN > 60
[2018-01-20] MEDS: Budesonide 0.5 mg/2 ml Inhal Susp UD INH SCH ×2 (07:47→19:27)
[2018-01-20 08:01] LABS: ANISOCYTOSIS SLIGHT; BANDS 1 % (0-2); HYPOCHROMIC SLIGHT; LYMPHOCYTE 8 % (20-40); MONOCYTE 2 % (0-10); MYELOCYTE 1 % (0-0); NEUTROPHIL 88 % (50-75); PLATELET ESTIMATE NORMAL (NORMAL); POIKILOCYTOSIS SLIGHT; TOTAL CELLS COUNTED 100
[2018-01-20 08:02] LABS: MICROCYTOSIS SLIGHT
[2018-01-20] MEDS: Saccharomyces Boulardi 250 mg Cap PO SCH ×2 (10:04→21:45)
[2018-01-20] MEDS: Enoxaparin 40 mg Syringe SC SCH (10:04)
[2018-01-20] MEDS: MethylPREDNISolone 40 mg Vial IV SCH (10:05)
[2018-01-20] MEDS: Verapamil 180 mg ER Tab PO SCH (10:07)
[2018-01-20] MEDS: Azithromycin 500 MG in Sodium Chloride 0.9% 250 ML IVPB SCH (11:48)
--- NOTE | 2018-01-20 13:40 | CP.PCM.PN ---
Subjective - Date & Time of Evaluation Date of Evaluation: 01/20/18 Time of Evaluation: 13:36 - Subjective Subjective: The patient feels and looks better. In the chair, still has dyspnea at rest. Objective - Vital Signs/Intake and Output Vital Signs (last 24 hours): Temp Pulse Resp BP Pulse Ox 97.7 F 100 H 20 122/78 99 01/20/18 07:45 01/20/18 12:00 01/20/18 07:45 01/20/18 10:02 01/20/18 07:45 Intake and Output: 01/20/18 01/20/18 06:59 18:59 Intake Total 100 Output Total 350 Balance -250 - Medications Medications: Current Medications Albuterol/Ipratropium (Duoneb 3 Mg/0.5 Mg (3 Ml) Ud) 3 ml INH RQ4 [facility] Last Admin: 01/20/18 11:09 Dose: 3 ml Aspirin (Aspirin Chewable) 81 mg PO DAILY [facility] Last Admin: 01/20/18 10:04 Dose: 81 mg Budesonide (Pulmicort Respules) 0.5 mg INH RQ12 [facility] Last Admin: 01/20/18 07:47 Dose: Not Given Clopidogrel Bisulfate (Plavix) 75 mg PO DAILY [facility] Last Admin: 01/20/18 10:04 Dose: 75 mg Enoxaparin Sodium (Lovenox) 40 mg SC DAILY [facility] Last Admin: 01/20/18 10:04 Dose: 40 mg Famotidine (Pepcid) 20 mg PO DAILY [facility] Last Admin: 01/20/18 10:04 Dose: 20 mg Azithromycin 500 mg/ Sodium (Chloride) 250 mls @ 250 mls/hr IVPB DAILY [facility] PRN Reason: Protocol Last Admin: 01/20/18 11:48 Dose: 250 mls/hr Ceftriaxone Sodium 1 gm/ (Sodium Chloride) 100 mls @ 100 mls/hr IVPB DAILY [facility] PRN Reason: Protocol Last Admin: 01/20/18 10:29 Dose: 100 mls/hr Methylprednisolone (Solu-Medrol) 20 mg IV Q12 [facility] Last Admin: 01/20/18 10:05 Dose: 20 mg Montelukast Sodium (Singulair) 10 mg PO HS [facility] Last Admin: 01/19/18 21:17 Dose: 10 mg Saccharomyces Boulardii (Florastor) 250 mg PO BID [facility] Last Admin: 01/20/18 10:04 Dose: 250 mg Verapamil HCl (Calan Sr Tab) 180 mg PO DAILY [facility] Last Admin: 01/20/18 10:07 Dose: 180 mg - Labs Labs: 01/20/18 05:56 01/20/18 05:56 PT 10.6 SECONDS (9.7-12.2) 01/11/18 06:35 INR 1.0 01/11/18 06:35 APTT 30 SECONDS (21-34) 01/11/18 06:35 - Constitutional Appears: Chronically Ill - Head Exam Head Exam: ATRAUMATIC - Eye Exam Eye Exam: EOMI - ENT Exam ENT Exam: Mucous Membranes Moist - Neck Exam Neck Exam: Full ROM - Respiratory Exam Respiratory Exam: NORMAL BREATHING PATTERN - Cardiovascular Exam Cardiovascular Exam: REGULAR RHYTHM - GI/Abdominal Exam GI & Abdominal Exam: Normal Bowel Sounds - Exam External exam: NORMAL EXTERNAL EXAM - Back Exam Back Exam: NORMAL INSPECTION - Neurological Exam Neurological Exam: Alert, Awake, CN II-XII Intact, Oriented x3 - Psychiatric Exam Psychiatric exam: Anxious - Skin Skin Exam: Normal Color Assessment and Plan - Assessment and Plan (Free Text) Assessment: The patient has improved. 1. S/P non stemi, from demand ischemia, hypoxia. For additional risk stratification, a stress test is not a good idea, as pt could not well tolerate stress. A cath should be safer. 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 Continue DAPT. 2. Mild
--- NOTE | 2018-01-20 15:41 | CP.PCM.PN ---
Subjective - Date & Time of Evaluation Date of Evaluation: 01/20/18 Time of Evaluation: 11:00 - Subjective Subjective: Patient seen and examined Dyspnea on minimal exertion patient is off BiPAP On oxygen and desaturates Afebrile Seen by cardiology Objective - Vital Signs/Intake and Output Vital Signs (last 24 hours): Temp Pulse Resp BP Pulse Ox 97.7 F 100 H 20 122/78 99 01/20/18 07:45 01/20/18 12:00 01/20/18 07:45 01/20/18 10:02 01/20/18 07:45 Intake and Output: 01/20/18 01/20/18 06:59 18:59 Intake Total 100 600 Output Total 350 Balance -250 600 - Medications Medications: Current Medications Albuterol/Ipratropium (Duoneb 3 Mg/0.5 Mg (3 Ml) Ud) 3 ml INH RQ4 [facility] Last Admin: 01/20/18 11:09 Dose: 3 ml Aspirin (Aspirin Chewable) 81 mg PO DAILY [facility] Last Admin: 01/20/18 10:04 Dose: 81 mg Budesonide (Pulmicort Respules) 0.5 mg INH RQ12 [facility] Last Admin: 01/20/18 07:47 Dose: Not Given Clopidogrel Bisulfate (Plavix) 75 mg PO DAILY [facility] Last Admin: 01/20/18 10:04 Dose: 75 mg Enoxaparin Sodium (Lovenox) 40 mg SC DAILY [facility] Last Admin: 01/20/18 10:04 Dose: 40 mg Famotidine (Pepcid) 20 mg PO DAILY [facility] Last Admin: 01/20/18 10:04 Dose: 20 mg Azithromycin 500 mg/ Sodium (Chloride) 250 mls @ 250 mls/hr IVPB DAILY [facility] PRN Reason: Protocol Last Admin: 01/20/18 11:48 Dose: 250 mls/hr Ceftriaxone Sodium 1 gm/ (Sodium Chloride) 100 mls @ 100 mls/hr IVPB DAILY [facility] PRN Reason: Protocol Last Admin: 01/20/18 10:29 Dose: 100 mls/hr Methylprednisolone (Solu-Medrol) 20 mg IV Q12 [facility] Last Admin: 01/20/18 10:05 Dose: 20 mg Montelukast Sodium (Singulair) 10 mg PO HS [facility] Last Admin: 01/19/18 21:17 Dose: 10 mg Saccharomyces Boulardii (Florastor) 250 mg PO BID [facility] Last Admin: 01/20/18 10:04 Dose: 250 mg Verapamil HCl (Calan Sr Tab) 180 mg PO DAILY [facility] Last Admin: 01/20/18 10:07 Dose: 180 mg - Labs Labs: 01/20/18 05:56 01/20/18 05:56 PT 10.6 SECONDS (9.7-12.2) 01/11/18 06:35 INR 1.0 01/11/18 06:35 APTT 30 SECONDS (21-34) 01/11/18 06:35 - Head Exam Head Exam: ATRAUMATIC, NORMOCEPHALIC - ENT Exam ENT Exam: Mucous Membranes Moist - Neck Exam Neck Exam: Normal Inspection - Respiratory Exam Respiratory Exam: Decreased Breath Sounds - Cardiovascular Exam Cardiovascular Exam: REGULAR RHYTHM - GI/Abdominal Exam GI & Abdominal Exam: Soft - Extremities Exam Extremities Exam: Pedal Edema - Neurological Exam Neurological Exam: Alert Assessment and Plan (1) Acute respiratory failure with hypercapnia Assessment & Plan: Home oxygen Patient will benefit from BiPAP at home taper IV steroids Continue nebulizer treatment continue diuretics IV antibiotics Status: Acute (2) Pneumonia Status: Acute (3) COPD exacerbation Status: Acute
--- NOTE | 2018-01-20 16:02 | CP.PCM.PN ---
<Giacomo Starr R - Last Filed: 01/20/18 15:57> Subjective - Date & Time of Evaluation Date of Evaluation: 01/20/18 Time of Evaluation: 09:45 - Subjective Subjective: PGY-[address] Winn. No acute events noted overnight. Patient states her breathing has improved. She went for a short walk to the hallway today. She was on NC as she stated she doesn't need the bipap right now. She still get sob but overall she states it's improved. Denied chest pain, fever, chills. Objective - Vital Signs/Intake and Output Vital Signs (last 24 hours): Temp Pulse Resp BP Pulse Ox 97.7 F 100 H 20 122/78 99 01/20/18 07:45 01/20/18 12:00 01/20/18 07:45 01/20/18 10:02 01/20/18 07:45 Intake and Output: 01/20/18 01/20/18 06:59 18:59 Intake Total 100 600 Output Total 350 Balance -250 600 - Medications Medications: Current Medications Albuterol/Ipratropium (Duoneb 3 Mg/0.5 Mg (3 Ml) Ud) 3 ml INH RQ4 [facility] Last Admin: 01/20/18 11:09 Dose: 3 ml Aspirin (Aspirin Chewable) 81 mg PO DAILY [facility] Last Admin: 01/20/18 10:04 Dose: 81 mg Budesonide (Pulmicort Respules) 0.5 mg INH RQ12 [facility] Last Admin: 01/20/18 07:47 Dose: Not Given Clopidogrel Bisulfate (Plavix) 75 mg PO DAILY [facility] Last Admin: 01/20/18 10:04 Dose: 75 mg Enoxaparin Sodium (Lovenox) 40 mg SC DAILY [facility] Last Admin: 01/20/18 10:04 Dose: 40 mg Famotidine (Pepcid) 20 mg PO DAILY [facility] Last Admin: 01/20/18 10:04 Dose: 20 mg Azithromycin 500 mg/ Sodium (Chloride) 250 mls @ 250 mls/hr IVPB DAILY [facility] PRN Reason: Protocol Last Admin: 01/20/18 11:48 Dose: 250 mls/hr Ceftriaxone Sodium 1 gm/ (Sodium Chloride) 100 mls @ 100 mls/hr IVPB DAILY [facility] PRN Reason: Protocol Last Admin: 01/20/18 10:29 Dose: 100 mls/hr Methylprednisolone (Solu-Medrol) 20 mg IV Q12 [facility] Last Admin: 01/20/18 10:05 Dose: 20 mg Montelukast Sodium (Singulair) 10 mg PO HS [facility] Last Admin: 01/19/18 21:17 Dose: 10 mg Saccharomyces Boulardii (Florastor) 250 mg PO BID [facility] Last Admin: 01/20/18 10:04 Dose: 250 mg Verapamil HCl (Calan Sr Tab) 180 mg PO DAILY [facility] Last Admin: 01/20/18 10:07 Dose: 180 mg - Labs Labs: 01/20/18 05:56 01/20/18 05:56 PT 10.6 SECONDS (9.7-12.2) 01/11/18 06:35 INR 1.0 01/11/18 06:35 APTT 30 SECONDS (21-34) 01/11/18 06:35 - Additional Findings Additional findings: 82yo F admitted with hypercapneic respiratory failure from PNA and NSTEMI Hypercapneic respiratory failure from PNA and COPD Pulmonary consult, Dr Tse * Patient will benefit from BiPAP at home Off bipap this morning but requires it most of the day - bipap set to FiO2 35% When not on bipap she's on NC 6L Afebrile, normal WBC, no bands Labs/Diagnostics: Multiple ABGs show chronic retainer of CO2 Blood culture 01/15/18 NEGATIVE up to date Urine Culture 01/12/18 NEGATIVE Sputum culture 01/11/18 NEGATIVE Legionella NEGATIVE, Mycoplasma NEGATIVE, Influenza NEGATIVE Imaging: CT chest w/ contrast 01/11/18: * No evidence of pulmonary embolism. Multifocal opacities throughout left lung , likely infectious. Rule out neoplastic. Followup to clearing. Multiple small right-sided pulmonary nodules common nonspecific. No calcified nodules are appreciated. Small nodules but 1 are 5 mm or less. 7 mm nodule right lower lobe. Follow-up with chest CT 6-12 months. 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 [place] [facility] [place] history of CAD or CHF No beta maikel for now due to severe COPD Labs/Diagnostics: Troponin I: 1.67 -> 1.61 -> 2.0 -> 1.33 EKG showed RBBB and NSR ECHO 01/11/18: EF 45-50%, mild aortic stenosis, mild tricuspid regurgitation, LV systolic function is borderline Medications: Aspirin 81mg PO QD Clopidogrel 75mg PO QD Verapamil 180mg PO QD Lovenox 40mg SC QD Sepsis from pneumonia, Resolved SIRS criteria (RR > 20, HR > 90) + source of infection (Pneumonia) Afebrile, normal WBC, no bands Procalcitonin 01/12/18 0.65 (slightly elevated) Imaging: CT chest w/ contrast 01/11/18: * No evidence of pulmonary embolism. Multifocal opacities throughout left lung , likely infectious. Rule out neoplastic. Followup to clearing. Multiple small right-sided pulmonary nodules common nonspecific. No calcified nodules are appreciated. Small nodules but 1 are 5 mm or less. 7 mm nodule right lower lobe. Follow-up with chest CT 6-12 months. Medications: Azithromycin 500mg IVPB QD (started 01/12/18) Ceftriaxone 1g IVPB QD (started 01/12/18) Hx of RA Currently on hold - Leflunomide and Celebrex daily Hx of HTN BP well controlled Medications: Verapamil 180mg PO QD Elevated D-Dimer CT chest angio ruled out PE Prophylaxis Lovenox 40mg SC QD Famotidine 20mg PO QD Heart healthy diet PT eval and treat DISPOSITION: Subacute Rehab - however patient and son adamantly refuse rehab and prefer to go home where the son will lookout for her. <Vinnie Winn - Last Filed: 01/21/18 14:54> Objective - Vital Signs/Intake and Output Vital Signs (last 24 hours): Temp Pulse Resp BP Pulse Ox 98.6 F 91 H 20 101/64 100 01/21/18 09:38 01/21/18 09:38 01/21/18 09:38 01/21/18 09:38 01/21/18 09:38 Intake and Output: 01/21/18 01/21/18 06:59 18:59 Intake Total 320 Balance 320 - Medications Medications: Current Medications Albuterol/Ipratropium (Duoneb 3 Mg/0.5 Mg (3 Ml) Ud) 3 ml INH RQ4 [facility] Last Admin: 01/21/18 11:19 Dose: 3 ml Aspirin (Aspirin Chewable) 81 mg PO DAILY [facility] Last Admin: 01/21/18 09:43 Dose: 81 mg Budesonide (Pulmicort Respules) 0.5 mg INH RQ12 [facility] Last Admin: 01/21/18 07:50 Dose: 0.5 mg Clopidogrel Bisulfate (Plavix) 75 mg PO DAILY [facility] Last Admin: 01/21/18 09:43 Dose: 75 mg Enoxaparin Sodium (Lovenox) 40 mg SC DAILY [facility] Last Admin: 01/21/18 09:43 Dose: 40 mg Famotidine (Pepcid) 20 mg PO DAILY [facility] Last Admin: 01/21/18 09:43 Dose: 20 mg Azithromycin 500 mg/ Sodium (Chloride) 250 mls @ 250 mls/hr IVPB DAILY [facility] PRN Reason: Protocol Last Admin: 01/21/18 10:32 Dose: 250 mls/hr Ceftriaxone Sodium 1 gm/ (Sodium Chloride) 100 mls @ 100 mls/hr IVPB DAILY [facility] PRN Reason: Protocol Last Admin: 01/21/18 09:42 Dose: 100 mls/hr Methylprednisolone (Solu-Medrol) 20 mg IV DAILY [facility] Last Admin: 01/21/18 09:43 Dose: 20 mg Montelukast Sodium (Singulair) 10 mg PO HS [facility] Last Admin: 01/20/18 21:45 Dose: 10 mg Saccharomyces Boulardii (Florastor) 250 mg PO BID [facility] Last Admin: 01/21/18 09:43 Dose: 250 mg Verapamil HCl (Calan Sr Tab) 180 mg PO DAILY [facility] Last Admin: 01/21/18 09:43 Dose: 180 mg - Labs Labs: 01/21/18 07:03 01/21/18 07:03 PT 10.6 SECONDS (9.7-12.2) 01/11/18 06:35 INR 1.0 01/11/18 06:35 APTT 30 SECONDS (21-34) 01/11/18 06:35 Attending/Attestation - Attestation I have personally seen and examined this patient.: Yes I have fully participated in the care of the patient.: Yes I have reviewed all pertinent clinical information, including history, physical exam and plan: Yes Notes (Text): seen and examined by me. 1.Acute on chronic hypercapneic respiratory failure due to COPD with pneumonia 2.NSTMI 3.Pneumonia 4.RA 5.HTN patient refuses rehab Discussed with DR Tse about BIPAP and plan of care Case discussed with the resident I agree with the documentation of the resident's assessment and plan
[2018-01-21] MEDS: Albuterol-Ipratrop 3 mg / 0.5 (3 ml) UD INH SCH ×7 (00:26→23:56)
[2018-01-21 07:14] LABS: BASO % 0.1 % (0.0-2.0); EOS % 0.2 % (0.0-4.0); HEMOGLOBIN 9.4 g/dL (11.0-16.0); LYMPH # 1.5 K/uL (1.0-4.3); LYMPH % 9.6 % (20.0-40.0); MEAN CORPUSCULAR HEMOGLOBIN 28.7 pg (27.0-31.0); MEAN CORPUSCULAR HGB CONC 31.6 g/dL (33.0-37.0); MONO # 1.8 K/uL (0.0-0.8); MONO % 11.6 % (0.0-10.0); NEUT # 12.2 K/uL (1.8-7.0); NEUT % 78.5 % (50.0-75.0); NRBC % 0.1 % (0.0-2.0); PLATELET COUNT 184 K/uL (130-400); RBC 3.28 Mil/uL (3.80-5.20); RED CELL DISTRIBUTION WIDTH 13.6 % (11.5-14.5); WHITE BLOOD COUNT 15.5 K/uL (4.8-10.8)
[2018-01-21] MEDS: Budesonide 0.5 mg/2 ml Inhal Susp UD INH SCH ×2 (07:50→18:59)
[2018-01-21 08:16] LABS: ALB/GLOB RATIO 1.3 (1.0-2.1); ALBUMIN 3.3 g/dL (3.5-5.0); ALT/SGPT 29 U/L (9-52); AST/SGOT 20 U/L (14-36); BLOOD UREA NITROGEN 24 mg/dL (7-17); CALCIUM 8.5 mg/dl (8.6-10.4); GFR AFRICAN-AMERICAN > 60; GFR NON-AFRICAN AMERICAN > 60
[2018-01-21] MEDS: Enoxaparin 40 mg Syringe SC SCH (09:43)
[2018-01-21] MEDS: MethylPREDNISolone 40 mg Vial IV SCH (09:43)
[2018-01-21] MEDS: Verapamil 180 mg ER Tab PO SCH (09:43)
[2018-01-21] MEDS: Saccharomyces Boulardi 250 mg Cap PO SCH ×2 (09:43→17:32)
[2018-01-21 10:16] LABS: BANDS 2 % (0-2); LYMPHOCYTE 7 % (20-40); MONOCYTE 9 % (0-10); NEUTROPHIL 82 % (50-75); PLATELET ESTIMATE NORMAL (NORMAL); TOTAL CELLS COUNTED 100
[2018-01-21 10:18] LABS: HYPOCHROMIC SLIGHT; POLYCHROMIC SLIGHT
[2018-01-21 10:19] LABS: OVALOCYTES SLIGHT
[2018-01-21] MEDS: Azithromycin 500 MG in Sodium Chloride 0.9% 250 ML IVPB SCH (10:32)
--- NOTE | 2018-01-21 16:39 | CP.PCM.PN ---
<Giacomo Starr R - Last Filed: 01/21/18 16:36> Subjective - Date & Time of Evaluation Date of Evaluation: 01/21/18 Time of Evaluation: 10:30 - Subjective Subjective: PGY-[address] Winn. No acute events noted overnight. Sons - Lew and Thad at bedside. She stated her breathing was much better. She was speaking in complete sentences. She denied pain. She was worried about becoming anxious when she leaves the hospital and asked about taking xanax. Objective - Vital Signs/Intake and Output Vital Signs (last 24 hours): Temp Pulse Resp BP Pulse Ox 98.4 F 88 20 113/72 100 01/21/18 15:00 01/21/18 15:00 01/21/18 15:00 01/21/18 15:00 01/21/18 15:00 Intake and Output: 01/21/18 01/21/18 06:59 18:59 Intake Total 320 Balance 320 - Medications Medications: Current Medications Albuterol/Ipratropium (Duoneb 3 Mg/0.5 Mg (3 Ml) Ud) 3 ml INH RQ4 [facility] Last Admin: 01/21/18 16:09 Dose: 3 ml Aspirin (Aspirin Chewable) 81 mg PO DAILY [facility] Last Admin: 01/21/18 09:43 Dose: 81 mg Budesonide (Pulmicort Respules) 0.5 mg INH RQ12 [facility] Last Admin: 01/21/18 07:50 Dose: 0.5 mg Clopidogrel Bisulfate (Plavix) 75 mg PO DAILY [facility] Last Admin: 01/21/18 09:43 Dose: 75 mg Enoxaparin Sodium (Lovenox) 40 mg SC DAILY [facility] Last Admin: 01/21/18 09:43 Dose: 40 mg Famotidine (Pepcid) 20 mg PO DAILY [facility] Last Admin: 01/21/18 09:43 Dose: 20 mg Azithromycin 500 mg/ Sodium (Chloride) 250 mls @ 250 mls/hr IVPB DAILY [facility] PRN Reason: Protocol Last Admin: 01/21/18 10:32 Dose: 250 mls/hr Ceftriaxone Sodium 1 gm/ (Sodium Chloride) 100 mls @ 100 mls/hr IVPB DAILY [facility] PRN Reason: Protocol Last Admin: 01/21/18 09:42 Dose: 100 mls/hr Methylprednisolone (Solu-Medrol) 20 mg IV DAILY [facility] Last Admin: 01/21/18 09:43 Dose: 20 mg Montelukast Sodium (Singulair) 10 mg PO HS [facility] Last Admin: 01/20/18 21:45 Dose: 10 mg Saccharomyces Boulardii (Florastor) 250 mg PO BID [facility] Last Admin: 01/21/18 09:43 Dose: 250 mg Verapamil HCl (Calan Sr Tab) 180 mg PO DAILY [facility] Last Admin: 01/21/18 09:43 Dose: 180 mg - Labs Labs: 01/21/18 07:03 01/21/18 07:03 PT 10.6 SECONDS (9.7-12.2) 01/11/18 06:35 INR 1.0 01/11/18 06:35 APTT 30 SECONDS (21-34) 01/11/18 06:35 - Additional Findings Additional findings: - Constitutional Appears: No Acute Distress, Chronically Ill - Head Exam Head Exam: ATRAUMATIC, NORMAL INSPECTION - Eye Exam Eye Exam: EOMI Pupil Exam: PERRL - ENT Exam ENT Exam: Mucous Membranes Moist - Neck Exam Neck Exam: Full ROM - Respiratory Exam Respiratory Exam: Clear to Ausculation Bilateral, Prolonged Expiratory Phase. absent: Chest Wall Tenderness, Rales, Rhonchi, Wheezes - Cardiovascular Exam Cardiovascular Exam: REGULAR RHYTHM, +S1, +S2. absent: Bradycardia, Tachycardia , Murmur - GI/Abdominal Exam GI & Abdominal Exam: Soft, Normal Bowel Sounds. 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 Multifocal opacities throughout left lung , likely infectious. Rule out neoplastic. Followup to clearing. Multiple small right-sided pulmonary nodules common nonspecific. No calcified nodules are appreciated. Small nodules but 1 are 5 mm or less. 7 mm nodule right lower lobe. Follow-up with chest CT 6-12 months. 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 [place] [facility] [place] history of CAD or CHF No beta maikel for now due to severe COPD Labs/Diagnostics: Troponin I: 1.67 -> 1.61 -> 2.0 -> 1.33 EKG showed RBBB and NSR ECHO 01/11/18: EF 45-50%, mild aortic stenosis, mild tricuspid regurgitation, LV systolic function is borderline Medications: Aspirin 81mg PO QD Clopidogrel 75mg PO QD Verapamil 180mg PO QD Lovenox 40mg SC QD Sepsis from pneumonia, Resolved SIRS criteria (RR > 20, HR > 90) + source of infection (Pneumonia) Afebrile, normal WBC, no bands Procalcitonin 01/12/18 0.65 (slightly elevated) Imaging: CT chest w/ contrast 01/11/18: * No evidence of pulmonary embolism. Multifocal opacities throughout left lung , likely infectious. Rule out neoplastic. Followup to clearing. Multiple small right-sided pulmonary nodules common nonspecific. No calcified nodules are appreciated. Small nodules but 1 are 5 mm or less. 7 mm nodule right lower lobe. Follow-up with chest CT 6-12 months. Medications: Azithromycin 500mg IVPB QD (started 01/12/18) Ceftriaxone 1g IVPB QD (started 01/12/18) Hx of RA Currently on hold - Leflunomide and Celebrex daily Hx of HTN BP well controlled Medications: Verapamil 180mg PO QD Elevated D-Dimer CT chest angio ruled out PE Prophylaxis Lovenox 40mg SC QD Famotidine 20mg PO QD Heart healthy diet PT eval and treat DISPOSITION: Subacute Rehab - however patient and son adamantly refuse rehab and prefer to go home where the son will lookout for her. <Vinnie Winn - Last Filed: 01/23/18 13:38> Objective - Vital Signs/Intake and Output Vital Signs (last 24 hours): Temp Pulse Resp BP Pulse Ox 98.1 F 88 18 109/66 100 01/23/18 07:30 01/23/18 07:30 01/23/18 07:30 01/23/18 07:30 01/23/18 07:30 Intake and Output: 01/23/18 01/23/18 06:59 18:59 Output Total 250 Balance -250 - Medications Medications: Current Medications Albuterol/Ipratropium (Duoneb 3 Mg/0.5 Mg (3 Ml) Ud) 3 ml INH RQ4 [facility] Last Admin: 01/23/18 12:31 Dose: 3 ml Aspirin (Aspirin Chewable) 81 mg PO DAILY [facility] Last Admin: 01/23/18 10:56 Dose: 81 mg Budesonide (Pulmicort Respules) 0.5 mg INH RQ12 [facility] Last Admin: 01/23/18 07:32 Dose: 0.5 mg Clopidogrel Bisulfate (Plavix) 75 mg PO DAILY [facility] Last Admin: 01/23/18 10:56 Dose: 75 mg Enoxaparin Sodium (Lovenox) 40 mg SC DAILY [facility] Last Admin: 01/23/18 10:53 Dose: 40 mg Famotidine (Pepcid) 20 mg PO DAILY [facility] Last Admin: 01/23/18 10:56 Dose: 20 mg Azithromycin 500 mg/ Sodium (Chloride) 250 mls @ 250 mls/hr IVPB DAILY [facility] PRN Reason: Protocol Last Admin: 01/23/18 10:53 Dose: 250 mls/hr Ceftriaxone Sodium 1 gm/ (Sodium Chloride) 100 mls @ 100 mls/hr IVPB DAILY [facility] PRN Reason: Protocol Last Admin: 01/23/18 10:53 Dose: 100 mls/hr Methylprednisolone (Solu-Medrol) 20 mg IV DAILY [facility] Last Admin: 01/23/18 10:56 Dose: 20 mg Montelukast Sodium (Singulair) 10 mg PO HS [facility] Last Admin: 01/22/18 21:00 Dose: 10 mg Saccharomyces Boulardii (Florastor) 250 mg PO BID [facility] Last Admin: 01/23/18 10:55 Dose: 250 mg Verapamil HCl (Calan Sr Tab) 180 mg PO DAILY [facility] Last Admin: 01/23/18 10:54 Dose: 180 mg - Labs Labs: 01/23/18 05:39 01/23/18 05:39 PT 10.6 SECONDS (9.7-12.2) 01/11/18 06:35 INR 1.0 01/11/18 06:35 APTT 30 SECONDS (21-34) 01/11/18 06:35 Attending/Attestation - Attestation I have personally seen and examined this patient.: Yes I have fully participated in the care of the patient.: Yes I have reviewed all pertinent clinical information, including history, physical exam and plan: Yes Notes (Text): Seen and examined by me Sitting on the chair,no distress.Uses BIPAP at night Discussed her son at bedside Discussed with Dr Tse Assessment and the plan discussed with the resident in detail I agree with the documentation of the resident's assessment and the plan
--- NOTE | 2018-01-21 17:12 | CP.PCM.PN ---
Subjective - Date & Time of Evaluation Date of Evaluation: 01/21/18 Time of Evaluation: 09:45 - Subjective Subjective: patient seen and examined Off BiPAP During daytime Dyspnea on minimal exertion and at rest On home oxygen Objective - Vital Signs/Intake and Output Vital Signs (last 24 hours): Temp Pulse Resp BP Pulse Ox 98.4 F 88 20 113/72 100 01/21/18 15:00 01/21/18 15:00 01/21/18 15:00 01/21/18 15:00 01/21/18 15:00 Intake and Output: 01/21/18 01/21/18 06:59 18:59 Intake Total 320 Balance 320 - Medications Medications: Current Medications Albuterol/Ipratropium (Duoneb 3 Mg/0.5 Mg (3 Ml) Ud) 3 ml INH RQ4 [facility] Last Admin: 01/21/18 16:09 Dose: 3 ml Aspirin (Aspirin Chewable) 81 mg PO DAILY [facility] Last Admin: 01/21/18 09:43 Dose: 81 mg Budesonide (Pulmicort Respules) 0.5 mg INH RQ12 [facility] Last Admin: 01/21/18 07:50 Dose: 0.5 mg Clopidogrel Bisulfate (Plavix) 75 mg PO DAILY [facility] Last Admin: 01/21/18 09:43 Dose: 75 mg Enoxaparin Sodium (Lovenox) 40 mg SC DAILY [facility] Last Admin: 01/21/18 09:43 Dose: 40 mg Famotidine (Pepcid) 20 mg PO DAILY [facility] Last Admin: 01/21/18 09:43 Dose: 20 mg Azithromycin 500 mg/ Sodium (Chloride) 250 mls @ 250 mls/hr IVPB DAILY [facility] PRN Reason: Protocol Last Admin: 01/21/18 10:32 Dose: 250 mls/hr Ceftriaxone Sodium 1 gm/ (Sodium Chloride) 100 mls @ 100 mls/hr IVPB DAILY [facility] PRN Reason: Protocol Last Admin: 01/21/18 09:42 Dose: 100 mls/hr Methylprednisolone (Solu-Medrol) 20 mg IV DAILY [facility] Last Admin: 01/21/18 09:43 Dose: 20 mg Montelukast Sodium (Singulair) 10 mg PO HS [facility] Last Admin: 01/20/18 21:45 Dose: 10 mg Saccharomyces Boulardii (Florastor) 250 mg PO BID [facility] Last Admin: 01/21/18 09:43 Dose: 250 mg Verapamil HCl (Calan Sr Tab) 180 mg PO DAILY [facility] Last Admin: 01/21/18 09:43 Dose: 180 mg - Labs Labs: 01/21/18 07:03 01/21/18 07:03 PT 10.6 SECONDS (9.7-12.2) 01/11/18 06:35 INR 1.0 01/11/18 06:35 APTT 30 SECONDS (21-34) 01/11/18 06:35 - Head Exam Head Exam: ATRAUMATIC, NORMOCEPHALIC - ENT Exam ENT Exam: Mucous Membranes Moist - Neck Exam Neck Exam: Normal Inspection - Respiratory Exam Respiratory Exam: Decreased Breath Sounds - Cardiovascular Exam Cardiovascular Exam: REGULAR RHYTHM - GI/Abdominal Exam GI & Abdominal Exam: Soft, Normal Bowel Sounds Assessment and Plan (1) Acute respiratory failure with hypercapnia Assessment & Plan: followup ABG Patient will benefit from BiPAP at home Continue home oxygen Continue nebulizer treatment Switch to prednisone Status: Acute (2) Pneumonia Status: Acute (3) COPD exacerbation Status: Acute
[2018-01-22] MEDS: Albuterol-Ipratrop 3 mg / 0.5 (3 ml) UD INH SCH ×5 (03:38→20:15)
[2018-01-22 07:01] LABS: ALB/GLOB RATIO 1.4 (1.0-2.1); ALT/SGPT 32 U/L (9-52); AST/SGOT 23 U/L (14-36); BLOOD UREA NITROGEN 20 mg/dL (7-17); CALCIUM 8.2 mg/dl (8.6-10.4); GFR AFRICAN-AMERICAN > 60; GFR NON-AFRICAN AMERICAN > 60
[2018-01-22 07:57] LABS: BASO % 0.1 % (0.0-2.0); EOS # 0.1 K/uL (0.0-0.7); EOS % 0.5 % (0.0-4.0); HEMOGLOBIN 8.8 g/dL (11.0-16.0); LYMPH # 1.2 K/uL (1.0-4.3); LYMPH % 8.4 % (20.0-40.0); MEAN CORPUSCULAR HEMOGLOBIN 28.7 pg (27.0-31.0); MEAN CORPUSCULAR HGB CONC 31.6 g/dL (33.0-37.0); MEAN PLATELET VOLUME 9.2 fL (7.2-11.7); MONO # 1.6 K/uL (0.0-0.8); MONO % 11.1 % (0.0-10.0); NEUT # 11.1 K/uL (1.8-7.0); NEUT % 79.9 % (50.0-75.0); NRBC % 0.1 % (0.0-2.0); PLATELET COUNT 148 K/uL (130-400); RBC 3.05 Mil/uL (3.80-5.20); RED CELL DISTRIBUTION WIDTH 13.7 % (11.5-14.5); WHITE BLOOD COUNT 13.9 K/uL (4.8-10.8)
[2018-01-22] MEDS: Budesonide 0.5 mg/2 ml Inhal Susp UD INH SCH ×2 (08:09→20:15)
[2018-01-22 08:50] LABS: ANISOCYTOSIS SLIGHT; BANDS 1 % (0-2); HYPOCHROMIC MODERATE; LYMPHOCYTE 11 % (20-40); MONOCYTE 13 % (0-10); NEUTROPHIL 75 % (50-75); PLATELET ESTIMATE NORMAL (NORMAL); POIKILOCYTOSIS SLIGHT; TOTAL CELLS COUNTED 100
[2018-01-22] MEDS: MethylPREDNISolone 40 mg Vial IV SCH (11:12)
[2018-01-22] MEDS: Azithromycin 500 MG in Sodium Chloride 0.9% 250 ML IVPB SCH (11:12)
[2018-01-22] MEDS: Enoxaparin 40 mg Syringe SC SCH (11:13)
[2018-01-22] MEDS: Saccharomyces Boulardi 250 mg Cap PO SCH ×2 (11:13→17:41)
[2018-01-22] MEDS: Verapamil 180 mg ER Tab PO SCH (11:13)
[2018-01-22 16:59] LABS: ABG ALLEN TEST POS; ARTERIAL BLOOD GAS HCO3 43.1 mmol/L (21-28); ARTERIAL BLOOD GAS O2 SAT 99.8 % (95-98); ARTERIAL BLOOD GAS PCO2 75 mm/Hg (35-45); ARTERIAL BLOOD GAS PH 7.45 (7.35-7.45); ARTERIAL BLOOD GAS PO2 132 mm/Hg (80-100); ARTERIAL BLOOD GAS TCO2 54.4 mmol/L (22-28)
--- NOTE | 2018-01-22 17:21 | CP.PCM.PN ---
<Giacomo Starr R - Last Filed: 01/22/18 17:19> Subjective - Date & Time of Evaluation Date of Evaluation: 01/22/18 Time of Evaluation: 17:19 - Subjective Subjective: PGY-[address] Winn. No acute events noted overnight. Patient stated feeling better. She stated she is ready to go home. Did not offer any complaints. We are trying to secure bipap machine for her at home. Objective - Vital Signs/Intake and Output Vital Signs (last 24 hours): Temp Pulse Resp BP Pulse Ox 98.2 F 85 18 109/60 96 01/22/18 15:00 01/22/18 15:02 01/22/18 15:00 01/22/18 15:00 01/22/18 15:00 Intake and Output: 01/22/18 01/22/18 06:59 18:59 Intake Total 300 Output Total 500 Balance -200 - Medications Medications: Current Medications Albuterol/Ipratropium (Duoneb 3 Mg/0.5 Mg (3 Ml) Ud) 3 ml INH RQ4 [facility] Last Admin: 01/22/18 15:36 Dose: 3 ml Aspirin (Aspirin Chewable) 81 mg PO DAILY [facility] Last Admin: 01/22/18 11:13 Dose: 81 mg Budesonide (Pulmicort Respules) 0.5 mg INH RQ12 [facility] Last Admin: 01/22/18 08:09 Dose: 0.5 mg Clopidogrel Bisulfate (Plavix) 75 mg PO DAILY [facility] Last Admin: 01/22/18 11:13 Dose: 75 mg Enoxaparin Sodium (Lovenox) 40 mg SC DAILY [facility] Last Admin: 01/22/18 11:13 Dose: 40 mg Famotidine (Pepcid) 20 mg PO DAILY [facility] Last Admin: 01/22/18 11:12 Dose: 20 mg Azithromycin 500 mg/ Sodium (Chloride) 250 mls @ 250 mls/hr IVPB DAILY [facility] PRN Reason: Protocol Last Admin: 01/22/18 11:12 Dose: 250 mls/hr Ceftriaxone Sodium 1 gm/ (Sodium Chloride) 100 mls @ 100 mls/hr IVPB DAILY [facility] PRN Reason: Protocol Last Admin: 01/22/18 11:12 Dose: 100 mls/hr Methylprednisolone (Solu-Medrol) 20 mg IV DAILY [facility] Last Admin: 01/22/18 11:12 Dose: 20 mg Montelukast Sodium (Singulair) 10 mg PO HS [facility] Last Admin: 01/21/18 21:44 Dose: 10 mg Saccharomyces Boulardii (Florastor) 250 mg PO BID [facility] Last Admin: 01/22/18 11:13 Dose: 250 mg Verapamil HCl (Calan Sr Tab) 180 mg PO DAILY [facility] Last Admin: 01/22/18 11:13 Dose: 180 mg - Labs Labs: 01/22/18 06:34 01/22/18 06:34 PT 10.6 SECONDS (9.7-12.2) 01/11/18 06:35 INR 1.0 01/11/18 06:35 APTT 30 SECONDS (21-34) 01/11/18 06:35 - Additional Findings Additional findings: - Constitutional Appears: No Acute Distress, Chronically Ill - Head Exam Head Exam: ATRAUMATIC, NORMAL INSPECTION - Eye Exam Eye Exam: EOMI Pupil Exam: PERRL - ENT Exam ENT Exam: Mucous Membranes Moist - Neck Exam Neck Exam: Full ROM - Respiratory Exam Respiratory Exam: Clear to Ausculation Bilateral, Prolonged Expiratory Phase. absent: Chest Wall Tenderness, Rales, Rhonchi, Wheezes - Cardiovascular Exam Cardiovascular Exam: REGULAR RHYTHM, +S1, +S2. absent: Bradycardia, Tachycardia , Murmur - GI/Abdominal Exam GI & Abdominal Exam: Soft, Normal Bowel Sounds. 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 Multifocal opacities throughout left lung , likely infectious. Rule out neoplastic. Followup to clearing. Multiple small right-sided pulmonary nodules common nonspecific. No calcified nodules are appreciated. Small nodules but 1 are 5 mm or less. 7 mm nodule right lower lobe. Follow-up with chest CT 6-12 months. 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/u with her physiotherapist's assistant Dr Guajardo from [facility] [place] No history of CAD or CHF No beta maikel for now due to severe COPD Labs/Diagnostics: Troponin I: 1.67 -> 1.61 -> 2.0 -> 1.33 EKG showed RBBB and NSR ECHO 01/11/18: EF 45-50%, mild aortic stenosis, mild tricuspid regurgitation, LV systolic function is borderline Medications: Aspirin 81mg PO QD Clopidogrel 75mg PO QD Verapamil 180mg PO QD Lovenox 40mg SC QD Sepsis from pneumonia, Resolved SIRS criteria (RR > 20, HR > 90) + source of infection (Pneumonia) Afebrile, normal WBC, no bands Procalcitonin 01/12/18 0.65 (slightly elevated) Imaging: CT chest w/ contrast 01/11/18: * No evidence of pulmonary embolism. Multifocal opacities throughout left lung , likely infectious. Rule out neoplastic. Followup to clearing. Multiple small right-sided pulmonary nodules common nonspecific. No calcified nodules are appreciated. Small nodules but 1 are 5 mm or less. 7 mm nodule right lower lobe. Follow-up with chest CT 6-12 months. Medications: Azithromycin 500mg IVPB QD (started 01/12/18) Ceftriaxone 1g IVPB QD (started 01/12/18) Hx of RA Currently on hold - Leflunomide and Celebrex daily Hx of HTN BP well controlled Medications: Verapamil 180mg PO QD Elevated D-Dimer CT chest angio ruled out PE Prophylaxis Lovenox 40mg SC QD Famotidine 20mg PO QD Heart healthy diet PT eval and treat DISPOSITION: Subacute Rehab - however patient and son adamantly refuse rehab and prefer to go home where the son will lookout for her. <Vinnie Winn - Last Filed: 01/23/18 13:42> Objective - Vital Signs/Intake and Output Vital Signs (last 24 hours): Temp Pulse Resp BP Pulse Ox 98.1 F 88 18 109/66 100 01/23/18 07:30 01/23/18 07:30 01/23/18 07:30 01/23/18 07:30 01/23/18 07:30 Intake and Output: 01/23/18 01/23/18 06:59 18:59 Output Total 250 Balance -250 - Medications Medications: Current Medications Albuterol/Ipratropium (Duoneb 3 Mg/0.5 Mg (3 Ml) Ud) 3 ml INH RQ4 [facility] Last Admin: 01/23/18 12:31 Dose: 3 ml Aspirin (Aspirin Chewable) 81 mg PO DAILY [facility] Last Admin: 01/23/18 10:56 Dose: 81 mg Budesonide (Pulmicort Respules) 0.5 mg INH RQ12 [facility] Last Admin: 01/23/18 07:32 Dose: 0.5 mg Clopidogrel Bisulfate (Plavix) 75 mg PO DAILY [facility] Last Admin: 01/23/18 10:56 Dose: 75 mg Enoxaparin Sodium (Lovenox) 40 mg SC DAILY [facility] Last Admin: 01/23/18 10:53 Dose: 40 mg Famotidine (Pepcid) 20 mg PO DAILY [facility] Last Admin: 01/23/18 10:56 Dose: 20 mg Azithromycin 500 mg/ Sodium (Chloride) 250 mls @ 250 mls/hr IVPB DAILY [facility] PRN Reason: Protocol Last Admin: 01/23/18 10:53 Dose: 250 mls/hr Ceftriaxone Sodium 1 gm/ (Sodium Chloride) 100 mls @ 100 mls/hr IVPB DAILY [facility] PRN Reason: Protocol Last Admin: 01/23/18 10:53 Dose: 100 mls/hr Methylprednisolone (Solu-Medrol) 20 mg IV DAILY [facility] Last Admin: 01/23/18 10:56 Dose: 20 mg Montelukast Sodium (Singulair) 10 mg PO HS [facility] Last Admin: 01/22/18 21:00 Dose: 10 mg Saccharomyces Boulardii (Florastor) 250 mg PO BID [facility] Last Admin: 01/23/18 10:55 Dose: 250 mg Verapamil HCl (Calan Sr Tab) 180 mg PO DAILY [facility] Last Admin: 01/23/18 10:54 Dose: 180 mg - Labs Labs: 01/23/18 05:39 01/23/18 05:39 PT 10.6 SECONDS (9.7-12.2) 01/11/18 06:35 INR 1.0 01/11/18 06:35 APTT 30 SECONDS (21-34) 01/11/18 06:35 Attending/Attestation - Attestation I have personally seen and examined this patient.: Yes I have fully participated in the care of the patient.: Yes I have reviewed all pertinent clinical information, including history, physical exam and plan: Yes Notes (Text): een and examined by me 1.Acute on chronic Hypercapneic respiratory failure secondary to pneumonia 2.NSTMI 3.COPD on home oxygen 4.RA Sitting on the chair,no distress.Uses BIPAP at night. She wants to go home. We will follow up with DR Tse Assessment and the plan discussed with the resident in detail I agree with the documentation of the resident's assessment and the plan
--- NOTE | 2018-01-22 20:30 | CP.PCM.PN ---
Subjective - Date & Time of Evaluation Date of Evaluation: 01/22/18 Time of Evaluation: 18:30 - Subjective Subjective: patient seen and examined patient was alert and oriented and wants to go home On tapering dose of steroids BiPAP at night and as needed for shortness of breath Desaturates without oxygen Recent ABG noted Objective - Vital Signs/Intake and Output Vital Signs (last 24 hours): Temp Pulse Resp BP Pulse Ox 98.2 F 85 18 109/60 96 01/22/18 15:00 01/22/18 15:02 01/22/18 15:00 01/22/18 15:00 01/22/18 15:00 - Medications Medications: Current Medications Albuterol/Ipratropium (Duoneb 3 Mg/0.5 Mg (3 Ml) Ud) 3 ml INH RQ4 [facility] Last Admin: 01/22/18 20:15 Dose: 3 ml Aspirin (Aspirin Chewable) 81 mg PO DAILY [facility] Last Admin: 01/22/18 11:13 Dose: 81 mg Budesonide (Pulmicort Respules) 0.5 mg INH RQ12 [facility] Last Admin: 01/22/18 20:15 Dose: 0.5 mg Clopidogrel Bisulfate (Plavix) 75 mg PO DAILY [facility] Last Admin: 01/22/18 11:13 Dose: 75 mg Enoxaparin Sodium (Lovenox) 40 mg SC DAILY [facility] Last Admin: 01/22/18 11:13 Dose: 40 mg Famotidine (Pepcid) 20 mg PO DAILY [facility] Last Admin: 01/22/18 11:12 Dose: 20 mg Azithromycin 500 mg/ Sodium (Chloride) 250 mls @ 250 mls/hr IVPB DAILY [facility] PRN Reason: Protocol Last Admin: 01/22/18 11:12 Dose: 250 mls/hr Ceftriaxone Sodium 1 gm/ (Sodium Chloride) 100 mls @ 100 mls/hr IVPB DAILY [facility] PRN Reason: Protocol Last Admin: 01/22/18 11:12 Dose: 100 mls/hr Methylprednisolone (Solu-Medrol) 20 mg IV DAILY [facility] Last Admin: 01/22/18 11:12 Dose: 20 mg Montelukast Sodium (Singulair) 10 mg PO HS [facility] Last Admin: 01/21/18 21:44 Dose: 10 mg Saccharomyces Boulardii (Florastor) 250 mg PO BID [facility] Last Admin: 01/22/18 17:41 Dose: 250 mg Verapamil HCl (Calan Sr Tab) 180 mg PO DAILY [facility] Last Admin: 01/22/18 11:13 Dose: 180 mg - Labs Labs: 01/22/18 06:34 01/22/18 06:34 PT 10.6 SECONDS (9.7-12.2) 01/11/18 06:35 INR 1.0 01/11/18 06:35 APTT 30 SECONDS (21-34) 01/11/18 06:35 - Head Exam Head Exam: ATRAUMATIC, NORMOCEPHALIC - Eye Exam Eye Exam: Normal appearance - ENT Exam ENT Exam: Mucous Membranes Moist - Neck Exam Neck Exam: Normal Inspection - Respiratory Exam Respiratory Exam: Decreased Breath Sounds - Cardiovascular Exam Cardiovascular Exam: REGULAR RHYTHM - GI/Abdominal Exam GI & Abdominal Exam: Soft, Normal Bowel Sounds - Extremities Exam Extremities Exam: Pedal Edema - Neurological Exam Neurological Exam: Alert Assessment and Plan (1) Acute respiratory failure with hypercapnia Assessment & Plan: acute on chronic hypercapnic respiratory failure with cor pulmonale Need BiPAP and home oxygen Taper IV steroids Continue nebulizer treatment On IV antibiotics Status: Acute (2) Pneumonia Status: Acute (3) COPD exacerbation Status: Acute
[2018-01-23] MEDS: Albuterol-Ipratrop 3 mg / 0.5 (3 ml) UD INH SCH ×6 (01:14→19:50)
[2018-01-23 05:46] LABS: BASO % 0.2 % (0.0-2.0); EOS % 0.2 % (0.0-4.0); HEMOGLOBIN 9.1 g/dL (11.0-16.0); LYMPH # 1.1 K/uL (1.0-4.3); LYMPH % 6.6 % (20.0-40.0); MEAN CELL VOLUME 90.8 fL (81.0-99.0); MEAN CORPUSCULAR HEMOGLOBIN 28.2 pg (27.0-31.0); MEAN PLATELET VOLUME 8.8 fL (7.2-11.7); MONO # 1.6 K/uL (0.0-0.8); MONO % 9.7 % (0.0-10.0); NEUT # 13.7 K/uL (1.8-7.0); NEUT % 83.3 % (50.0-75.0); PLATELET COUNT 151 K/uL (130-400); RBC 3.22 Mil/uL (3.80-5.20); WHITE BLOOD COUNT 16.4 K/uL (4.8-10.8)
[2018-01-23 05:58] LABS: ALB/GLOB RATIO 1.4 (1.0-2.1); ALBUMIN 3.2 g/dL (3.5-5.0); ALT/SGPT 34 U/L (9-52); AST/SGOT 19 U/L (14-36); BLOOD UREA NITROGEN 18 mg/dL (7-17); CALCIUM 8.5 mg/dl (8.6-10.4); GFR AFRICAN-AMERICAN > 60; GFR NON-AFRICAN AMERICAN > 60
[2018-01-23] MEDS: Budesonide 0.5 mg/2 ml Inhal Susp UD INH SCH ×2 (07:32→19:50)
[2018-01-23 08:29] LABS: BANDS 3 % (0-2); LYMPHOCYTE 11 % (20-40); METAMYELOCYTE 1 % (0-0); MONOCYTE 5 % (0-10); MYELOCYTE 1 % (0-0); NEUTROPHIL 79 % (50-75); TOTAL CELLS COUNTED 100
[2018-01-23 08:30] LABS: ANISOCYTOSIS SLIGHT; HYPOCHROMIC SLIGHT; LARGE PLATELETS PRESENT; PLATELET ESTIMATE NORMAL (NORMAL)
[2018-01-23] MEDS: Enoxaparin 40 mg Syringe SC SCH (10:53)
[2018-01-23] MEDS: Azithromycin 500 MG in Sodium Chloride 0.9% 250 ML IVPB SCH (10:53)
[2018-01-23] MEDS: Verapamil 180 mg ER Tab PO SCH (10:54)
[2018-01-23] MEDS: Saccharomyces Boulardi 250 mg Cap PO SCH ×2 (10:55→17:24)
[2018-01-23] MEDS: MethylPREDNISolone 40 mg Vial IV SCH (10:56)
--- NOTE | 2018-01-23 13:07 | CP.PCM.PN ---
<Giacomo Starr R - Last Filed: 01/23/18 13:05> Subjective - Date & Time of Evaluation Date of Evaluation: 01/23/18 Time of Evaluation: 13:05 - Subjective Subjective: PGY-[address] Winn. No acute events noted overnight. Patient stated she's doing well. Inquired about going home - told her we need to get bipap delivered to her house before she can leave - she was dissapointed but understood. Had some anxiety. Did not offer any complaints. Objective - Vital Signs/Intake and Output Vital Signs (last 24 hours): Temp Pulse Resp BP Pulse Ox 98.1 F 88 18 109/66 100 01/23/18 07:30 01/23/18 07:30 01/23/18 07:30 01/23/18 07:30 01/23/18 07:30 Intake and Output: 01/23/18 01/23/18 06:59 18:59 Output Total 250 Balance -250 - Medications Medications: Current Medications Albuterol/Ipratropium (Duoneb 3 Mg/0.5 Mg (3 Ml) Ud) 3 ml INH RQ4 [facility] Last Admin: 01/23/18 12:31 Dose: 3 ml Aspirin (Aspirin Chewable) 81 mg PO DAILY [facility] Last Admin: 01/23/18 10:56 Dose: 81 mg Budesonide (Pulmicort Respules) 0.5 mg INH RQ12 [facility] Last Admin: 01/23/18 07:32 Dose: 0.5 mg Clopidogrel Bisulfate (Plavix) 75 mg PO DAILY [facility] Last Admin: 01/23/18 10:56 Dose: 75 mg Enoxaparin Sodium (Lovenox) 40 mg SC DAILY [facility] Last Admin: 01/23/18 10:53 Dose: 40 mg Famotidine (Pepcid) 20 mg PO DAILY [facility] Last Admin: 01/23/18 10:56 Dose: 20 mg Azithromycin 500 mg/ Sodium (Chloride) 250 mls @ 250 mls/hr IVPB DAILY [facility] PRN Reason: Protocol Last Admin: 01/23/18 10:53 Dose: 250 mls/hr Ceftriaxone Sodium 1 gm/ (Sodium Chloride) 100 mls @ 100 mls/hr IVPB DAILY [facility] PRN Reason: Protocol Last Admin: 01/23/18 10:53 Dose: 100 mls/hr Methylprednisolone (Solu-Medrol) 20 mg IV DAILY [facility] Last Admin: 01/23/18 10:56 Dose: 20 mg Montelukast Sodium (Singulair) 10 mg PO HS [facility] Last Admin: 01/22/18 21:00 Dose: 10 mg Saccharomyces Boulardii (Florastor) 250 mg PO BID [facility] Last Admin: 01/23/18 10:55 Dose: 250 mg Verapamil HCl (Calan Sr Tab) 180 mg PO DAILY [facility] Last Admin: 01/23/18 10:54 Dose: 180 mg - Labs Labs: 01/23/18 05:39 01/23/18 05:39 PT 10.6 SECONDS (9.7-12.2) 01/11/18 06:35 INR 1.0 01/11/18 06:35 APTT 30 SECONDS (21-34) 01/11/18 06:35 - Additional Findings Additional findings: - Constitutional Appears: No Acute Distress, Chronically Ill - Head Exam Head Exam: ATRAUMATIC, NORMAL INSPECTION - Eye Exam Eye Exam: EOMI Pupil Exam: PERRL - ENT Exam ENT Exam: Mucous Membranes Moist - Neck Exam Neck Exam: Full ROM - Respiratory Exam Respiratory Exam: Clear to Ausculation Bilateral, Prolonged Expiratory Phase. absent: Chest Wall Tenderness, Rales, Rhonchi, Wheezes - Cardiovascular Exam Cardiovascular Exam: REGULAR RHYTHM, +S1, +S2. absent: Bradycardia, Tachycardia , Murmur - GI/Abdominal Exam GI & Abdominal Exam: Soft, Normal Bowel Sounds. 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 Multifocal opacities throughout left lung , likely infectious. Rule out neoplastic. Followup to clearing. Multiple small right-sided pulmonary nodules common nonspecific. No calcified nodules are appreciated. Small nodules but 1 are 5 mm or less. 7 mm nodule right lower lobe. Follow-up with chest CT 6-12 months. 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 Guajardo from [facility] [place] No history of CAD or CHF No beta maikel for now due to severe COPD Labs/Diagnostics: Troponin I: 1.67 -> 1.61 -> 2.0 -> 1.33 EKG showed RBBB and NSR ECHO 01/11/18: EF 45-50%, mild aortic stenosis, mild tricuspid regurgitation, LV systolic function is borderline Medications: Aspirin 81mg PO QD Clopidogrel 75mg PO QD Verapamil 180mg PO QD Lovenox 40mg SC QD Sepsis from pneumonia, Resolved SIRS criteria (RR > 20, HR > 90) + source of infection (Pneumonia) Afebrile, normal WBC, no bands Procalcitonin 01/12/18 0.65 (slightly elevated) Imaging: CT chest w/ contrast 01/11/18: * No evidence of pulmonary embolism. Multifocal opacities throughout left lung , likely infectious. Rule out neoplastic. Followup to clearing. Multiple small right-sided pulmonary nodules common nonspecific. No calcified nodules are appreciated. Small nodules but 1 are 5 mm or less. 7 mm nodule right lower lobe. Follow-up with chest CT 6-12 months. Medications: Azithromycin 500mg IVPB QD (started 01/12/18) Ceftriaxone 1g IVPB QD (started 01/12/18) Hx of RA Currently on hold - Leflunomide and Celebrex daily Hx of HTN BP well controlled Medications: Verapamil 180mg PO QD Elevated D-Dimer CT chest angio ruled out PE Prophylaxis Lovenox 40mg SC QD Famotidine 20mg PO QD Heart healthy diet PT eval and treat DISPOSITION: Subacute Rehab - however patient and son adamantly refuse rehab and prefer to go home where the son will lookout for her. <Vinnie Winn - Last Filed: 01/23/18 13:45> Objective - Vital Signs/Intake and Output Vital Signs (last 24 hours): Temp Pulse Resp BP Pulse Ox 98.1 F 88 18 109/66 100 01/23/18 07:30 01/23/18 07:30 01/23/18 07:30 01/23/18 07:30 01/23/18 07:30 Intake and Output: 01/23/18 01/23/18 06:59 18:59 Output Total 250 Balance -250 - Medications Medications: Current Medications Albuterol/Ipratropium (Duoneb 3 Mg/0.5 Mg (3 Ml) Ud) 3 ml INH RQ4 [facility] Last Admin: 01/23/18 12:31 Dose: 3 ml Aspirin (Aspirin Chewable) 81 mg PO DAILY [facility] Last Admin: 01/23/18 10:56 Dose: 81 mg Budesonide (Pulmicort Respules) 0.5 mg INH RQ12 [facility] Last Admin: 01/23/18 07:32 Dose: 0.5 mg Clopidogrel Bisulfate (Plavix) 75 mg PO DAILY [facility] Last Admin: 01/23/18 10:56 Dose: 75 mg Enoxaparin Sodium (Lovenox) 40 mg SC DAILY [facility] Last Admin: 01/23/18 10:53 Dose: 40 mg Famotidine (Pepcid) 20 mg PO DAILY [facility] Last Admin: 01/23/18 10:56 Dose: 20 mg Azithromycin 500 mg/ Sodium (Chloride) 250 mls @ 250 mls/hr IVPB DAILY [facility] PRN Reason: Protocol Last Admin: 01/23/18 10:53 Dose: 250 mls/hr Ceftriaxone Sodium 1 gm/ (Sodium Chloride) 100 mls @ 100 mls/hr IVPB DAILY [facility] PRN Reason: Protocol Last Admin: 01/23/18 10:53 Dose: 100 mls/hr Methylprednisolone (Solu-Medrol) 20 mg IV DAILY [facility] Last Admin: 01/23/18 10:56 Dose: 20 mg Montelukast Sodium (Singulair) 10 mg PO HS [facility] Last Admin: 01/22/18 21:00 Dose: 10 mg Saccharomyces Boulardii (Florastor) 250 mg PO BID [facility] Last Admin: 01/23/18 10:55 Dose: 250 mg Verapamil HCl (Calan Sr Tab) 180 mg PO DAILY [facility] Last Admin: 01/23/18 10:54 Dose: 180 mg - Labs Labs: 01/23/18 05:39 01/23/18 05:39 PT 10.6 SECONDS (9.7-12.2) 01/11/18 06:35 INR 1.0 01/11/18 06:35 APTT 30 SECONDS (21-34) 01/11/18 06:35 Attending/Attestation - Attestation I have personally seen and examined this patient.: Yes I have fully participated in the care of the patient.: Yes I have reviewed all pertinent clinical information, including history, physical exam and plan: Yes Notes (Text): Seen and examined by me 1.Acute on chronic Hypercapneic respiratory failure secondary to pneumonia 2.NSTMI 3.COPD on home oxygen 4.RA Sitting on the chair,no complain.no sob at rest ,Uses BIPAP at night. Assessment and the plan discussed with the resident in detail I agree with the documentation of the resident's assessment and the plan
[2018-01-24] MEDS: Albuterol-Ipratrop 3 mg / 0.5 (3 ml) UD INH SCH ×6 (01:36→19:47)
--- NOTE | 2018-01-24 04:07 | CP.PCM.PN ---
Subjective - Date & Time of Evaluation Date of Evaluation: 01/24/18 Time of Evaluation: 03:59 - Subjective Subjective: Medicine progress note for Dr. Winn Patient was seen and examined at bedside in no acute distress. Patient says she feel well. Patient denies chest pain, abdominal pain, nausea, vomiting, fevers, or headaches. No acute events overnight. Objective - Vital Signs/Intake and Output Vital Signs (last 24 hours): Temp Pulse Resp BP Pulse Ox 98.4 F 77 20 115/65 98 01/23/18 23:40 01/24/18 00:40 01/23/18 23:40 01/23/18 23:40 01/23/18 23:40 - Medications Medications: Current Medications Albuterol/Ipratropium (Duoneb 3 Mg/0.5 Mg (3 Ml) Ud) 3 ml INH RQ4 [facility] Last Admin: 01/24/18 01:36 Dose: 3 ml Aspirin (Aspirin Chewable) 81 mg PO DAILY [facility] Last Admin: 01/23/18 10:56 Dose: 81 mg Budesonide (Pulmicort Respules) 0.5 mg INH RQ12 [facility] Last Admin: 01/23/18 19:50 Dose: 0.5 mg Clopidogrel Bisulfate (Plavix) 75 mg PO DAILY [facility] Last Admin: 01/23/18 10:56 Dose: 75 mg Enoxaparin Sodium (Lovenox) 40 mg SC DAILY [facility] Last Admin: 01/23/18 10:53 Dose: 40 mg Famotidine (Pepcid) 20 mg PO DAILY [facility] Last Admin: 01/23/18 10:56 Dose: 20 mg Azithromycin 500 mg/ Sodium (Chloride) 250 mls @ 250 mls/hr IVPB DAILY [facility] PRN Reason: Protocol Last Admin: 01/23/18 10:53 Dose: 250 mls/hr Ceftriaxone Sodium 1 gm/ (Sodium Chloride) 100 mls @ 100 mls/hr IVPB DAILY [facility] PRN Reason: Protocol Last Admin: 01/23/18 10:53 Dose: 100 mls/hr Methylprednisolone (Solu-Medrol) 20 mg IV DAILY [facility] Last Admin: 01/23/18 10:56 Dose: 20 mg Montelukast Sodium (Singulair) 10 mg PO HS [facility] Last Admin: 01/23/18 21:44 Dose: 10 mg Saccharomyces Boulardii (Florastor) 250 mg PO BID [facility] Last Admin: 01/23/18 17:24 Dose: 250 mg Verapamil HCl (Calan Sr Tab) 180 mg PO DAILY [facility] Last Admin: 01/23/18 10:54 Dose: 180 mg - Labs Labs: 01/23/18 05:39 01/23/18 05:39 PT 10.6 SECONDS (9.7-12.2) 01/11/18 06:35 INR 1.0 01/11/18 06:35 APTT 30 SECONDS (21-34) 01/11/18 06:35 - Constitutional Appears: No Acute Distress - Head Exam Head Exam: ATRAUMATIC, NORMAL INSPECTION - Eye Exam Eye Exam: EOMI, Normal appearance - ENT Exam ENT Exam: Mucous Membranes Moist - Respiratory Exam Respiratory Exam: Decreased Breath Sounds, NORMAL BREATHING PATTERN. absent: Rales, Rhonchi, Wheezes, Respiratory Distress - Cardiovascular Exam Cardiovascular Exam: REGULAR RHYTHM, +S1, +S2 - GI/Abdominal Exam GI & Abdominal Exam: Soft, Normal Bowel Sounds. absent: Distended, Tenderness - Extremities Exam Extremities Exam: Pedal Edema (b/l). absent: Calf Tenderness, Tenderness - Neurological Exam Neurological Exam: Alert, Awake, Oriented x3 - Psychiatric Exam Psychiatric exam: Normal Affect, Normal Mood - Skin Skin Exam: Dry, Intact, Normal Color, Warm Assessment and Plan - Assessment and Plan (Free Text) Plan: 82yo F admitted with hypercapneic respiratory failure from PNA and NSTEMI Hypercapneic respiratory failure from PNA and COPD Pulmonary consult, Dr Tse * Patient will benefit from BiPAP at home - bilingual case manager is working to procure home bipap Bipap set to FiO2 35% When not on bipap she's on NC 6L Afebrile, normal WBC, no bands Labs/Diagnostics: Multiple ABGs show chronic retainer of CO2 Blood culture 01/15/18 NEGATIVE up to date Urine Culture 01/12/18 NEGATIVE Sputum culture 01/11/18 NEGATIVE Legionella NEGATIVE, Mycoplasma NEGATIVE, Influenza NEGATIVE Imaging: CT chest w/ contrast 01/11/18: * No evidence of pulmonary embolism. Multifocal opacities throughout left lung, likely infectious. Rule out neoplastic. Multiple small right-sided pulmonary nodules common nonspecific. No calcified nodules are appreciated. Small nodules but 1 are 5 mm or less. 7 mm nodule right lower lobe. Follow-up with chest CT 6 -12 months. 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/u with her counter help Dr Guajardo from [facility] [place] No history of CAD or CHF No beta maikel for now due to severe COPD Labs/Diagnostics: Troponin I: 1.67 -> 1.61 -> 2.0 -> 1.33 EKG showed RBBB and NSR ECHO 01/11/18: EF 45-50%, mild aortic stenosis, mild tricuspid regurgitation, LV systolic function is borderline Medications: Aspirin 81mg PO QD Clopidogrel 75mg PO QD Verapamil 180mg PO QD Lovenox 40mg SC QD Sepsis from pneumonia, Resolved SIRS criteria (RR > 20, HR > 90) + source of infection (Pneumonia) Afebrile, normal WBC, no bands Procalcitonin 01/12/18 0.65 (slightly elevated) Imaging: CT chest w/ contrast 01/11/18: * No evidence of pulmonary embolism. Multifocal opacities throughout left lung , likely infectious. Rule out neoplastic. Followup to clearing. Multiple small right-sided pulmonary nodules common nonspecific. No calcified nodules are appreciated. Small nodules but 1 are 5 mm or less. 7 mm nodule right lower lobe. Follow-up with chest CT 6-12 months. Medications: Azithromycin 500mg IVPB QD (started 01/12/18) Ceftriaxone 1g IVPB QD (started 01/12/18) Hx of RA Currently on hold - Leflunomide and Celebrex daily Hx of HTN BP well controlled Medications: Verapamil 180mg PO QD Elevated D-Dimer CT chest angio ruled out PE Prophylaxis Lovenox 40mg SC QD Famotidine 20mg PO QD Heart healthy diet PT eval and treat DISPOSITION: Subacute Rehab - however patient and son adamantly refuse rehab and prefer to go home where the son can provide care.
[2018-01-24 07:57] LABS: BASO % 0.1 % (0.0-2.0); EOS # 0.1 K/uL (0.0-0.7); EOS % 0.5 % (0.0-4.0); HEMOGLOBIN 9.2 g/dL (11.0-16.0); LYMPH % 6.1 % (20.0-40.0); MEAN CELL VOLUME 91.3 fL (81.0-99.0); MEAN CORPUSCULAR HEMOGLOBIN 28.3 pg (27.0-31.0); MEAN CORPUSCULAR HGB CONC 30.9 g/dL (33.0-37.0); MEAN PLATELET VOLUME 9.3 fL (7.2-11.7); MONO # 1.9 K/uL (0.0-0.8); MONO % 11.5 % (0.0-10.0); NEUT # 13.5 K/uL (1.8-7.0); NEUT % 81.8 % (50.0-75.0); NRBC % 0.1 % (0.0-2.0); PLATELET COUNT 150 K/uL (130-400); RBC 3.25 Mil/uL (3.80-5.20); RED CELL DISTRIBUTION WIDTH 13.9 % (11.5-14.5); WHITE BLOOD COUNT 16.5 K/uL (4.8-10.8)
[2018-01-24 08:17] LABS: ALB/GLOB RATIO 1.7 (1.0-2.1); ALBUMIN 3.3 g/dL (3.5-5.0); ALT/SGPT 33 U/L (9-52); AST/SGOT 19 U/L (14-36); BLOOD UREA NITROGEN 21 mg/dL (7-17); CALCIUM 7.9 mg/dl (8.6-10.4); GFR AFRICAN-AMERICAN > 60; GFR NON-AFRICAN AMERICAN > 60
[2018-01-24] MEDS: Budesonide 0.5 mg/2 ml Inhal Susp UD INH SCH ×2 (08:55→19:47)
[2018-01-24 09:04] LABS: BANDS 1 % (0-2); EOSINOPHIL 1 % (0-4); LYMPHOCYTE 7 % (20-40); MONOCYTE 10 % (0-10); NEUTROPHIL 81 % (50-75); PLATELET ESTIMATE NORMAL (NORMAL); TOTAL CELLS COUNTED 100
[2018-01-24 09:05] LABS: HYPOCHROMIC MODERATE
[2018-01-24 09:06] LABS: ANISOCYTOSIS SLIGHT
[2018-01-24] MEDS: Azithromycin 500 MG in Sodium Chloride 0.9% 250 ML IVPB SCH (11:01)
[2018-01-24] MEDS: Enoxaparin 40 mg Syringe SC SCH (11:03)
[2018-01-24] MEDS: MethylPREDNISolone 40 mg Vial IV SCH (11:05)
[2018-01-24] MEDS: Saccharomyces Boulardi 250 mg Cap PO SCH ×2 (11:08→17:34)
[2018-01-24] MEDS: Verapamil 180 mg ER Tab PO SCH (11:09)
--- NOTE | 2018-01-24 18:11 | CP.PCM.PN ---
Subjective - Date & Time of Evaluation Date of Evaluation: 01/24/18 Time of Evaluation: 14:10 - Subjective Subjective: the patient seen and examined Condition unchanged Dyspnea on minimal exertion On oxygen BiPAP at night Afebrile Discharge patient home in a.m. Objective - Vital Signs/Intake and Output Vital Signs (last 24 hours): Temp Pulse Resp BP Pulse Ox 98.4 F 87 20 107/69 96 01/24/18 15:30 01/24/18 15:30 01/24/18 15:30 01/24/18 15:30 01/24/18 15:30 Intake and Output: 01/24/18 01/24/18 06:59 18:59 Output Total 200 Balance -200 - Medications Medications: Current Medications Albuterol/Ipratropium (Duoneb 3 Mg/0.5 Mg (3 Ml) Ud) 3 ml INH RQ4 [facility] Last Admin: 01/24/18 16:48 Dose: 3 ml Aspirin (Aspirin Chewable) 81 mg PO DAILY [facility] Last Admin: 01/24/18 11:08 Dose: 81 mg Budesonide (Pulmicort Respules) 0.5 mg INH RQ12 [facility] Last Admin: 01/24/18 08:55 Dose: 0.5 mg Clopidogrel Bisulfate (Plavix) 75 mg PO DAILY [facility] Last Admin: 01/24/18 11:09 Dose: 75 mg Enoxaparin Sodium (Lovenox) 40 mg SC DAILY [facility] Last Admin: 01/24/18 11:03 Dose: 40 mg Famotidine (Pepcid) 20 mg PO DAILY [facility] Last Admin: 01/24/18 11:10 Dose: 20 mg Azithromycin 500 mg/ Sodium (Chloride) 250 mls @ 250 mls/hr IVPB DAILY [facility] PRN Reason: Protocol Last Admin: 01/24/18 11:01 Dose: 250 mls/hr Ceftriaxone Sodium 1 gm/ (Sodium Chloride) 100 mls @ 100 mls/hr IVPB DAILY [facility] PRN Reason: Protocol Last Admin: 01/24/18 10:50 Dose: 100 mls/hr Methylprednisolone (Solu-Medrol) 20 mg IV DAILY [facility] Last Admin: 01/24/18 11:05 Dose: 20 mg Montelukast Sodium (Singulair) 10 mg PO HS [facility] Last Admin: 01/23/18 21:44 Dose: 10 mg Saccharomyces Boulardii (Florastor) 250 mg PO BID [facility] Last Admin: 01/24/18 17:34 Dose: 250 mg Verapamil HCl (Calan Sr Tab) 180 mg PO DAILY [facility] Last Admin: 01/24/18 11:09 Dose: 180 mg - Labs Labs: 01/24/18 07:48 01/24/18 07:48 PT 10.6 SECONDS (9.7-12.2) 01/11/18 06:35 INR 1.0 01/11/18 06:35 APTT 30 SECONDS (21-34) 01/11/18 06:35 Assessment and Plan (1) Acute respiratory failure with hypercapnia Status: Acute (2) Pneumonia Status: Acute (3) COPD exacerbation Status: Acute
[2018-01-25] MEDS: Albuterol-Ipratrop 3 mg / 0.5 (3 ml) UD INH SCH ×4 (02:52→16:56)
[2018-01-25 07:31] LABS: BASO % 0.1 % (0.0-2.0); EOS # 0.1 K/uL (0.0-0.7); EOS % 0.5 % (0.0-4.0); HEMOGLOBIN 8.6 g/dL (11.0-16.0); LYMPH % 7.8 % (20.0-40.0); MEAN CELL VOLUME 90.4 fL (81.0-99.0); MEAN CORPUSCULAR HEMOGLOBIN 28.8 pg (27.0-31.0); MEAN CORPUSCULAR HGB CONC 31.9 g/dL (33.0-37.0); MEAN PLATELET VOLUME 9.4 fL (7.2-11.7); MONO # 1.7 K/uL (0.0-0.8); NEUT # 10.4 K/uL (1.8-7.0); NEUT % 78.6 % (50.0-75.0); PLATELET COUNT 146 K/uL (130-400); RED CELL DISTRIBUTION WIDTH 13.9 % (11.5-14.5); WHITE BLOOD COUNT 13.2 K/uL (4.8-10.8)
[2018-01-25] MEDS: Budesonide 0.5 mg/2 ml Inhal Susp UD INH SCH (07:40)
[2018-01-25 08:01] VITALS: O2SAT 100
[2018-01-25 08:14] LABS: ALB/GLOB RATIO 1.5 (1.0-2.1); ALBUMIN 3.1 g/dL (3.5-5.0); ALT/SGPT 34 U/L (9-52); AST/SGOT 23 U/L (14-36); BLOOD UREA NITROGEN 22 mg/dL (7-17); CALCIUM 8.2 mg/dl (8.6-10.4); GFR AFRICAN-AMERICAN > 60; GFR NON-AFRICAN AMERICAN > 60
[2018-01-25] MEDS: MethylPREDNISolone 40 mg Vial IV SCH (09:03)
[2018-01-25] MEDS: Saccharomyces Boulardi 250 mg Cap PO SCH ×2 (09:05→17:33)
[2018-01-25] MEDS: Enoxaparin 40 mg Syringe SC SCH (09:06)
[2018-01-25 09:15] LABS: HYPOCHROMIC SLIGHT; LYMPHOCYTE 7 % (20-40); MONOCYTE 3 % (0-10); NEUTROPHIL 90 % (50-75); PLATELET ESTIMATE NORMAL (NORMAL); TOTAL CELLS COUNTED 100
[2018-01-25] MEDS: Verapamil 180 mg ER Tab PO SCH (10:36)
--- NOTE | 2018-01-25 15:20 | CP.PCM.PN ---
<Giacomo Starr - Last Filed: 01/25/18 15:20> Subjective - Date & Time of Evaluation Date of Evaluation: 01/25/18 Time of Evaluation: 10:30 - Subjective Subjective: PGY-[address] Mendez. No acute events noted overnight. Patient did not offer any new complaints. Stated she felt the same and inquired when she could go home - told her we are waiting on bipap machine, she understood. Breathing on NC, sitting in chair comfortable. Uses bipap at night. Objective - Vital Signs/Intake and Output Vital Signs (last 24 hours): Temp Pulse Resp BP Pulse Ox 98.1 F 90 20 108/70 100 01/25/18 07:05 01/25/18 07:05 01/25/18 07:05 01/25/18 07:05 01/25/18 07:05 - Medications Medications: Current Medications Albuterol/Ipratropium (Duoneb 3 Mg/0.5 Mg (3 Ml) Ud) 3 ml INH RQ4 [facility] Last Admin: 01/25/18 12:33 Dose: 3 ml Aspirin (Aspirin Chewable) 81 mg PO DAILY [facility] Last Admin: 01/25/18 09:13 Dose: 81 mg Budesonide (Pulmicort Respules) 0.5 mg INH RQ12 [facility] Last Admin: 01/25/18 07:40 Dose: 0.5 mg Clopidogrel Bisulfate (Plavix) 75 mg PO DAILY [facility] Last Admin: 01/25/18 09:05 Dose: 75 mg Enoxaparin Sodium (Lovenox) 40 mg SC DAILY [facility] Last Admin: 01/25/18 09:06 Dose: 40 mg Famotidine (Pepcid) 20 mg PO DAILY [facility] Last Admin: 01/25/18 09:05 Dose: 20 mg Methylprednisolone (Solu-Medrol) 20 mg IV DAILY [facility] Last Admin: 01/25/18 09:03 Dose: 20 mg Montelukast Sodium (Singulair) 10 mg PO HS [facility] Last Admin: 01/24/18 22:18 Dose: 10 mg Saccharomyces Boulardii (Florastor) 250 mg PO BID [facility] Last Admin: 01/25/18 09:05 Dose: 250 mg Verapamil HCl (Calan Sr Tab) 180 mg PO DAILY [facility] Last Admin: 01/25/18 10:36 Dose: 180 mg - Labs Labs: 01/25/18 07:22 01/25/18 07:22 PT 10.6 SECONDS (9.7-12.2) 01/11/18 06:35 INR 1.0 01/11/18 06:35 APTT 30 SECONDS (21-34) 01/11/18 06:35 - Additional Findings Additional findings: - Constitutional Appears: No Acute Distress - Head Exam Head Exam: ATRAUMATIC, NORMAL INSPECTION - Eye Exam Eye Exam: EOMI, Normal appearance - ENT Exam ENT Exam: Mucous Membranes Moist - Respiratory Exam Respiratory Exam: Decreased Breath Sounds, NORMAL BREATHING PATTERN. absent: Rales, Rhonchi, Wheezes, Respiratory Distress - Cardiovascular Exam Cardiovascular Exam: REGULAR RHYTHM, +S1, +S2 - GI/Abdominal Exam GI & Abdominal Exam: Soft, Normal Bowel Sounds. absent: Distended, Tenderness - Extremities Exam Extremities Exam: Pedal Edema (b/l). absent: Calf Tenderness, Tenderness - Neurological Exam Neurological Exam: Alert, Awake, Oriented x3 - Psychiatric Exam Psychiatric exam: Normal Affect, Normal Mood - Skin Skin Exam: Dry, Intact, Normal Color, Warm Assessment and Plan - Assessment and Plan (Free Text) Assessment: 82yo F admitted with hypercapneic respiratory failure from PNA and NSTEMI Hypercapneic respiratory failure from PNA and COPD Pulmonary consult, Dr Tse * Patient will benefit from BiPAP at home - family preservation caseworker is working to procure home bipap - should arrive to patient home 01/26/18 Bipap set to FiO2 35% When not on bipap she's on NC 6L Afebrile, normal WBC, no bands Labs/Diagnostics: Multiple ABGs show chronic retainer of CO2 Blood culture 01/15/18 NEGATIVE up to date Urine Culture 01/12/18 NEGATIVE Sputum culture 01/11/18 NEGATIVE Legionella NEGATIVE, Mycoplasma NEGATIVE, Influenza NEGATIVE Imaging: CT chest w/ contrast 01/11/18: * No evidence of pulmonary embolism. Multifocal opacities throughout left lung, likely infectious. Rule out neoplastic. Multiple small right-sided pulmonary nodules common nonspecific. No calcified nodules are appreciated. Small nodules but 1 are 5 mm or less. 7 mm nodule right lower lobe. Follow-up with chest CT 6 -12 months. 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 Dr Guajardo from [facility] [place] No history of CAD or CHF No beta maikel for now due to severe COPD Labs/Diagnostics: Troponin I: 1.67 -> 1.61 -> 2.0 -> 1.33 EKG showed RBBB and NSR ECHO 01/11/18: EF 45-50%, mild aortic stenosis, mild tricuspid regurgitation, LV systolic function is borderline Medications: Aspirin 81mg PO QD Clopidogrel 75mg PO QD Verapamil 180mg PO QD Lovenox 40mg SC QD Sepsis from pneumonia, Resolved SIRS criteria (RR > 20, HR > 90) + source of infection (Pneumonia) Afebrile, normal WBC, no bands Procalcitonin 01/12/18 0.65 (slightly elevated) Imaging: CT chest w/ contrast 01/11/18: * No evidence of pulmonary embolism. Multifocal opacities throughout left lung , likely infectious. Rule out neoplastic. Followup to clearing. Multiple small right-sided pulmonary nodules common nonspecific. No calcified nodules are appreciated. Small nodules but 1 are 5 mm or less. 7 mm nodule right lower lobe. Follow-up with chest CT 6-12 months. Medications: Azithromycin 500mg IVPB QD (started 01/12/18) Ceftriaxone 1g IVPB QD (started 01/12/18) Hx of RA Currently on hold - Leflunomide and Celebrex daily Hx of HTN BP well controlled Medications: Verapamil 180mg PO QD Elevated D-Dimer CT chest angio ruled out PE Prophylaxis Lovenox 40mg SC QD Famotidine 20mg PO QD Heart healthy diet PT eval and treat DISPOSITION: Subacute Rehab - however patient and son adamantly refuse rehab and prefer to go home where the son can provide care. <Rivas Mendez - Last Filed: 01/25/18 16:53> Objective - Vital Signs/Intake and Output Vital Signs (last 24 hours): Temp Pulse Resp BP Pulse Ox 98.1 F 90 20 108/70 100 01/25/18 07:05 01/25/18 07:05 01/25/18 07:05 01/25/18 07:05 01/25/18 07:05 - Medications Medications: Current Medications Albuterol/Ipratropium (Duoneb 3 Mg/0.5 Mg (3 Ml) Ud) 3 ml INH RQ4 [facility] Last Admin: 01/25/18 12:33 Dose: 3 ml Aspirin (Aspirin Chewable) 81 mg PO DAILY [facility] Last Admin: 01/25/18 09:13 Dose: 81 mg Budesonide (Pulmicort Respules) 0.5 mg INH RQ12 [facility] Last Admin: 01/25/18 07:40 Dose: 0.5 mg Clopidogrel Bisulfate (Plavix) 75 mg PO DAILY [facility] Last Admin: 01/25/18 09:05 Dose: 75 mg Enoxaparin Sodium (Lovenox) 40 mg SC DAILY [facility] Last Admin: 01/25/18 09:06 Dose: 40 mg Famotidine (Pepcid) 20 mg PO DAILY [facility] Last Admin: 01/25/18 09:05 Dose: 20 mg Methylprednisolone (Solu-Medrol) 20 mg IV DAILY [facility] Last Admin: 01/25/18 09:03 Dose: 20 mg Montelukast Sodium (Singulair) 10 mg PO HS [facility] Last Admin: 01/24/18 22:18 Dose: 10 mg Saccharomyces Boulardii (Florastor) 250 mg PO BID [facility] Last Admin: 01/25/18 09:05 Dose: 250 mg Verapamil HCl (Calan Sr Tab) 180 mg PO DAILY [facility] Last Admin: 01/25/18 10:36 Dose: 180 mg - Labs Labs: 01/25/18 07:22 01/25/18 07:22 PT 10.6 SECONDS (9.7-12.2) 01/11/18 06:35 INR 1.0 01/11/18 06:35 APTT 30 SECONDS (21-34) 01/11/18 06:35 Attending/Attestation - Attestation I have personally seen and examined this patient.: Yes I have fully participated in the care of the patient.: Yes I have reviewed all pertinent clinical information, including history, physical exam and plan: Yes Notes (Text): 01/25/18 16:50 Medical attending: Patient was seen and examined today by me with the medical engineer. I reviewed the above note by the resident The patient was since the last time I saw her much better than before. She was out of bed in chair on nasal canula - she looked comfortable. From what I understand the patient and family would like for her to go home and not to an [facility]. We are trying to get Bipap to be sent to the patient's house before we let her go home thank you Rivas Mendez
--- NOTE | 2018-01-25 17:15 | CP.PCM.PN ---
Subjective - Date & Time of Evaluation Date of Evaluation: 01/25/18 Time of Evaluation: 09:30 - Subjective Subjective: patient seen and examined On BiPAP at night awake and responsive Shortness of breath Objective - Vital Signs/Intake and Output Vital Signs (last 24 hours): Temp Pulse Resp BP Pulse Ox 98.1 F 90 20 108/70 100 01/25/18 07:05 01/25/18 07:05 01/25/18 07:05 01/25/18 07:05 01/25/18 07:05 - Medications Medications: Current Medications Albuterol/Ipratropium (Duoneb 3 Mg/0.5 Mg (3 Ml) Ud) 3 ml INH RQ4 [facility] Last Admin: 01/25/18 16:56 Dose: Not Given Aspirin (Aspirin Chewable) 81 mg PO DAILY [facility] Last Admin: 01/25/18 09:13 Dose: 81 mg Budesonide (Pulmicort Respules) 0.5 mg INH RQ12 [facility] Last Admin: 01/25/18 07:40 Dose: 0.5 mg Clopidogrel Bisulfate (Plavix) 75 mg PO DAILY [facility] Last Admin: 01/25/18 09:05 Dose: 75 mg Enoxaparin Sodium (Lovenox) 40 mg SC DAILY [facility] Last Admin: 01/25/18 09:06 Dose: 40 mg Famotidine (Pepcid) 20 mg PO DAILY [facility] Last Admin: 01/25/18 09:05 Dose: 20 mg Methylprednisolone (Solu-Medrol) 20 mg IV DAILY [facility] Last Admin: 01/25/18 09:03 Dose: 20 mg Montelukast Sodium (Singulair) 10 mg PO HS [facility] Last Admin: 01/24/18 22:18 Dose: 10 mg Saccharomyces Boulardii (Florastor) 250 mg PO BID [facility] Last Admin: 01/25/18 09:05 Dose: 250 mg Verapamil HCl (Calan Sr Tab) 180 mg PO DAILY [facility] Last Admin: 01/25/18 10:36 Dose: 180 mg - Labs Labs: 01/25/18 07:22 01/25/18 07:22 PT 10.6 SECONDS (9.7-12.2) 01/11/18 06:35 INR 1.0 01/11/18 06:35 APTT 30 SECONDS (21-34) 01/11/18 06:35 - Head Exam Head Exam: ATRAUMATIC, NORMOCEPHALIC - Eye Exam Eye Exam: Normal appearance - ENT Exam ENT Exam: Mucous Membranes Moist - Respiratory Exam Respiratory Exam: Decreased Breath Sounds - Cardiovascular Exam Cardiovascular Exam: REGULAR RHYTHM - GI/Abdominal Exam GI & Abdominal Exam: Soft, Normal Bowel Sounds - Extremities Exam Extremities Exam: Pedal Edema - Neurological Exam Neurological Exam: Alert, Oriented x3 Assessment and Plan (1) Acute respiratory failure with hypercapnia Assessment & Plan: tapering dose of steroids Nebulizer treatment Discharge patient home Pt with hypercapnic resp failure due to severe COPD.Due to progressive disease patient will require the use of non-invasive ventilator, trilogy AVAPs AE, to use at night as well as the daytime if necessary, this help improve pulmonary function and co2 retention which has caused hospitalization. BiPAP has been tried and proven ineffective as CO2 level remained elevated Status: Acute (2) Pneumonia Status: Acute (3) COPD exacerbation Status: Chronic
[2018-01-25 17:20] VITALS: BP 97/60; PULSE 70; RESP 18; TEMP 97.7
--- NOTE | 2018-01-25 18:20 | CP.PCM.DIS ---
<RoGicaomo R - Last Filed: 01/25/18 18:17> Provider - Provider Date of Admission: 01/11/18 07:42 Attending physician: Rivas Mendez DO Primary care physician: PMD: Dr Townsend Consults: Cardio: Dr Lopez Pulm: Dr Tse Time Spent in preparation of Discharge (in minutes): 58 Diagnosis - Discharge Diagnosis (1) COPD exacerbation Status: Chronic Priority: High (2) Non-ST elevated myocardial infarction (non-STEMI) Status: Resolved Priority: High (3) Pneumonia Status: Resolved Priority: High Hospital Course - Lab Results Lab Results: Micro Results 01/20/18 05:58 Nose MRSA Culture - Final MRSA NOT DETECTED 01/15/18 19:20 Blood-Venous Blood Culture - Final NO GROWTH AFTER 5 DAYS 01/15/18 19:20 Blood-Venous Gram Stain - Final TEST NOT PERFORMED 01/15/18 19:00 Blood-Venous Blood Culture - Final NO GROWTH AFTER 5 DAYS 01/15/18 19:00 Blood-Venous Gram Stain - Final TEST NOT PERFORMED 01/11/18 04:44 Blood S.aureus & Coag-Neg Staph PNA FISH - Final 01/11/18 04:44 Blood Blood Culture - Final Coagulase Neg Staphylococcus 01/11/18 04:44 Blood Gram Stain - Final 01/11/18 04:44 Blood Blood Culture - Final NO GROWTH AFTER 5 DAYS 01/11/18 04:44 Blood Gram Stain - Final TEST NOT PERFORMED 01/11/18 Unknown Sputum Induced Gram Stain - Final 01/11/18 Unknown Sputum Induced Sputum Culture - Final NORMAL ORAL RIGO 01/12/18 06:29 Urine Urine Culture - Final No Growth (<1,000 CFU/ML) 01/11/18 10:24 Naris MRSA Culture (Admit) - Final MRSA NOT DETECTED Most Recent Lab Values WBC 13.2 K/uL (4.8-10.8) H 01/25/18 07:22 RBC 3.00 Mil/uL (3.80-5.20) L 01/25/18 07:22 Hgb 8.6 g/dL (11.0-16.0) L 01/25/18 07:22 Hct 27.1 % (34.0-47.0) L 01/25/18 07:22 MCV 90.4 fL (81.0-99.0) 01/25/18 07:22 MCH 28.8 pg (27.0-31.0) 01/25/18 07:22 MCHC 31.9 g/dL (33.0-37.0) L 01/25/18 07:22 RDW 13.9 % (11.5-14.5) 01/25/18 07:22 Plt Count 146 K/uL (130-400) 01/25/18 07:22 MPV 9.4 fL (7.2-11.7) 01/25/18 07:22 Neut % (Auto) 78.6 % (50.0-75.0) H 01/25/18 07:22 Lymph % (Auto) 7.8 % (20.0-40.0) L 01/25/18 07:22 Edmunds % (Auto) 13.0 % (0.0-10.0) H 01/25/18 07:22 Eos % (Auto) 0.5 % (0.0-4.0) 01/25/18 07:22 Baso % (Auto) 0.1 % (0.0-2.0) 01/25/18 07:22 Neut # (Auto) 10.4 K/uL (1.8-7.0) H 01/25/18 07:22 Lymph # (Auto) 1.0 K/uL (1.0-4.3) 01/25/18 07:22 Edmunds # (Auto) 1.7 K/uL (0.0-0.8) H 01/25/18 07:22 Eos # (Auto) 0.1 K/uL (0.0-0.7) 01/25/18 07:22 Baso # (Auto) 0.0 K/uL (0.0-0.2) 01/25/18 07:22 Neutrophils % (Manual) 90 % (50-75) H 01/25/18 07:22 Band Neutrophils % 1 % (0-2) 01/24/18 07:48 Lymphocytes % (Manual) 7 % (20-40) L 01/25/18 07:22 Monocytes % (Manual) 3 % (0-10) 01/25/18 07:22 Eosinophils % (Manual) 1 % (0-4) 01/24/18 07:48 Metamyelocytes % 1 % (0-0) H 01/23/18 05:39 Myelocytes % 1 % (0-0) H 01/23/18 05:39 Toxic Granulation Present 01/17/18 06:21 Platelet Estimate Normal (NORMAL) 01/25/18 07:22 Large Platelets Present 01/23/18 05:39 RBC Morphology Normal 01/16/18 06:13 Polychromasia Slight 01/21/18 07:03 Hypochromasia (manual) Slight 01/25/18 07:22 Poikilocytosis (manual Slight 01/22/18 06:34 Basophilic Stippling Slight 01/19/18 06:24 Anisocytosis (manual) Slight 01/24/18 07:48 Microcytosis (manual) Slight 01/20/18 05:56 Ovalocytes Slight 01/21/18 07:03 Stomatocytes Slight 01/19/18 06:24 PT 10.6 SECONDS (9.7-12.2) 01/11/18 06:35 INR 1.0 01/11/18 06:35 APTT 30 SECONDS (21-34) 01/11/18 06:35 D-Dimer, Quantitative 526 ng/mlDDU (0-243) H 01/11/18 04:25 Puncture Site Lba 01/21/18 13:30 pCO2 75 mm/Hg (35-45) H* 01/21/18 13:30 pO2 132 mm/Hg (80-100) H 01/21/18 13:30 HCO3 43.1 mmol/L (21-28) H* 01/21/18 13:30 ABG pH 7.45 (7.35-7.45) 01/21/18 13:30 ABG Total CO2 54.4 mmol/L (22-28) H 01/21/18 13:30 ABG O2 Saturation 99.8 % (95-98) H 01/21/18 13:30 ABG Base Excess 23.2 mmol/L (-2.0-3.0) H 01/21/18 13:30 ABG Hemoglobin 10.3 g/dL (11.7-17.4) L 01/17/18 10:57 ABG Carboxyhemoglobin 1.9 % (0.5-1.5) H 01/17/18 10:57 POC ABG HHb (Measured) 1.4 % (0.0-5.0) 01/17/18 10:57 ABG Methemoglobin 0.8 % (0.0-3.0) 01/17/18 10:57 Steve Test Pos 01/21/18 13:30 ABG Potassium 2.8 mmol/L (3.6-5.2) L 01/16/18 13:37 A-a O2 Difference 2.0 mm/Hg 01/21/18 13:30 Respiratory Index 0 01/21/18 13:30 Hgb O2 Saturation 95.8 % (95.0-98.0) 01/17/18 10:57 Sodium 143.0 mmol/l (132-148) 01/16/18 13:37 Chloride 100.0 mmol/L (98-107) 01/16/18 13:37 Glucose 157 mg/dl (65-105) H 01/16/18 13:37 Lactate 0.9 mmol/L (0.7-2.1) 01/16/18 13:37 Liter Flow 3.0 01/21/18 13:30 Vent Mode Bipap 01/16/18 13:37 Mechanical Rate 20 01/13/18 05:29 FiO2 32.0 % 01/21/18 13:30 CPAP 5 01/16/18 13:37 Inspiratory BiPAP 18 01/17/18 10:57 Expiratory BiPAP 6 01/17/18 10:57 Crit Value Called To Dr pavon 01/21/18 13:30 Crit Value Called By [facility] 01/21/18 13:30 Crit Value Read Back Y 01/21/18 13:30 Blood Gas Notified Time 1338 01/21/18 13:30 Sodium 138 mmol/L (132-148) 01/25/18 07:22 Potassium 4.0 mmol/L (3.6-5.2) 01/25/18 07:22 Chloride 90 mmol/L (98-107) L 01/25/18 07:22 Carbon Dioxide 44 mmol/L (22-30) H* 01/25/18 07:22 Anion Gap 8 (10-20) L 01/25/18 07:22 BUN 22 mg/dL (7-17) H 01/25/18 07:22 Creatinine 0.7 mg/dL (0.7-1.2) 01/25/18 07:22 Est GFR ( Amer) > 60 01/25/18 07:22 Est GFR (Non-Af Amer) > 60 01/25/18 07:22 POC Glucose (mg/dL) 208 mg/dL (65-110) H 01/13/18 00:23 Random Glucose 95 mg/dL (65-105) 01/25/18 07:22 Hemoglobin A1c 5.8 % (4.2-6.5) 01/12/18 06:28 Lactic Acid 0.9 mmol/L (0.7-2.1) 01/13/18 12:00 Calcium 8.2 mg/dl (8.6-10.4) L 01/25/18 07:22 Phosphorus 2.8 mg/dL (2.5-4.5) 01/20/18 05:56 Magnesium 2.3 mg/dL (1.6-2.3) 01/20/18 05:56 Total Bilirubin 0.5 mg/dL (0.2-1.3) 01/25/18 07:22 AST 23 U/L (14-36) 01/25/18 07:22 ALT 34 U/L (9-52) 01/25/18 07:22 Alkaline Phosphatase 47 U/L (38-126) 01/25/18 07:22 Total Creatine Kinase 111 U/L (30-135) 01/11/18 17:50 CK-MB (Mass) 6.79 ng/mL (0.0-3.38) H 01/11/18 17:50 Troponin I 1.3300 ng/mL (0.00-0.120) H* 01/13/18 06:04 NT-Pro-B Natriuret Pep 2970 pg/mL (0-900) H 01/11/18 04:25 Total Protein 5.2 g/dL (6.3-8.3) L 01/25/18 07:22 Albumin 3.1 g/dL (3.5-5.0) L 01/25/18 07:22 Globulin 2.1 gm/dL (2.2-3.9) L 01/25/18 07:22 Albumin/Globulin Ratio 1.5 (1.0-2.1) 01/25/18 07:22 Triglycerides 125 mg/dL (0-149) 01/12/18 06:27 Cholesterol 171 mg/dL (0-199) 01/12/18 06:27 LDL Cholesterol Direct 96 mg/dL (0-129) 01/12/18 06:27 HDL Cholesterol 39 mg/dL (30-70) 01/12/18 06:27 Procalcitonin 0.65 NG/ML (0.19-0.49) H 01/12/18 10:27 Free T4 1.10 ng/dL (0.78-2.19) 01/12/18 06:28 TSH 3rd Generation 0.46 mIU/L (0.46-4.68) 01/12/18 06:27 Arterial Blood Potassium 2.8 mmol/L (3.6-5.2) L 01/16/18 13:37 Urine Color Yellow (YELLOW) 01/12/18 06:29 Urine Clarity Hazy (Clear) 01/12/18 06: Urine pH 5.0 (5.0-8.0) 01/12/18 06: Ur Specific [place] 1.046 (1.003-1.030) H 01/12/18 06:29 Urine Protein Negative mg/dL (NEGATIVE) 01/12/18 06: Urine Glucose (UA) 1+ mg/dL (Normal) 01/12/18 06: Urine Ketones Negative mg/dL (NEGATIVE) 01/12/18 06:29 Urine Blood Negative (NEGATIVE) 01/12/18 06:29 Urine Nitrate Negative (NEGATIVE) 01/12/18 06: Urine Bilirubin Negative (NEGATIVE) 01/12/18 06: Urine Urobilinogen Normal mg/dL (0.2-1.0) 01/12/18 06:29 Ur Leukocyte Esterase Neg Gisela/uL (Negative) 01/12/18 06: Urine WBC (Auto) 2 /hpf (0-5) 01/12/18 06: Urine RBC (Auto) 2 /hpf (0-3) 01/12/18 06:29 Ur Squamous Epith Cells 1 /hpf (0-5) 01/12/18 06:29 Amorphous Sediment Rare /ul (<OCC) H 01/12/18 06:29 Urine Bacteria Rare (<OCC) 01/12/18 06:29 Ur L.pneumophila Ag Negative (NEGATIVE) 01/12/18 10:27 Mycoplasma pneumon IgM Negative (NEGATIVE) 01/12/18 10:27 - Hospital Course Hospital Course: CC: Sudden onset SOB FULL CODE PMD: Dr. Mayen This is an 82yo F w/ a PMhx of HTN, CAD, RA, COPD (lifelong non smoker) on 2L of 24 hour home O2, CHF systolic and diastolic dysfunction from 2014, who is coming into the hospital with a 12hour history of sudden onset shortness of breath and "gas" in the epigastric region; the patient states she was at home and suddenly got short of breath sitting in her chair which did not get better which is why she came in. For the past week, she has also had a cough with white sputum, but denies fevers/chills, chest pain, N/V/D, dysuria/freq/urg or lower extremity pain/swelling at that time. She denies sick contacts, recent travel, and has never smoked. In the ED, the patient was placed on BiPap, given azithromycin and breathing treatments which helped the patients shortness of breath. She is pending CT PE protocol study, venous duplex of the lower extremities, and echo. 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 HOSPITAL COURSE: Patient diagnosed with COPD exacerbation triggered by pnuemonia. Patient also had NSTEMI. Was admitted to ICU. Slowly tapered off bipap and by end of admission only needed bipap at nighttime. Bipap arranged to be delivered at her home where she will use it daily at night (this was pulmonary request, Dr Tse). Patient will followup with her journeyman pipefitter, Dr Guajardo regarding nstemi. In house, cardio Dr lopez evaluated her. PT recommended patient go to [facility] however patient and family refused. Please see latest A/P below for more specifics. 82yo F admitted with hypercapneic respiratory failure from PNA and NSTEMI Hypercapneic respiratory failure from PNA and COPD Pulmonary consult, Dr Tse * Patient will benefit from BiPAP at home - case reviewer is working to procure home bipap - should arrive to patient home 01/26/18 Bipap set to FiO2 35% When not on bipap she's on NC 6L Afebrile, normal WBC, no bands Labs/Diagnostics: Multiple ABGs show chronic retainer of CO2 Blood culture 01/15/18 NEGATIVE up to date Urine Culture 01/12/18 NEGATIVE Sputum culture 01/11/18 NEGATIVE Legionella NEGATIVE, Mycoplasma NEGATIVE, Influenza NEGATIVE Imaging: CT chest w/ contrast 01/11/18: * No evidence of pulmonary embolism. Multifocal opacities throughout left lung, likely infectious. Rule out neoplastic. Multiple small right-sided pulmonary nodules common nonspecific. No calcified nodules are appreciated. Small nodules but 1 are 5 mm or less. 7 mm nodule right lower lobe. Follow-up with chest CT 6 -12 months. Medications: Solumedrol taper Duoneb 3ml INH RQ4 Azithromycin 500mg IVPB QD (started 01/12/18) Ceftriaxone 1g IVPB QD (started 01/12/18) Montelukast 10mg PO HS Budesonide 0.5mg INH BID NSTEMI - Likely from Demand Ischemia Cardiology consult, Dr Lopez * Cardiac cath safer option than stress test * Patient will f/u [place] her journeyman pipefitter [place] [facility] [place] history of CAD or CHF No beta maikel for now due to severe COPD Labs/Diagnostics: Troponin I: 1.67 -> 1.61 -> 2.0 -> 1.33 EKG showed RBBB and NSR ECHO 01/11/18: EF 45-50%, mild aortic stenosis, mild tricuspid regurgitation, LV systolic function is borderline Medications: Aspirin 81mg PO QD Clopidogrel 75mg PO QD Verapamil 180mg PO QD Lovenox 40mg SC QD Sepsis from pneumonia, Resolved SIRS criteria (RR > 20, HR > 90) + source of infection (Pneumonia) Afebrile, normal WBC, no bands Procalcitonin 01/12/18 0.65 (slightly elevated) Imaging: CT chest w/ contrast 01/11/18: * No evidence of pulmonary embolism. Multifocal opacities throughout left lung , likely infectious. Rule out neoplastic. Followup to clearing. Multiple small right-sided pulmonary nodules common nonspecific. No calcified nodules are appreciated. Small nodules but 1 are 5 mm or less. 7 mm nodule right lower lobe. Follow-up with chest CT 6-12 months. Medications: Azithromycin 500mg IVPB QD (started 01/12/18) Ceftriaxone 1g IVPB QD (started 01/12/18) Hx of RA Currently on hold - Leflunomide and Celebrex daily Hx of HTN BP well controlled Medications: Verapamil 180mg PO QD Elevated D-Dimer CT chest angio ruled out PE Prophylaxis Lovenox 40mg SC QD Famotidine 20mg PO QD Heart healthy diet PT eval and treat DISPOSITION: Subacute Rehab - however patient and son adamantly refuse rehab and prefer to go home where the son can provide care. Discharge Exam - Head Exam Head Exam: ATRAUMATIC, NORMOCEPHALIC - Additional Findings Additional findings: - Constitutional Appears: No Acute Distress - Head Exam Head Exam: ATRAUMATIC, NORMAL INSPECTION - Eye Exam Eye Exam: EOMI, Normal appearance - ENT Exam ENT Exam: Mucous Membranes Moist - Respiratory Exam Respiratory Exam: Decreased Breath Sounds, NORMAL BREATHING PATTERN. absent: Rales, Rhonchi, Wheezes, Respiratory Distress - Cardiovascular Exam Cardiovascular Exam: REGULAR RHYTHM, +S1, +S2 - GI/Abdominal Exam GI & Abdominal Exam: Soft, Normal Bowel Sounds. absent: Distended, Tenderness - Extremities Exam Extremities Exam: Pedal Edema (b/l). absent: Calf Tenderness, Tenderness - Neurological Exam Neurological Exam: Alert, Awake, Oriented x3 - Psychiatric Exam Psychiatric exam: Normal Affect, Normal Mood - Skin Skin Exam: Dry, Intact, Normal Color, Warm Discharge Plan - Discharge Medications Prescriptions: Aspirin [Aspirin Chewable] 81 mg PO DAILY #30 chew Clopidogrel [Plavix] 75 mg PO DAILY #30 tab Fluticasone/Salmeterol 250/50 [Advair Diskus 250/50] 1 puff IH Q12 #1 puff Methylprednisolone [Medrol Dose Pack (21 tabs)] 4 mg PO DAILY #21 mg Montelukast [Singulair] 10 mg PO HS #30 tab Rosuvastatin Calcium [Crestor] 10 mg PO HS #30 tab Tiotropium [place] Inhaler [Spiriva Inhalation Handihaler Device] 1 inhaler INH ONCE #1 inhaler Verapamil [Calan SR Tab] 180 mg PO DAILY #30 tab - Follow Up Plan Condition: FAIR Disposition: HOME/ ROUTINE Instructions: Heart Healthy Diet, Heart Failure, Adult (DC), Heart Attack (DC) , Pneumonia, Adult (DC), Exacerbation of COPD (DC) Additional Instructions: You are medically stable for discharge. You will be given scripts for the following medications. Please fill these scripts and take the medications as prescribed: 1. Aspirin 81mg take 1 tablet daily with breakfast 2. Clopidogrel (Plavix) 75mg take 1 tablet daily with dinner 3. Fluticasone/Salmeterol 250/50 (Advair) take 1 puff after waking in the morning and 1 puff before bedtime at night 4. Medrol Dose Pack 21 tablets - follow the instructions included in the box 5. Montelukast (Singulair) 10mg take 1 tablet before bedtime 6. Rosuvastatin (Crestor) 10mg take 1 tablet before bedtime 7. Tiotropium [place] Inhaler (Spiriva) take 1 puff in the morning 8. Verapamil (Calan) 180mg take 1 tablet with breakfast If you are on other home medications prescribed by your PMD, you may resume those. Our system shows you are taking xanax. You may resume this medication but please remember it causes drowiness and may cause your blood pressure to drop. Only take this medications when you absolutely must. Your Bipap will arrive tomorrow 01/26. It was advised that you stay 1 more night however you would like to go home - if you have shortness of breath tonight please return to the ER. Otherwise begin using bipap at nighttime starting tomorrow once the machine arrives. Please follow-up with your PMD, Dr Townsend, in 1 week to go over these medications and so he can monitor your course. Please follow-up with your Pulmonary, Dr Tse, in 2 weeks so he can monitor your course and review your medications. And very importantly, Please follow-up with your journeyman pipefitter, Dr Guajardo, so you can evaluate you because you had a "mini-heart attack" on this admission ( called an NSTEMI). Your journeyman pipefitter will advise you on how to best manage the health of your heart. If symptoms return, please go to your nearest emergency department. Referrals: Lyle Tse MD [Staff Provider] - Yobani Townsend DO [Doctor Osteopathy] - <Rivas Mendez - Last Filed: 01/25/18 19:18> Provider - Provider Date of Admission: 01/11/18 07:42 Attending physician: Rivas Mendez DO Hospital Course - Lab Results Lab Results: Micro Results 01/20/18 05:58 Nose MRSA Culture - Final MRSA NOT DETECTED 01/15/18 19:20 Blood-Venous Blood Culture - Final NO GROWTH AFTER 5 DAYS 01/15/18 19:20 Blood-Venous Gram Stain - Final TEST NOT PERFORMED 01/15/18 19:00 Blood-Venous Blood Culture - Final NO GROWTH AFTER 5 DAYS 01/15/18 19:00 Blood-Venous Gram Stain - Final TEST NOT PERFORMED 01/11/18 04:44 Blood S.aureus & Coag-Neg Staph PNA FISH - Final 01/11/18 04:44 Blood Blood Culture - Final Coagulase Neg Staphylococcus 01/11/18 04:44 Blood Gram Stain - Final 01/11/18 04:44 Blood Blood Culture - Final NO GROWTH AFTER 5 DAYS 01/11/18 04:44 Blood Gram Stain - Final TEST NOT PERFORMED 01/11/18 Unknown Sputum Induced Gram Stain - Final 01/11/18 Unknown Sputum Induced Sputum Culture - Final NORMAL ORAL RIGO 01/12/18 06:29 Urine Urine Culture - Final No Growth (<1,000 CFU/ML) 01/11/18 10:24 Naris MRSA Culture (Admit) - Final MRSA NOT DETECTED Most Recent Lab Values WBC 13.2 K/uL (4.8-10.8) H 01/25/18 07:22 RBC 3.00 Mil/uL (3.80-5.20) L 01/25/18 07:22 Hgb 8.6 g/dL (11.0-16.0) L 01/25/18 07:22 Hct 27.1 % (34.0-47.0) L 01/25/18 07:22 MCV 90.4 fL (81.0-99.0) 01/25/18 07:22 MCH 28.8 pg (27.0-31.0) 01/25/18 07:22 MCHC 31.9 g/dL (33.0-37.0) L 01/25/18 07:22 RDW 13.9 % (11.5-14.5) 01/25/18 07:22 Plt Count 146 K/uL (130-400) 01/25/18 07:22 MPV 9.4 fL (7.2-11.7) 01/25/18 07:22 Neut % (Auto) 78.6 % (50.0-75.0) H 01/25/18 07:22 Lymph % (Auto) 7.8 % (20.0-40.0) L 01/25/18 07:22 Edmunds % (Auto) 13.0 % (0.0-10.0) H 01/25/18 07:22 Eos % (Auto) 0.5 % (0.0-4.0) 01/25/18 07:22 Baso % (Auto) 0.1 % (0.0-2.0) 01/25/18 07:22 Neut # (Auto) 10.4 K/uL (1.8-7.0) H 01/25/18 07:22 Lymph # (Auto) 1.0 K/uL (1.0-4.3) 01/25/18 07:22 Edmunds # (Auto) 1.7 K/uL (0.0-0.8) H 01/25/18 07:22 Eos # (Auto) 0.1 K/uL (0.0-0.7) 01/25/18 07:22 Baso # (Auto) 0.0 K/uL (0.0-0.2) 01/25/18 07:22 Neutrophils % (Manual) 90 % (50-75) H 01/25/18 07:22 Band Neutrophils % 1 % (0-2) 01/24/18 07:48 Lymphocytes % (Manual) 7 % (20-40) L 01/25/18 07:22 Monocytes % (Manual) 3 % (0-10) 01/25/18 07:22 Eosinophils % (Manual) 1 % (0-4) 01/24/18 07:48 Metamyelocytes % 1 % (0-0) H 01/23/18 05:39 Myelocytes % 1 % (0-0) H 01/23/18 05:39 Toxic Granulation Present 01/17/18 06:21 Platelet Estimate Normal (NORMAL) 01/25/18 07:22 Large Platelets Present 01/23/18 05:39 RBC Morphology Normal 01/16/18 06:13 Polychromasia Slight 01/21/18 07:03 Hypochromasia (manual) Slight 01/25/18 07:22 Poikilocytosis (manual Slight 01/22/18 06:34 Basophilic Stippling Slight 01/19/18 06:24 Anisocytosis (manual) Slight 01/24/18 07:48 Microcytosis (manual) Slight 01/20/18 05:56 Ovalocytes Slight 01/21/18 07:03 Stomatocytes Slight 01/19/18 06:24 PT 10.6 SECONDS (9.7-12.2) 01/11/18 06:35 INR 1.0 01/11/18 06:35 APTT 30 SECONDS (21-34) 01/11/18 06:35 D-Dimer, Quantitative 526 ng/mlDDU (0-243) H 01/11/18 04:25 Puncture Site Lba 01/21/18 13:30 pCO2 75 mm/Hg (35-45) H* 01/21/18 13:30 pO2 132 mm/Hg (80-100) H 01/21/18 13:30 HCO3 43.1 mmol/L (21-28) H* 01/21/18 13:30 ABG pH 7.45 (7.35-7.45) 01/21/18 13:30 ABG Total CO2 54.4 mmol/L (22-28) H 01/21/18 13:30 ABG O2 Saturation 99.8 % (95-98) H 01/21/18 13:30 ABG Base Excess 23.2 mmol/L (-2.0-3.0) H 01/21/18 13:30 ABG Hemoglobin 10.3 g/dL (11.7-17.4) L 01/17/18 10:57 ABG Carboxyhemoglobin 1.9 % (0.5-1.5) H 01/17/18 10:57 POC ABG HHb (Measured) 1.4 % (0.0-5.0) 01/17/18 10:57 ABG Methemoglobin 0.8 % (0.0-3.0) 01/17/18 10:57 Steve Test Pos 01/21/18 13:30 ABG Potassium 2.8 mmol/L (3.6-5.2) L 01/16/18 13:37 A-a O2 Difference 2.0 mm/Hg 01/21/18 13:30 Respiratory Index 0 01/21/18 13:30 Hgb O2 Saturation 95.8 % (95.0-98.0) 01/17/18 10:57 Sodium 143.0 mmol/l (132-148) 01/16/18 13:37 Chloride 100.0 mmol/L (98-107) 01/16/18 13:37 Glucose 157 mg/dl (65-105) H 01/16/18 13:37 Lactate 0.9 mmol/L (0.7-2.1) 01/16/18 13:37 Liter Flow 3.0 01/21/18 13:30 Vent Mode Bipap 01/16/18 13:37 Mechanical Rate 20 01/13/18 05:29 FiO2 32.0 % 01/21/18 13:30 CPAP 5 01/16/18 13:37 Inspiratory BiPAP 18 01/17/18 10:57 Expiratory BiPAP 6 01/17/18 10:57 Crit Value Called To Dr pavon 01/21/18 13:30 Crit Value Called By [facility] 01/21/18 13:30 Crit Value Read Back Y 01/21/18 13:30 Blood Gas Notified Time 1338 01/21/18 13:30 Sodium 138 mmol/L (132-148) 01/25/18 07:22 Potassium 4.0 mmol/L (3.6-5.2) 01/25/18 07:22 Chloride 90 mmol/L (98-107) L 01/25/18 07:22 Carbon Dioxide 44 mmol/L (22-30) H* 01/25/18 07:22 Anion Gap 8 (10-20) L 01/25/18 07:22 BUN 22 mg/dL (7-17) H 01/25/18 07:22 Creatinine 0.7 mg/dL (0.7-1.2) 01/25/18 07:22 Est GFR ( Amer) > 60 01/25/18 07:22 Est GFR (Non-Af Amer) > 60 01/25/18 07:22 POC Glucose (mg/dL) 208 mg/dL (65-110) H 01/13/18 00:23 Random Glucose 95 mg/dL (65-105) 01/25/18 07:22 Hemoglobin A1c 5.8 % (4.2-6.5) 01/12/18 06:28 Lactic Acid 0.9 mmol/L (0.7-2.1) 01/13/18 12:00 Calcium 8.2 mg/dl (8.6-10.4) L 01/25/18 07:22 Phosphorus 2.8 mg/dL (2.5-4.5) 01/20/18 05:56 Magnesium 2.3 mg/dL (1.6-2.3) 01/20/18 05:56 Total Bilirubin 0.5 mg/dL (0.2-1.3) 01/25/18 07:22 AST 23 U/L (14-36) 01/25/18 07:22 ALT 34 U/L (9-52) 01/25/18 07:22 Alkaline Phosphatase 47 U/L (38-126) 01/25/18 07:22 Total Creatine Kinase 111 U/L (30-135) 01/11/18 17:50 CK-MB (Mass) 6.79 ng/mL (0.0-3.38) H 01/11/18 17:50 Troponin I 1.3300 ng/mL (0.00-0.120) H* 01/13/18 06:04 NT-Pro-B Natriuret Pep 2970 pg/mL (0-900) H 01/11/18 04:25 Total Protein 5.2 g/dL (6.3-8.3) L 01/25/18 07:22 Albumin 3.1 g/dL (3.5-5.0) L 01/25/18 07:22 Globulin 2.1 gm/dL (2.2-3.9) L 01/25/18 07:22 Albumin/Globulin Ratio 1.5 (1.0-2.1) 01/25/18 07:22 Triglycerides 125 mg/dL (0-149) 01/12/18 06:27 Cholesterol 171 mg/dL (0-199) 01/12/18 06: LDL Cholesterol Direct 96 mg/dL (0-129) 01/12/18 06: HDL Cholesterol 39 mg/dL (30-70) 01/12/18 06: Procalcitonin 0.65 NG/ML (0.19-0.49) H 01/12/18 10:27 Free T4 1.10 ng/dL (0.78-2.19) 01/12/18 06:28 TSH 3rd Generation 0.46 mIU/L (0.46-4.68) 01/12/18 06: Arterial Blood Potassium 2.8 mmol/L (3.6-5.2) L 01/16/18 13:37 Urine Color Yellow (YELLOW) 01/12/18 06: Urine Clarity Hazy (Clear) 01/12/18 06: Urine pH 5.0 (5.0-8.0) 01/12/18 06: Ur Specific [place] 1.046 (1.003-1.030) H 01/12/18 06: Urine Protein Negative mg/dL (NEGATIVE) 01/12/18 06: Urine Glucose (UA) 1+ mg/dL (Normal) 01/12/18 06: Urine Ketones Negative mg/dL (NEGATIVE) 01/12/18: Urine Blood Negative (NEGATIVE) 01/12/18 06: Urine Nitrate Negative (NEGATIVE) 01/12/18 06: Urine Bilirubin Negative (NEGATIVE) 01/12/18 06: Urine Urobilinogen Normal mg/dL (0.2-1.0) 01/12/18 06: Ur Leukocyte Esterase Neg Gisela/uL (Negative) 01/12/18 06: Urine WBC (Auto) 2 /hpf (0-5) 01/12/18 06: Urine RBC (Auto) 2 /hpf (0-3) 01/12/18 06: Ur Squamous Epith Cells 1 /hpf (0-5) 01/12/18 06:29 Amorphous Sediment Rare /ul (<OCC) H 01/12/18 06:29 Urine Bacteria Rare (<OCC) 01/12/18 06:29 Ur L.pneumophila Ag Negative (NEGATIVE) 01/12/18 10:27 Mycoplasma pneumon IgM Negative (NEGATIVE) 01/12/18 10:27 Attending/Attestation - Attestation I have personally seen and examined this patient.: Yes I have fully participated in the care of the patient.: Yes I have reviewed all pertinent clinical information, including history, physical exam and plan: Yes Notes (Text): 01/25/18 19:12 Medical attending: Patient was seen and examined by me. Agree with the above note by the resident The patient has been here for sometime now. She was recommended to go to [facility] however she does not want to and wishes to go home. Because of her need for the Bipap she was kept in the hospital until we could get confirmation that the Bipap would be comming to her home. She DID NOT want to stay until tommorow when the Bipap we were told would be arriving at her house. 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 This past week she has been doing well when using a nasal cannula during the day and Bipap only at night. She already has home oxygen She is being sent home with RX for her COPD Rivas Mendez
== END 2018-01-25 19:26 | disposition home or self-care (01) | DRG 871 ==
LOC: C.ER 03:57 → C.9I 07:42 → C.6T 01-20 05:45
PROVIDERS: ADMIT Hospitalist; ATTEND Hospitalist
PROC: 5A09557 Assistance with Respiratory Ventilation, Greater than 96 Consecutive Hours, Continuous Positive Airway Pressure (ICD-10-PCS; principal; 2018-01-11)
DX: A41.9 Sepsis, unspecified organism (principal); J96.22 Acute and chronic respiratory failure with hypercapnia; J18.9 Pneumonia, unspecified organism; I21.A1 Myocardial infarction type 2; J44.1 Chronic obstructive pulmonary disease with (acute) exacerbation; J44.0 Chronic obstructive pulmonary disease with (acute) lower respiratory infection; I50.42 Chronic combined systolic (congestive) and diastolic (congestive) heart failure; I47.1 Supraventricular tachycardia; I11.0 Hypertensive heart disease with heart failure; E87.2 Acidosis; I45.10 Unspecified right bundle-branch block; I25.10 Atherosclerotic heart disease of native coronary artery without angina pectoris; E87.5 Hyperkalemia; E78.5 Hyperlipidemia, unspecified; M06.9 Rheumatoid arthritis, unspecified; K21.9 Gastro-esophageal reflux disease without esophagitis; F41.9 Anxiety disorder, unspecified; K59.00 Constipation, unspecified; Z77.22 Contact with and (suspected) exposure to environmental tobacco smoke (acute) (chronic); Z95.5 Presence of coronary angioplasty implant and graft; Z99.81 Dependence on supplemental oxygen; Z85.3 Personal history of malignant neoplasm of breast; Z79.899 Other long term (current) drug therapy; Z90.49 Acquired absence of other specified parts of digestive tract; Z87.891 Personal history of nicotine dependence

== ENCOUNTER 2018-03-19 06:21 | Day surgery (SDC) | payer MEDICARE ==
[2018-03-19 06:56] LABS: BASO # 0.1 K/uL (0.0-0.2); BASO % 0.7 % (0.0-2.0); EOS # 0.2 K/uL (0.0-0.7); EOS % 2.5 % (0.0-4.0); HEMOGLOBIN 10.3 g/dL (11.0-16.0); LYMPH # 1.3 K/uL (1.0-4.3); MEAN CELL VOLUME 88.8 fL (81.0-99.0); MEAN CORPUSCULAR HEMOGLOBIN 29.3 pg (27.0-31.0); MEAN CORPUSCULAR HGB CONC 32.9 g/dL (33.0-37.0); MEAN PLATELET VOLUME 8.1 fL (7.2-11.7); MONO # 0.9 K/uL (0.0-0.8); MONO % 12.7 % (0.0-10.0); NEUT # 4.9 K/uL (1.8-7.0); NEUT % 67.1 % (50.0-75.0); RBC 3.53 Mil/uL (3.80-5.20); RED CELL DISTRIBUTION WIDTH 14.7 % (11.5-14.5); WHITE BLOOD COUNT 7.4 K/uL (4.8-10.8)
[2018-03-19 07:04] LABS: INR 1.1; PROTHROMBIN TIME 11.7 SECONDS (9.7-12.2)
[2018-03-19 07:31] LABS: BLOOD UREA NITROGEN 17 mg/dL (7-17); CALCIUM 9.7 mg/dl (8.6-10.4); GFR AFRICAN-AMERICAN > 60; GFR NON-AFRICAN AMERICAN > 60
[2018-03-19] MEDS ORDERED: Lidocaine 2% MPF (5 ml) Inj ONE (07:47)
[2018-03-19] MEDS ORDERED: Midazolam 2 MG/2 ML VIAL ONE (07:53)
[2018-03-19] MEDS ORDERED: Verapamil 2 ML ONE (07:57)
--- NOTE | 2018-03-19 19:32 | CARDCATH ---
Copied To: Feliz Guajardo MD Attending MD: Feliz Guajardo MD PROCEDURE DATE: 03/19/2018 PROCEDURE: Cardiac catheterization, left heart catheterization. DESCRIPTION OF PROCEDURE: After obtaining informed consent, the patient was brought to the cardiac catheterization laboratory. The patient was prepped and draped in usual sterile manner. The patient had 1% lidocaine used for local anesthesia. Versed and Fentanyl were used for moderate sedation. Using modified Seldinger technique, the right radial artery was accessed and a 5-Finnish Terumo sheath was inserted into it. The sheath was flushed with heparinized saline. Using fluoroscopic guidance and over the guidewire, a 5-Finnish Terumo [place] catheter was inserted and advanced across the arm into the ascending aorta. The catheter was flushed with heparinized saline. The catheter was advanced towards the left coronary system. Selective angiography was performed in multiple views. Then, the catheter was advanced to the right coronary system. Selective angiography was performed in multiple views. The patient was heparinized with heparin 5000 units. Then, the catheter was advanced across the aortic valve into the left ventricle. The catheter was flushed with heparinized saline and the pressure tracing was recorded with end diastolic pressure. Then, the catheter was withdrawn across the aortic valve with continuous pressure monitoring. The catheter was removed from the sheath. Terumo TR band was applied and with 12 mmHg of air and sheath was safely removed with patent hemostasis. ANGIOGRAPHIC RESULTS: 1. Left main coronary artery. The left main coronary artery was free of disease. 2. Left anterior descending artery. The left anterior descending artery is a big vessel, going across anterior interventricular groove and giving rise to multiple diagonal branches. Mid LAD has an 80% lesion, complex and bifurcation with a large diagonal 1 branch. 3. Left circumflex artery. The left circumflex artery is a large vessel, giving rise to several obtuse marginal branches. Left circumflex obtuse marginal 1 branch has a 99% mid vessel lesion. 4. RCA. The right coronary artery is a codominant artery, giving rise to RPDA and RPLA branches. The proximal portion of the RCA has a 60% lesion with diffusely diseased 30% distal portion of the RCA. HEMODYNAMIC DATA: The aortic opening pressure was 115/76 mmHg. The end-diastolic pressure was recorded as 30 mmHg. There was no significant gradient across the aortic valve during pullback. CONCLUSIONS: 1. Double vessel coronary artery disease. 2. Severe mid OM1 lesion requiring immediate percutaneous coronary revascularization. 3. Markedly elevated end-diastolic pressure. 4. No LV gram was performed due to markedly elevated EDP. RECOMMENDATIONS: Revascularization of the obtuse marginal 1 branch. Feliz Guajardo MD
== END 2018-03-19 12:05 | disposition short-term general hospital (02) ==
LOC: C.CATHLAB 06:21
PROVIDERS: ATTEND Internal Medicine Cardiovascular Disease
DX: I21.4 Non-ST elevation (NSTEMI) myocardial infarction (principal); I25.10 Atherosclerotic heart disease of native coronary artery without angina pectoris; I10 Essential (primary) hypertension; J44.9 Chronic obstructive pulmonary disease, unspecified
CPT/HCPCS: 36415; 80048; 85025; 85610; 85730; 93458; 99152; 99153; C1769; C1887; J1644; J2250; J3010; Q9967

== ENCOUNTER 2018-08-09 14:30 | Inpatient (IN) | payer MEDICARE ==
[2018-08-09] MEDS ORDERED: Albuterol-Ipratrop 3 mg / 0.5 (3 ml) UD ONE ×4 (15:07→23:58)
[2018-08-09 15:47] LABS: BASO # 0.1 K/uL (0.0-0.2); BASO % 0.2 % (0.0-2.0); HEMOGLOBIN 11.3 g/dL (11.0-16.0); LYMPH # 0.6 K/uL (1.0-4.3); LYMPH % 1.9 % (20.0-40.0); MEAN CORPUSCULAR HEMOGLOBIN 28.6 pg (27.0-31.0); MEAN CORPUSCULAR HGB CONC 31.4 g/dL (33.0-37.0); MEAN PLATELET VOLUME 8.1 fL (7.2-11.7); MONO % 6.8 % (0.0-10.0); NEUT % 91.1 % (50.0-75.0); PLATELET COUNT 340 K/uL (130-400); RBC 3.94 Mil/uL (3.80-5.20); RED CELL DISTRIBUTION WIDTH 13.6 % (11.5-14.5)
[2018-08-09 15:53] LABS: MEAN CELL VOLUME 91.3 fL (81.0-99.0); WHITE BLOOD COUNT 28.6 K/uL (4.8-10.8)
--- NOTE | 2018-08-09 16:20 | RAD ---
HISTORY: SOB COMPARISON: Chest x-ray performed 01/18/18 TECHNIQUE: Chest, one view. FINDINGS: LUNGS: Hyperinflation may be seen in the setting of COPD. Increased lucencies especially within the bilateral upper lung reyes compatible with underlying emphysema. Biapical pleural thickening and associated granulomatous changes. Patchy opacities at the left lung base, possibly atelectasis or pneumonia. Please note that chest x-ray has limited sensitivity for the detection of pulmonary masses. PLEURA: No significant pleural effusion identified. No definite pneumothorax . CARDIOVASCULAR: Cardiomegaly. Atherosclerotic calcifications. OSSEOUS STRUCTURES: Osseous demineralization. Degenerative changes. VISUALIZED UPPER ABDOMEN: Unremarkable. OTHER FINDINGS: None. IMPRESSION: COPD/emphysema. Patchy opacities at the left lung base, possibly atelectasis or pneumonia. Cardiomegaly.
--- NOTE | 2018-08-09 16:24 | C.PDOC ---
History Of Present Illness 83 year old female with a history of COPD presents to the emergency department with complaints of productive cough with white phlegm, and green nasal discharge. As per patient's family member present at bedside, patient is O2 dependant, and recently had her dose increased to 4L due to shortness of breath. Patient's PMD is Dr. Joanna Mayen. Time Seen by Provider: 08/09/18 14:56 Chief Complaint (Nursing): Shortness Of Breath History Per: Patient, Family History/Exam Limitations: no limitations Onset/Duration Of Symptoms: Days Current Symptoms Are (Timing): Still Present Associated Symptoms: Productive Cough, Other (shortness of breath). denies: Fever Past Medical History Reviewed: Historical Data, Nursing Documentation, Vital Signs Vital Signs: Last Vital Signs Temp 98.9 F 08/09/18 14:39 Pulse 98 H 08/09/18 14:39 Resp 24 08/09/18 14:55 BP 146/74 08/09/18 14:39 Pulse Ox 98 08/09/18 14:39 - Medical History PMH: Anxiety, Arthritis, CHF, COPD (ON OXYGEN [place] 2L ), Gall Bladder Disease, HTN, Hypercholesterolemia, Pneumonia (JANUARY 2018), Rheumatoid Arthritis Denies: Chronic Kidney Disease Surgical History: Cholecystectomy - [facility] Procedures ASSISTANCE WITH RESPIRATORY VENTILATION, 24-96 HRS, CPAP (07/23/15) ASSISTANCE WITH RESPIRATORY VENTILATION, >96 HRS, CPAP (01/11/18) Family History: States: No Known Family Hx - Social History Hx Tobacco Use: Yes (2 years when teenager) Hx Alcohol Use: Yes (social) Hx Substance Use: No - Immunization History Hx Tetanus Toxoid Vaccination: No Hx Influenza Vaccination: No Hx Pneumococcal Vaccination: No Review Of Systems Constitutional: Negative for: Fever, Chills ENT: Positive for: Nose Discharge (green) Respiratory: Positive for: Cough, Shortness of Breath, Sputum Physical Exam - Physical Exam Appears: Non-toxic, No Acute Distress Skin: Normal Color, Warm, Dry Head: Atraumatic, Normacephalic Eye(s): bilateral: Normal Inspection, PERRL, EOMI Oral Mucosa: Dry, Other (pink) Throat: Normal, No Erythema Neck: Normal, Supple Chest: Symmetrical, No Tenderness Cardiovascular: Rhythm Regular, No Murmur Respiratory: Decreased Breath Sounds (bilaterally) Gastrointestinal/Abdominal: Normal Exam, Soft, No Tenderness Neurological/Psych: Oriented x3, Normal Speech, Normal Cognition ED Course And Treatment - Laboratory Results Result Diagrams: 08/14/18 07:17 08/14/18 07:17 O2 Sat by Pulse Oximetry: 98 (RA) Pulse Ox Interpretation: Normal Medical Decision Making Medical Decision Making: Plan: EKG Chemistry CBC CXR Duoneb 3ml IH Solu-Medrol 125mg IVP Nebulizer Treatment Patient's CO2 was found to be 44, which is baseline. CXR should pneumonia. Patient was on antibiotics but only took 3. 17:10 Dr. Mendez hospitalist accepted the patient for admission. Disposition - Disposition Disposition: HOSPITALIZED Disposition Time: 17:10 Condition: STABLE - Clinical Impression Clinical Impression: Pneumonia - Scribe Statement The provider has reviewed the documentation as recorded by the Scribe (Faheem Dunn i) Provider Attestation: All medical record entries made by the Scribe were at my direction and personally dictated by me. I have reviewed the chart and agree that the record a ccurately reflects my personal performance of the history, physical exam, medical decision making, and the department course for this patient. I have also personally directed, reviewed, and agree with the discharge instructions and disposition.
[2018-08-09] MEDS: Albuterol-Ipratrop 3 mg / 0.5 (3 ml) UD IH SCH (16:25)
[2018-08-09 16:39] LABS: BANDS 5 % (0-2); NEUTROPHIL 87 % (50-75); TOTAL CELLS COUNTED 100
[2018-08-09 16:40] LABS: LYMPHOCYTE 1 % (20-40); MONOCYTE 7 % (0-10); PLATELET ESTIMATE NORMAL (NORMAL)
[2018-08-09 16:41] LABS: ANISOCYTOSIS SLIGHT; HYPOCHROMIC SLIGHT; POIKILOCYTOSIS SLIGHT
[2018-08-09 16:54] LABS: B-TYPE NATRIURETIC PEPTIDE 1850 pg/mL (0-900)
[2018-08-09 17:03] LABS: ALB/GLOB RATIO 1.2 (1.0-2.1); ALBUMIN 4.6 g/dL (3.5-5.0); ALT/SGPT 17 U/L (9-52); AST/SGOT 24 U/L (14-36); BLOOD UREA NITROGEN 23 mg/dL (7-17); CALCIUM 8.9 mg/dl (8.6-10.4); GFR NON-AFRICAN AMERICAN > 60
[2018-08-09] MEDS ORDERED: Azithromycin 500 MG in Sodium Chloride 0.9% 250 ML IVPB STA (17:10)
[2018-08-09 17:28] LABS: VENOUS BLOOD GAS BASE EXCESS 18.8 mmol/L (0.0-2.0); VENOUS BLOOD GAS PCO2 92 mmHg (40-60); VENOUS BLOOD GAS PO2 24 mm/Hg (30-55); VENOUS BLOOD PH 7.34 (7.32-7.43)
[2018-08-09 18:07] LABS: ARTERIAL BLOOD GAS O2 SAT 96.9 % (95-98); ARTERIAL BLOOD GAS PCO2 73 mm/Hg (35-45); ARTERIAL BLOOD GAS PH 7.39 (7.35-7.45); ARTERIAL BLOOD GAS PO2 93 mm/Hg (80-100); ARTERIAL BLOOD GAS TCO2 46.4 mmol/L (22-28)
--- NOTE | 2018-08-09 19:13 | CP.PCM.HP ---
<Oc Mota - Last Filed: 08/09/18 19:47> History of Present Illness - History of Present Illness History of Present Illness: This patient is a 83 year old female with a PMHx of HTN, CAD s/p 3 stents, Rheumatoid Arthritis, COPD (on 2L) and CHF (Systolic/Diastolic) who presented to the ED w/ her son with complaints of worsening shortness of breath that started around [place] time. Patient stated that her symptoms began with a "head cold" and progressed to a productive cough w/ clear sputum and difficulty breathing. Her son states that when he had to turn her oxygen up to 4 L for her to gain relief, it prompted him to finally come to the emergency room. ROS: POSITIVES: Shortness of Breath, Productive Cough, Dyspnea on Exertion NEGATIVES: Fever, Chills, Headache, Dizziness, Loss of Appetite, Sick Contacts, chest pain, Palpitations, change in bowel habits, urinary symptoms. PMHx: HTN, CAD s/p 3 stents, Rheumatoid Arthritis, COPD (on 2L) and CHF (Systolic/Diastolic), NSTEMI PSHx: Stent placement, Cholecystectomy, Allergies: NKDA SocialHx: Denies tobacco, EtoH or illicit drug use. Hx of 2nd hand smoking. Hos: 03/20 for Pneumonia, COPD Exacerbation, NSTEMI FamHx: Tobacco Abuse Meds: Per OCT. PMD: Dr. Tiarra Adams: Dr. Tse. Present on Admission - Present on Admission Any Indicators Present on Admission: No Review of Systems - Review of Systems Review of Systems: As per HPI Past Patient History - Infectious Disease Hx of Infectious Diseases: None - Past Medical History & Family History Past Medical History?: Yes - Past Social History Smoking Status: Former Smoker - CARDIAC Hx Congestive Heart Failure: Yes Hx Hypercholesterolemia: Yes Hx Hypertension: Yes - PULMONARY Hx Chronic Obstructive Pulmonary Disease (COPD): Yes (ON OXYGEN [place] 2L ) Hx Pneumonia: Yes (JANUARY 2018) - NEUROLOGICAL Hx Neurological Disorder: No - HEENT Hx HEENT Problems: Yes Hx Cataracts: Yes (BILAT.) Other/Comment: KNIK RT EAR - RENAL Hx Chronic Kidney Disease: No - ENDOCRINE/METABOLIC Hx Endocrine Disorders: No - HEMATOLOGICAL/ONCOLOGICAL Hx Blood Disorders: No - INTEGUMENTARY Hx Dermatological Problems: No - MUSCULOSKELETAL/RHEUMATOLOGICAL Hx Arthritis: Yes Hx Rheumatoid Arthritis: Yes - GASTROINTESTINAL Hx Gall Bladder Disease: Yes - GENITOURINARY/GYNECOLOGICAL Hx Genitourinary Disorders: No - PSYCHIATRIC Hx Anxiety: Yes Hx Substance Use: No - SURGICAL HISTORY Hx Cholecystectomy: Yes - ANESTHESIA Hx Anesthesia: Yes Hx Anesthesia Reactions: No Hx Malignant Hyperthermia: No Meds Allergies/Adverse Reactions: Allergies Allergy/AdvReac Type Severity Reaction Status Date / Time No Known Allergies Allergy Verified 08/09/18 14:47 Physical Exam - Constitutional Appears: Non-toxic, No Acute Distress - Head Exam Head Exam: ATRAUMATIC, NORMAL INSPECTION, NORMOCEPHALIC - Eye Exam Eye Exam: EOMI, Normal appearance - ENT Exam ENT Exam: Mucous Membranes Dry Additional comments: B/L Hearing Deficit R>L - Neck Exam Neck exam: Positive for: Lymphadenopathy (Anterior Cervical) - Respiratory Exam Respiratory Exam: Accessory Muscle Use, Decreased Breath Sounds. absent: Rales, Rhonchi, Wheezes - Cardiovascular Exam Cardiovascular Exam: +S1, +S2 Additional comments: Decreased Heart Sounds. - GI/Abdominal Exam GI & Abdominal Exam: Normal Bowel Sounds, Soft. absent: Tenderness - Extremities Exam Extremities exam: Positive for: pedal edema (+1) - Neurological Exam Neurological exam: Alert, Altered, Oriented x3 - Psychiatric Exam Psychiatric exam: Normal Affect, Normal Mood - Skin Skin Exam: Dry, Intact, Normal Color, Warm Results - Vital Signs Recent Vital Signs: Last Vital Signs Temp 98.9 F 08/09/18 14:39 Pulse 107 H 08/09/18 16:49 Resp 27 H 08/09/18 18:31 BP 136/62 08/09/18 16:49 Pulse Ox 98 08/09/18 18:43 - Labs Result Diagrams: 08/09/18 15:43 08/09/18 15:43 Labs: Laboratory Results - last 24 hr 08/09/18 08/09/18 08/09/18 15:43 15:43 17:23 WBC 28.6 H D RBC 3.94 Hgb 11.3 Hct 35.9 MCV 91.3 D MCH 28.6 MCHC 31.4 L RDW 13.6 Plt Count 340 MPV 8.1 Neut % (Auto) 91.1 H Lymph % (Auto) 1.9 L [place] % (Auto) 6.8 Eos % (Auto) 0.0 Baso % (Auto) 0.2 Neut # (Auto) 26.0 H Lymph # (Auto) 0.6 L [place] # (Auto) 2.0 H Eos # (Auto) 0.0 Baso # (Auto) 0.1 Neutrophils % (Manual) 87 H Band Neutrophils % 5 H Lymphocytes % (Manual) 1 L Monocytes % (Manual) 7 Platelet Estimate Normal Hypochromasia (manual) Slight Poikilocytosis (manual Slight Anisocytosis (manual) Slight Puncture Site pCO2 pO2 24 L HCO3 ABG pH ABG Total CO2 ABG O2 Saturation ABG Base Excess Steve Test ABG Potassium VBG pH 7.34 VBG pCO2 92 H* VBG HCO3 38.0 VBG Total CO2 52.4 H VBG O2 Sat (Calc) 39.3 L VBG Base Excess 18.8 H VBG Potassium 3.8 A-a O2 Difference Respiratory Index Glucose 169 H Lactate 2.0 Liter Flow FiO2 Crit Value Called To Rn Crit Value Called By Rogelio sutton Crit Value Read Back Y Blood Gas Notified Time 1727 Sodium 138 140.0 Potassium 4.0 Chloride 86 L 94.0 L Carbon Dioxide 44 H* Anion Gap 12 BUN 23 H Creatinine 0.8 Est GFR ( Amer) > 60 Est GFR (Non-Af Amer) > 60 Random Glucose 155 H Calcium 8.9 Magnesium 2.1 Total Bilirubin 0.6 AST 24 ALT 17 Alkaline Phosphatase 93 Troponin I 0.0340 NT-Pro-B Natriuret Pep 1850 H Total Protein 8.5 H Albumin 4.6 Globulin 3.9 Albumin/Globulin Ratio 1.2 Arterial Blood Potassium Venous Blood Potassium 3.8 08/09/18 18:03 WBC RBC Hgb Hct MCV MCH MCHC RDW Plt Count MPV Neut % (Auto) Lymph % (Auto) [place] % (Auto) Eos % (Auto) Baso % (Auto) Neut # (Auto) Lymph # (Auto) [place] # (Auto) Eos # (Auto) Baso # (Auto) Neutrophils % (Manual) Band Neutrophils % Lymphocytes % (Manual) Monocytes % (Manual) Platelet Estimate Hypochromasia (manual) Poikilocytosis (manual Anisocytosis (manual) Puncture Site Lb pCO2 73 H* pO2 93 HCO3 37.0 H ABG pH 7.39 ABG Total CO2 46.4 H ABG O2 Saturation 96.9 ABG Base Excess 15.5 H Steve Test Na ABG Potassium 3.4 L VBG pH VBG pCO2 VBG HCO3 VBG Total CO2 VBG O2 Sat (Calc) VBG Base Excess VBG Potassium A-a O2 Difference 72.0 Respiratory Index 0.8 Glucose 177 H Lactate 2.0 Liter Flow 4.0 FiO2 36.0 Crit Value Called To Er physician Crit Value Called By Rogelio sutton Crit Value Read Back Y Blood Gas Notified Time 1806 Sodium 139.0 Potassium Chloride 95.0 L Carbon Dioxide Anion Gap BUN Creatinine Est GFR ( Amer) Est GFR (Non-Af Amer) Random Glucose Calcium Magnesium Total Bilirubin AST ALT Alkaline Phosphatase Troponin I NT-Pro-B Natriuret Pep Total Protein Albumin Globulin Albumin/Globulin Ratio Arterial Blood Potassium 3.4 L Venous Blood Potassium Assessment & Plan - Assessment and Plan (Free Text) Assessment: 83 year old female with a PMHx of HTN, CAD s/p 3 stents, Rheumatoid Arthritis, COPD (on 2L) and CHF (Systolic/Diastolic) presented with Shortness of Breath. Admitted for evaluation and treatment of Pneumonia. Plan: Pneumonia/COPD Exacerbation CXR (Admission): COPD/emphysema;Patchy opacities at the left lung base, possibly atelectasis or pneumonia. Cardiomegaly. CT Chest W/O Contrast (Admission): Ordered and PENDING results Patient is on Immunosuppresive which could have contributed to PNA. Blood Cultures - PENDING | Sputum Cultures - PENDING Pulm Consult (Dr. Tse), F/U Recs ABG (Admission): 7.39/73/93/37 Mgmt: ED: Azithromycin/Solumedrol 125/Rocephin DuoNebs Q4H Azithromycin 500mg IVPB Daily Rocephin 1gram IVPB Daily BreoEllipta 1puff INH daily Solu-Medrol 40 Q12H Home Singulair 10mg po HS CHF (Systolic/Diastolic) BNP - 1850 on Admission ECHO 01/2018: EF 45-50%, Diastolic Dysfunction, Mild , mild TR, Borderline Pulm HTN, Mgmt: Home Chlorthalidone 25mg PO Daily Bisoprolol 10mg PO Daily HTN & Hx of CAD w/ Stent Placement. Patient Denies Hx of HTN Mgmt: Home ASA 81 Daily Home Rosuvastatin 10 PO HS Home Brilinta 90mg PO Q12H Rheumotoid Arthritis (Chronic) Mgmt: Home Celebrex PRN Home Leflunomide 20mg PO Daily Anxiety Mgmt: Xanax 0.25 PRN Daily Proph Lovenox Heart Healthy Diet Patient seen and examined with Attending (Dr. Mendez) Oc Mota, PGY-2 <Rivas Mendez H - Last Filed: 08/10/18 07:52> Results - Vital Signs Recent Vital Signs: Last Vital Signs Temp 98.3 F 08/10/18 06:38 Pulse 95 H 08/10/18 06:38 Resp 22 08/10/18 06:38 BP 138/60 08/10/18 06:38 Pulse Ox 93 L 08/10/18 06:38 - Labs Result Diagrams: 08/10/18 06:10 08/10/18 06:10 Labs: Laboratory Results - last 24 hr 08/09/18 08/09/18 08/09/18 15:43 15:43 17:23 WBC 28.6 H D RBC 3.94 Hgb 11.3 Hct 35.9 MCV 91.3 D MCH 28.6 MCHC 31.4 L RDW 13.6 Plt Count 340 MPV 8.1 Neut % (Auto) 91.1 H Lymph % (Auto) 1.9 L [place] % (Auto) 6.8 Eos % (Auto) 0.0 Baso % (Auto) 0.2 Neut # (Auto) 26.0 H Lymph # (Auto) 0.6 L [place] # (Auto) 2.0 H Eos # (Auto) 0.0 Baso # (Auto) 0.1 Neutrophils % (Manual) 87 H Band Neutrophils % 5 H Lymphocytes % (Manual) 1 L Monocytes % (Manual) 7 Platelet Estimate Normal Hypochromasia (manual) Slight Poikilocytosis (manual Slight Anisocytosis (manual) Slight Puncture Site pCO2 pO2 24 L HCO3 ABG pH ABG Total CO2 ABG O2 Saturation ABG Base Excess Steve Test ABG Potassium VBG pH 7.34 VBG pCO2 92 H* VBG HCO3 38.0 VBG Total CO2 52.4 H VBG O2 Sat (Calc) 39.3 L VBG Base Excess 18.8 H VBG Potassium 3.8 A-a O2 Difference Respiratory Index Glucose 169 H Lactate 2.0 Liter Flow FiO2 Crit Value Called To Rn Crit Value Called By Rogelio sutton Crit Value Read Back Y Blood Gas Notified Time 1727 Sodium 138 140.0 Potassium 4.0 Chloride 86 L 94.0 L Carbon Dioxide 44 H* Anion Gap 12 BUN 23 H Creatinine 0.8 Est GFR ( Amer) > 60 Est GFR (Non-Af Amer) > 60 Random Glucose 155 H Calcium 8.9 Phosphorus Magnesium 2.1 Total Bilirubin 0.6 AST 24 ALT 17 Alkaline Phosphatase 93 Total Creatine Kinase CK-MB (Mass) Troponin I 0.0340 NT-Pro-B Natriuret Pep 1850 H Total Protein 8.5 H Albumin 4.6 Globulin 3.9 Albumin/Globulin Ratio 1.2 Arterial Blood Potassium Venous Blood Potassium 3.8 08/09/18 08/10/18 08/10/18 18:03 00:30 06:10 WBC RBC Hgb Hct MCV MCH MCHC RDW Plt Count MPV Neut % (Auto) Lymph % (Auto) [place] % (Auto) Eos % (Auto) Baso % (Auto) Neut # (Auto) Lymph # (Auto) [place] # (Auto) Eos # (Auto) Baso # (Auto) Neutrophils % (Manual) Band Neutrophils % Lymphocytes % (Manual) Monocytes % (Manual) Platelet Estimate Hypochromasia (manual) Poikilocytosis (manual Anisocytosis (manual) Puncture Site Lb pCO2 73 H* pO2 93 HCO3 37.0 H ABG pH 7.39 ABG Total CO2 46.4 H ABG O2 Saturation 96.9 ABG Base Excess 15.5 H Steve Test Na ABG Potassium 3.4 L VBG pH VBG pCO2 VBG HCO3 VBG Total CO2 VBG O2 Sat (Calc) VBG Base Excess VBG Potassium A-a O2 Difference 72.0 Respiratory Index 0.8 Glucose 177 H Lactate 2.0 Liter Flow 4.0 FiO2 36.0 Crit Value Called To Er physician Crit Value Called By Rogelio sutton Crit Value Read Back Y Blood Gas Notified Time 1806 Sodium 139.0 Potassium Chloride 95.0 L Carbon Dioxide Anion Gap BUN Creatinine Est GFR ( Amer) Est GFR (Non-Af Amer) Random Glucose Calcium Phosphorus Magnesium Total Bilirubin AST ALT Alkaline Phosphatase Total Creatine Kinase 38 43 CK-MB (Mass) 2.05 2.49 Troponin I 0.0400 0.0470 NT-Pro-B Natriuret Pep Total Protein Albumin Globulin Albumin/Globulin Ratio Arterial Blood Potassium 3.4 L Venous Blood Potassium 08/10/18 08/10/18 06:10 06:10 WBC 35.7 H RBC 3.76 L Hgb 10.5 L Hct 33.7 L MCV 89.8 MCH 28.0 MCHC 31.2 L RDW 13.3 Plt Count 280 MPV 7.9 Neut % (Auto) 95.9 H Lymph % (Auto) 1.8 L [place] % (Auto) 2.0 Eos % (Auto) 0.0 Baso % (Auto) 0.3 Neut # (Auto) 34.2 H Lymph # (Auto) 0.6 L [place] # (Auto) 0.7 Eos # (Auto) 0.0 Baso # (Auto) 0.1 Neutrophils % (Manual) Band Neutrophils % Lymphocytes % (Manual) Monocytes % (Manual) Platelet Estimate Hypochromasia (manual) Poikilocytosis (manual Anisocytosis (manual) Puncture Site pCO2 pO2 HCO3 ABG pH ABG Total CO2 ABG O2 Saturation ABG Base Excess Steve Test ABG Potassium VBG pH VBG pCO2 VBG HCO3 VBG Total CO2 VBG O2 Sat (Calc) VBG Base Excess VBG Potassium A-a O2 Difference Respiratory Index Glucose Lactate Liter Flow FiO2 Crit Value Called To Crit Value Called By Crit Value Read Back Blood Gas Notified Time Sodium 137 Potassium 3.6 Chloride 86 L Carbon Dioxide 44 H* Anion Gap 11 BUN 26 H Creatinine 0.7 Est GFR ( Amer) > 60 Est GFR (Non-Af Amer) > 60 Random Glucose 189 H D Calcium 8.6 Phosphorus 2.0 L Magnesium 2.2 Total Bilirubin 0.4 AST 19 ALT 11 Alkaline Phosphatase 87 Total Creatine Kinase CK-MB (Mass) Troponin I NT-Pro-B Natriuret Pep Total Protein 7.5 Albumin 4.1 Globulin 3.4 Albumin/Globulin Ratio 1.2 Arterial Blood Potassium Venous Blood Potassium Attending/Attestation - Attestation I have personally seen and examined this patient.: Yes I have fully participated in the care of the patient.: Yes I have reviewed all pertinent clinical information: Yes Notes (Text): 08/10/18 07:44 Medical attending: Patient was seen and examined by me in the ER with the medical residents The patient is known to the hospitalist service in the past. She was here 6 months ago. The patient is home oxygen dependent The patient on XRAY has COPD/Emphesema like image We will also check a CT scan of the chest without contrast IV abx and blood and sputum cultures as well Will consult patient's pulmonolopgist as well Rivas Mendez
[2018-08-09] MEDS ORDERED: Azithromycin 500mg/250ML NS 500 MG/250 ML BAG IVPB ONE (19:23)
[2018-08-09] MEDS: Albuterol-Ipratrop 3 mg / 0.5 (3 ml) UD INH SCH (20:54)
[2018-08-09] MEDS ORDERED: methylPREDNISolone 40 MG in Sodium Chloride 0.9% 100 ML IVPB SCH (22:00)
[2018-08-10 01:25] LABS: CK-MB 2.05 ng/mL (0.0-3.38); TROPONIN I 0.04 ng/mL (0.00-0.120)
[2018-08-10] MEDS: Albuterol-Ipratrop 3 mg / 0.5 (3 ml) UD INH SCH ×6 (04:45→19:45)
[2018-08-10 06:14] LABS: BASO # 0.1 K/uL (0.0-0.2); BASO % 0.3 % (0.0-2.0); HEMOGLOBIN 10.5 g/dL (11.0-16.0); LYMPH # 0.6 K/uL (1.0-4.3); LYMPH % 1.8 % (20.0-40.0); MEAN CELL VOLUME 89.8 fL (81.0-99.0); MEAN CORPUSCULAR HGB CONC 31.2 g/dL (33.0-37.0); MEAN PLATELET VOLUME 7.9 fL (7.2-11.7); MONO # 0.7 K/uL (0.0-0.8); NEUT # 34.2 K/uL (1.8-7.0); NEUT % 95.9 % (50.0-75.0); PLATELET COUNT 280 K/uL (130-400); RBC 3.76 Mil/uL (3.80-5.20); RED CELL DISTRIBUTION WIDTH 13.3 % (11.5-14.5); WHITE BLOOD COUNT 35.7 K/uL (4.8-10.8)
[2018-08-10 06:41] LABS: CK-MB 2.49 ng/mL (0.0-3.38); TROPONIN I 0.047 ng/mL (0.00-0.120)
[2018-08-10 06:55] LABS: ALB/GLOB RATIO 1.2 (1.0-2.1); ALBUMIN 4.1 g/dL (3.5-5.0); ALT/SGPT 11 U/L (9-52); AST/SGOT 19 U/L (14-36); BLOOD UREA NITROGEN 26 mg/dL (7-17); CALCIUM 8.6 mg/dl (8.6-10.4); GFR NON-AFRICAN AMERICAN > 60
[2018-08-10] MEDS ORDERED: MethylPREDNISolone 40 mg Vial IV SCH (08:00)
[2018-08-10] MEDS ORDERED: Albuterol-Ipratrop 3 mg / 0.5 (3 ml) UD ONE ×3 (08:33→15:49)
[2018-08-10 08:47] LABS: BANDS 2 % (0-2); MONOCYTE 2 % (0-10); NEUTROPHIL 95 % (50-75); TOTAL CELLS COUNTED 100
[2018-08-10 08:48] LABS: LYMPHOCYTE 1 % (20-40); PLATELET ESTIMATE NORMAL (NORMAL)
[2018-08-10 08:51] LABS: HYPOCHROMIC SLIGHT; POLYCHROMIC SLIGHT
[2018-08-10] MEDS: Fluticasone-Vilanterol 100/25mcg Diskus INH SCH (09:08)
[2018-08-10] MEDS ORDERED: Home Med 1 UNIT (Leflunomide [Arava] 20 MG) PO SCH (10:00)
[2018-08-10] MEDS ORDERED: Azithromycin 500mg/250ML NS 500 MG/250 ML BAG IVPB ONE (10:46)
[2018-08-10] MEDS: cefTRIAXone IV 1 gm in Dextros 50 ML IVPB SCH (11:09)
[2018-08-10] MEDS: Enoxaparin 40 mg Syringe SC SCH (11:09)
[2018-08-10] MEDS: Azithromycin 500 MG in Sodium Chloride 0.9% 250 ML IVPB SCH (11:34)
--- NOTE | 2018-08-10 11:52 | CT ---
Date of service: 08/09/2018 CT chest without IV contrast Indication: PNA Technique: Contiguous axial images were obtained through the chest without intravenous contrast enhancement. Sagittal and coronal reconstructions were generated and reviewed. This CT exam was performed using 1 or more of the following dose reduction techniques: Automated exposure control, adjustment of the MAA and/or kV according to patient size, and/or use of iterative reconstruction technique. Radiation dose (DLP): 659.16 MGy-cm. Comparison: Chest x-ray performed 08/09/18, CTA chest performed 01/11/18 Findings: Visualized portions of the inferior thyroid gland appear unremarkable. The unenhanced mediastinal and hilar vascular structures appear grossly unremarkable. The heart appears within normal limits of size. Dense coronary artery calcifications. Dense mitral annulus calcification. Sub cm mediastinal lymph nodes, nonspecific. Please note lack of IV contrast limits evaluate aaron for adenopathy, in particular hilar adenopathy. Scattered bilateral multifocal nodular and ground-glass pulmonary opacities of both small and large sizes, measuring up to approximately 16 mm. Large subsegmental atelectasis, lingula and bilateral lung bases. No pleural effusion. No pneumothorax. Small hiatal hernia/distal esophageal wall thickening. Limited visualization of the noncontrast upper abdomen demonstrates cholecystectomy clips. Complex appearing large lobulated partially imaged left upper pole renal cyst. Multilevel degenerative changes. Kyphosis. Osseous demineralization. Impression: Bilateral multifocal opacities are evident throughout bilateral lung reyes. Infectious etiologies may be considered however, malignant neoplasm must be excluded. Additional nonspecific tiny scattered pulmonary nodules are evident measuring approximately 2-3 mm. Partially imaged large lobulated left upper pole renal cyst appears complex. Cholecystectomy. Small hiatal hernia/distal esophageal wall thickening. Preliminary impression was provided by [facility]. Findings discussed with the patient's RN Ranjan on 08/10/18 at 11:43 a.m.
--- NOTE | 2018-08-10 12:09 | CARD ---
APPROVED REPORT Date of service: 08/09/2018 EKG Measurement Heart [id number] <Conclusion> Normal sinus rhythm Left axis deviation Right bundle branch block Septal infarct, age undetermined Abnormal ECG
[2018-08-10] MEDS ORDERED: Potassium & Sodium Phosphate PO ONE (12:15)
--- NOTE | 2018-08-10 15:40 | CP.PCM.PN ---
<Sandra Pham Y - Last Filed: 08/10/18 16:06> Subjective - Date & Time of Evaluation Date of Evaluation: 08/10/18 Time of Evaluation: 07:45 - Subjective Subjective: PGY-1 Medicine Progress Note for Dr. Mendez Patient was seen and examined today sitting up at bedside in no acute distress. Nurse reports no overnight events. Patient complains she hasn't been allowed to eat for almost 12 hours and is extremely hungry. She doesn't feel any difference in breathing and is still hard of hearing, feeling like her ears are clogged. De nies chest pain, shortness of breath, abdominal pain, nausea, vomiting. Objective - Vital Signs/Intake and Output Vital Signs (last 24 hours): Temp Pulse Resp BP Pulse Ox 98.1 F 83 22 131/61 93 L 08/10/18 14:30 08/10/18 14:30 08/10/18 14:30 08/10/18 14:30 08/10/18 14:30 - Medications Medications: Current Medications Albuterol/Ipratropium (Duoneb 3 Mg/0.5 Mg (3 Ml) Ud) 3 ml INH RQ4 [facility] Last Admin: 08/10/18 11:35 Dose: 3 ml Alprazolam (Xanax) 0.25 mg PO DAILY PRN PRN Reason: Anxiety Stop: 08/16/18 18:37 Aspirin (Aspirin Chewable) 81 mg PO DAILY [facility] Last Admin: 08/10/18 11:09 Dose: 81 mg Bisoprolol Fumarate (Zebeta) 10 mg PO DAILY [facility] Last Admin: 08/10/18 11:09 Dose: 10 mg Celecoxib (Celebrex) 200 mg PO DAILY PRN PRN Reason: FOR PAIN Chlorthalidone (Hygroton) 25 mg PO DAILY [facility] Last Admin: 08/10/18 11:09 Dose: 25 mg Enoxaparin Sodium (Lovenox) 40 mg SC DAILY [facility] Last Admin: 08/10/18 11:09 Dose: 40 mg Fluticasone/Vilanterol (Breo Ellipta 100-25 Mcg Inh) 1 puff INH RQD [facility] Last Admin: 08/10/18 09:08 Dose: 1 puff Home Med (Leflunomide [Arava]) 20 mg PO DAILY [facility] Azithromycin 500 mg/ Sodium (Chloride) 250 mls @ 250 mls/hr IVPB DAILY@1030 [facility]; Protocol Last Admin: 08/10/18 11:34 Dose: 250 mls/hr Ceftriaxone Sodium (Rocephin Iv 1 Gm Duplex) 50 mls @ 100 mls/hr IVPB DAILY [facility]; Protocol Last Admin: 08/10/18 11:09 Dose: 100 mls/hr Methylprednisolone (Solu-Medrol) 40 mg IV Q8H [facility] Montelukast Sodium (Singulair) 10 mg PO HS [facility] Last Admin: 08/09/18 22:45 Dose: 10 mg Rosuvastatin Calcium (Crestor) 10 mg PO HS [facility] Last Admin: 08/09/18 22:44 Dose: 10 mg Ticagrelor (Brilinta) 90 mg PO Q12 [facility] Last Admin: 08/10/18 11:09 Dose: 90 mg - Labs Labs: 08/10/18 06:10 08/10/18 06:10 - Constitutional Appears: No Acute Distress, Chronically Ill - Head Exam Head Exam: ATRAUMATIC, NORMOCEPHALIC - Eye Exam Eye Exam: EOMI, Normal appearance Pupil Exam: NORMAL ACCOMODATION Additional comments: glasses - ENT Exam ENT Exam: Mucous Membranes Moist Additional comments: hearing deficit R worse than L - Respiratory Exam Respiratory Exam: Decreased Breath Sounds, Rhonchi, Wheezes. absent: Accessory Muscle Use, Rales - Cardiovascular Exam Cardiovascular Exam: +S1, +S2 - GI/Abdominal Exam GI & Abdominal Exam: Soft, Normal Bowel Sounds. absent: Tenderness - Extremities Exam Extremities Exam: Normal Capillary Refill, Pedal Edema Additional comments: IV access in R hand - Back Exam Back Exam: absent: CVA tenderness (L), CVA tenderness (R) - Neurological Exam Neurological Exam: Alert, Awake, Oriented x3. absent: Normal Gait - Psychiatric Exam Psychiatric exam: Anxious - Skin Skin Exam: Normal Color, Warm Assessment and Plan - Assessment and Plan (Free Text) Assessment: 83 year old female with a PMHx of HTN, CAD s/p 3 stents, Rheumatoid Arthritis, COPD (on 2L) and CHF (Systolic/Diastolic) admitted for Pneumonia. Plan: Pneumonia/COPD exacerbation - CXR (08/09): COPD/emphysema;Patchy opacities at the left lung base, possibly atelectasis or pneumonia. Cardiomegaly. - CT Chest without (08/09): bilateral multifocal opacities evident throughout bilateral lung reyes - ABG pCO2 73, pH 7.39 - VBG lactate 2.0 - patient is on immunosuppressive which could have contributed to PNA - f/u Blood Cx - f/u Sputum Cx - Pulm consulted: Dr. Tse - help appreciated - Azithromycin 500, Solumedrol 125, Rocephin 1gm given in ED - Duonebs q4h - Azithromycin 500mg IVPB daily (started 08/10) - Rocephin 1gm IVPB daily (started 08/10) - Montelukast 10mg po HS - BreoEllipta 1puff INH daily - Solumedrol 40mg IV q8 Diastolic CHF, chronic - ProBNP 1850 on admission, similar to previous - ROMIs neg x3 - home Chlorthalidone 25mg PO Daily - Bisoprolol 10mg PO Daily CAD s/p Stent Placement, Hypertension Patient Denies Hx of HTN - home ASA 81mg po daily - home Bisoprolol 10mg po daily - home Brilinta 90mg po q12 - home Crestor 10mg po HS Rheumotoid Arthritis - home Celebrex 200mg po daily prn - home Leflunomide 20mg po daily Anxiety - home Xanax 0.25mg po daily prn PPx - DVT: Lovenox 40mg sc daily - Diet: HHD - PT d/w Dr. Vanessa Pham PGY-1 <Rivas Mendez - Last Filed: 08/10/18 18:55> Objective - Vital Signs/Intake and Output Vital Signs (last 24 hours): Temp Pulse Resp BP Pulse Ox 98.1 F 90 20 115/82 97 08/10/18 17:45 08/10/18 17:45 08/10/18 17:45 08/10/18 17:45 08/10/18 17:45 - Medications Medications: Current Medications Albuterol/Ipratropium (Duoneb 3 Mg/0.5 Mg (3 Ml) Ud) 3 ml INH RQ4 [facility] Last Admin: 08/10/18 11:35 Dose: 3 ml Alprazolam (Xanax) 0.25 mg PO DAILY PRN PRN Reason: Anxiety Stop: 08/16/18 18:37 Aspirin (Aspirin Chewable) 81 mg PO DAILY [facility] Last Admin: 08/10/18 11:09 Dose: 81 mg Bisoprolol Fumarate (Zebeta) 10 mg PO DAILY [facility] Last Admin: 08/10/18 11:09 Dose: 10 mg Celecoxib (Celebrex) 200 mg PO DAILY PRN PRN Reason: FOR PAIN Chlorthalidone (Hygroton) 25 mg PO DAILY [facility] Last Admin: 08/10/18 11:09 Dose: 25 mg Enoxaparin Sodium (Lovenox) 40 mg SC DAILY [facility] Last Admin: 08/10/18 11:09 Dose: 40 mg Fluticasone/Vilanterol (Breo Ellipta 100-25 Mcg Inh) 1 puff INH RQD [facility] Last Admin: 08/10/18 09:08 Dose: 1 puff Home Med (Leflunomide [Arava]) 20 mg PO DAILY [facility] Azithromycin 500 mg/ Sodium (Chloride) 250 mls @ 250 mls/hr IVPB DAILY@1030 [facility]; Protocol Last Admin: 08/10/18 11:34 Dose: 250 mls/hr Ceftriaxone Sodium (Rocephin Iv 1 Gm Duplex) 50 mls @ 100 mls/hr IVPB DAILY [facility]; Protocol Last Admin: 08/10/18 11:09 Dose: 100 mls/hr Methylprednisolone (Solu-Medrol) 40 mg IV Q8H [facility] Last Admin: 08/10/18 16:59 Dose: 40 mg Montelukast Sodium (Singulair) 10 mg PO HS [facility] Last Admin: 08/09/18 22:45 Dose: 10 mg Rosuvastatin Calcium (Crestor) 10 mg PO HS [facility] Last Admin: 08/09/18 22:44 Dose: 10 mg Ticagrelor (Brilinta) 90 mg PO Q12 [facility] Last Admin: 08/10/18 11:09 Dose: 90 mg - Labs Labs: 08/10/18 06:10 08/10/18 06:10 Attending/Attestation - Attestation I have personally seen and examined this patient.: Yes I have fully participated in the care of the patient.: Yes I have reviewed all pertinent clinical information, including history, physical exam and plan: Yes Notes (Text): 08/10/18 18:52 Medical attending: Patient was seen and examined by me. Reviewed the above note by the resident and agree We will need to get pulmonary evaluation as well as PT/OT evaluation as well Currently will continue with IV abx and monitor the cultures As mentioned previously the patient has home O2, also on review of labwork has CO2 retention that appears to be chonic and ongoing for some time. The CXRAY had findings suggestive of either atelectasis or pneumonia - the CT scan without contrast did not give us more information but for the time being will continue with the IV abx. It maybe that this is more of a viral bronchitis making her underlying COPD/Emphesema exacerbation Rivas Mendez 08/10/18 18:54
[2018-08-10] MEDS ORDERED: MethylPREDNISolone 40 mg Vial ONE (16:52)
[2018-08-10] MEDS: MethylPREDNISolone 40 mg Vial IV SCH (16:59)
--- NOTE | 2018-08-10 17:45 | CP.PCM.CON ---
<Lars Lockwood - Last Filed: 08/10/18 17:41> History of Present Illness - History of Present Illness History of Present Illness: PGY2 Pulmonary Consult Note for Dr. Tse Reason for consult: Pneumonia Patient is a 83 year old female with a past medical history of COPD, CHF, CAD s/p 3 stents, HTN, HLD, RA, and b/l pneumonia (January 2018) presented to emergency department on 08/09/18 with progressively worsening SOB over the last 2 weeks. There is an associated persistent productive cough with clear sputum. Symptoms are worse with exertion and improved with rest. Patient uses 2L O2 at home c onsistently, but she has had to increase it to 3L or 4L while she has not been feeling well. She sleeps elevated with 2 pillows usually but has been using 3 pillows in the last few days. She has not tried any OTC medications at home. States that her brother wasrecently hospitalized for pneumonia and she last saw him over [place] when they both developed a cough. Denies fever, chills, nausea, vomiting, chest pain, palpitations, abdominal pain. Patient currently on high flow nasal canula 30%FiO2 resting comfortably. PMH: COPD on chronic O2 (reportedly secondary to 2nd-hand smoke), CHF, CAD s/p 3 stents, HTN, HLD, RA, recent b/l pneumonia (January 2018) PSH: 3x stent placement, cholecystectomy, cataract surgery Family: denies Social: lives with two sons who take care of her; former smoker 52 years ago (smoked for 4 years), denies alcohol or illicit drug use Allergies: denies Review of Systems - Review of Systems All systems: reviewed and no additional remarkable complaints except (as per HPI) Past Patient History - Infectious Disease Hx of Infectious Diseases: None - Past Medical History & Family History Past Medical History?: Yes - Past Social History Smoking Status: Never Smoked - CARDIAC Hx Cardiac Disorders: Yes Hx Congestive Heart Failure: Yes Hx Hypercholesterolemia: Yes Hx Hypertension: Yes Other/Comment: 2 cardiac stents summer 2017 - PULMONARY Hx Respiratory Disorders: Yes Hx Chronic Obstructive Pulmonary Disease (COPD): Yes (ON OXYGEN [place]. 2L ) Hx Pneumonia: Yes (JANUARY 2018) - NEUROLOGICAL Hx Neurological Disorder: No - HEENT Hx HEENT Problems: Yes Hx Cataracts: Yes (BILAT.) Other/Comment: RESIGHINI RT EAR - RENAL Hx Chronic Kidney Disease: No - ENDOCRINE/METABOLIC Hx Endocrine Disorders: No - HEMATOLOGICAL/ONCOLOGICAL Hx Blood Disorders: No - INTEGUMENTARY Hx Dermatological Problems: No - MUSCULOSKELETAL/RHEUMATOLOGICAL Hx Musculoskeletal Disorders: Yes Hx Arthritis: Yes Hx Falls: No Hx Rheumatoid Arthritis: Yes - GASTROINTESTINAL Hx Gastrointestinal Disorders: Yes Hx Gall Bladder Disease: Yes - GENITOURINARY/GYNECOLOGICAL Hx Genitourinary Disorders: No - PSYCHIATRIC Hx Psychophysiologic Disorder: Yes Hx Anxiety: Yes Hx Substance Use: No - SURGICAL HISTORY Hx Surgeries: Yes Hx Cholecystectomy: Yes - ANESTHESIA Hx Anesthesia: Yes Hx Anesthesia Reactions: No Hx Malignant Hyperthermia: No Meds Allergies/Adverse Reactions: Allergies Allergy/AdvReac Type Severity Reaction Status Date / Time No Known Allergies Allergy Verified 08/09/18 14:47 - Medications Medications: Current Medications Albuterol/Ipratropium (Duoneb 3 Mg/0.5 Mg (3 Ml) Ud) 3 ml INH RQ4 [facility] Last Admin: 08/10/18 11:35 Dose: 3 ml Alprazolam (Xanax) 0.25 mg PO DAILY PRN PRN Reason: Anxiety Stop: 08/16/18 18:37 Aspirin (Aspirin Chewable) 81 mg PO DAILY [facility] Last Admin: 08/10/18 11:09 Dose: 81 mg Bisoprolol Fumarate (Zebeta) 10 mg PO DAILY [facility] Last Admin: 08/10/18 11:09 Dose: 10 mg Celecoxib (Celebrex) 200 mg PO DAILY PRN PRN Reason: FOR PAIN Chlorthalidone (Hygroton) 25 mg PO DAILY [facility] Last Admin: 08/10/18 11:09 Dose: 25 mg Enoxaparin Sodium (Lovenox) 40 mg SC DAILY [facility] Last Admin: 08/10/18 11:09 Dose: 40 mg Fluticasone/Vilanterol (Breo Ellipta 100-25 Mcg Inh) 1 puff INH RQD [facility] Last Admin: 08/10/18 09:08 Dose: 1 puff Home Med (Leflunomide [Arava]) 20 mg PO DAILY [facility] Azithromycin 500 mg/ Sodium (Chloride) 250 mls @ 250 mls/hr IVPB DAILY@1030 [facility]; Protocol Last Admin: 08/10/18 11:34 Dose: 250 mls/hr Ceftriaxone Sodium (Rocephin Iv 1 Gm Duplex) 50 mls @ 100 mls/hr IVPB DAILY [facility]; Protocol Last Admin: 08/10/18 11:09 Dose: 100 mls/hr Methylprednisolone (Solu-Medrol) 40 mg IV Q8H [facility] Last Admin: 08/10/18 16:59 Dose: 40 mg Montelukast Sodium (Singulair) 10 mg PO HS [facility] Last Admin: 08/09/18 22:45 Dose: 10 mg Rosuvastatin Calcium (Crestor) 10 mg PO [facility] Last Admin: 08/09/18 22:44 Dose: 10 mg Ticagrelor (Brilinta) 90 mg PO Q12 [facility] Last Admin: 08/10/18 11:09 Dose: 90 mg Physical Exam - Constitutional Appears: No Acute Distress - Head Exam Head Exam: ATRAUMATIC, NORMOCEPHALIC - Eye Exam Eye Exam: Normal appearance - ENT Exam ENT Exam: Mucous Membranes Moist Additional comments: patient is hard of hearing at baseline - Neck Exam Neck exam: Negative for: Lymphadenopathy, Tenderness - Respiratory Exam Respiratory Exam: Decreased Breath Sounds, Rhonchi, Wheezes. absent: Accessory Muscle Use - Cardiovascular Exam Cardiovascular Exam: REGULAR RHYTHM, +S1, +S2 - GI/Abdominal Exam GI & Abdominal Exam: Soft. absent: Distended, Firm, Guarding, Rigid, Tenderness - Extremities Exam Extremities exam: Positive for: pedal edema (trace pitting edema b/l). Negative for: calf tenderness - Neurological Exam Neurological exam: Alert, Oriented x3 - Psychiatric Exam Psychiatric exam: Normal Affect, Normal Mood - Skin Skin Exam: Dry, Warm Results - Vital Signs Recent Vital Signs: Last Vital Signs Temp 98.1 F 08/10/18 14:30 Pulse 83 08/10/18 14:30 Resp 21 08/10/18 17:27 BP 131/61 08/10/18 14:30 Pulse Ox 93 L 08/10/18 14:30 - Labs Result Diagrams: 08/10/18 06:10 08/10/18 06:10 Labs: Laboratory Results - last 24 hr 08/09/18 08/10/18 08/10/18 18:03 00:30 06:10 WBC RBC Hgb Hct MCV MCH MCHC RDW Plt Count MPV Neut % (Auto) Lymph % (Auto) [place] % (Auto) Eos % (Auto) Baso % (Auto) Neut # (Auto) Lymph # (Auto) [place] # (Auto) Eos # (Auto) Baso # (Auto) Neutrophils % (Manual) Band Neutrophils % Lymphocytes % (Manual) Monocytes % (Manual) Platelet Estimate Polychromasia Hypochromasia (manual) Puncture Site Lb pCO2 73 H* pO2 93 HCO3 37.0 H ABG pH 7.39 ABG Total CO2 46.4 H ABG O2 Saturation 96.9 ABG Base Excess 15.5 H Steve Test Na ABG Potassium 3.4 L A-a O2 Difference 72.0 Respiratory Index 0.8 Sodium 139.0 Chloride 95.0 L Glucose 177 H Lactate 2.0 Liter Flow 4.0 FiO2 36.0 Crit Value Called To Er physician Crit Value Called By Rogelio sutton Crit Value Read Back Y Blood Gas Notified Time 180 Potassium Carbon Dioxide Anion Gap BUN Creatinine Est GFR ( Amer) Est GFR (Non-Af Amer) Random Glucose Calcium Phosphorus Magnesium Total Bilirubin AST ALT Alkaline Phosphatase Total Creatine Kinase 38 43 CK-MB (Mass) 2.05 2.49 Troponin I 0.0400 0.0470 Total Protein Albumin Globulin Albumin/Globulin Ratio Arterial Blood Potassium 3.4 L Influenza Typ A,B (EIA) 08/10/18 08/10/18 08/10/18 06:10 06:10 16:33 WBC 35.7 H RBC 3.76 L Hgb 10.5 L Hct 33.7 L MCV 89.8 MCH 28.0 MCHC 31.2 L RDW 13.3 Plt Count 280 MPV 7.9 Neut % (Auto) 95.9 H Lymph % (Auto) 1.8 L [place] % (Auto) 2.0 Eos % (Auto) 0.0 Baso % (Auto) 0.3 Neut # (Auto) 34.2 H Lymph # (Auto) 0.6 L [place] # (Auto) 0.7 Eos # (Auto) 0.0 Baso # (Auto) 0.1 Neutrophils % (Manual) 95 H Band Neutrophils % 2 Lymphocytes % (Manual) 1 L Monocytes % (Manual) 2 Platelet Estimate Normal Polychromasia Slight Hypochromasia (manual) Slight Puncture Site pCO2 pO2 HCO3 ABG pH ABG Total CO2 ABG O2 Saturation ABG Base Excess Steve Test ABG Potassium A-a O2 Difference Respiratory Index Sodium 137 Chloride 86 L Glucose Lactate Liter Flow FiO2 Crit Value Called To Crit Value Called By Crit Value Read Back Blood Gas Notified Time Potassium 3.6 Carbon Dioxide 44 H* Anion Gap 11 BUN 26 H Creatinine 0.7 Est GFR ( Amer) > 60 Est GFR (Non-Af Amer) > 60 Random Glucose 189 H D Calcium 8.6 Phosphorus 2.0 L Magnesium 2.2 Total Bilirubin 0.4 AST 19 ALT 11 Alkaline Phosphatase 87 Total Creatine Kinase CK-MB (Mass) Troponin I Total Protein 7.5 Albumin 4.1 Globulin 3.4 Albumin/Globulin Ratio 1.2 Arterial Blood Potassium Influenza Typ A,B (EIA) Negative for flu a/b Assessment & Plan (1) Pneumonia Assessment and Plan: Likely CAP (last hospitalization was in January 2018) 08/09/18 CXR: patchy opacities at left lung base, atelectasis vs pneumonia 08/09/18 CT chest: bilateral multifocal opacities; malignant neoplasm must be excluded CT compared to study from January 2018, previous infiltrates have resolved, current opacities are new. afebrile, WBC 35.7 today (28.6 yesterday) sputum and blood cx pending continue antibiotics: azithro + ceftriaxone, pending sensitivities Solu-Medrol increased to 40mg q8h continue Duonebs supportive care Status: Acute (2) COPD (chronic obstructive pulmonary disease) Assessment and Plan: continue home medications Status: Acute <Lyle Tse S - Last Filed: 08/10/18 18:12> Meds - Medications Medications: Current Medications Albuterol/Ipratropium (Duoneb 3 Mg/0.5 Mg (3 Ml) Ud) 3 ml INH RQ4 [facility] Last Admin: 08/10/18 11:35 Dose: 3 ml Alprazolam (Xanax) 0.25 mg PO DAILY PRN PRN Reason: Anxiety Stop: 08/16/18 18:37 Aspirin (Aspirin Chewable) 81 mg PO DAILY [facility] Last Admin: 08/10/18 11:09 Dose: 81 mg Bisoprolol Fumarate (Zebeta) 10 mg PO DAILY [facility] Last Admin: 08/10/18 11:09 Dose: 10 mg Celecoxib (Celebrex) 200 mg PO DAILY PRN PRN Reason: FOR PAIN Chlorthalidone (Hygroton) 25 mg PO DAILY [facility] Last Admin: 08/10/18 11:09 Dose: 25 mg Enoxaparin Sodium (Lovenox) 40 mg SC DAILY [facility] Last Admin: 08/10/18 11:09 Dose: 40 mg Fluticasone/Vilanterol (Breo Ellipta 100-25 Mcg Inh) 1 puff INH RQD [facility] Last Admin: 08/10/18 09:08 Dose: 1 puff Home Med (Leflunomide [Arava]) 20 mg PO DAILY [facility] Azithromycin 500 mg/ Sodium (Chloride) 250 mls @ 250 mls/hr IVPB DAILY@1030 [facility]; Protocol Last Admin: 08/10/18 11:34 Dose: 250 mls/hr Ceftriaxone Sodium (Rocephin Iv 1 Gm Duplex) 50 mls @ 100 mls/hr IVPB DAILY [facility]; Protocol Last Admin: 08/10/18 11:09 Dose: 100 mls/hr Methylprednisolone (Solu-Medrol) 40 mg IV Q8H [facility] Last Admin: 08/10/18 16:59 Dose: 40 mg Montelukast Sodium (Singulair) 10 mg PO HS [facility] Last Admin: 08/09/18 22:45 Dose: 10 mg Rosuvastatin Calcium (Crestor) 10 mg PO HS [facility] Last Admin: 08/09/18 22:44 Dose: 10 mg Ticagrelor (Brilinta) 90 mg PO Q12 [facility] Last Admin: 08/10/18 11:09 Dose: 90 mg Results - Vital Signs Recent Vital Signs: Last Vital Signs Temp 98.1 F 08/10/18 17:45 Pulse 90 08/10/18 17:45 Resp 20 08/10/18 17:45 BP 115/82 08/10/18 17:45 Pulse Ox 97 08/10/18 17:45 - Labs Result Diagrams: 08/10/18 06:10 08/10/18 06:10 Labs: Laboratory Results - last 24 hr 08/10/18 08/10/18 08/10/18 00:30 06:10 06:10 WBC 35.7 H RBC 3.76 L Hgb 10.5 L Hct 33.7 L MCV 89.8 MCH 28.0 MCHC 31.2 L RDW 13.3 Plt Count 280 MPV 7.9 Neut % (Auto) 95.9 H Lymph % (Auto) 1.8 L [place] % (Auto) 2.0 Eos % (Auto) 0.0 Baso % (Auto) 0.3 Neut # (Auto) 34.2 H Lymph # (Auto) 0.6 L [place] # (Auto) 0.7 Eos # (Auto) 0.0 Baso # (Auto) 0.1 Neutrophils % (Manual) 95 H Band Neutrophils % 2 Lymphocytes % (Manual) 1 L Monocytes % (Manual) 2 Platelet Estimate Normal Polychromasia Slight Hypochromasia (manual) Slight Sodium Potassium Chloride Carbon Dioxide Anion Gap BUN Creatinine Est GFR ( Amer) Est GFR (Non-Af Amer) Random Glucose Calcium Phosphorus Magnesium Total Bilirubin AST ALT Alkaline Phosphatase Total Creatine Kinase 38 43 CK-MB (Mass) 2.05 2.49 Troponin I 0.0400 0.0470 Total Protein Albumin Globulin Albumin/Globulin Ratio Influenza Typ A,B (EIA) 08/10/18 08/10/18 06:10 16:33 WBC RBC Hgb Hct MCV MCH MCHC RDW Plt Count MPV Neut % (Auto) Lymph % (Auto) [place] % (Auto) Eos % (Auto) Baso % (Auto) Neut # (Auto) Lymph # (Auto) [place] # (Auto) Eos # (Auto) Baso # (Auto) Neutrophils % (Manual) Band Neutrophils % Lymphocytes % (Manual) Monocytes % (Manual) Platelet Estimate Polychromasia Hypochromasia (manual) Sodium 137 Potassium 3.6 Chloride 86 L Carbon Dioxide 44 H* Anion Gap 11 BUN 26 H Creatinine 0.7 Est GFR ( Amer) > 60 Est GFR (Non-Af Amer) > 60 Random Glucose 189 H D Calcium 8.6 Phosphorus 2.0 L Magnesium 2.2 Total Bilirubin 0.4 AST 19 ALT 11 Alkaline Phosphatase 87 Total Creatine Kinase CK-MB (Mass) Troponin I Total Protein 7.5 Albumin 4.1 Globulin 3.4 Albumin/Globulin Ratio 1.2 Influenza Typ A,B (EIA) Negative for flu a/b Attending/Attestation - Attestation I have personally seen and examined this patient.: Yes I have fully participated in the care of the patient.: Yes I have reviewed all pertinent clinical information: Yes Notes (Text): 08/10/18 18:11 Patient seen and examined 83-year-old female admitted with pneumonia and COPD exacerbation IV antibiotics Nebulizer treatment IV steroids Continue oxygen BiPAP as needed Follow-up culture and sensitivity Legionella mycoplasma titer
[2018-08-11] MEDS: MethylPREDNISolone 40 mg Vial IV SCH ×3 (00:24→16:40)
[2018-08-11] MEDS: Albuterol-Ipratrop 3 mg / 0.5 (3 ml) UD INH SCH ×6 (00:40→20:37)
[2018-08-11 07:33] LABS: BASO % 0.1 % (0.0-2.0); HEMOGLOBIN 11.4 g/dL (11.0-16.0); LYMPH # 0.6 K/uL (1.0-4.3); LYMPH % 2.2 % (20.0-40.0); MEAN CELL VOLUME 89.9 fL (81.0-99.0); MEAN CORPUSCULAR HGB CONC 32.3 g/dL (33.0-37.0); MEAN PLATELET VOLUME 8.6 fL (7.2-11.7); MONO # 1.4 K/uL (0.0-0.8); MONO % 5.1 % (0.0-10.0); NEUT # 24.9 K/uL (1.8-7.0); NEUT % 92.6 % (50.0-75.0); PLATELET COUNT 362 K/uL (130-400); RBC 3.93 Mil/uL (3.80-5.20); RED CELL DISTRIBUTION WIDTH 13.7 % (11.5-14.5); WHITE BLOOD COUNT 26.9 K/uL (4.8-10.8)
[2018-08-11 07:40] LABS: ALB/GLOB RATIO 1.2 (1.0-2.1); ALBUMIN 4.2 g/dL (3.5-5.0); ALT/SGPT 20 U/L (9-52); AST/SGOT 25 U/L (14-36); BLOOD UREA NITROGEN 35 mg/dL (7-17); CALCIUM 8.4 mg/dl (8.6-10.4); GFR NON-AFRICAN AMERICAN 53
[2018-08-11] MEDS: Enoxaparin 40 mg Syringe SC SCH (10:21)
[2018-08-11] MEDS: cefTRIAXone IV 1 gm in Dextros 50 ML IVPB SCH (10:23)
[2018-08-11] MEDS: Azithromycin 500 MG in Sodium Chloride 0.9% 250 ML IVPB SCH (10:34)
[2018-08-11 10:43] LABS: LYMPHOCYTE 1 % (20-40); MONOCYTE 4 % (0-10); NEUTROPHIL 95 % (50-75); TOTAL CELLS COUNTED 100
[2018-08-11 10:44] LABS: PLATELET ESTIMATE NORMAL (NORMAL)
--- NOTE | 2018-08-11 12:49 | CP.PCM.CON ---
History of Present Illness - History of Present Illness History of Present Illness: Palliative consult requested by Doctor Vero for Code status discussion Patient is a 83 yo female admitted from home with productive cough, white phlegm and green nasal discharge for few days. patient said that around New Year, she was with her brother who was sick at that time and soon after diagnosed with Pneumonia. CXR upon admission was significant for Pneuminia and CT chest + for pulmonary nodules. Rocephin IV started and patient admitted to floor. In ED patient suzette stated she wanted to be DNI only. Later on when Code status discussed by the Machine Taper, patient changed it to DNR/DNI, but patient did not sign POLST. Palliative care was asked to assist in process. PMH: Copd, O2 home dependent, increased to 4 L / min in the last few days, anxiety, CHF Soc. Hx: , lives at home with her two sons Fam. Hx: One of her brother had thoracotomy, patient was not sure why Review of Systems - Constitutional Constitutional: absent: As Per HPI, Anorexia, Chills, Daytime Sleepiness, Excessive Sweating, Fatigue, Fever, Frequent Falls, Headache, Increased Appetite, Lethargy, Malaise, Night Sweats, Snoring, Sleep Apnea, Weight Gain, Weight Loss, Weakness, Other - EENT Eyes: absent: As Per HPI, Blind Spots, Blurred Vision, Change in Vision, Decreased Night Vision, Diplopia, Discharge, Dry Eye, Exophthalmos, Floaters, Irritation, Itchy Eyes, Loss of Peripheral Vision, Pain, Photophobia, Requires Corrective Lenses, Sees Flashes, Spots in Vision, Tunnel Vision, Other Visual Disturbances, Loss of Vision, Other Ears: absent: As Per HPI, Decreased Hearing, Ear Discharge, Ear Pain, Tinnitus, Abnormal Hearing, Disequilibrium, Dizziness, Other Nose/Mouth/Throat: absent: As Per HPI, Epistaxis, Nasal Congestion, Nasal Discharge, Nasal Obstruction, Nasal Trauma, Nose Pain, Post Nasal Drip, Sinus Pain, Sinus Pressure, Bleeding Gums, Change in Voice, Dental Pain, Dry Mouth, Dysphagia, Halitosis, Hoarsness, Lip Swelling, Mouth Lesions, Mouth Pain, Odynophagia, Sore Throat, Throat Swelling, Tongue Swelling, Facial Pain, Neck Pain, Neck Mass, Other - Breasts Breasts: absent: As Per HPI, Change in Shape, Mass, Pain, Nipple Discharge, Nipple Inversion, Skin Changes, Swelling, Other - Cardiovascular Cardiovascular: Dyspnea, Dyspnea on Exertion - Respiratory Respiratory: Dyspnea, Dyspnea on Exertion, Wheezing - Gastrointestinal Gastrointestinal: absent: As Per HPI, Abdominal Pain, Belching, Bloating, Change in Bowel Habits, Change in Stool Character, Coffee Ground Emesis, Constipation, Cramping, Diarrhea, Dyspepsia, Dysphagia, Early Satiety, Excessive Flatus, Fecal Incontinence, Heartburn, Hematemesis, Hematochezia, Loose Stools, Melena, Nausea, Odynophagia, Temesmus, Vomiting, Other - Genitourinary Genitourinary: absent: As Per HPI, Change in Urinary Stream, Difficulty Urinating, Dysuria, Flank Pain, Hematuria, Pyuria, Nocturia, Urinary Incontinen ce, Urinary Frequency, Urinary Hesitance, Urinary Urgency, Voiding Freq/Small Amts, Freq UTI, Hx Renal/Bladder Calculi, Hx /Renal Surgery, Bladder Distension, Other - Reproductive: Female Reproductive:Female: Post Menopausal - Menstruation Menstruation: Post Menopausal - Integumentary Integumentary: absent: As Per HPI, Acne, Alopecia, Bleeding Lesions, Change in Hair, Change in Nails, Change in Pigmentation, Changing Lesions, Dry Skin, Erythema, Furuncle, Hirsutism, Lesions, New Lesions, Non-Healing Lesions, Photosensitivity, Pruritus, Rash, Skin Pain, Skin Ulcer, Sores, Striae, Swelling, Unusual Bruising, Wounds, Jaundice, Other - Neurological Neurological: absent: As Per HPI, Abnormal Gait, Abnormal Hearing, Abnormal Movements, Abnormal Speech, Behavioral Changes, Burning Sensations, Confusion, Convulsions, Disequilibrium, Dizziness, Numbness, Focal Weakness, Frequent Falls, Headaches, Lack of Coordination, Loss of Vision, Memory Loss, Paresthesias, Radicular Pain, Restless Legs, Sensory Deficit, Syncope, Tingling, Tremor, Vertigo, Weakness, Other Visual Disturbances, Other - Psychiatric Psychiatric: Anxiety - Endocrine Endocrine: absent: As Per HPI, Change in Body Appearance, Change in Libido, Cold Intolorance, Deepening of Voice, Excessive Sweating, Fatigue, Flushing, Heat Intolorance, Increase in Ring/Shoe/Hat Size, Palpitations, Polydipsia, Polyphagia, Polyuria, Other - Hematologic/Lymphatic Hematologic: absent: As Per HPI, Easy Bleeding, Easy Bruising, Lymphadenopathy, Other Past Patient History - Infectious Disease Hx of Infectious Diseases: None - Past Medical History & Family History Past Medical History?: Yes - Past Social History Smoking Status: Never Smoked - CARDIAC Hx Cardiac Disorders: Yes Hx Congestive Heart Failure: Yes Hx Hypercholesterolemia: Yes Hx Hypertension: Yes Other/Comment: 2 cardiac stents summer 2017 - PULMONARY Hx Respiratory Disorders: Yes Hx Chronic Obstructive Pulmonary Disease (COPD): Yes (ON OXYGEN N.C. 2L ) Hx Pneumonia: Yes (JANUARY 2018) - NEUROLOGICAL Hx Neurological Disorder: No - HEENT Hx HEENT Problems: Yes Hx Cataracts: Yes (BILAT.) Other/Comment: CAHTO RT EAR - RENAL Hx Chronic Kidney Disease: No - ENDOCRINE/METABOLIC Hx Endocrine Disorders: No - HEMATOLOGICAL/ONCOLOGICAL Hx Blood Disorders: No - INTEGUMENTARY Hx Dermatological Problems: No - MUSCULOSKELETAL/RHEUMATOLOGICAL Hx Musculoskeletal Disorders: Yes Hx Arthritis: Yes Hx Falls: No Hx Rheumatoid Arthritis: Yes - GASTROINTESTINAL Hx Gastrointestinal Disorders: Yes Hx Gall Bladder Disease: Yes - GENITOURINARY/GYNECOLOGICAL Hx Genitourinary Disorders: No - PSYCHIATRIC Hx Psychophysiologic Disorder: Yes Hx Anxiety: Yes Hx Substance Use: No - SURGICAL HISTORY Hx Surgeries: Yes Hx Cholecystectomy: Yes - ANESTHESIA Hx Anesthesia: Yes Hx Anesthesia Reactions: No Hx Malignant Hyperthermia: No Meds Allergies/Adverse Reactions: Allergies Allergy/AdvReac Type Severity Reaction Status Date / Time No Known Allergies Allergy Verified 08/09/18 14:47 - Medications Medications: Current Medications Albuterol/Ipratropium (Duoneb 3 Mg/0.5 Mg (3 Ml) Ud) 3 ml INH RQ4 [facility] Last Admin: 08/11/18 07:40 Dose: 3 ml Alprazolam (Xanax) 0.25 mg PO DAILY PRN PRN Reason: Anxiety Stop: 08/16/18 18:37 Last Admin: 08/10/18 22:02 Dose: 0.25 mg Aspirin (Aspirin Chewable) 81 mg PO DAILY [facility] Last Admin: 08/11/18 10:21 Dose: 81 mg Bisoprolol Fumarate (Zebeta) 10 mg PO DAILY [facility] Last Admin: 08/11/18 10:23 Dose: 10 mg Celecoxib (Celebrex) 200 mg PO DAILY PRN PRN Reason: FOR PAIN Last Admin: 08/11/18 10:21 Dose: 200 mg Chlorthalidone (Hygroton) 25 mg PO DAILY [facility] Last Admin: 08/11/18 10:22 Dose: 25 mg Enoxaparin Sodium (Lovenox) 40 mg SC DAILY [facility] Last Admin: 08/11/18 10:21 Dose: 40 mg Fluticasone/Vilanterol (Breo Ellipta 100-25 Mcg Inh) 1 puff INH RQD [facility] Last Admin: 08/10/18 09:08 Dose: 1 puff Home Med (Leflunomide [Arava]) 20 mg PO DAILY [facility] Azithromycin 500 mg/ Sodium (Chloride) 250 mls @ 250 mls/hr IVPB DAILY@1030 [facility]; Protocol Last Admin: 08/11/18 10:34 Dose: 250 mls/hr Ceftriaxone Sodium (Rocephin Iv 1 Gm Duplex) 50 mls @ 100 mls/hr IVPB DAILY [facility]; Protocol Last Admin: 08/11/18 10:23 Dose: 100 mls/hr Methylprednisolone (Solu-Medrol) 40 mg IV Q8H [facility] Last Admin: 08/11/18 08:32 Dose: 40 mg Montelukast Sodium (Singulair) 10 mg PO HS [facility] Last Admin: 08/10/18 22:09 Dose: 10 mg Rosuvastatin Calcium (Crestor) 10 mg PO HS [facility] Last Admin: 08/10/18 21:59 Dose: 10 mg Ticagrelor (Brilinta) 90 mg PO Q12 [facility] Last Admin: 08/11/18 10:21 Dose: 90 mg Physical Exam - Constitutional Appears: In Acute Distress, Chronically Ill - Head Exam Head Exam: ATRAUMATIC, NORMAL INSPECTION, NORMOCEPHALIC - Eye Exam Eye Exam: EOMI, Normal appearance, PERRL Pupil Exam: NORMAL ACCOMODATION, PERRL - ENT Exam ENT Exam: Mucous Membranes Moist, Normal Exam - Neck Exam Neck exam: Positive for: Normal Inspection - Respiratory Exam Respiratory Exam: Accessory Muscle Use, Prolonged Expiratory Phase, Respiratory Distress - Cardiovascular Exam Cardiovascular Exam: Tachycardia - GI/Abdominal Exam GI & Abdominal Exam: Normal Bowel Sounds, Soft - Rectal Exam Rectal Exam: Deferred - Extremities Exam Extremities exam: Positive for: normal inspection, pedal edema - Back Exam Back exam: NORMAL INSPECTION - Neurological Exam Neurological exam: Alert, Oriented x3 - Psychiatric Exam Psychiatric exam: Normal Affect, Normal Mood - Skin Skin Exam: Dry, Intact, Normal Color, Warm Results - Vital Signs Recent Vital Signs: Last Vital Signs Temp 97.9 F 08/11/18 07:00 Pulse 88 08/11/18 12:18 Resp 18 08/11/18 09:20 BP 118/70 08/11/18 07:00 Pulse Ox 93 L 08/11/18 07:00 - Labs Result Diagrams: 08/11/18 07:09 08/11/18 07:09 Labs: Laboratory Results - last 24 hr 08/10/18 08/11/18 08/11/18 16:33 07:09 07:09 WBC 26.9 H RBC 3.93 Hgb 11.4 Hct 35.3 MCV 89.9 MCH 29.0 MCHC 32.3 L RDW 13.7 Plt Count 362 MPV 8.6 Neut % (Auto) 92.6 H Lymph % (Auto) 2.2 L Travis % (Auto) 5.1 Eos % (Auto) 0.0 Baso % (Auto) 0.1 Neut # (Auto) 24.9 H Lymph # (Auto) 0.6 L Travis # (Auto) 1.4 H Eos # (Auto) 0.0 Baso # (Auto) 0.0 Neutrophils % (Manual) 95 H Lymphocytes % (Manual) 1 L Monocytes % (Manual) 4 Platelet Estimate Normal RBC Morphology Normal Sodium 140 Potassium 4.2 Chloride 88 L Carbon Dioxide 45 H* Anion Gap 11 BUN 35 H Creatinine 1.0 Est GFR ( Amer) > 60 Est GFR (Non-Af Amer) 53 Random Glucose 153 H Calcium 8.4 L Total Bilirubin 0.4 AST 25 ALT 20 Alkaline Phosphatase 88 Total Protein 7.5 Albumin 4.2 Globulin 3.4 Albumin/Globulin Ratio 1.2 Influenza Typ A,B (EIA) Negative for flu a/b Assessment & Plan - Assessment and Plan (Free Text) Assessment: Palliative consult DNR DNI, there is no Advance Directive on chart I reviewed all medical history and diagnostic studies, examined and interviewed patient in the bed. Patient is alert, oriented, unable to speak in full sentences due to SOB. Patient is on O2 supplement at 30% FiO2. Face looks puffy. Patient admits to using 2-3 pillows to sleep at home. Breath sounds are diminished, breathing is shallow with prolonged expirations. O2Sat 93%, what is about patient's norm. There is some productive cough. Denies nasal drainage. Patient is tachycardic, HR 78, BP 118/70, afebrile. Abdomen soft, denies constipation, appetite good. Ambulatory with minimal assistance. Goals of care discussed with patient. Patient has been dealing with COPD for about 10 years. She notices her condition is progressively getting worse and she is in constant need of O2 supply at home. Patient was told that she had Pneumonia and was in need for IV antibiotics. Patient hopes to return home, once she gets better. Code status discussed. I questioned her decision about DNR/DNI and what she understood about it. Patient said she was given enough information from Medical Residents and understands that she will not be applied aggressive measures to support her life if all ordinary measures fail. POLST introduced. However, patient admitted becoming very anxious when Nettie Bracelet was to be given to her. She reports almost getting a heart attack. Patient felt " as if she was labeled and written off already", and did not want to sign POLST. In long discussion I was able to assist patient to remain calm and to understand the Hospital's protocol calling for those measures. Patient stated understanding but remained firm against wearing Nettie Bracelet or signing POLST, but wanted to remain DNR/DNI in the system. Patient reported she had a Living Will at home and wanted those instructions to be fallowed. Her son will bring the copy in. Impression * COPD * Acute respiratory distress 2nd to combination of COPD and Pneumonia * SOB with activity * Anxiety * Limited ambulation * Wishes DNR/DNI but against signing POLST, wants her Living Will to be fallowed, son will bring copy in Suggestion * Continue O2 supplement * Iv antibiotics * Assist with ADLs * Provide patient with enough pillows to sleep at [facility] * DNR/DNI * Copy of Living Will on chart when copy available Palliative care will sign off at this point. Advance care planing 48min
--- NOTE | 2018-08-11 14:55 | CP.PCM.PN ---
<Sandra Pham - Last Filed: 08/11/18 15:12> Subjective - Date & Time of Evaluation Date of Evaluation: 08/11/18 Time of Evaluation: 10:15 - Subjective Subjective: PGY-1 Medicine Progress Note for Dr. Mendez Patient was seen and examined today OOB in chair in no acute distress. Nurse reports no overnight events. Patient reports feeling better than yesterday overall. She is able to more easily breath and her head cold is clearing, allowing her to hear without people needing to raise their voice. She voiced her opinions about not wanting to be hooked up to any big machines for life support, nor wanting any chest compressions to be done, but wasn't ready to sign a POLST. Denies chest pain, headache, dizziness, abdominal pain, numbness, tingling, nausea, vomiting. Objective - Vital Signs/Intake and Output Vital Signs (last 24 hours): Temp Pulse Resp BP Pulse Ox 97.9 F 88 18 118/70 93 L 08/11/18 07:00 08/11/18 12:18 08/11/18 09:20 08/11/18 07:00 08/11/18 07:00 - Medications Medications: Current Medications Albuterol/Ipratropium (Duoneb 3 Mg/0.5 Mg (3 Ml) Ud) 3 ml INH RQ4 [facility] Last Admin: 08/11/18 07:40 Dose: 3 ml Alprazolam (Xanax) 0.25 mg PO DAILY PRN PRN Reason: Anxiety Stop: 08/16/18 18:37 Last Admin: 08/10/18 22:02 Dose: 0.25 mg Aspirin (Aspirin Chewable) 81 mg PO DAILY [facility] Last Admin: 08/11/18 10:21 Dose: 81 mg Bisoprolol Fumarate (Zebeta) 10 mg PO DAILY [facility] Last Admin: 08/11/18 10:23 Dose: 10 mg Celecoxib (Celebrex) 200 mg PO DAILY PRN PRN Reason: FOR PAIN Last Admin: 08/11/18 10:21 Dose: 200 mg Chlorthalidone (Hygroton) 25 mg PO DAILY [facility] Last Admin: 08/11/18 10:22 Dose: 25 mg Enoxaparin Sodium (Lovenox) 40 mg SC DAILY [facility] Last Admin: 08/11/18 10:21 Dose: 40 mg Fluticasone/Vilanterol (Breo Ellipta 100-25 Mcg Inh) 1 puff INH RQD [facility] Last Admin: 08/10/18 09:08 Dose: 1 puff Home Med (Leflunomide [Arava]) 20 mg PO DAILY [facility] Azithromycin 500 mg/ Sodium (Chloride) 250 mls @ 250 mls/hr IVPB DAILY@1030 [facility]; Protocol Last Admin: 08/11/18 10:34 Dose: 250 mls/hr Ceftriaxone Sodium (Rocephin Iv 1 Gm Duplex) 50 mls @ 100 mls/hr IVPB DAILY [facility]; Protocol Last Admin: 08/11/18 10:23 Dose: 100 mls/hr Methylprednisolone (Solu-Medrol) 40 mg IV Q8H [facility] Last Admin: 08/11/18 08:32 Dose: 40 mg Montelukast Sodium (Singulair) 10 mg PO HS [facility] Last Admin: 08/10/18 22:09 Dose: 10 mg Rosuvastatin Calcium (Crestor) 10 mg PO HS [facility] Last Admin: 08/10/18 21:59 Dose: 10 mg Ticagrelor (Brilinta) 90 mg PO Q12 [facility] Last Admin: 08/11/18 10:21 Dose: 90 mg - Labs Labs: 08/11/18 07:09 08/11/18 07:09 - Constitutional Appears: No Acute Distress, Chronically Ill - Head Exam Head Exam: ATRAUMATIC, NORMOCEPHALIC - Eye Exam Eye Exam: EOMI, Normal appearance Pupil Exam: NORMAL ACCOMODATION Additional comments: glasses - ENT Exam ENT Exam: Mucous Membranes Moist Additional comments: hearing deficit R worse than L poor dentition - Respiratory Exam Respiratory Exam: Decreased Breath Sounds, Rales, Wheezes. absent: Accessory Muscle Use, Rhonchi Additional comments: warmed humidified O2 - Cardiovascular Exam Cardiovascular Exam: +S1, +S2 - GI/Abdominal Exam GI & Abdominal Exam: Soft, Normal Bowel Sounds. absent: Tenderness - Extremities Exam Extremities Exam: Normal Capillary Refill, Pedal Edema. absent: Calf Tenderness Additional comments: IV access in R hand - Back Exam Back Exam: absent: CVA tenderness (L), CVA tenderness (R) - Neurological Exam Neurological Exam: Alert, Awake, Oriented x3 - Psychiatric Exam Psychiatric exam: Anxious - Skin Skin Exam: Normal Color, Warm Assessment and Plan - Assessment and Plan (Free Text) Assessment: 83 year old female with a PMHx of HTN, CAD s/p 3 stents, Rheumatoid Arthritis, COPD (on 2L) and CHF (Systolic/Diastolic) admitted for Pneumonia. Plan: Pneumonia/COPD exacerbation - CXR (08/09): COPD/emphysema;Patchy opacities at the left lung base, possibly atelectasis or pneumonia. Cardiomegaly. - CT Chest without (08/09): bilateral multifocal opacities evident throughout bilateral lung reyes - ABG pCO2 73, pH 7.39 - VBG lactate 2.0 - patient is on immunosuppressive which could have contributed to PNA - Blood Cx neg @ 24 hrs - f/u Sputum Cx - Influenza neg - Pulm consulted: Dr. Tse - help appreciated - Azithromycin 500, Solumedrol 125, Rocephin 1gm given in ED - Duonebs q4h - Azithromycin 500mg IVPB daily (started 08/10) - Rocephin 1gm IVPB daily (started 08/10) - Montelukast 10mg po HS - BreoEllipta 1puff INH daily - Solumedrol 40mg IV q8 Diastolic CHF, chronic - ProBNP 1850 on admission, similar to previous - ROMIs neg x3 - home Chlorthalidone 25mg PO Daily - Bisoprolol 10mg PO Daily CAD s/p Stent Placement, Hypertension Patient Denies Hx of HTN - home ASA 81mg po daily - home Bisoprolol 10mg po daily - home Brilinta 90mg po q12 - home Crestor 10mg po HS Rheumotoid Arthritis - home Celebrex 200mg po daily prn - home Leflunomide 20mg po daily Anxiety - home Xanax 0.25mg po daily prn PPx - DVT: Lovenox 40mg sc daily - Diet: HHD - PT Patient is DNR/DNI per discussion. However she is uncomfortable signing POLST and wearing bracelet. She has a living will, which she would like followed. Her son will bring that in. d/w Dr. Vanessa Pham PGY-1 <Rivas Mendez - Last Filed: 08/11/18 19:06> Objective - Vital Signs/Intake and Output Vital Signs (last 24 hours): Temp Pulse Resp BP Pulse Ox 98.1 F 77 20 125/60 95 08/11/18 15:10 08/11/18 15:39 08/11/18 15:10 08/11/18 15:10 08/11/18 15:10 - Medications Medications: Current Medications Albuterol/Ipratropium (Duoneb 3 Mg/0.5 Mg (3 Ml) Ud) 3 ml INH RQ4 [facility] Last Admin: 08/11/18 11:30 Dose: 3 ml Alprazolam (Xanax) 0.25 mg PO DAILY PRN PRN Reason: Anxiety Stop: 08/16/18 18:37 Last Admin: 08/10/18 22:02 Dose: 0.25 mg Aspirin (Aspirin Chewable) 81 mg PO DAILY [facility] Last Admin: 08/11/18 10:21 Dose: 81 mg Bisoprolol Fumarate (Zebeta) 10 mg PO DAILY [facility] Last Admin: 08/11/18 10:23 Dose: 10 mg Celecoxib (Celebrex) 200 mg PO DAILY PRN PRN Reason: FOR PAIN Last Admin: 08/11/18 10:21 Dose: 200 mg Chlorthalidone (Hygroton) 25 mg PO DAILY [facility] Last Admin: 08/11/18 10:22 Dose: 25 mg Enoxaparin Sodium (Lovenox) 40 mg SC DAILY [facility] Last Admin: 08/11/18 10:21 Dose: 40 mg Fluticasone/Vilanterol (Breo Ellipta 100-25 Mcg Inh) 1 puff INH RQD [facility] Last Admin: 08/10/18 09:08 Dose: 1 puff Home Med (Leflunomide [Arava]) 20 mg PO DAILY [facility] Azithromycin 500 mg/ Sodium (Chloride) 250 mls @ 250 mls/hr IVPB DAILY@1030 [facility]; Protocol Last Admin: 08/11/18 10:34 Dose: 250 mls/hr Ceftriaxone Sodium (Rocephin Iv 1 Gm Duplex) 50 mls @ 100 mls/hr IVPB DAILY [facility]; Protocol Last Admin: 08/11/18 10:23 Dose: 100 mls/hr Methylprednisolone (Solu-Medrol) 40 mg IV Q8H [facility] Last Admin: 08/11/18 16:40 Dose: 40 mg Montelukast Sodium (Singulair) 10 mg PO HS [facility] Last Admin: 08/10/18 22:09 Dose: 10 mg Rosuvastatin Calcium (Crestor) 10 mg PO HS [facility] Last Admin: 08/10/18 21:59 Dose: 10 mg Ticagrelor (Brilinta) 90 mg PO Q12 [facility] Last Admin: 08/11/18 10:21 Dose: 90 mg - Labs Labs: 08/11/18 07:09 08/11/18 07:09 Attending/Attestation - Attestation I have personally seen and examined this patient.: Yes I have fully participated in the care of the patient.: Yes I have reviewed all pertinent clinical information, including history, physical exam and plan: Yes Notes (Text): 08/11/18 19:05 Medical attending: Patient was seen and examined by me. Agree with the above note by the resident The patient was not in any acute distress when I came and saw her. The patient was also reporting her breathing seemed easier today We also discussed with the patient with reguards to the CODE status as well. Rivas Mendez
--- NOTE | 2018-08-11 17:57 | CP.PCM.PN ---
<Lars Lockwood - Last Filed: 08/11/18 18:12> Subjective - Date & Time of Evaluation Date of Evaluation: 08/11/18 Time of Evaluation: 16:00 - Subjective Subjective: Pulmonology Note for Dr. Tse Patient seen and examined at bedside this AM. She states she slept well last night and is feeling much better. She slept on her side, elevated with one pillow. Currently saturating at 95% on high flow nasal cannula. Patient still has a cough with clear sputum. Denies chest pain and SOB while on O2. Objective - Vital Signs/Intake and Output Vital Signs (last 24 hours): Temp Pulse Resp BP Pulse Ox 98.1 F 77 20 125/60 95 08/11/18 15:10 08/11/18 15:39 08/11/18 15:10 08/11/18 15:10 08/11/18 15:10 - Medications Medications: Current Medications Albuterol/Ipratropium (Duoneb 3 Mg/0.5 Mg (3 Ml) Ud) 3 ml INH RQ4 [facility] Last Admin: 08/11/18 11:30 Dose: 3 ml Alprazolam (Xanax) 0.25 mg PO DAILY PRN PRN Reason: Anxiety Stop: 08/16/18 18:37 Last Admin: 08/10/18 22:02 Dose: 0.25 mg Aspirin (Aspirin Chewable) 81 mg PO DAILY [facility] Last Admin: 08/11/18 10:21 Dose: 81 mg Bisoprolol Fumarate (Zebeta) 10 mg PO DAILY [facility] Last Admin: 08/11/18 10:23 Dose: 10 mg Celecoxib (Celebrex) 200 mg PO DAILY PRN PRN Reason: FOR PAIN Last Admin: 08/11/18 10:21 Dose: 200 mg Chlorthalidone (Hygroton) 25 mg PO DAILY [facility] Last Admin: 08/11/18 10:22 Dose: 25 mg Enoxaparin Sodium (Lovenox) 40 mg SC DAILY [facility] Last Admin: 08/11/18 10:21 Dose: 40 mg Fluticasone/Vilanterol (Breo Ellipta 100-25 Mcg Inh) 1 puff INH RQD [facility] Last Admin: 08/10/18 09:08 Dose: 1 puff Home Med (Leflunomide [Arava]) 20 mg PO DAILY [facility] Azithromycin 500 mg/ Sodium (Chloride) 250 mls @ 250 mls/hr IVPB DAILY@1030 [facility]; Protocol Last Admin: 08/11/18 10:34 Dose: 250 mls/hr Ceftriaxone Sodium (Rocephin Iv 1 Gm Duplex) 50 mls @ 100 mls/hr IVPB DAILY [facility]; Protocol Last Admin: 08/11/18 10:23 Dose: 100 mls/hr Methylprednisolone (Solu-Medrol) 40 mg IV Q8H [facility] Last Admin: 08/11/18 16:40 Dose: 40 mg Montelukast Sodium (Singulair) 10 mg PO HS [facility] Last Admin: 08/10/18 22:09 Dose: 10 mg Rosuvastatin Calcium (Crestor) 10 mg PO HS [facility] Last Admin: 08/10/18 21:59 Dose: 10 mg Ticagrelor (Brilinta) 90 mg PO Q12 [facility] Last Admin: 08/11/18 10:21 Dose: 90 mg - Labs Labs: 08/11/18 07:09 08/11/18 07:09 - Additional Findings Additional findings: - Constitutional Appears: No Acute Distress - Head Exam Head Exam: ATRAUMATIC, NORMOCEPHALIC - Eye Exam Eye Exam: Normal appearance - ENT Exam ENT Exam: Mucous Membranes Moist Additional comments: patient is hard of hearing at baseline - Neck Exam Neck exam: Negative for: Lymphadenopathy, Tenderness - Respiratory Exam Respiratory Exam: Decreased Breath Sounds. absent: Accessory Muscle Use, Rhonchi, Wheezes. - Cardiovascular Exam Cardiovascular Exam: REGULAR RHYTHM, +S1, +S2 - GI/Abdominal Exam GI & Abdominal Exam: Soft. absent: Distended, Firm, Guarding, Rigid, Tenderness - Extremities Exam Extremities exam: Negative for: pedal edema, calf tenderness - Neurological Exam Neurological exam: Alert, Oriented x3 - Psychiatric Exam Psychiatric exam: Normal Affect, Normal Mood - Skin Skin Exam: Dry, Warm Assessment and Plan (1) Pneumonia Assessment & Plan: Discontinue high flow oxygen. Place on 2L NC afebrile, WBC 26.9 today (35.7 yesterday) sputum culture pending blood culture - no growth at 48 hours x2 legionella and mycoplasma titers pending continue antibiotics: azithro + ceftriaxone, pending sensitivities Solu-Medrol 40 mg IVP Q8 can decrease to q12h Taniya Santana Singulair continue home medications supportive care Status: Acute (2) COPD (chronic obstructive pulmonary disease) Status: Acute <Lyle Tse - Last Filed: 08/11/18 18:39> Objective - Vital Signs/Intake and Output Vital Signs (last 24 hours): Temp Pulse Resp BP Pulse Ox 98.1 F 77 20 125/60 95 08/11/18 15:10 08/11/18 15:39 08/11/18 15:10 08/11/18 15:10 08/11/18 15:10 - Medications Medications: Current Medications Albuterol/Ipratropium (Duoneb 3 Mg/0.5 Mg (3 Ml) Ud) 3 ml INH RQ4 [facility] Last Admin: 08/11/18 11:30 Dose: 3 ml Alprazolam (Xanax) 0.25 mg PO DAILY PRN PRN Reason: Anxiety Stop: 08/16/18 18:37 Last Admin: 08/10/18 22:02 Dose: 0.25 mg Aspirin (Aspirin Chewable) 81 mg PO DAILY [facility] Last Admin: 08/11/18 10:21 Dose: 81 mg Bisoprolol Fumarate (Zebeta) 10 mg PO DAILY [facility] Last Admin: 08/11/18 10:23 Dose: 10 mg Celecoxib (Celebrex) 200 mg PO DAILY PRN PRN Reason: FOR PAIN Last Admin: 08/11/18 10:21 Dose: 200 mg Chlorthalidone (Hygroton) 25 mg PO DAILY [facility] Last Admin: 08/11/18 10:22 Dose: 25 mg Enoxaparin Sodium (Lovenox) 40 mg SC DAILY [facility] Last Admin: 08/11/18 10:21 Dose: 40 mg Fluticasone/Vilanterol (Breo Ellipta 100-25 Mcg Inh) 1 puff INH RQD [facility] Last Admin: 08/10/18 09:08 Dose: 1 puff Home Med (Leflunomide [Arava]) 20 mg PO DAILY [facility] Azithromycin 500 mg/ Sodium (Chloride) 250 mls @ 250 mls/hr IVPB DAILY@1030 [facility]; Protocol Last Admin: 08/11/18 10:34 Dose: 250 mls/hr Ceftriaxone Sodium (Rocephin Iv 1 Gm Duplex) 50 mls @ 100 mls/hr IVPB DAILY [facility]; Protocol Last Admin: 08/11/18 10:23 Dose: 100 mls/hr Methylprednisolone (Solu-Medrol) 40 mg IV Q8H [facility] Last Admin: 08/11/18 16:40 Dose: 40 mg Montelukast Sodium (Singulair) 10 mg PO HS [facility] Last Admin: 08/10/18 22:09 Dose: 10 mg Rosuvastatin Calcium (Crestor) 10 mg PO HS [facility] Last Admin: 08/10/18 21:59 Dose: 10 mg Ticagrelor (Brilinta) 90 mg PO Q12 [facility] Last Admin: 08/11/18 10:21 Dose: 90 mg - Labs Labs: 08/11/18 07:09 08/11/18 07:09 Attending/Attestation - Attestation I have personally seen and examined this patient.: Yes I have fully participated in the care of the patient.: Yes I have reviewed all pertinent clinical information, including history, physical exam and plan: Yes Notes (Text): 08/11/18 18:38 Patient seen and examined Patient states breathing much improved Afebrile Discontinue high flow oxygen Continue antibiotics Continue nebulizer treatment and steroids Follow-up chest x-ray Follow-up culture and sensitivity
[2018-08-12] MEDS: Albuterol-Ipratrop 3 mg / 0.5 (3 ml) UD INH SCH ×6 (00:22→20:33)
[2018-08-12] MEDS: MethylPREDNISolone 40 mg Vial IV SCH ×4 (00:30→21:52)
[2018-08-12] MEDS: Fluticasone-Vilanterol 100/25mcg Diskus INH SCH (08:00)
[2018-08-12 08:22] LABS: BASO % 0.1 % (0.0-2.0); LYMPH # 0.4 K/uL (1.0-4.3); MEAN CELL VOLUME 90.9 fL (81.0-99.0); MEAN CORPUSCULAR HEMOGLOBIN 29.2 pg (27.0-31.0); MEAN CORPUSCULAR HGB CONC 32.2 g/dL (33.0-37.0); MEAN PLATELET VOLUME 8.6 fL (7.2-11.7); MONO # 0.4 K/uL (0.0-0.8); MONO % 3.6 % (0.0-10.0); NEUT # 11.7 K/uL (1.8-7.0); NEUT % 93.3 % (50.0-75.0); PLATELET COUNT 320 K/uL (130-400); RBC 3.77 Mil/uL (3.80-5.20); RED CELL DISTRIBUTION WIDTH 13.9 % (11.5-14.5)
[2018-08-12 08:27] LABS: WHITE BLOOD COUNT 12.5 K/uL (4.8-10.8)
[2018-08-12 08:49] LABS: ALB/GLOB RATIO 1.2 (1.0-2.1); ALBUMIN 3.9 g/dL (3.5-5.0); ALT/SGPT 16 U/L (9-52); AST/SGOT 24 U/L (14-36); BLOOD UREA NITROGEN 42 mg/dL (7-17); CALCIUM 7.9 mg/dl (8.6-10.4); GFR NON-AFRICAN AMERICAN 53
[2018-08-12] MEDS: Enoxaparin 40 mg Syringe SC SCH (09:31)
[2018-08-12 09:32] LABS: LYMPHOCYTE 4 % (20-40); MONOCYTE 6 % (0-10); MYELOCYTE 1 % (0-0); NEUTROPHIL 89 % (50-75); PLATELET ESTIMATE NORMAL (NORMAL); TOTAL CELLS COUNTED 100
[2018-08-12] MEDS: cefTRIAXone IV 1 gm in Dextros 50 ML IVPB SCH (09:32)
[2018-08-12 09:33] LABS: ANISOCYTOSIS SLIGHT; HYPOCHROMIC SLIGHT; OVALOCYTES SLIGHT; POIKILOCYTOSIS SLIGHT
[2018-08-12] MEDS: Azithromycin 500 MG in Sodium Chloride 0.9% 250 ML IVPB SCH (11:04)
[2018-08-12] MEDS: Acetylcysteine 20% Inhal Soln (4ml) INH SCH ×2 (11:17→20:33)
--- NOTE | 2018-08-12 18:12 | CP.PCM.PN ---
Subjective - Date & Time of Evaluation Date of Evaluation: 08/12/18 Time of Evaluation: 11:40 - Subjective Subjective: Patient seen and examined at bedside this AM. She is feeling better, her SOB continues to improve. Currently satting 95% on high flow nasal cannula, will be switched to 2L NC. Patient's cough has also improved. Denies chest pain and SOB while on O2. Exam: Gen: no acute distress Card: RRR, 2/6 systolic ejection murmur Lungs: diminished breath sounds bilaterally with mild scattered wheezes GI: soft, nontender, no rebound, guarding, or rigidity A&P 1. Likely CAP - 08/09/18 CXR: patchy opacities at left lung base, atelectasis vs pneumonia - 08/09/18 CT chest: bilateral multifocal opacities; malignant neoplasm must be excluded - CT compared to study from January 2018, previous infiltrates have resolved, current opacities are new. - clinically much improved - afebrile, WBC 12.5 today (26.9 yesterday) - blood cx negative - sputum cx pending - legionella and mycoplasma titers pending [not ordered] - check procalcitonin [not ordered] - switch from high flow NC to 2L - continue antibiotics: azithro + ceftriaxone, pending sensitivities - Solu-Medrol 40 mg IVP Q12 - tapering - Duoneb, Breo Ellipta, Singulair - continue home medications - supportive care 2. COPD - continue home medications Objective - Vital Signs/Intake and Output Vital Signs (last 24 hours): Temp Pulse Resp BP Pulse Ox 97.9 F 87 18 132/61 95 08/12/18 16:00 08/12/18 16:00 08/12/18 16:00 08/12/18 16:00 08/12/18 16:00 Intake and Output: 08/12/18 08/12/18 06:59 18:59 Intake Total 320 650 Output Total 450 Balance -130 650 - Medications Medications: Current Medications Acetylcysteine (Acetylcysteine 20%) 4 ml INH RQ6 [facility] Last Admin: 08/12/18 11:17 Dose: 4 ml Albuterol/Ipratropium (Duoneb 3 Mg/0.5 Mg (3 Ml) Ud) 3 ml INH RQ4 [facility] Last Admin: 08/12/18 16:24 Dose: 3 ml Alprazolam (Xanax) 0.25 mg PO DAILY PRN PRN Reason: Anxiety Stop: 08/16/18 18:37 Last Admin: 08/11/18 21:39 Dose: 0.25 mg Aspirin (Aspirin Chewable) 81 mg PO DAILY [facility] Last Admin: 08/12/18 09:31 Dose: 81 mg Bisoprolol Fumarate (Zebeta) 10 mg PO DAILY [facility] Last Admin: 08/12/18 09:31 Dose: 10 mg Celecoxib (Celebrex) 200 mg PO DAILY PRN PRN Reason: FOR PAIN Last Admin: 08/11/18 10:21 Dose: 200 mg Chlorthalidone (Hygroton) 25 mg PO DAILY [facility] Last Admin: 08/12/18 09:31 Dose: 25 mg Enoxaparin Sodium (Lovenox) 40 mg SC DAILY [facility] Last Admin: 08/12/18 09:31 Dose: 40 mg Fluticasone/Vilanterol (Breo Ellipta 100-25 Mcg Inh) 1 puff INH RQD [facility] Last Admin: 08/12/18 08:00 Dose: 1 puff Home Med (Leflunomide [Arava]) 20 mg PO DAILY [facility] Azithromycin 500 mg/ Sodium (Chloride) 250 mls @ 250 mls/hr IVPB DAILY@1030 [facility]; Protocol Last Admin: 08/12/18 11:04 Dose: 250 mls/hr Ceftriaxone Sodium (Rocephin Iv 1 Gm Duplex) 50 mls @ 100 mls/hr IVPB DAILY [facility]; Protocol Last Admin: 08/12/18 09:32 Dose: 100 mls/hr Methylprednisolone (Solu-Medrol) 40 mg IV Q12 [facility] Last Admin: 08/12/18 10:34 Dose: Not Given Montelukast Sodium (Singulair) 10 mg PO HS [facility] Last Admin: 08/11/18 21:39 Dose: 10 mg Rosuvastatin Calcium (Crestor) 10 mg PO HS [facility] Last Admin: 08/11/18 21:39 Dose: 10 mg Ticagrelor (Brilinta) 90 mg PO Q12 [facility] Last Admin: 08/12/18 09:31 Dose: 90 mg - Labs Labs: 08/12/18 08:01 08/12/18 08:01
--- NOTE | 2018-08-12 19:07 | CP.PCM.PN ---
<Sandra Pham - Last Filed: 08/12/18 19:35> Subjective - Date & Time of Evaluation Date of Evaluation: 08/12/18 Time of Evaluation: 09:15 - Subjective Subjective: PGY-1 Medicine Progress Note for Dr. Mendez Patient was seen and examined OOB in chair today in no acute distress. Nurse reports no overnight events. Patient has no new complaints. She voices again that she does not want to wear the DNR/DNI purple bracelet despite her code status. She is breathing better today, and she can hear better today as well. She had another good night's sleep, her appetite has returned, and has no difficulties urinating or defecating. Objective - Vital Signs/Intake and Output Vital Signs (last 24 hours): Temp Pulse Resp BP Pulse Ox 97.9 F 87 18 132/61 95 08/12/18 16:00 08/12/18 16:00 08/12/18 16:00 08/12/18 16:00 08/12/18 16:00 Intake and Output: 08/12/18 08/12/18 06:59 18:59 Intake Total 320 650 Output Total 450 Balance -130 650 - Medications Medications: Current Medications Acetylcysteine (Acetylcysteine 20%) 4 ml INH RQ6 [facility] Last Admin: 08/12/18 11:17 Dose: 4 ml Albuterol/Ipratropium (Duoneb 3 Mg/0.5 Mg (3 Ml) Ud) 3 ml INH RQ4 [facility] Last Admin: 08/12/18 16:24 Dose: 3 ml Alprazolam (Xanax) 0.25 mg PO DAILY PRN PRN Reason: Anxiety Stop: 08/16/18 18:37 Last Admin: 08/11/18 21:39 Dose: 0.25 mg Aspirin (Aspirin Chewable) 81 mg PO DAILY [facility] Last Admin: 08/12/18 09:31 Dose: 81 mg Bisoprolol Fumarate (Zebeta) 10 mg PO DAILY [facility] Last Admin: 08/12/18 09:31 Dose: 10 mg Celecoxib (Celebrex) 200 mg PO DAILY PRN PRN Reason: FOR PAIN Last Admin: 08/11/18 10:21 Dose: 200 mg Chlorthalidone (Hygroton) 25 mg PO DAILY [facility] Last Admin: 08/12/18 09:31 Dose: 25 mg Enoxaparin Sodium (Lovenox) 40 mg SC DAILY [facility] Last Admin: 08/12/18 09:31 Dose: 40 mg Fluticasone/Vilanterol (Breo Ellipta 100-25 Mcg Inh) 1 puff INH RQD [facility] Last Admin: 08/12/18 08:00 Dose: 1 puff Home Med (Leflunomide [Arava]) 20 mg PO DAILY [facility] Azithromycin 500 mg/ Sodium (Chloride) 250 mls @ 250 mls/hr IVPB DAILY@1030 [facility]; Protocol Last Admin: 08/12/18 11:04 Dose: 250 mls/hr Ceftriaxone Sodium (Rocephin Iv 1 Gm Duplex) 50 mls @ 100 mls/hr IVPB DAILY [facility]; Protocol Last Admin: 08/12/18 09:32 Dose: 100 mls/hr Methylprednisolone (Solu-Medrol) 40 mg IV Q12 [facility] Last Admin: 08/12/18 10:34 Dose: Not Given Montelukast Sodium (Singulair) 10 mg PO HS [facility] Last Admin: 08/11/18 21:39 Dose: 10 mg Rosuvastatin Calcium (Crestor) 10 mg PO [facility] Last Admin: 08/11/18 21:39 Dose: 10 mg Ticagrelor (Brilinta) 90 mg PO Q12 [facility] Last Admin: 08/12/18 09:31 Dose: 90 mg - Labs Labs: 08/12/18 08:01 08/12/18 08:01 - Constitutional Appears: No Acute Distress, Chronically Ill - Head Exam Head Exam: ATRAUMATIC, NORMOCEPHALIC - Eye Exam Eye Exam: EOMI, Normal appearance, PERRL Additional comments: glasses - ENT Exam ENT Exam: Mucous Membranes Moist Additional comments: hearing deficit, R worse than L poor dentition - Respiratory Exam Respiratory Exam: Decreased Breath Sounds, Rales, Wheezes. absent: Accessory Muscle Use, Rhonchi Additional comments: warmed humidified O2 - Cardiovascular Exam Cardiovascular Exam: +S1, +S2 - GI/Abdominal Exam GI & Abdominal Exam: Soft, Normal Bowel Sounds. absent: Tenderness - Extremities Exam Extremities Exam: Normal Capillary Refill. absent: Calf Tenderness Additional comments: IV access in R hand - Back Exam Back Exam: absent: CVA tenderness (L), CVA tenderness (R) - Neurological Exam Neurological Exam: Alert, Awake, Oriented x3 - Psychiatric Exam Psychiatric exam: Anxious - Skin Skin Exam: Normal Color, Warm Assessment and Plan - Assessment and Plan (Free Text) Assessment: 83 year old female with a PMHx of HTN, CAD s/p 3 stents, Rheumatoid Arthritis, COPD (on 2L) and CHF (Systolic/Diastolic) admitted for Pneumonia. Plan: Pneumonia/COPD exacerbation - CXR (08/09): COPD/emphysema;Patchy opacities at the left lung base, possibly at electasis or pneumonia. Cardiomegaly. - CT Chest without (08/09): bilateral multifocal opacities evident throughout bilateral lung reyes - ABG pCO2 73, pH 7.39 - VBG lactate 2.0 - patient is on immunosuppressive which could have contributed to PNA - Blood Cx neg @ 3 days - Sputum Cx neg - normal oral deena - Influenza neg - Pulm consulted: Dr. Tse - help appreciated - Azithromycin 500, Solumedrol 125, Rocephin 1gm given in ED - Duonebs q4h - Azithromycin 500mg IVPB daily (started 08/10) - Rocephin 1gm IVPB daily (started 08/10) - Montelukast 10mg po HS - BreoEllipta 1puff INH daily - Solumedrol 40mg IV q12 - decreased from q8 - Mucomyst 4ml INH q6 Diastolic CHF, chronic - ProBNP 1850 on admission, similar to previous - ROMIs neg x3 - home Chlorthalidone 25mg PO Daily - Bisoprolol 10mg PO Daily CAD s/p Stent Placement, Hypertension Patient Denies Hx of HTN - home ASA 81mg po daily - home Bisoprolol 10mg po daily - home Brilinta 90mg po q12 - home Crestor 10mg po HS Rheumotoid Arthritis - home Celebrex 200mg po daily prn - home Leflunomide 20mg po daily Anxiety - home Xanax 0.25mg po daily prn PPx - DVT: Lovenox 40mg sc daily - Diet: HHD - PT recommends TCU on discharge Patient is DNR/DNI per discussion. However she is uncomfortable signing POLST and wearing bracelet. She has a living will, which she would like followed. Her son will bring that in. d/w Dr. Vanessa Pham PGY-1 <Rivas Mendez H - Last Filed: 08/13/18 09:22> Objective - Vital Signs/Intake and Output Vital Signs (last 24 hours): Temp Pulse Resp BP Pulse Ox 97.8 F 97 H 20 115/66 98 08/13/18 07:00 08/13/18 07:00 08/13/18 07:00 08/13/18 07:00 08/13/18 07:00 Intake and Output: 08/13/18 08/13/18 06:59 18:59 Intake Total 320 Output Total 500 Balance -180 - Medications Medications: Current Medications Acetylcysteine (Acetylcysteine 20%) 4 ml INH RQ6 [facility] Last Admin: 08/13/18 04:02 Dose: Not Given Albuterol/Ipratropium (Duoneb 3 Mg/0.5 Mg (3 Ml) Ud) 3 ml INH RQ4 [facility] Last Admin: 08/13/18 04:02 Dose: Not Given Alprazolam (Xanax) 0.25 mg PO DAILY PRN PRN Reason: Anxiety Stop: 08/16/18 18:37 Last Admin: 08/12/18 21:53 Dose: 0.25 mg Aspirin (Aspirin Chewable) 81 mg PO DAILY [facility] Last Admin: 08/12/18 09:31 Dose: 81 mg Bisoprolol Fumarate (Zebeta) 10 mg PO DAILY [facility] Last Admin: 08/12/18 09:31 Dose: 10 mg Celecoxib (Celebrex) 200 mg PO DAILY PRN PRN Reason: FOR PAIN Last Admin: 08/11/18 10:21 Dose: 200 mg Chlorthalidone (Hygroton) 25 mg PO DAILY [facility] Last Admin: 08/12/18 09:31 Dose: 25 mg Enoxaparin Sodium (Lovenox) 40 mg SC DAILY [facility] Last Admin: 08/12/18 09:31 Dose: 40 mg Fluticasone/Vilanterol (Breo Ellipta 100-25 Mcg Inh) 1 puff INH RQD [facility] Last Admin: 08/12/18 08:00 Dose: 1 puff Home Med (Leflunomide [Arava]) 20 mg PO DAILY [facility] Azithromycin 500 mg/ Sodium (Chloride) 250 mls @ 250 mls/hr IVPB DAILY@1030 [facility]; Protocol Last Admin: 08/12/18 11:04 Dose: 250 mls/hr Ceftriaxone Sodium (Rocephin Iv 1 Gm Duplex) 50 mls @ 100 mls/hr IVPB DAILY [facility]; Protocol Last Admin: 08/12/18 09:32 Dose: 100 mls/hr Methylprednisolone (Solu-Medrol) 40 mg IV Q12 [facility] Last Admin: 08/12/18 21:52 Dose: 40 mg Montelukast Sodium (Singulair) 10 mg PO HS [facility] Last Admin: 08/12/18 21:52 Dose: 10 mg Rosuvastatin Calcium (Crestor) 10 mg PO HS [facility] Last Admin: 08/12/18 21:52 Dose: 10 mg Ticagrelor (Brilinta) 90 mg PO Q12 [facility] Last Admin: 08/12/18 21:52 Dose: 90 mg - Labs Labs: 08/13/18 06:36 08/13/18 06:36 Attending/Attestation - Attestation I have personally seen and examined this patient.: Yes I have fully participated in the care of the patient.: Yes I have reviewed all pertinent clinical information, including history, physical exam and plan: Yes Notes (Text): Medical attending: Patient was seen and examined by me. Agree with the above note by the resident The patient was not in any acute distress when I came and saw - she reported feeling much better than previous. Will continue with current regimen, also needs PT/OT evaluation. She is already on home oxygen from before Rivas Mendez
[2018-08-13] MEDS: Albuterol-Ipratrop 3 mg / 0.5 (3 ml) UD INH SCH ×6 (00:04→19:40)
[2018-08-13] MEDS: Acetylcysteine 20% Inhal Soln (4ml) INH SCH ×4 (04:02→19:39)
[2018-08-13 06:45] LABS: BASO % 0.1 % (0.0-2.0); HEMOGLOBIN 10.2 g/dL (11.0-16.0); LYMPH # 0.2 K/uL (1.0-4.3); LYMPH % 3.1 % (20.0-40.0); MEAN CELL VOLUME 90.7 fL (81.0-99.0); MEAN CORPUSCULAR HEMOGLOBIN 28.7 pg (27.0-31.0); MEAN CORPUSCULAR HGB CONC 31.7 g/dL (33.0-37.0); MEAN PLATELET VOLUME 8.7 fL (7.2-11.7); MONO # 0.6 K/uL (0.0-0.8); MONO % 7.2 % (0.0-10.0); NEUT % 89.6 % (50.0-75.0); NRBC % 0.1 % (0.0-2.0); PLATELET COUNT 245 K/uL (130-400); RBC 3.54 Mil/uL (3.80-5.20); RED CELL DISTRIBUTION WIDTH 14.2 % (11.5-14.5); WHITE BLOOD COUNT 7.8 K/uL (4.8-10.8)
[2018-08-13 07:11] LABS: ALB/GLOB RATIO 1.2 (1.0-2.1); ALBUMIN 3.4 g/dL (3.5-5.0); ALT/SGPT 23 U/L (9-52); AST/SGOT 17 U/L (14-36); BLOOD UREA NITROGEN 44 mg/dL (7-17); CALCIUM 7.8 mg/dl (8.6-10.4); GFR NON-AFRICAN AMERICAN 53
[2018-08-13 08:26] VITALS: RESP 20
[2018-08-13] MEDS: Fluticasone-Vilanterol 100/25mcg Diskus INH SCH (08:40)
[2018-08-13 09:12] LABS: ANISOCYTOSIS SLIGHT; HYPOCHROMIC SLIGHT; LYMPHOCYTE 4 % (20-40); MONOCYTE 5 % (0-10); NEUTROPHIL 91 % (50-75); PLATELET ESTIMATE NORMAL (NORMAL); POIKILOCYTOSIS SLIGHT; TOTAL CELLS COUNTED 100
[2018-08-13 09:16] LABS: OVALOCYTES SLIGHT
[2018-08-13] MEDS: Enoxaparin 40 mg Syringe SC SCH (09:31)
[2018-08-13] MEDS: MethylPREDNISolone 40 mg Vial IV SCH (09:32)
[2018-08-13] MEDS: cefTRIAXone IV 1 gm in Dextros 50 ML IVPB SCH (09:50)
[2018-08-13] MEDS: Azithromycin 500 MG in Sodium Chloride 0.9% 250 ML IVPB SCH (13:39)
--- NOTE | 2018-08-13 14:51 | CP.PCM.PN ---
Subjective - Date & Time of Evaluation Date of Evaluation: 08/13/18 Time of Evaluation: 08:20 - Subjective Subjective: Patient was seen and examined at bedside this morning. Patient was resting comfortably and on NC at 2L. She states she is feeling much better today. She slept well overnight and denies coughing, or having any shortness of breath. She is tolerating the antibiotics well. Denies any fevers, chest pain, hemoptysis, n/v. Physical Exam: General: no acute distress, AAOx3 Heart: RRR, no rubs, gallops or murmurs\ Lungs: Wheezing and rales, decreased breath sounds A & P: 1. Likely CAP - 08/09 CXR: patchy opacities at left lung base, atelectasis vs. Pneumonia - 08/09 CT Chest; bilateral multifocal opacities; malignant neoplasm must be exc luded - CT compared to study from January 2018, previous infiltrate has resolved, current opacities are new. - Clinically improved - Afebrile, WBC 7.8 today (12.5 yesterday) - blood cx negative - sputum cx negative - repreat CXR - Continue antibiotics: Azithro + ceftriaxone - Consider switching to PO antibiotics - supportive care and continue monitoring vitals 2. COPD: Continue home medications Objective - Vital Signs/Intake and Output Vital Signs (last 24 hours): Temp Pulse Resp BP Pulse Ox 97.8 F 97 H 20 115/66 98 08/13/18 07:00 08/13/18 07:00 08/13/18 07:00 08/13/18 07:00 08/13/18 07:00 Intake and Output: 08/13/18 08/13/18 06:59 18:59 Intake Total 320 Output Total 500 Balance -180 - Medications Medications: Current Medications Acetylcysteine (Acetylcysteine 20%) 4 ml INH RQ6 [facility] Last Admin: 08/13/18 14:14 Dose: Not Given Albuterol/Ipratropium (Duoneb 3 Mg/0.5 Mg (3 Ml) Ud) 3 ml INH RQ4 [facility] Last Admin: 08/13/18 12:50 Dose: 3 ml Alprazolam (Xanax) 0.25 mg PO DAILY PRN PRN Reason: Anxiety Stop: 08/16/18 18:37 Last Admin: 08/12/18 21:53 Dose: 0.25 mg Aspirin (Aspirin Chewable) 81 mg PO DAILY [facility] Last Admin: 08/13/18 09:31 Dose: 81 mg Bisoprolol Fumarate (Zebeta) 10 mg PO DAILY [facility] Last Admin: 08/13/18 09:31 Dose: 10 mg Celecoxib (Celebrex) 200 mg PO DAILY PRN PRN Reason: FOR PAIN Last Admin: 08/11/18 10:21 Dose: 200 mg Chlorthalidone (Hygroton) 25 mg PO DAILY [facility] Last Admin: 08/13/18 09:31 Dose: 25 mg Enoxaparin Sodium (Lovenox) 40 mg SC DAILY [facility] Last Admin: 08/13/18 09:31 Dose: 40 mg Fluticasone/Vilanterol (Breo Ellipta 100-25 Mcg Inh) 1 puff INH RQD [facility] Last Admin: 08/12/18 08:00 Dose: 1 puff Home Med (Leflunomide [Arava]) 20 mg PO DAILY [facility] Montelukast Sodium (Singulair) 10 mg PO HS [facility] Last Admin: 08/12/18 21:52 Dose: 10 mg Prednisone (Prednisone Tab) 40 mg PO DAILY [facility] Rosuvastatin Calcium (Crestor) 10 mg PO HS [facility] Last Admin: 08/12/18 21:52 Dose: 10 mg Ticagrelor (Brilinta) 90 mg PO Q12 [facility] Last Admin: 08/13/18 09:31 Dose: 90 mg - Labs Labs: 08/13/18 06:36 08/13/18 06:36
--- NOTE | 2018-08-13 15:22 | CP.PCM.PN ---
Subjective - Date & Time of Evaluation Date of Evaluation: 08/13/18 Time of Evaluation: 08:10 - Subjective Subjective: PGY-1 Medicine Progress Note for Dr. Mendez Patient was seen and examined today at bedside in no acute distress. Nurse reports no overnight events. Patient has no new complaints. She's happy about her improvement in breathing, although disappointed that her hearing seems to be muffled again, back to her baseline. Denies chest pain, headache, dizziness, abdominal pain, numbness, tingling. Objective - Vital Signs/Intake and Output Vital Signs (last 24 hours): Temp Pulse Resp BP Pulse Ox 97.8 F 97 H 20 115/66 98 08/13/18 07:00 08/13/18 07:00 08/13/18 07:00 08/13/18 07:00 08/13/18 07:00 Intake and Output: 08/13/18 08/13/18 06:59 18:59 Intake Total 320 Output Total 500 Balance -180 - Medications Medications: Current Medications Acetylcysteine (Acetylcysteine 20%) 4 ml INH RQ6 JUNIE Last Admin: 08/13/18 14:14 Dose: Not Given Albuterol/Ipratropium (Duoneb 3 Mg/0.5 Mg (3 Ml) Ud) 3 ml INH RQ4 JUNIE Last Admin: 08/13/18 12:50 Dose: 3 ml Alprazolam (Xanax) 0.25 mg PO DAILY PRN PRN Reason: Anxiety Stop: 08/16/18 18:37 Last Admin: 08/12/18 21:53 Dose: 0.25 mg Aspirin (Aspirin Chewable) 81 mg PO DAILY [facility] Last Admin: 08/13/18 09:31 Dose: 81 mg Bisoprolol Fumarate (Zebeta) 10 mg PO DAILY [facility] Last Admin: 08/13/18 09:31 Dose: 10 mg Celecoxib (Celebrex) 200 mg PO DAILY PRN PRN Reason: FOR PAIN Last Admin: 08/11/18 10:21 Dose: 200 mg Chlorthalidone (Hygroton) 25 mg PO DAILY [facility] Last Admin: 08/13/18 09:31 Dose: 25 mg Enoxaparin Sodium (Lovenox) 40 mg SC DAILY [facility] Last Admin: 08/13/18 09:31 Dose: 40 mg Fluticasone/Vilanterol (Breo Ellipta 100-25 Mcg Inh) 1 puff INH RQD [facility] Last Admin: 08/12/18 08:00 Dose: 1 puff Home Med (Leflunomide [Arava]) 20 mg PO DAILY [facility] Montelukast Sodium (Singulair) 10 mg PO HS [facility] Last Admin: 08/12/18 21:52 Dose: 10 mg Prednisone (Prednisone Tab) 40 mg PO DAILY [facility] Rosuvastatin Calcium (Crestor) 10 mg PO HS [facility] Last Admin: 08/12/18 21:52 Dose: 10 mg Ticagrelor (Brilinta) 90 mg PO Q12 [facility] Last Admin: 08/13/18 09:31 Dose: 90 mg - Labs Labs: 08/13/18 06:36 08/13/18 06:36 - Constitutional Appears: No Acute Distress, Chronically Ill - Head Exam Head Exam: ATRAUMATIC, NORMOCEPHALIC - Eye Exam Eye Exam: EOMI, Normal appearance, PERRL Additional comments: glasses - ENT Exam ENT Exam: Mucous Membranes Moist Additional comments: hearing deficit, R worse than L poor dentition - Respiratory Exam Respiratory Exam: Decreased Breath Sounds, Rhonchi, Wheezes. absent: Accessory Muscle Use Additional comments: 5L O2 via NC - Cardiovascular Exam Cardiovascular Exam: +S1, +S2 - GI/Abdominal Exam GI & Abdominal Exam: Soft, Normal Bowel Sounds. absent: Tenderness - Extremities Exam Extremities Exam: Normal Capillary Refill. absent: Calf Tenderness Additional comments: IV access in R hand - Back Exam Back Exam: absent: CVA tenderness (L), CVA tenderness (R) - Neurological Exam Neurological Exam: Alert, Awake, Oriented x3 - Psychiatric Exam Psychiatric exam: Anxious - Skin Skin Exam: Intact, Normal Color, Warm Assessment and Plan - Assessment and Plan (Free Text) Assessment: 83 year old female with a PMHx of HTN, CAD s/p 3 stents, Rheumatoid Arthritis, COPD (on 2L) and CHF (Systolic/Diastolic) admitted for Pneumonia. Plan: Pneumonia/COPD exacerbation - CXR (08/09): COPD/emphysema;Patchy opacities at the left lung base, possibly atelectasis or pneumonia. Cardiomegaly. - CT Chest without (08/09): bilateral multifocal opacities evident throughout bilateral lung reyes - ABG pCO2 73, pH 7.39 - VBG lactate 2.0 - patient is on immunosuppressive which could have contributed to PNA - Blood Cx neg @ 3 days - Sputum Cx neg - normal oral deena - Influenza neg - Pulm consulted: Dr. Tse - help appreciated - Azithromycin 500, Solumedrol 125, Rocephin 1gm given in ED - Duonebs q4h - Azithromycin 500mg IVPB daily (started 08/10) - Rocephin 1gm IVPB daily (started 08/10) - Montelukast 10mg po HS - BreoEllipta 1puff INH daily - Prednisone 40mg po daily - Mucomyst 4ml INH q6 Diastolic CHF, chronic - ProBNP 1850 on admission, similar to previous - ROMIs neg x3 - home Chlorthalidone 25mg PO Daily - Bisoprolol 10mg PO Daily CAD s/p Stent Placement, Hypertension Patient Denies Hx of HTN - home ASA 81mg po daily - home Bisoprolol 10mg po daily - home Brilinta 90mg po q12 - home Crestor 10mg po HS Rheumotoid Arthritis - home Celebrex 200mg po daily prn - home Leflunomide 20mg po daily Anxiety - home Xanax 0.25mg po daily prn PPx - DVT: Lovenox 40mg sc daily - Diet: HHD - PT consulted for discharge eval Patient is DNR/DNI per discussion with Palliative Care. However she is uncomfo rtable signing POLST and wearing bracelet. She has a living will, which she would like followed. Her son will bring that in. PT recommends TCU on discharge. Patient and family would prefer home PT instead, as this worked for her after previous discharges. CM has reached out to [facility]. d/w Dr. Vanessa Pham PGY-1
[2018-08-14] MEDS: Albuterol-Ipratrop 3 mg / 0.5 (3 ml) UD INH SCH ×4 (01:10→10:59)
[2018-08-14] MEDS: Acetylcysteine 20% Inhal Soln (4ml) INH SCH ×2 (01:10→07:42)
[2018-08-14 07:21] LABS: EOS % 0.1 % (0.0-4.0); LYMPH # 0.7 K/uL (1.0-4.3); LYMPH % 8.7 % (20.0-40.0); MEAN CELL VOLUME 91.1 fL (81.0-99.0); MEAN CORPUSCULAR HGB CONC 31.8 g/dL (33.0-37.0); MEAN PLATELET VOLUME 8.4 fL (7.2-11.7); MONO # 1.5 K/uL (0.0-0.8); MONO % 18.2 % (0.0-10.0); NEUT # 5.9 K/uL (1.8-7.0); PLATELET COUNT 216 K/uL (130-400); RBC 3.45 Mil/uL (3.80-5.20); RED CELL DISTRIBUTION WIDTH 13.6 % (11.5-14.5)
[2018-08-14 08:10] LABS: ALB/GLOB RATIO 1.3 (1.0-2.1); ALBUMIN 3.5 g/dL (3.5-5.0); ALT/SGPT 21 U/L (9-52); AST/SGOT 26 U/L (14-36); BLOOD UREA NITROGEN 36 mg/dL (7-17); CALCIUM 8.1 mg/dl (8.6-10.4); GFR NON-AFRICAN AMERICAN > 60
[2018-08-14 08:24] VITALS: BP 122/57; PULSE 68; TEMP 98
--- NOTE | 2018-08-14 09:17 | CP.PCM.DIS ---
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 Comment: Physician Instructions: Reason For Exam: hx copd, recent change in home oxygen 08/10/18 09:40 Palliative Care Consult Routine Comment: Consulting Provider: Zaina Silva Physician Instructions: Reason For Exam: POLST, DNR/DNI discussion Time Spent in preparation of Discharge (in minutes): 29 Diagnosis - Discharge Diagnosis (1) Pneumonia Status: Acute Priority: High (2) COPD (chronic obstructive pulmonary disease) Status: Chronic (3) HTN (hypertension) Status: Chronic (4) CO2 retention Status: Chronic Hospital Course - Lab Results Lab Results: Micro Results 08/09/18 16:54 Blood Blood Culture - Preliminary NO GROWTH AFTER 4 DAYS 08/09/18 16:22 Blood Blood Culture - Preliminary NO GROWTH AFTER 4 DAYS 08/09/18 22:37 Sputum Gram Stain - Final 08/09/18 22:37 Sputum Sputum Culture - Final NORMAL ORAL RIGO Most Recent Lab Values WBC 8.0 K/uL (4.8-10.8) 08/14/18 07:17 RBC 3.45 Mil/uL (3.80-5.20) L 08/14/18 07:17 Hgb 10.0 g/dL (11.0-16.0) L 08/14/18 07:17 Hct 31.4 % (34.0-47.0) L 08/14/18 07:17 MCV 91.1 fL (81.0-99.0) 08/14/18 07:17 MCH 29.0 pg (27.0-31.0) 08/14/18 07:17 MCHC 31.8 g/dL (33.0-37.0) L 08/14/18 07:17 RDW 13.6 % (11.5-14.5) 08/14/18 07:17 Plt Count 216 K/uL (130-400) 08/14/18 07:17 MPV 8.4 fL (7.2-11.7) 08/14/18 07:17 Neut % (Auto) 73.0 % (50.0-75.0) 08/14/18 07:17 Lymph % (Auto) 8.7 % (20.0-40.0) L 08/14/18 07:17 [place] % (Auto) 18.2 % (0.0-10.0) H 08/14/18 07:17 Eos % (Auto) 0.1 % (0.0-4.0) 08/14/18 07:17 Baso % (Auto) 0.0 % (0.0-2.0) 08/14/18 07:17 Neut # (Auto) 5.9 K/uL (1.8-7.0) 08/14/18 07:17 Lymph # (Auto) 0.7 K/uL (1.0-4.3) L 08/14/18 07:17 [place] # (Auto) 1.5 K/uL (0.0-0.8) H 08/14/18 07:17 Eos # (Auto) 0.0 K/uL (0.0-0.7) 08/14/18 07:17 Baso # (Auto) 0.0 K/uL (0.0-0.2) 08/14/18 07:17 Neutrophils % (Manual) 91 % (50-75) H 08/13/18 06:36 Band Neutrophils % 2 % (0-2) 08/10/18 06:10 Lymphocytes % (Manual) 4 % (20-40) L 08/13/18 06:36 Monocytes % (Manual) 5 % (0-10) 08/13/18 06:36 Myelocytes % 1 % (0-0) H 08/12/18 08:01 Platelet Estimate Normal (NORMAL) 08/13/18 06:36 RBC Morphology Normal 08/11/18 07:09 Polychromasia Slight 08/10/18 06:10 Hypochromasia (manual) Slight 08/13/18 06:36 Poikilocytosis (manual Slight 08/13/18 06:36 Basophilic Stippling Slight 08/13/18 06:36 Anisocytosis (manual) Slight 08/13/18 06:36 Ovalocytes Slight 08/13/18 06:36 Puncture Site Lb 08/09/18 18:03 pCO2 73 mm/Hg (35-45) H* 08/09/18 18:03 pO2 93 mm/Hg (80-100) 08/09/18 18:03 HCO3 37.0 mmol/L (21-28) H 08/09/18 18:03 ABG pH 7.39 (7.35-7.45) 08/09/18 18:03 ABG Total CO2 46.4 mmol/L (22-28) H 08/09/18 18:03 ABG O2 Saturation 96.9 % (95-98) 08/09/18 18:03 ABG Base Excess 15.5 mmol/L (-2.0-3.0) H 08/09/18 18:03 Steve Test Na 08/09/18 18:03 ABG Potassium 3.4 mmol/L (3.6-5.2) L 08/09/18 18:03 VBG pH 7.34 (7.32-7.43) 08/09/18 17:23 VBG pCO2 92 mmHg (40-60) H* 08/09/18 17:23 VBG HCO3 38.0 mmol/L 08/09/18 17:23 VBG Total CO2 52.4 mmol/L (22-28) H 08/09/18 17:23 VBG O2 Sat (Calc) 39.3 % (40-65) L 08/09/18 17:23 VBG Base Excess 18.8 mmol/L (0.0-2.0) H 08/09/18 17:23 VBG Potassium 3.8 mmol/L (3.6-5.2) 08/09/18 17:23 A-a O2 Difference 72.0 mm/Hg 08/09/18 18:03 Respiratory Index 0.8 08/09/18 18:03 Sodium 139.0 mmol/l (132-148) 08/09/18 18:03 Chloride 95.0 mmol/L (98-107) L 08/09/18 18:03 Glucose 177 mg/dl (65-105) H 08/09/18 18:03 Lactate 2.0 mmol/L (0.7-2.1) 08/09/18 18:03 Liter Flow 4.0 08/09/18 18:03 FiO2 36.0 % 08/09/18 18:03 Crit Value Called To Er physician 08/09/18 18:03 Crit Value Called By Rogelio sutton 08/09/18 18:03 Crit Value Read Back Y 08/09/18 18:03 Blood Gas Notified Time 1806 08/09/18 18:03 Sodium 141 mmol/L (132-148) 08/14/18 07:17 Potassium 3.6 mmol/L (3.6-5.2) 08/14/18 07:17 Chloride 91 mmol/L (98-107) L 08/14/18 07:17 Carbon Dioxide 46 mmol/L (22-30) H* 08/14/18 07:17 Anion Gap 8 (10-20) L 08/14/18 07:17 BUN 36 mg/dL (7-17) H 08/14/18 07:17 Creatinine 0.9 mg/dL (0.7-1.2) 08/14/18 07:17 Est GFR ( Amer) > 60 08/14/18 07:17 Est GFR (Non-Af Amer) > 60 08/14/18 07:17 Random Glucose 121 mg/dL (65-105) H D 08/14/18 07:17 Calcium 8.1 mg/dl (8.6-10.4) L 08/14/18 07:17 Phosphorus 2.0 mg/dL (2.5-4.5) L 08/10/18 06:10 Magnesium 2.2 mg/dL (1.6-2.3) 08/10/18 06:10 Total Bilirubin 0.3 mg/dL (0.2-1.3) 08/14/18 07:17 AST 26 U/L (14-36) 08/14/18 07:17 ALT 21 U/L (9-52) 08/14/18 07:17 Alkaline Phosphatase 56 U/L (38-126) 08/14/18 07:17 Total Creatine Kinase 43 U/L (30-135) 08/10/18 06:10 CK-MB (Mass) 2.49 ng/mL (0.0-3.38) 08/10/18 06:10 Troponin I 0.0470 ng/mL (0.00-0.120) 08/10/18 06:10 NT-Pro-B Natriuret Pep 1850 pg/mL (0-900) H 08/09/18 15:43 Total Protein 6.2 g/dL (6.3-8.3) L 08/14/18 07:17 Albumin 3.5 g/dL (3.5-5.0) 08/14/18 07:17 Globulin 2.7 gm/dL (2.2-3.9) 08/14/18 07:17 Albumin/Globulin Ratio 1.3 (1.0-2.1) 08/14/18 07:17 Arterial Blood Potassium 3.4 mmol/L (3.6-5.2) L 08/09/18 18:03 Venous Blood Potassium 3.8 mmol/L (3.6-5.2) 08/09/18 17:23 Influenza Typ A,B (EIA) Negative for flu a/b (NEGATIVE) 08/10/18 16:33 - Hospital Course Hospital Course: This is an 83 year old female here at [facility] being treated for pneumonia. The patient has a history of COPD with chronic hypercapnia. She is chronically on home oxygen. She also has a history of CAD, CHF, RA, Anxiety as well. She was brought in by family members due to ongoing worsening of her breath, coughing, fevers, and on imaging done in the ER showing pneumonia The WBC was very elevated on admission and she has been on IV abx. With regards to her COPD and Hypercapnia. She has been on IV solumedrol as well as Nebulizer treatments and BreoEllipta for maintenance. She initially was on vapotherm hiflow O2 and then changed over to nasal cannula two days ago and has done well. She is able to ambulate at bedside. Other medications given to her for her breathing include Singulair as well as. As she improved we slowly decreased the IV solumedrol and yesterday started PO Prednisone. While here we continued much of her home medications as well The patient was recommended to go to [facility] or TCU but the patient and her family would like to go back home instead and have home PT. The patient explained she's had home PT before and this is hat she preffers. Discharge Exam - Head Exam Head Exam: ATRAUMATIC, NORMOCEPHALIC Discharge Plan - Follow Up Plan Condition: GOOD Disposition: HOME/ ROUTINE
[2018-08-14] MEDS: Enoxaparin 40 mg Syringe SC SCH (10:04)
[2018-08-14] MEDS: Fluticasone-Vilanterol 100/25mcg Diskus INH SCH (10:59)
[2018-08-14 11:28] LABS: LYMPHOCYTE 10 % (20-40); MONOCYTE 6 % (0-10); NEUTROPHIL 84 % (50-75); PLATELET ESTIMATE NORMAL (NORMAL); TOTAL CELLS COUNTED 100
[2018-08-15 22:24] VITALS: O2SAT 98
== END 2018-08-14 12:49 | disposition home or self-care (01) | DRG 190 ==
LOC: C.ER 14:30 → C.9E 17:15 → C.6T 08-10 14:18 → C.9E 08-10 14:41 → C.6T 08-10 16:04 → C.9E 08-10 16:35 → C.6T 08-10 16:59
PROVIDERS: ADMIT Hospitalist; ATTEND Hospitalist
DX: J44.0 Chronic obstructive pulmonary disease with (acute) lower respiratory infection (principal); J18.9 Pneumonia, unspecified organism; I50.22 Chronic systolic (congestive) heart failure; J44.1 Chronic obstructive pulmonary disease with (acute) exacerbation; I11.0 Hypertensive heart disease with heart failure; I25.10 Atherosclerotic heart disease of native coronary artery without angina pectoris; M06.9 Rheumatoid arthritis, unspecified; Z51.5 Encounter for palliative care; Z66 Do not resuscitate; E78.00 Pure hypercholesterolemia, unspecified; E78.5 Hyperlipidemia, unspecified; F41.9 Anxiety disorder, unspecified; Z77.22 Contact with and (suspected) exposure to environmental tobacco smoke (acute) (chronic); I25.2 Old myocardial infarction; Z87.01 Personal history of pneumonia (recurrent); Z95.5 Presence of coronary angioplasty implant and graft; Z99.81 Dependence on supplemental oxygen

== ENCOUNTER 2018-10-15 09:46 | Inpatient (IN) | payer MEDICARE ==
[2018-10-15 09:56] VITALS: BMI 27.0
--- NOTE | 2018-10-15 09:59 | C.PDOC ---
History Of Present Illness 83y/o female, whose PMHx includes COPD, Hypercapnia, ND, 3 stents, and on home oxygen, presents to to the ED for evaluation. As per son, patient stated to him that she does not feel well. He then increased her home oxygen from 2L to 4L. At around 0824, her son went to check on her and found her laying on the floor with difficulty breathing. Son then called EMS. Upon EMS arrival, patient went into respiratory distress and was intubated in fief. Patient then arrived to the ED intubated. Additional information limited secondary to patient's clinical condition. Chief Complaint (Nursing): Respiratory Distress History Per: EMS, Family History/Exam Limitations: other (clinical condition ) Current Symptoms Are (Timing): Still Present Past Medical History Reviewed: Historical Data, Nursing Documentation, Vital Signs - Medical History PMH: Anxiety, Arthritis, CHF, COPD (ON OXYGEN [place] 2L ), Gall Bladder Disease, HTN, Hypercholesterolemia, Pneumonia (JANUARY 2018), Rheumatoid Arthritis Denies: Chronic Kidney Disease Surgical History: Cholecystectomy - [facility] Procedures ASSISTANCE WITH RESPIRATORY VENTILATION, 24-96 HRS, CPAP (07/23/15) ASSISTANCE WITH RESPIRATORY VENTILATION, >96 HRS, CPAP (01/11/18) Family History: States: Unknown Family Hx - Social History Hx Tobacco Use: Yes (2 years when teenager) Hx Alcohol Use: Yes (social) Hx Substance Use: No - Immunization History Hx Tetanus Toxoid Vaccination: No Hx Influenza Vaccination: No Hx Pneumococcal Vaccination: No Review Of Systems Review Of Systems: ROS cannot be obtained secondary to pt's inabilty to answer questions. Physical Exam - Physical Exam Appears: Non-toxic, No Acute Distress, Other (intubated) Skin: Normal Color, Warm, Dry Head: Atraumatic, Normacephalic Eye(s): bilateral: Normal Inspection Oral Mucosa: Moist Neck: Supple Chest: Symmetrical, No Deformity, No Tenderness Cardiovascular: Rhythm Regular, No Murmur, Other (tachycardia ) Respiratory: Decreased Breath Sounds (but equal ), Rales (faint), No Rhonchi, No Wheezing Gastrointestinal/Abdominal: Soft, No Tenderness, Other (obese ) Extremity: Capillary Refill (less than 2 seconds ), Other (venous stasis to bilateral lower extremities ) Pulses: Left Dorsalis Pedis: Normal, Right Dorsalis Pedis: Normal ED Course And Treatment - Laboratory Results Result Diagrams: 10/18/18 05:30 10/18/18 05:30 ECG: Interpreted By Me, Viewed By Me ECG Rhythm: Sinus Tachycardia Interpretation Of ECG: Sinus Tachycardia at rate 113bpm. Normal intervals, normal axis. Some fusion complexes noted. Rate From EC Critical Care Time - Critical Care Note Total Time (in mins): 45 Documented critical care: time excludes all time spent performing seperately billable procedures. Medical Decision Making Medical Decision Making: Patient was last admitted in early August this year. Labs ordered. Case discussed with ICU Dr. Hernando Valdes, who evaluated the patient at bedside at around 1130. Case d/w hospitalist, who accepts the patient for admission. Disposition - Disposition Disposition: HOSPITALIZED - Scribe Statement The provider has reviewed the documentation as recorded by the Scribe (Мария Valdes) Provider Attestation: All medical record entries made by the Scribe were at my direction and personally dictated by me. I have reviewed the chart and agree that the record accurately reflects my personal performance of the history, physical exam, [facility] decision making, and the department course for this patient. I have also personally directed, reviewed, and agree with the discharge instructions and disposition.
[2018-10-15 10:41] LABS: BASO # 0.1 K/uL (0.0-0.2); BASO % 0.4 % (0.0-2.0); HEMOGLOBIN 10.5 g/dL (11.0-16.0); LYMPH # 0.4 K/uL (1.0-4.3); LYMPH % 2.6 % (20.0-40.0); MEAN CELL VOLUME 97.5 fL (81.0-99.0); MEAN CORPUSCULAR HEMOGLOBIN 28.4 pg (27.0-31.0); MEAN CORPUSCULAR HGB CONC 29.1 g/dL (33.0-37.0); MEAN PLATELET VOLUME 9.8 fL (7.2-11.7); MONO # 1.6 K/uL (0.0-0.8); MONO % 11.4 % (0.0-10.0); NEUT # 12.3 K/uL (1.8-7.0); NEUT % 85.6 % (50.0-75.0); PLATELET COUNT 192 K/uL (130-400); RED CELL DISTRIBUTION WIDTH 16.4 % (11.5-14.5); WHITE BLOOD COUNT 14.3 K/uL (4.8-10.8)
--- NOTE | 2018-10-15 10:46 | RAD ---
Chest x-ray single frontal view History: Intubation. COMPARISON: 08/09/2018 FINDINGS: Endotracheal tube extending into the midthoracic trachea. Biapical pleural thickening with upper lobe granulomatous changes. Diffuse increased interstitial lung markings. Patchy increased markings at the bilateral lung bases; left greater than right. Small left pleural effusion. Nodular density at the right costophrenic angle. Heart size within normal limits. Atherosclerotic calcification at the aortic knob. Degenerative changes in the spine and shoulders. Impression: Endotracheal tube extending into the midthoracic trachea. Biapical pleural thickening with upper lobe granulomatous changes. Diffuse increased interstitial lung markings. Patchy increased markings at the bilateral lung bases; left greater than right. Small left pleural effusion. Nodular density at the right costophrenic angle. Heart size within normal limits. Atherosclerotic calcification at the aortic knob.
[2018-10-15 10:51] LABS: ARTERIAL BLOOD GAS HCO3 34.7 mmol/L (21-28); ARTERIAL BLOOD GAS HEMOGLOBIN 9.1 g/dL (11.7-17.4); ARTERIAL BLOOD GAS O2 SAT 98.7 % (95-98); ARTERIAL BLOOD GAS PCO2 58 mm/Hg (35-45); ARTERIAL BLOOD GAS PH 7.43 (7.35-7.45); ARTERIAL BLOOD GAS PO2 506 mm/Hg (80-100); ARTERIAL BLOOD GAS TCO2 40.3 mmol/L (22-28)
[2018-10-15 10:53] LABS: BLOOD UREA NITROGEN 18 mg/dL (7-17); CALCIUM 8.6 mg/dl (8.6-10.4); GFR NON-AFRICAN AMERICAN > 60
[2018-10-15 10:58] LABS: ALB/GLOB RATIO 1.3 (1.0-2.1); ALBUMIN 4.2 g/dL (3.5-5.0); ALT/SGPT 11 U/L (9-52); AST/SGOT 43 U/L (14-36)
[2018-10-15 11:05] LABS: URINE AMORPHOUS SEDIMENT FEW /ul (<OCC); URINE BACTERIA RARE (<OCC); URINE BILIRUBIN NEGATIVE (NEGATIVE); URINE BLOOD 1+ (NEGATIVE); URINE CLARITY Hazy (Clear); URINE COLOR Amber (YELLOW); URINE GLUCOSE (UA) 1+ mg/dL (Normal); URINE PROTEIN 2+ mg/dL (NEGATIVE); URINE UROBILINOGEN NORMAL mg/dL (0.2-1.0)
[2018-10-15 11:07] LABS: URINE LEUKOCYTE ESTERASE 1+ Leu/uL (Negative)
[2018-10-15 11:08] LABS: B-TYPE NATRIURETIC PEPTIDE 6830 pg/mL (0-900)
[2018-10-15 11:36] LABS: BANDS 1 % (0-2); LYMPHOCYTE 4 % (20-40); MONOCYTE 14 % (0-10); NEUTROPHIL 81 % (50-75); PLATELET ESTIMATE NORMAL (NORMAL); TOTAL CELLS COUNTED 100
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
[2018-10-15] MEDS: Dexmedetomidine Hydrochloride 200 MCG in Sodium Chloride 0.9% 48 ML IV PRN ×3 (12:45→20:15)
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
--- NOTE | 2018-10-15 12:56 | CT ---
Date of service: 10/15/2018 PROCEDURE: CT HEAD WITHOUT CONTRAST. HISTORY: fall COMPARISON: Comparison is made with prior study dated 03/01/2015 TECHNIQUE: Axial computed tomography images were obtained through the head/brain without intravenous contrast. Radiation dose: Total exam DLP = 1041.38 mGy-cm. This CT exam was performed using one or more of the following dose reduction techniques: Automated exposure control, adjustment of the mA and/or kV according to patient size, and/or use of iterative reconstruction technique. FINDINGS: HEMORRHAGE: No intracranial hemorrhage. BRAIN: No mass effect or edema. No atrophy or chronic microvascular ischemic changes. VENTRICLES: Unremarkable. No hydrocephalus. CALVARIUM: Unremarkable. PARANASAL SINUSES: Brex-[id number]-[id number] sinuses mucosal disease noted. MASTOID AIR CELLS: Unremarkable as visualized. No inflammatory changes. OTHER FINDINGS: None. IMPRESSION: No evidence of acute intracranial hemorrhage intracranial collection mass effect or midline shift. Moderate sinuses mucosal disease.
[2018-10-15] MEDS: Albuterol-Ipratrop 3 mg / 0.5 (3 ml) UD INH SCH ×2 (13:00→20:52)
[2018-10-15] MEDS: MethylPREDNISolone 40 mg Vial IVP SCH ×2 (13:05→20:40)
--- NOTE | 2018-10-15 14:12 | RAD ---
Date of service: 10/15/2018 HISTORY: eval for interval change COMPARISON: 10/15/2018 FINDINGS: Endotracheal tube terminates 6.5 cm proximal to the tenisha. LUNGS: The lungs are well inflated and clear. PLEURA: No pleural effusions or pneumothorax. CARDIOVASCULAR: There is mild cardiomegaly. There are aortic atherosclerotic calcifications present. OSSEOUS STRUCTURES: Within normal limits for the patient's age. VISUALIZED UPPER ABDOMEN: Normal. OTHER FINDINGS: None. IMPRESSION: Stable position of endotracheal tube. Clear lungs. No acute findings.
[2018-10-15] MEDS: Piperacill/Tazo 3.375gm in Dex 3.375 GM/50 ML BAG IVPB SCH ×2 (15:56→23:00)
[2018-10-15 18:52] LABS: CK-MB 3.93 ng/mL (0.0-3.38); TROPONIN I 0.826 ng/mL (0.00-0.120)
[2018-10-16] MEDS: Dexmedetomidine Hydrochloride 200 MCG in Sodium Chloride 0.9% 48 ML IV PRN (01:15)
[2018-10-16] MEDS: Albuterol-Ipratrop 3 mg / 0.5 (3 ml) UD INH SCH ×4 (01:49→19:16)
[2018-10-16] MEDS: MethylPREDNISolone 40 mg Vial IVP SCH ×3 (04:45→20:41)
[2018-10-16] MEDS: Piperacill/Tazo 3.375gm in Dex 3.375 GM/50 ML BAG IVPB SCH ×4 (05:00→21:15)
[2018-10-16 05:30] LABS: ARTERIAL BLOOD GAS HCO3 36.1 mmol/L (21-28); ARTERIAL BLOOD GAS HEMOGLOBIN 7.7 g/dL (11.7-17.4); ARTERIAL BLOOD GAS O2 SAT 98.3 % (95-98); ARTERIAL BLOOD GAS PCO2 50 mm/Hg (35-45); ARTERIAL BLOOD GAS PO2 103 mm/Hg (80-100); ARTERIAL BLOOD GAS TCO2 40.5 mmol/L (22-28)
[2018-10-16 06:02] LABS: BASO % 0.2 % (0.0-2.0); LYMPH # 0.2 K/uL (1.0-4.3); LYMPH % 1.8 % (20.0-40.0); MEAN CELL VOLUME 92.6 fL (81.0-99.0); MEAN CORPUSCULAR HEMOGLOBIN 28.2 pg (27.0-31.0); MEAN CORPUSCULAR HGB CONC 30.4 g/dL (33.0-37.0); MEAN PLATELET VOLUME 9.6 fL (7.2-11.7); MONO # 0.3 K/uL (0.0-0.8); MONO % 2.4 % (0.0-10.0); NEUT # 12.5 K/uL (1.8-7.0); NEUT % 95.6 % (50.0-75.0); PLATELET COUNT 136 K/uL (130-400); RBC 2.71 Mil/uL (3.80-5.20); RED CELL DISTRIBUTION WIDTH 14.8 % (11.5-14.5); WHITE BLOOD COUNT 13.1 K/uL (4.8-10.8)
[2018-10-16 06:14] LABS: HEMOGLOBIN 7.6 g/dL (11.0-16.0)
[2018-10-16 06:24] LABS: ALB/GLOB RATIO 1.1 (1.0-2.1); ALBUMIN 2.9 g/dL (3.5-5.0); ALT/SGPT 13 U/L (9-52); AST/SGOT 18 U/L (14-36); BLOOD UREA NITROGEN 25 mg/dL (7-17); CALCIUM 8.3 mg/dl (8.6-10.4); GFR NON-AFRICAN AMERICAN > 60
[2018-10-16 06:35] LABS: CK-MB 1.11 ng/mL (0.0-3.38)
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
[2018-10-16] MEDS: Fluticasone-Vilanterol 100/25mcg Diskus INH SCH (08:09)
[2018-10-16 09:14] LABS: BANDS 4 % (0-2); LYMPHOCYTE 1 % (20-40); MONOCYTE 2 % (0-10); NEUTROPHIL 93 % (50-75); PLATELET ESTIMATE NORMAL (NORMAL); TOTAL CELLS COUNTED 100
[2018-10-16 09:15] LABS: ANISOCYTOSIS SLIGHT; HYPOCHROMIC SLIGHT; OVALOCYTES SLIGHT; POIKILOCYTOSIS SLIGHT; POLYCHROMIC SLIGHT; TOXIC GRANULATION PRESENT
[2018-10-16 09:16] LABS: LARGE PLATELETS PRESENT
[2018-10-16] MEDS: Silver Sulfadiazine 1% Cream (20 gm) TOP SCH (10:20)
[2018-10-16 10:59] LABS: ARTERIAL BLOOD GAS HCO3 34.4 mmol/L (21-28); ARTERIAL BLOOD GAS PCO2 57 mm/Hg (35-45); ARTERIAL BLOOD GAS PH 7.44 (7.35-7.45); ARTERIAL BLOOD GAS PO2 102 mm/Hg (80-100); ARTERIAL BLOOD GAS TCO2 40.4 mmol/L (22-28)
--- NOTE | 2018-10-16 11:00 | RAD ---
Chest x-ray single frontal view HISTORY: Intubated. Comparison: 10/15/2018 FINDINGS: Endotracheal tube extending into the midthoracic trachea. NG tube with distal tip not well visualized. Repeat study recommended. Biapical pleural thickening with upper lobe granulomatous changes. Diffuse increased interstitial markings. Venous congestion. Right hilar prominence. Patchy increased markings at the left lung base with trace left pleural effusion. Few scattered nodular densities in both lung reyes. Mild cardiomegaly. Degenerative changes in the spine and shoulders. Impression: Endotracheal tube extending into the midthoracic trachea. NG tube with distal tip not well visualized. Repeat study recommended. Biapical pleural thickening with upper lobe granulomatous changes. Diffuse increased interstitial markings. Venous congestion. Right hilar prominence. Patchy increased markings at the left lung base with trace left pleural effusion. Few scattered nodular densities in both lung reyes. Mild cardiomegaly. Degenerative changes in the spine and shoulders.
--- NOTE | 2018-10-16 16:25 | CP.PCM.PN ---
Subjective - Date & Time of Evaluation Date of Evaluation: 10/16/18 Time of Evaluation: 09:00 - Subjective Subjective: Patient admitted to ICU for respiratory failure, hypercapneic, tolerating CPAP Objective - Vital Signs/Intake and Output Vital Signs (last 24 hours): Temp Pulse Resp BP Pulse Ox 98.7 F 104 H 28 H 125/56 L 97 10/16/18 14:43 10/16/18 15:42 10/16/18 15:42 10/16/18 15:53 10/16/18 15:42 Intake and Output: 10/16/18 10/16/18 06:59 18:59 Intake Total 274.8 695 Balance 274.8 695 - Medications Medications: Current Medications Albuterol/Ipratropium (Duoneb 3 Mg/0.5 Mg (3 Ml) Ud) 3 ml INH RQ6 [facility] Last Admin: 10/16/18 13:35 Dose: 3 ml Aspirin (Aspirin Chewable) 81 mg PO DAILY [facility] Last Admin: 10/16/18 10:20 Dose: 81 mg Bisoprolol Fumarate (Zebeta) 10 mg PO DAILY [facility] Last Admin: 10/16/18 12:29 Dose: 10 mg Clopidogrel Bisulfate (Plavix) 75 mg PO DAILY [facility] Last Admin: 10/16/18 12:18 Dose: 75 mg Famotidine (Pepcid) 20 mg PO BID [facility] Fluticasone/Vilanterol (Breo Ellipta 100-25 Mcg Inh) 1 puff INH RQD [facility] Last Admin: 10/16/18 08:09 Dose: Not Given Piperacillin Sod/Tazobactam Sod (Zosyn 3.375 Gm Iv Premix) 3.375 gm in 50 mls @ 100 mls/hr IVPB Q6H [facility]; Protocol Last Admin: 10/16/18 10:20 Dose: 100 mls/hr Methylprednisolone (Solu-Medrol) 40 mg IVP Q8H [facility] Last Admin: 10/16/18 12:18 Dose: 40 mg Montelukast Sodium (Singulair) 10 mg PO HS [facility] Last Admin: 10/15/18 23:00 Dose: 10 mg Rosuvastatin Calcium (Crestor) 10 mg PO HS [facility] Last Admin: 10/15/18 21:31 Dose: 10 mg Silver Sulfadiazine (Silvadene 1% 20 Gm) 0 ea TOP DAILY [facility] Last Admin: 10/16/18 10:20 Dose: 1 applic - Labs Labs: 10/16/18 05:54 10/16/18 05:54 PT 11.0 SECONDS (9.7-12.2) 10/15/18 10:31 INR 1.0 10/15/18 10:31 APTT 27 SECONDS (21-34) 10/15/18 10:31 - Constitutional Appears: Non-toxic, Toxic - Head Exam Head Exam: ATRAUMATIC, NORMAL INSPECTION, NORMOCEPHALIC - Eye Exam Pupil Exam: PERRL - ENT Exam ENT Exam: Mucous Membranes Moist - Respiratory Exam Respiratory Exam: Clear to Ausculation Bilateral, NORMAL BREATHING PATTERN. absent: Chest Wall Tenderness, Decreased Breath Sounds, Prolonged Expiratory Phase, Rales, Rhonchi, Wheezes, Respiratory Distress, Stridor - Cardiovascular Exam Cardiovascular Exam: Tachycardia, +S1, +S2 - GI/Abdominal Exam GI & Abdominal Exam: Normal Bowel Sounds - Extremities Exam Extremities Exam: Normal Inspection. absent: Pedal Edema - Neurological Exam Neurological Exam: Alert, Awake, Oriented x3 Assessment and Plan - Assessment and Plan (Free Text) Assessment: -Hypercapneic respiratory failure: tolerating CPAP, good weaning parameters, no et tube secretions, extubate today -continue ventlation to keep spo2 >92 and pH b/w 7.35-7.45, continue bronchodilators and solumedrol -Aspiration PNA: continue empirical abx,continue pulmonary toilet -h/o CAD: continue dAPT and av milla maikel + statin, type II myocardial infarction (as per cardiology change from brillinta to plavix + asa) -Anemia: ETIOLOGY unknown, no blcak stools, check FOB and transfuse 1 unit, obtain CT abd/pelvis -continue dvt/pud ppx -Patient remains hemodynamically stable -h/o diastolic and systolic heart failure: restart home av gemini maikel, statin and antiplatelets -continue dvt/pud ppx cc time 37 minutes Addendum: Patient tolerted CPAP and extubation
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
--- NOTE | 2018-10-16 19:55 | CP.PCM.CON ---
History of Present Illness - History of Present Illness History of Present Illness: Reason for consultation: Respiratory failure 83-year-old female with COPD on home oxygen, rheumatoid arthritis, coronary artery disease status post 3 stents, CHF who presented with severe shortness of breath and was intubated in the emergency room and was later extubated in the intensive care unit. Patient is awake and responsive and in no respiratory distress. Complaining of cough but denies fever chills, denies chest pain PMHx: HTN, CAD s/p 3 stents, Rheumatoid Arthritis, COPD (on 2L) and CHF (Systolic/Diastolic), NSTEMI PSHx: Stent placement, Cholecystectomy, Allergies: NKDA SocialHx: Denies tobacco, EtoH or illicit drug use. Hx of 2nd hand smoking. Hos: 03/20 and 08/21 for Pneumonia, COPD Exacerbation, NSTEMI FamHx: Tobacco Abuse Meds: Per MAR Review of Systems - Review of Systems All systems: reviewed and no additional remarkable complaints except (Shortness of breath and cough) Past Patient History - Infectious Disease Hx of Infectious Diseases: None - Past Medical History & Family History Past Medical History?: Yes - Past Social History Smoking Status: Former Smoker - CARDIAC Hx Congestive Heart Failure: Yes Hx Hypercholesterolemia: Yes Hx Hypertension: Yes - PULMONARY Hx Chronic Obstructive Pulmonary Disease (COPD): Yes (ON OXYGEN [place]. 2L ) Hx Pneumonia: Yes (JANUARY 2018) - NEUROLOGICAL Hx Neurological Disorder: No - HEENT Hx HEENT Problems: Yes Hx Cataracts: Yes (BILAT.) Other/Comment: [place] RT EAR - RENAL Hx Chronic Kidney Disease: No - ENDOCRINE/METABOLIC Hx Endocrine Disorders: No - HEMATOLOGICAL/ONCOLOGICAL Hx Blood Disorders: No - INTEGUMENTARY Hx Dermatological Problems: No - MUSCULOSKELETAL/RHEUMATOLOGICAL Hx Arthritis: Yes Hx Rheumatoid Arthritis: Yes - GASTROINTESTINAL Hx Gall Bladder Disease: Yes - GENITOURINARY/GYNECOLOGICAL Hx Genitourinary Disorders: No - PSYCHIATRIC Hx Anxiety: Yes Hx Substance Use: No - SURGICAL HISTORY Hx Cholecystectomy: Yes - ANESTHESIA Hx Anesthesia: Yes Hx Anesthesia Reactions: No Hx Malignant Hyperthermia: No Meds Allergies/Adverse Reactions: Allergies Allergy/AdvReac Type Severity Reaction Status Date / Time No Known Allergies Allergy Verified 10/15/18 09:55 - Medications Medications: Current Medications Albuterol/Ipratropium (Duoneb 3 Mg/0.5 Mg (3 Ml) Ud) 3 ml INH RQ6 [facility] Last Admin: 10/16/18 13:35 Dose: 3 ml Aspirin (Aspirin Chewable) 81 mg PO DAILY [facility] Last Admin: 10/16/18 10:20 Dose: 81 mg Bisoprolol Fumarate (Zebeta) 10 mg PO DAILY [facility] Last Admin: 10/16/18 12:29 Dose: 10 mg Clopidogrel Bisulfate (Plavix) 75 mg PO DAILY [facility] Last Admin: 10/16/18 12:18 Dose: 75 mg Famotidine (Pepcid) 20 mg PO BID [facility] Last Admin: 10/16/18 19:26 Dose: 20 mg Fluticasone/Vilanterol (Breo Ellipta 100-25 Mcg Inh) 1 puff INH RQD [facility] Last Admin: 10/16/18 08:09 Dose: Not Given Piperacillin Sod/Tazobactam Sod (Zosyn 3.375 Gm Iv Premix) 3.375 gm in 50 mls @ 100 mls/hr IVPB Q6H [facility]; Protocol Last Admin: 10/16/18 16:42 Dose: 100 mls/hr Methylprednisolone (Solu-Medrol) 40 mg IVP Q8H [facility] Last Admin: 10/16/18 12:18 Dose: 40 mg Montelukast Sodium (Singulair) 10 mg PO HS [facility] Last Admin: 10/15/18 23:00 Dose: 10 mg Rosuvastatin Calcium (Crestor) 10 mg PO HS [facility] Last Admin: 10/15/18 21:31 Dose: 10 mg Silver Sulfadiazine (Silvadene 1% 20 Gm) 0 ea TOP DAILY [facility] Last Admin: 10/16/18 10:20 Dose: 1 applic Physical Exam - Head Exam Head Exam: ATRAUMATIC, NORMOCEPHALIC - ENT Exam ENT Exam: Mucous Membranes Moist - Neck Exam Neck exam: Positive for: Normal Inspection - Respiratory Exam Respiratory Exam: Decreased Breath Sounds - Cardiovascular Exam Cardiovascular Exam: REGULAR RHYTHM - GI/Abdominal Exam GI & Abdominal Exam: Normal Bowel Sounds, Soft - Extremities Exam Extremities exam: Positive for: pedal edema - Neurological Exam Neurological exam: Alert Results - Vital Signs Recent Vital Signs: Last Vital Signs Temp 98.7 F 10/16/18 16:00 Pulse 108 H 10/16/18 19:04 Resp 29 H 10/16/18 19:04 BP 146/70 03/16/19 19:04 Pulse Ox 96 10/16/18 19:04 - Labs Result Diagrams: 10/16/18 05:54 10/16/18 05:54 Labs: Laboratory Results - last 24 hr 10/16/18 10/16/18 10/16/18 05:14 05:54 05:54 WBC 13.1 H RBC 2.71 L Hgb 7.6 L D Hct 25.1 L MCV 92.6 D MCH 28.2 MCHC 30.4 L RDW 14.8 H Plt Count 136 MPV 9.6 Neut % (Auto) 95.6 H Lymph % (Auto) 1.8 L [place] % (Auto) 2.4 Eos % (Auto) 0.0 Baso % (Auto) 0.2 Neut # (Auto) 12.5 H Lymph # (Auto) 0.2 L [place] # (Auto) 0.3 Eos # (Auto) 0.0 Baso # (Auto) 0.0 Neutrophils % (Manual) 93 H Band Neutrophils % 4 H Lymphocytes % (Manual) 1 L Monocytes % (Manual) 2 Toxic Granulation Present Platelet Estimate Normal Large Platelets Present Polychromasia Slight Hypochromasia (manual) Slight Poikilocytosis (manual Slight Anisocytosis (manual) Slight Ovalocytes Slight Puncture Site R brac pCO2 50 H pO2 103 H HCO3 36.1 H ABG pH 7.50 H ABG Total CO2 40.5 H ABG O2 Saturation 98.3 H ABG Base Excess 14.3 H ABG Hemoglobin 7.7 L ABG Carboxyhemoglobin 1.3 POC ABG HHb (Measured) 1.7 ABG Methemoglobin 0.9 Steve Test Na ABG Potassium A-a O2 Difference 48.0 Respiratory Index 0.5 Hgb O2 Saturation 96.1 Glucose Lactate Liter Flow Vent Mode Prvc Mechanical Rate 12 FiO2 30.0 Tidal Volume 500 PEEP 5 Sodium 138 Potassium 4.0 Chloride 96 L Carbon Dioxide 40 H* Anion Gap 5 L BUN 25 H Creatinine 0.8 Est GFR ( Amer) > 60 Est GFR (Non-Af Amer) > 60 Random Glucose 192 H Calcium 8.3 L Phosphorus 2.0 L Magnesium 2.2 Total Bilirubin 0.3 AST 18 ALT 13 Alkaline Phosphatase 67 Total Creatine Kinase 23 L CK-MB (Mass) 1.11 Troponin I 0.4480 H* Total Protein 5.4 L Albumin 2.9 L D Globulin 2.5 Albumin/Globulin Ratio 1.1 Arterial Blood Potassium Blood Type Blood Type Confirm Antibody Screen 10/16/18 10/16/18 09:54 10:56 WBC RBC Hgb Hct MCV MCH MCHC RDW Plt Count MPV Neut % (Auto) Lymph % (Auto) [place] % (Auto) Eos % (Auto) Baso % (Auto) Neut # (Auto) Lymph # (Auto) [place] # (Auto) Eos # (Auto) Baso # (Auto) Neutrophils % (Manual) Band Neutrophils % Lymphocytes % (Manual) Monocytes % (Manual) Toxic Granulation Platelet Estimate Large Platelets Polychromasia Hypochromasia (manual) Poikilocytosis (manual Anisocytosis (manual) Ovalocytes Puncture Site Rba pCO2 57 H pO2 102 H HCO3 34.4 H ABG pH 7.44 ABG Total CO2 40.4 H ABG O2 Saturation 98.0 ABG Base Excess 12.1 H ABG Hemoglobin ABG Carboxyhemoglobin POC ABG HHb (Measured) ABG Methemoglobin Steve Test Na ABG Potassium 3.5 L A-a O2 Difference 26.0 Respiratory Index 0.3 Hgb O2 Saturation Glucose 203 H Lactate 1.2 Liter Flow 6.0 Vent Mode Mechanical Rate FiO2 28.0 Tidal Volume PEEP Sodium 142.0 Potassium Chloride 103.0 Carbon Dioxide Anion Gap BUN Creatinine Est GFR ( Amer) Est GFR (Non-Af Amer) Random Glucose Calcium Phosphorus Magnesium Total Bilirubin AST ALT Alkaline Phosphatase Total Creatine Kinase CK-MB (Mass) Troponin I Total Protein Albumin Globulin Albumin/Globulin Ratio Arterial Blood Potassium 3.5 L Blood Type B NEGATIVE Blood Type Confirm B NEGATIVE Antibody Screen Negative Assessment & Plan (1) Respiratory failure Status: Acute Comment: Status post extubation. In no respiratory distress. Continue nebulizer treatment and steroids. BiPAP at night. Follow-up ABG. Transfuse packed RBCs as needed (2) Acute blood loss anemia Status: Acute (3) COPD (chronic obstructive pulmonary disease) Status: Chronic
[2018-10-16 23:23] LABS: HEMOGLOBIN 9.2 g/dL (11.0-16.0); MEAN CELL VOLUME 91.6 fL (81.0-99.0); MEAN CORPUSCULAR HEMOGLOBIN 29.3 pg (27.0-31.0); RBC 3.15 Mil/uL (3.80-5.20); RED CELL DISTRIBUTION WIDTH 15.6 % (11.5-14.5); WHITE BLOOD COUNT 16.7 K/uL (4.8-10.8)
[2018-10-17] MEDS: MethylPREDNISolone 40 mg Vial IVP SCH ×3 (03:46→20:30)
[2018-10-17] MEDS: Piperacill/Tazo 3.375gm in Dex 3.375 GM/50 ML BAG IVPB SCH ×2 (03:46→09:31)
[2018-10-17 05:51] LABS: HEMOGLOBIN 9.7 g/dL (11.0-16.0); LYMPH # 0.2 K/uL (1.0-4.3); LYMPH % 1.4 % (20.0-40.0); MEAN CELL VOLUME 92.5 fL (81.0-99.0); MEAN CORPUSCULAR HEMOGLOBIN 28.4 pg (27.0-31.0); MEAN CORPUSCULAR HGB CONC 30.7 g/dL (33.0-37.0); MEAN PLATELET VOLUME 8.7 fL (7.2-11.7); MONO # 0.7 K/uL (0.0-0.8); MONO % 4.3 % (0.0-10.0); NEUT # 15.4 K/uL (1.8-7.0); NEUT % 94.3 % (50.0-75.0); PLATELET COUNT 195 K/uL (130-400); RBC 3.43 Mil/uL (3.80-5.20); RED CELL DISTRIBUTION WIDTH 16.1 % (11.5-14.5); WHITE BLOOD COUNT 16.4 K/uL (4.8-10.8)
[2018-10-17 06:14] LABS: ALB/GLOB RATIO 1.2 (1.0-2.1); ALBUMIN 3.4 g/dL (3.5-5.0); ALT/SGPT 15 U/L (9-52); AST/SGOT 19 U/L (14-36); BLOOD UREA NITROGEN 30 mg/dL (7-17); CALCIUM 8.2 mg/dl (8.6-10.4); GFR NON-AFRICAN AMERICAN > 60
--- NOTE | 2018-10-17 07:38 | CP.PCM.CON ---
History of Present Illness - History of Present Illness History of Present Illness: Seen and examined Extubated, no chest pain Review of Systems - Review of Systems All systems: reviewed and no additional remarkable complaints except Review of Systems: HPI Past Patient History - Infectious Disease Hx of Infectious Diseases: None - Past Medical History & Family History Past Medical History?: Yes - Past Social History Smoking Status: Former Smoker - CARDIAC Hx Congestive Heart Failure: Yes Hx Hypercholesterolemia: Yes Hx Hypertension: Yes - PULMONARY Hx Chronic Obstructive Pulmonary Disease (COPD): Yes (ON OXYGEN [place]. 2L ) Hx Pneumonia: Yes (JANUARY 2018) - NEUROLOGICAL Hx Neurological Disorder: No - HEENT Hx HEENT Problems: Yes Hx Cataracts: Yes (BILAT.) Other/Comment: [place] RT EAR - RENAL Hx Chronic Kidney Disease: No - ENDOCRINE/METABOLIC Hx Endocrine Disorders: No - HEMATOLOGICAL/ONCOLOGICAL Hx Blood Disorders: No - INTEGUMENTARY Hx Dermatological Problems: No - MUSCULOSKELETAL/RHEUMATOLOGICAL Hx Arthritis: Yes Hx Rheumatoid Arthritis: Yes - GASTROINTESTINAL Hx Gall Bladder Disease: Yes - GENITOURINARY/GYNECOLOGICAL Hx Genitourinary Disorders: No - PSYCHIATRIC Hx Anxiety: Yes Hx Substance Use: No - SURGICAL HISTORY Hx Cholecystectomy: Yes - ANESTHESIA Hx Anesthesia: Yes Hx Anesthesia Reactions: No Hx Malignant Hyperthermia: No Meds Allergies/Adverse Reactions: Allergies Allergy/AdvReac Type Severity Reaction Status Date / Time No Known Allergies Allergy Verified 10/15/18 09:55 - Medications Medications: Current Medications Albuterol/Ipratropium (Duoneb 3 Mg/0.5 Mg (3 Ml) Ud) 3 ml INH RQ6 [facility] Last Admin: 10/16/18 19:16 Dose: 3 ml Aspirin (Aspirin Chewable) 81 mg PO DAILY [facility] Last Admin: 10/16/18 10:20 Dose: 81 mg Bisoprolol Fumarate (Zebeta) 10 mg PO DAILY [facility] Last Admin: 10/16/18 12:29 Dose: 10 mg Clopidogrel Bisulfate (Plavix) 75 mg PO DAILY [facility] Last Admin: 10/16/18 12:18 Dose: 75 mg Famotidine (Pepcid) 20 mg PO BID [facility] Last Admin: 10/16/18 19:26 Dose: 20 mg Fluticasone/Vilanterol (Breo Ellipta 100-25 Mcg Inh) 1 puff INH RQD [facility] Last Admin: 10/16/18 08:09 Dose: Not Given Piperacillin Sod/Tazobactam Sod (Zosyn 3.375 Gm Iv Premix) 3.375 gm in 50 mls @ 100 mls/hr IVPB Q6H [facility]; Protocol Last Admin: 10/17/18 03:46 Dose: 100 mls/hr Methylprednisolone (Solu-Medrol) 40 mg IVP Q8H [facility] Last Admin: 10/17/18 03:46 Dose: 40 mg Montelukast Sodium (Singulair) 10 mg PO HS [facility] Last Admin: 10/16/18 21:15 Dose: 10 mg Rosuvastatin Calcium (Crestor) 10 mg PO HS [facility] Last Admin: 10/16/18 21:15 Dose: 10 mg Silver Sulfadiazine (Silvadene 1% 20 Gm) 0 ea TOP DAILY [facility] Last Admin: 10/16/18 10:20 Dose: 1 applic Physical Exam - Constitutional Appears: Non-toxic - Eye Exam Pupil Exam: PERRL - ENT Exam ENT Exam: Mucous Membranes Moist - Respiratory Exam Respiratory Exam: Wheezes - Cardiovascular Exam Cardiovascular Exam: RRR, +S1, +S2. absent: JVD - GI/Abdominal Exam GI & Abdominal Exam: Soft. absent: Tenderness - Neurological Exam Neurological exam: CN II-XII Intact - Psychiatric Exam Psychiatric exam: Normal Affect Results - Vital Signs Recent Vital Signs: Last Vital Signs Temp 98.6 F 10/17/18 04:00 Pulse 100 H 10/17/18 06:00 Resp 32 H 10/17/18 06:00 BP 124/61 10/17/18 05:08 Pulse Ox 100 10/17/18 06:00 - Labs Result Diagrams: 10/17/18 05:45 10/17/18 05:45 Labs: Laboratory Results - last 24 hr 10/16/18 10/16/18 10/16/18 05:54 09:54 10:56 WBC RBC Hgb Hct MCV MCH MCHC RDW Plt Count MPV Neut % (Auto) Lymph % (Auto) [place] % (Auto) Eos % (Auto) Baso % (Auto) Neut # (Auto) Lymph # (Auto) [place] # (Auto) Eos # (Auto) Baso # (Auto) Neutrophils % (Manual) 93 H Band Neutrophils % 4 H Lymphocytes % (Manual) 1 L Monocytes % (Manual) 2 Toxic Granulation Present Platelet Estimate Normal Large Platelets Present Polychromasia Slight Hypochromasia (manual) Slight Poikilocytosis (manual Slight Anisocytosis (manual) Slight Ovalocytes Slight Puncture Site Rba pCO2 57 H pO2 102 H HCO3 34.4 H ABG pH 7.44 ABG Total CO2 40.4 H ABG O2 Saturation 98.0 ABG Base Excess 12.1 H Steve Test Na ABG Potassium 3.5 L A-a O2 Difference 26.0 Respiratory Index 0.3 Sodium 142.0 Chloride 103.0 Glucose 203 H Lactate 1.2 Liter Flow 6.0 FiO2 28.0 Potassium Carbon Dioxide Anion Gap BUN Creatinine Est GFR ( Amer) Est GFR (Non-Af Amer) Random Glucose Calcium Phosphorus Magnesium Total Bilirubin AST ALT Alkaline Phosphatase Total Protein Albumin Globulin Albumin/Globulin Ratio Arterial Blood Potassium 3.5 L Blood Type B NEGATIVE Blood Type Confirm B NEGATIVE Antibody Screen Negative 10/16/18 10/17/18 10/17/18 23:20 05:45 05:45 WBC 16.7 H 16.4 H RBC 3.15 L 3.43 L Hgb 9.2 L 9.7 L Hct 28.8 L 31.7 L MCV 91.6 92.5 MCH 29.3 28.4 MCHC 32.0 L 30.7 L RDW 15.6 H 16.1 H Plt Count 172 195 MPV 9.0 8.7 Neut % (Auto) 94.3 H Lymph % (Auto) 1.4 L [place] % (Auto) 4.3 Eos % (Auto) 0.0 Baso % (Auto) 0.0 Neut # (Auto) 15.4 H Lymph # (Auto) 0.2 L [place] # (Auto) 0.7 Eos # (Auto) 0.0 Baso # (Auto) 0.0 Neutrophils % (Manual) Band Neutrophils % Lymphocytes % (Manual) Monocytes % (Manual) Toxic Granulation Platelet Estimate Large Platelets Polychromasia Hypochromasia (manual) Poikilocytosis (manual Anisocytosis (manual) Ovalocytes Puncture Site pCO2 pO2 HCO3 ABG pH ABG Total CO2 ABG O2 Saturation ABG Base Excess Steve Test ABG Potassium A-a O2 Difference Respiratory Index Sodium 144 Chloride 98 Glucose Lactate Liter Flow FiO2 Potassium 4.0 Carbon Dioxide 41 H* Anion Gap 9 L BUN 30 H Creatinine 0.9 Est GFR ( Amer) > 60 Est GFR (Non-Af Amer) > 60 Random Glucose 163 H Calcium 8.2 L Phosphorus 3.6 Magnesium 2.4 H Total Bilirubin 0.4 AST 19 ALT 15 Alkaline Phosphatase 63 Total Protein 6.3 Albumin 3.4 L Globulin 2.9 Albumin/Globulin Ratio 1.2 Arterial Blood Potassium Blood Type Blood Type Confirm Antibody Screen Assessment & Plan (1) Acute respiratory failure with hypercapnia Assessment and Plan: Extubated Cont with nebs/steroids/supplemental O2 Status: Acute (2) Acute blood loss anemia Assessment and Plan: S/p pRBC x 1 Monitor CBC for Hgb Cont with DAPT, including aspirin and clopidogrel PPI Status: Acute (3) Atherosclerotic heart disease of [place] coronary artery without angina pectoris Assessment and Plan: Stable CAD Cont with meds Status: Acute
[2018-10-17 08:43] LABS: BANDS 3 % (0-2); LYMPHOCYTE 2 % (20-40); MONOCYTE 4 % (0-10); NEUTROPHIL 91 % (50-75); PLATELET ESTIMATE NORMAL (NORMAL); TOTAL CELLS COUNTED 100
[2018-10-17 08:47] LABS: ANISOCYTOSIS SLIGHT; HYPOCHROMIC SLIGHT; POLYCHROMIC SLIGHT; TOXIC GRANULATION PRESENT
[2018-10-17] MEDS: Albuterol-Ipratrop 3 mg / 0.5 (3 ml) UD INH SCH ×3 (09:09→19:54)
[2018-10-17] MEDS: Fluticasone-Vilanterol 100/25mcg Diskus INH SCH (09:10)
[2018-10-17] MEDS: Silver Sulfadiazine 1% Cream (20 gm) TOP SCH (09:31)
[2018-10-17] MEDS ORDERED: Cefepime IV 2 gm in Dextrose 2 GM/100 ML BAG IVPB SCH (10:00)
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
[2018-10-17] MEDS: Cefepime 2 GM in Sodium Chloride 0.9% 100 ML IVPB SCH ×2 (11:45→18:06)
[2018-10-17] MEDS: Multiple Vitamins Tab PO SCH (12:24)
--- NOTE | 2018-10-17 14:17 | CP.PCM.PN ---
Subjective - Date & Time of Evaluation Date of Evaluation: 10/17/18 Time of Evaluation: 14:14 - Subjective Subjective: Patient seen and examined at bedside. Patient able to talk well, tolerting 1 liter NC. Patient denies any chest pain. Objective - Vital Signs/Intake and Output Vital Signs (last 24 hours): Temp Pulse Resp BP Pulse Ox 98.2 F 84 37 H 127/70 99 10/17/18 12:00 10/17/18 13:09 10/17/18 13:09 10/17/18 13:09 10/17/18 13:09 Intake and Output: 10/17/18 10/17/18 06:59 18:59 Intake Total 200 570 Output Total 400 Balance -200 570 - Medications Medications: Current Medications Albuterol/Ipratropium (Duoneb 3 Mg/0.5 Mg (3 Ml) Ud) 3 ml INH RQ6 [facility] Last Admin: 10/17/18 13:54 Dose: 3 ml Aspirin (Aspirin Chewable) 81 mg PO DAILY [facility] Last Admin: 10/17/18 09:30 Dose: 81 mg Bisoprolol Fumarate (Zebeta) 10 mg PO DAILY [facility] Last Admin: 10/17/18 09:30 Dose: 10 mg Clopidogrel Bisulfate (Plavix) 75 mg PO DAILY [facility] Last Admin: 10/17/18 09:30 Dose: 75 mg Famotidine (Pepcid) 20 mg PO BID [facility] Last Admin: 10/17/18 09:30 Dose: 20 mg Fluticasone/Vilanterol (Breo Ellipta 100-25 Mcg Inh) 1 puff INH RQD [facility] Last Admin: 10/17/18 09:10 Dose: Not Given Cefepime HCl 2 gm/ Sodium (Chloride) 100 mls @ 200 mls/hr IVPB Q8H [facility]; Protocol Stop: 10/22/18 10:01 Last Admin: 10/17/18 11:45 Dose: 200 mls/hr Methylprednisolone (Solu-Medrol) 20 mg IVP Q8H [facility] Last Admin: 10/17/18 12:24 Dose: 20 mg Montelukast Sodium (Singulair) 10 mg PO HS [facility] Last Admin: 10/16/18 21:15 Dose: 10 mg Multivitamins (Hexavitamin) 1 tab PO DAILY [facility] Last Admin: 10/17/18 12:24 Dose: 1 tab Rosuvastatin Calcium (Crestor) 10 mg PO HS [facility] Last Admin: 10/16/18 21:15 Dose: 10 mg Silver Sulfadiazine (Silvadene 1% 20 Gm) 0 ea TOP DAILY [facility] Last Admin: 10/17/18 09:31 Dose: 1 applic - Labs Labs: 10/17/18 05:45 10/17/18 05:45 PT 11.0 SECONDS (9.7-12.2) 10/15/18 10:31 INR 1.0 10/15/18 10:31 APTT 27 SECONDS (21-34) 10/15/18 10:31 Assessment and Plan - Assessment and Plan (Free Text) Assessment: -Hypercapneic respiratory failure: sucessfully extubated, continue pulmonary toilet -continue ventilation to keep spo2 >92 and pH b/w 7.35-7.45, continue bronchodilators and solumedrol -Aspiration PNA: pseudomonas, continue abx x 8 days -h/o CAD: continue dAPT and av milla maikel + statin, type II myocardial infarction (as per cardiology change from brillinta to plavix + asa) -Anemia: s/p transfuse 1 unit, continue to monitor -continue dvt/pud ppx -Patient remains hemodynamically stable -PT/OT/activity
[2018-10-18] MEDS: Albuterol-Ipratrop 3 mg / 0.5 (3 ml) UD INH SCH ×5 (01:27→19:38)
[2018-10-18] MEDS: Cefepime 2 GM in Sodium Chloride 0.9% 100 ML IVPB SCH ×3 (03:00→18:05)
[2018-10-18] MEDS: MethylPREDNISolone 40 mg Vial IVP SCH ×3 (04:25→20:00)
[2018-10-18 05:41] LABS: HEMOGLOBIN 9.7 g/dL (11.0-16.0); LYMPH # 0.4 K/uL (1.0-4.3); LYMPH % 3.4 % (20.0-40.0); MEAN CELL VOLUME 93.8 fL (81.0-99.0); MEAN PLATELET VOLUME 9.1 fL (7.2-11.7); MONO # 0.9 K/uL (0.0-0.8); MONO % 7.9 % (0.0-10.0); NEUT # 9.8 K/uL (1.8-7.0); NEUT % 88.7 % (50.0-75.0); NRBC % 0.1 % (0.0-2.0); PLATELET COUNT 170 K/uL (130-400); RBC 3.33 Mil/uL (3.80-5.20); RED CELL DISTRIBUTION WIDTH 15.9 % (11.5-14.5); WHITE BLOOD COUNT 11.1 K/uL (4.8-10.8)
[2018-10-18 05:58] LABS: ALB/GLOB RATIO 0.9 (1.0-2.1); ALBUMIN 2.8 g/dL (3.5-5.0); ALT/SGPT 20 U/L (9-52); AST/SGOT 14 U/L (14-36); BLOOD UREA NITROGEN 28 mg/dL (7-17); CALCIUM 6.8 mg/dl (8.6-10.4); GFR NON-AFRICAN AMERICAN > 60
[2018-10-18 06:10] LABS: LYMPHOCYTE 4 % (20-40); MONOCYTE 6 % (0-10); NEUTROPHIL 88 % (50-75); PLATELET ESTIMATE NORMAL (NORMAL); REACTIVE LYMPHOCYTES 2 % (0-0); TOTAL CELLS COUNTED 100
[2018-10-18] MEDS: Fluticasone-Vilanterol 100/25mcg Diskus INH SCH (07:47)
--- NOTE | 2018-10-18 09:28 | CP.PCM.PN ---
Subjective - Date & Time of Evaluation Date of Evaluation: 10/18/18 Time of Evaluation: 09:26 - Subjective Subjective: The pt is in the chair, feels better. Objective - Vital Signs/Intake and Output Vital Signs (last 24 hours): Temp Pulse Resp BP Pulse Ox 98 F 79 18 130/72 99 10/18/18 08:00 10/18/18 08:00 10/18/18 08:00 10/18/18 08:00 10/18/18 08:00 Intake and Output: 10/18/18 10/18/18 06:59 18:59 Intake Total 1200 Output Total 800 Balance 400 - Medications Medications: Current Medications Albuterol/Ipratropium (Duoneb 3 Mg/0.5 Mg (3 Ml) Ud) 3 ml INH RQ6 [facility] Last Admin: 10/18/18 01:45 Dose: Not Given Aspirin (Aspirin Chewable) 81 mg PO DAILY [facility] Last Admin: 10/17/18 09:30 Dose: 81 mg Bisoprolol Fumarate (Zebeta) 10 mg PO DAILY [facility] Last Admin: 10/17/18 09:30 Dose: 10 mg Clopidogrel Bisulfate (Plavix) 75 mg PO DAILY [facility] Last Admin: 10/17/18 09:30 Dose: 75 mg Famotidine (Pepcid) 20 mg PO BID [facility] Last Admin: 10/17/18 18:06 Dose: 20 mg Fluticasone/Vilanterol (Breo Ellipta 100-25 Mcg Inh) 1 puff INH RQD [facility] Last Admin: 10/17/18 09:10 Dose: Not Given Cefepime HCl 2 gm/ Sodium (Chloride) 100 mls @ 200 mls/hr IVPB Q8H [facility]; Protocol Stop: 10/22/18 10:01 Last Admin: 10/18/18 03:00 Dose: 200 mls/hr Methylprednisolone (Solu-Medrol) 20 mg IVP Q8H [facility] Last Admin: 10/18/18 04:25 Dose: 20 mg Montelukast Sodium (Singulair) 10 mg PO [facility] Last Admin: 10/17/18 21:22 Dose: 10 mg Multivitamins (Hexavitamin) 1 tab PO DAILY [facility] Last Admin: 10/17/18 12:24 Dose: 1 tab Rosuvastatin Calcium (Crestor) 10 mg PO [facility] Last Admin: 10/17/18 22:00 Dose: 10 mg Silver Sulfadiazine (Silvadene 1% 20 Gm) 0 ea TOP DAILY [facility] Last Admin: 10/17/18 09:31 Dose: 1 applic - Labs Labs: 10/18/18 05:30 10/18/18 05:30 PT 11.0 SECONDS (9.7-12.2) 10/15/18 10:31 INR 1.0 10/15/18 10:31 APTT 27 SECONDS (21-34) 10/15/18 10:31 - Constitutional Appears: Well, No Acute Distress - Head Exam Head Exam: NORMAL INSPECTION - Eye Exam Eye Exam: EOMI - ENT Exam ENT Exam: Mucous Membranes Moist - Respiratory Exam Respiratory Exam: Decreased Breath Sounds, Clear to Ausculation Bilateral - Cardiovascular Exam Cardiovascular Exam: REGULAR RHYTHM - GI/Abdominal Exam GI & Abdominal Exam: Normal Bowel Sounds - Back Exam Back Exam: NORMAL INSPECTION - Neurological Exam Neurological Exam: Alert, Awake, Oriented x3 - Psychiatric Exam Psychiatric exam: Normal Affect, Normal Mood - Skin Skin Exam: Normal Color Assessment and Plan - Assessment and Plan (Free Text) Assessment: 1. Acute small non stemi due to demand ischemia, secondary to anemia and hypoxia. 2. On dapt, asa, plavix 3. Pt not sure what caused her decompensation. No triggering event such as URI. 4. CV status improving
[2018-10-18] MEDS: Multiple Vitamins Tab PO SCH (10:07)
[2018-10-18] MEDS: Silver Sulfadiazine 1% Cream (20 gm) TOP SCH (10:17)
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
--- NOTE | 2018-10-18 15:38 | CP.PCM.CON ---
History of Present Illness - History of Present Illness History of Present Illness: Palliative consult requested by Doctor Vero Flores for goals of care and Code status discussion Patient is a 83 yo female admitted from home intubated on the field in respiratory distress. Per son's report who is patient's primary rn urgent care, patient complained to him about " not feeling good". Patient uses O2 at home and her son has increased O2 from 2 L to 4 L per hour as per patient's request and some relief was achieved as per son. patient was left alone in the room to be found on the floor only 4 min after it. Per son, patient was unresponsive , EMS arrived in about 10 min and patient was intubated than taken to ED. Left pleural effusion was diagnosed per CXR on admission and CT abdomen /chest was significant for pulmonary nodules. Patient was treated with Maxipime IV, Solu Medrol and Neb Tx.On 10/16/18 patient was successfully extubated. Discharge planing is pending. PMH: COPD, IN. uses O2 at home, CHF Soc. Hx: lives at home with son who is her primary rn urgent care Fam. Hx: unknown Review of Systems - Review of Systems All systems: reviewed and no additional remarkable complaints except Review of Systems: ROS unobtainable from patient due to confusion. ROS obtained from son at bed side. per son, patient appears to be in her normal. Past Patient History - Infectious Disease Hx of Infectious Diseases: None - Past Medical History & Family History Past Medical History?: Yes - Past Social History Smoking Status: Former Smoker - CARDIAC Hx Congestive Heart Failure: Yes Hx Hypercholesterolemia: Yes Hx Hypertension: Yes - PULMONARY Hx Chronic Obstructive Pulmonary Disease (COPD): Yes (ON OXYGEN [place]. 2L ) - NEUROLOGICAL Hx Neurological Disorder: No - HEENT Hx HEENT Problems: Yes Hx Cataracts: Yes (BILAT.) Other/Comment: [place] RT EAR - RENAL Hx Chronic Kidney Disease: No - ENDOCRINE/METABOLIC Hx Endocrine Disorders: No - HEMATOLOGICAL/ONCOLOGICAL Hx Blood Disorders: No - INTEGUMENTARY Hx Dermatological Problems: No - MUSCULOSKELETAL/RHEUMATOLOGICAL Hx Arthritis: Yes Hx Rheumatoid Arthritis: Yes - GASTROINTESTINAL Hx Gall Bladder Disease: Yes - GENITOURINARY/GYNECOLOGICAL Hx Genitourinary Disorders: No - PSYCHIATRIC Hx Anxiety: Yes Hx Substance Use: No - SURGICAL HISTORY Hx Cholecystectomy: Yes - ANESTHESIA Hx Anesthesia: Yes Hx Anesthesia Reactions: No Hx Malignant Hyperthermia: No Meds Allergies/Adverse Reactions: Allergies Allergy/AdvReac Type Severity Reaction Status Date / Time No Known Allergies Allergy Verified 10/15/18 09:55 - Medications Medications: Current Medications Albuterol/Ipratropium (Duoneb 3 Mg/0.5 Mg (3 Ml) Ud) 3 ml INH RQ6 [facility] Last Admin: 10/18/18 13:47 Dose: Not Given Aspirin (Aspirin Chewable) 81 mg PO DAILY [facility] Last Admin: 10/18/18 10:08 Dose: 81 mg Bisoprolol Fumarate (Zebeta) 10 mg PO DAILY [facility] Last Admin: 10/18/18 10:08 Dose: 10 mg Clopidogrel Bisulfate (Plavix) 75 mg PO DAILY [facility] Last Admin: 10/18/18 10:08 Dose: 75 mg Famotidine (Pepcid) 20 mg PO BID [facility] Last Admin: 10/18/18 10:08 Dose: 20 mg Fluticasone/Vilanterol (Breo Ellipta 100-25 Mcg Inh) 1 puff INH RQD [facility] Last Admin: 10/18/18 07:47 Dose: Not Given Cefepime HCl 2 gm/ Sodium (Chloride) 100 mls @ 200 mls/hr IVPB Q8H [facility]; Protocol Stop: 10/22/18 10:01 Last Admin: 10/18/18 10:20 Dose: 200 mls/hr Methylprednisolone (Solu-Medrol) 20 mg IVP Q8H [facility] Last Admin: 10/18/18 12:43 Dose: 20 mg Montelukast Sodium (Singulair) 10 mg PO [facility] Last Admin: 10/17/18 21:22 Dose: 10 mg Multivitamins (Hexavitamin) 1 tab PO DAILY [facility] Last Admin: 10/18/18 10:07 Dose: 1 tab Rosuvastatin Calcium (Crestor) 10 mg PO [facility] Last Admin: 10/17/18 22:00 Dose: 10 mg Silver Sulfadiazine (Silvadene 1% 20 Gm) 0 ea TOP DAILY [facility] Last Admin: 10/18/18 10:17 Dose: 1 applic Physical Exam - Constitutional Appears: No Acute Distress, Chronically Ill - Head Exam Head Exam: ATRAUMATIC, NORMAL INSPECTION, NORMOCEPHALIC - Eye Exam Eye Exam: EOMI, Normal appearance, PERRL Pupil Exam: NORMAL ACCOMODATION, PERRL - ENT Exam ENT Exam: Mucous Membranes Moist, Normal Exam - Neck Exam Neck exam: Positive for: Normal Inspection - Respiratory Exam Respiratory Exam: Decreased Breath Sounds, Prolonged Expiratory Phase, NORMAL BREATHING PATTERN - Cardiovascular Exam Cardiovascular Exam: Tachycardia, Irregular Rhythm - GI/Abdominal Exam GI & Abdominal Exam: Normal Bowel Sounds, Soft - Rectal Exam Rectal Exam: Deferred - Extremities Exam Extremities exam: Positive for: normal capillary refill, normal inspection, pedal pulses present - Back Exam Back exam: NORMAL INSPECTION - Neurological Exam Neurological exam: Abnormal Gait, Alert, Altered - Psychiatric Exam Psychiatric exam: Flat Affect - Skin Skin Exam: Dry, Intact, Normal Color, Warm Results - Vital Signs Recent Vital Signs: Last Vital Signs Temp 98.1 F 10/18/18 12:00 Pulse 89 10/18/18 12:00 Resp 20 10/18/18 12:00 BP 128/81 10/18/18 12:00 Pulse Ox 96 10/18/18 12:00 - Labs Result Diagrams: 10/18/18 05:30 10/18/18 05:30 Labs: Laboratory Results - last 24 hr 10/18/18 10/18/18 05:30 05:30 WBC 11.1 H RBC 3.33 L Hgb 9.7 L Hct 31.3 L MCV 93.8 MCH 29.0 MCHC 31.0 L RDW 15.9 H Plt Count 170 MPV 9.1 Neut % (Auto) 88.7 H Lymph % (Auto) 3.[address] [place] % (Auto) 7.9 Eos % (Auto) 0.0 Baso % (Auto) 0.0 Neut # (Auto) 9.8 H Lymph # (Auto) 0.[address] [place] # (Auto) 0.9 H Eos # (Auto) 0.0 Baso # (Auto) 0.0 Neutrophils % (Manual) 88 H Lymphocytes % (Manual) 4 L Reactive Lymphs % 2 H Monocytes % (Manual) 6 Platelet Estimate Normal Sodium 142 Potassium 4.0 Chloride 107 Carbon Dioxide 39 H Anion Gap 0 L BUN 28 H Creatinine 0.7 Est GFR ( Amer) > 60 Est GFR (Non-Af Amer) > 60 Random Glucose 114 H D Calcium 6.8 L Phosphorus 2.4 L Magnesium 2.2 Total Bilirubin 0.7 AST 14 D ALT 20 Alkaline Phosphatase 43 Total Protein 5.9 L Albumin 2.8 L Globulin 3.1 Albumin/Globulin Ratio 0.9 L Assessment & Plan - Assessment and Plan (Free Text) Assessment: Palliative consult Full Code, there is no Advance Directive on chart. PPS 30% I reviewed all medical records, diagnostic studies, examined patient in the bed. Patient is alert, altered, verbal and [place]. Patient is not in acute distress. Skin is dry and intact. Hb 9.7. Breath sounds diminished, prolonged expiratory shahnaz, no cough. O2sat HR irregular, 89, denies chest pain/palpitations. Abdomen soft, active bowel sounds, last BM this morning Upper and lower extremities mobile, ambulatory, pedal pulses present BP 130/72, HR 89, afebrile, O2Sat 95% on O2 WBC 11.4, Hb 9.7, Sputun cultures + Pseudomonas. Goals of care discussed with son at bed side in presence of patient. Son is patient;s primary rn urgent care; he cooks for her, does shopping , takes her to the Doctor. Son states being worried with his mother's often admissions for the diagnosis of Pneumonia. He feels like if she had pneumonia each month. I provided more information about statistics of Pneumonia in elderly people, the risks associated with it and preventive and healthy life style. I also discussed the chronic nature of COPD. Son noticed that patient has no SOB at rest, but only when moves and tries to do things in the house. Patient does not like leaving the house, no even when the weather is nice and stays in house most of the time. We discussed care post hospitalization. Son prefers his mother is discharged home with PT if needed rather than going to [facility]. Code status discussed. patient son said he had Living Will Copy presented on this admission, but nothing was on the chart. Patient's primary nurse stated she had not seen any documents there. Son will bring in another copy. I questioned him about his mother's end of life care. Son is gratefull his mother's life was saved this time by using aggressive interventions. If it should happen again, he would want the same measures to be applied again to support his mother's life. However, if patient should be in need for rat exterminator life support interventions such as PEG, or MV support he would want his mother was allowed natural . The son wishes his mother remains FULL CODE as of now. He is willing to discuss goals of care in the future as his mother's condition progresses. Impression * S/P acute respiratory distress * S/P intubation * COPD * Mild confusion * Patient needs constant supervision and support with ADLs * SOB on exertion * Son is primary rn urgent care * Son prefers patient is discharged home with PT * Full Code * Son is willing to discuss Code status in the future again based on patient's condition; Suggestion * Continue O2 support at 2 L/Min * Reinforce use of Incentive Spirometry * Assist OOB and jasmine with PT * Full Code * Discharge planing home with PT * Agree with home discharge Advance care discussion 55 min palliative care will sign off at this time.
--- NOTE | 2018-10-18 18:02 | CP.PCM.PN ---
Subjective - Date & Time of Evaluation Date of Evaluation: 10/18/18 Time of Evaluation: 10:00 - Subjective Subjective: Patient seen and examined Breathing and cough improving Sitting in no distress Afebrile Objective - Vital Signs/Intake and Output Vital Signs (last 24 hours): Temp Pulse Resp BP Pulse Ox 98.4 F 80 19 125/54 L 99 10/18/18 16:00 10/18/18 16:00 10/18/18 16:00 10/18/18 16:00 10/18/18 16:00 Intake and Output: 10/18/18 10/18/18 06:59 18:59 Intake Total 1200 1060 Output Total 800 1000 Balance 400 60 - Medications Medications: Current Medications Albuterol/Ipratropium (Duoneb 3 Mg/0.5 Mg (3 Ml) Ud) 3 ml INH RQ6 [facility] Last Admin: 10/18/18 13:47 Dose: Not Given Aspirin (Aspirin Chewable) 81 mg PO DAILY [facility] Last Admin: 10/18/18 10:08 Dose: 81 mg Bisoprolol Fumarate (Zebeta) 10 mg PO DAILY [facility] Last Admin: 10/18/18 10:08 Dose: 10 mg Clopidogrel Bisulfate (Plavix) 75 mg PO DAILY [facility] Last Admin: 10/18/18 10:08 Dose: 75 mg Famotidine (Pepcid) 20 mg PO BID [facility] Last Admin: 10/18/18 10:08 Dose: 20 mg Fluticasone/Vilanterol (Breo Ellipta 100-25 Mcg Inh) 1 puff INH RQD [facility] Last Admin: 10/18/18 07:47 Dose: Not Given Cefepime HCl 2 gm/ Sodium (Chloride) 100 mls @ 200 mls/hr IVPB Q8H [facility]; Protocol Stop: 10/22/18 10:01 Last Admin: 10/18/18 10:20 Dose: 200 mls/hr Methylprednisolone (Solu-Medrol) 20 mg IVP Q8H [facility] Last Admin: 10/18/18 12:43 Dose: 20 mg Montelukast Sodium (Singulair) 10 mg PO [facility] Last Admin: 10/17/18 21:22 Dose: 10 mg Multivitamins (Hexavitamin) 1 tab PO DAILY [facility] Last Admin: 10/18/18 10:07 Dose: 1 tab Rosuvastatin Calcium (Crestor) 10 mg PO [facility] Last Admin: 10/17/18 22:00 Dose: 10 mg Silver Sulfadiazine (Silvadene 1% 20 Gm) 0 ea TOP DAILY [facility] Last Admin: 10/18/18 10:17 Dose: 1 applic - Labs Labs: 10/18/18 05:30 10/18/18 05:30 PT 11.0 SECONDS (9.7-12.2) 10/15/18 10:31 INR 1.0 10/15/18 10:31 APTT 27 SECONDS (21-34) 10/15/18 10:31 - Head Exam Head Exam: ATRAUMATIC, NORMOCEPHALIC - ENT Exam ENT Exam: Mucous Membranes Moist - Neck Exam Neck Exam: Normal Inspection - Respiratory Exam Respiratory Exam: Decreased Breath Sounds - Cardiovascular Exam Cardiovascular Exam: REGULAR RHYTHM - GI/Abdominal Exam GI & Abdominal Exam: Soft, Normal Bowel Sounds - Extremities Exam Extremities Exam: Normal Inspection Assessment and Plan (1) Respiratory failure Assessment & Plan: Status post extubation and breathing much improved Taper steroids and continue nebulizer treatment Status: Acute (2) Acute blood loss anemia Status: Acute (3) COPD (chronic obstructive pulmonary disease) Status: Chronic
[2018-10-19] MEDS: Albuterol-Ipratrop 3 mg / 0.5 (3 ml) UD INH SCH ×4 (02:09→20:04)
[2018-10-19] MEDS: Cefepime 2 GM in Sodium Chloride 0.9% 100 ML IVPB SCH ×3 (03:30→18:08)
[2018-10-19] MEDS: MethylPREDNISolone 40 mg Vial IVP SCH ×2 (04:54→12:45)
[2018-10-19 07:02] LABS: ALB/GLOB RATIO 1.3 (1.0-2.1); ALBUMIN 3.8 g/dL (3.5-5.0); ALT/SGPT 10 U/L (9-52); AST/SGOT 20 U/L (14-36); BASO % 0.3 % (0.0-2.0); BLOOD UREA NITROGEN 37 mg/dL (7-17); CALCIUM 8.9 mg/dl (8.6-10.4); GFR NON-AFRICAN AMERICAN > 60; HEMOGLOBIN 10.3 g/dL (11.0-16.0); LYMPH # 0.4 K/uL (1.0-4.3); LYMPH % 3.9 % (20.0-40.0); MEAN CORPUSCULAR HEMOGLOBIN 28.9 pg (27.0-31.0); MEAN CORPUSCULAR HGB CONC 30.4 g/dL (33.0-37.0); MEAN PLATELET VOLUME 9.4 fL (7.2-11.7); MONO # 0.7 K/uL (0.0-0.8); MONO % 6.6 % (0.0-10.0); NEUT # 9.6 K/uL (1.8-7.0); NEUT % 89.2 % (50.0-75.0); NRBC % 0.2 % (0.0-2.0); PLATELET COUNT 154 K/uL (130-400); RBC 3.55 Mil/uL (3.80-5.20); RED CELL DISTRIBUTION WIDTH 15.8 % (11.5-14.5); WHITE BLOOD COUNT 10.7 K/uL (4.8-10.8)
[2018-10-19 08:39] LABS: ANISOCYTOSIS SLIGHT; BANDS 1 % (0-2); LYMPHOCYTE 3 % (20-40); MONOCYTE 5 % (0-10); NEUTROPHIL 90 % (50-75); PLATELET ESTIMATE NORMAL (NORMAL); REACTIVE LYMPHOCYTES 1 % (0-0); TOTAL CELLS COUNTED 100
[2018-10-19 08:40] LABS: OVALOCYTES SLIGHT
[2018-10-19] MEDS: Multiple Vitamins Tab PO SCH (09:38)
[2018-10-19] MEDS: Silver Sulfadiazine 1% Cream (20 gm) TOP SCH ×2 (09:40→17:22)
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
--- NOTE | 2018-10-19 16:56 | CP.PCM.PN ---
Subjective - Date & Time of Evaluation Date of Evaluation: 10/19/18 Time of Evaluation: 13:00 - Subjective Subjective: Patient seen and examined Shortness of breath and cough improving Denies any chest pain Afebrile On dual antiplatelet therapy Objective - Vital Signs/Intake and Output Vital Signs (last 24 hours): Temp Pulse Resp BP Pulse Ox 98 F 84 19 138/80 98 10/19/18 08:00 10/19/18 08:00 10/19/18 08:00 10/19/18 08:00 10/19/18 08:00 Intake and Output: 10/19/18 10/19/18 06:59 18:59 Intake Total 840 420 Output Total 800 701 Balance 40 -281 - Medications Medications: Current Medications Albuterol/Ipratropium (Duoneb 3 Mg/0.5 Mg (3 Ml) Ud) 3 ml INH RQ6 [facility] Last Admin: 10/19/18 13:47 Dose: 3 ml Aspirin (Aspirin Chewable) 81 mg PO DAILY [facility] Last Admin: 10/19/18 09:39 Dose: 81 mg Bisoprolol Fumarate (Zebeta) 10 mg PO DAILY [facility] Last Admin: 10/19/18 09:44 Dose: 10 mg Clopidogrel Bisulfate (Plavix) 75 mg PO DAILY [facility] Last Admin: 10/19/18 09:39 Dose: 75 mg Famotidine (Pepcid) 20 mg PO BID [facility] Last Admin: 10/19/18 09:39 Dose: 20 mg Fluticasone/Vilanterol (Breo Ellipta 100-25 Mcg Inh) 1 puff INH RQD [facility] Last Admin: 10/18/18 07:47 Dose: Not Given Cefepime HCl 2 gm/ Sodium (Chloride) 100 mls @ 200 mls/hr IVPB Q8H [facility]; Protocol Stop: 10/22/18 10:01 Last Admin: 10/19/18 10:39 Dose: 200 mls/hr Methylprednisolone (Solu-Medrol) 20 mg IVP Q12H [facility] Montelukast Sodium (Singulair) 10 mg PO [facility] Last Admin: 10/18/18 21:29 Dose: 10 mg Multivitamins (Hexavitamin) 1 tab PO DAILY [facility] Last Admin: 10/19/18 09:38 Dose: 1 tab Rosuvastatin Calcium (Crestor) 10 mg PO HS [facility] Last Admin: 10/18/18 21:29 Dose: 10 mg Silver Sulfadiazine (Silvadene 1% 20 Gm) 0 ea TOP BID [facility] Last Admin: 10/19/18 09:40 Dose: 1 units - Labs Labs: 10/19/18 06:15 10/19/18 06:15 PT 11.0 SECONDS (9.7-12.2) 10/15/18 10:31 INR 1.0 10/15/18 10:31 APTT 27 SECONDS (21-34) 10/15/18 10:31 - Head Exam Head Exam: ATRAUMATIC, NORMOCEPHALIC - ENT Exam ENT Exam: Mucous Membranes Moist - Neck Exam Neck Exam: Normal Inspection - Respiratory Exam Respiratory Exam: Decreased Breath Sounds - Cardiovascular Exam Cardiovascular Exam: REGULAR RHYTHM - GI/Abdominal Exam GI & Abdominal Exam: Soft, Normal Bowel Sounds - Extremities Exam Extremities Exam: Pedal Edema - Neurological Exam Neurological Exam: Alert Assessment and Plan (1) Respiratory failure Assessment & Plan: Status post extubation and clinically improving Taper steroids and continue nebulizer treatment Seen by cardiology and on dual antiplatelet therapy BiPAP as needed Status: Acute (2) Acute blood loss anemia Status: Acute (3) COPD (chronic obstructive pulmonary disease) Status: Chronic
[2018-10-20] MEDS: MethylPREDNISolone 40 mg Vial IVP SCH (00:42)
[2018-10-20] MEDS: Albuterol-Ipratrop 3 mg / 0.5 (3 ml) UD INH SCH ×2 (01:00→08:49)
[2018-10-20] MEDS: Cefepime 2 GM in Sodium Chloride 0.9% 100 ML IVPB SCH ×2 (03:00→10:35)
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
[2018-10-20 07:35] LABS: BASO % 0.1 % (0.0-2.0); EOS % 0.1 % (0.0-4.0); HEMOGLOBIN 9.8 g/dL (11.0-16.0); LYMPH # 0.3 K/uL (1.0-4.3); LYMPH % 4.4 % (20.0-40.0); MEAN CELL VOLUME 94.4 fL (81.0-99.0); MEAN CORPUSCULAR HEMOGLOBIN 29.8 pg (27.0-31.0); MEAN CORPUSCULAR HGB CONC 31.6 g/dL (33.0-37.0); MEAN PLATELET VOLUME 8.9 fL (7.2-11.7); MONO # 0.3 K/uL (0.0-0.8); MONO % 4.6 % (0.0-10.0); NEUT # 6.2 K/uL (1.8-7.0); NEUT % 90.8 % (50.0-75.0); PLATELET COUNT 133 K/uL (130-400); RED CELL DISTRIBUTION WIDTH 15.3 % (11.5-14.5); WHITE BLOOD COUNT 6.9 K/uL (4.8-10.8)
[2018-10-20 08:00] LABS: ALB/GLOB RATIO 1.3 (1.0-2.1); ALBUMIN 3.3 g/dL (3.5-5.0); ALT/SGPT 14 U/L (9-52); AST/SGOT 19 U/L (14-36); BLOOD UREA NITROGEN 34 mg/dL (7-17); CALCIUM 8.9 mg/dl (8.6-10.4); GFR NON-AFRICAN AMERICAN > 60
[2018-10-20 08:54] LABS: LYMPHOCYTE 5 % (20-40); MONOCYTE 5 % (0-10); MYELOCYTE 1 % (0-0); NEUTROPHIL 89 % (50-75); NUCLEATED RED BLOOD CELL 1 % (0-0); PLATELET ESTIMATE NORMAL (NORMAL); TOTAL CELLS COUNTED 100
[2018-10-20 08:55] LABS: ANISOCYTOSIS SLIGHT; HYPOCHROMIC SLIGHT; POIKILOCYTOSIS SLIGHT
[2018-10-20] MEDS: Multiple Vitamins Tab PO SCH (09:39)
[2018-10-20] MEDS: Silver Sulfadiazine 1% Cream (20 gm) TOP SCH (10:14)
[2018-10-20 10:18] VITALS: BP 136/57; RESP 16; TEMP 98.1; O2SAT 100
[2018-10-20 10:21] VITALS: PULSE 93
--- NOTE | 2018-10-20 14:27 | CP.PCM.PN ---
Subjective - Date & Time of Evaluation Date of Evaluation: 10/20/18 Time of Evaluation: 11:00 - Subjective Subjective: Patient seen and examined Alert, Awake, No acute distress Cough and SOB improving Denies fevers, chest pain, hemoptysis Afebrile Physical Exam Oxygen Saturation 99%Room General: NAD Cardio: S1. S2, No murmurs, rubs, gallops Resp: Decreased breath sounds Abd: Soft, non-tender, No rebound, rigidity, guarding A/P 1) Respiratory Failure -breathing much improved -Stable for Discharge 2)Acute Blood Loss anemia -acute 3) COPD (Chronic Obstructive Pulmonary Disease) -Chronic Objective - Vital Signs/Intake and Output Vital Signs (last 24 hours): Temp Pulse Resp BP Pulse Ox 98.1 F 93 H 16 136/57 L 100 10/20/18 08:00 10/20/18 10:00 10/20/18 08:00 10/20/18 08:00 10/20/18 08:00 Intake and Output: 10/20/18 10/20/18 06:59 18:59 Intake Total 120 350 Output Total 253 Balance -133 350 - Labs Labs: 10/20/18 07:27 10/20/18 07:27 PT 11.0 SECONDS (9.7-12.2) 10/15/18 10:31 INR 1.0 10/15/18 10:31 APTT 27 SECONDS (21-34) 10/15/18 10:31 Assessment and Plan (1) Respiratory failure Status: Acute (2) Acute blood loss anemia Status: Acute (3) COPD (chronic obstructive pulmonary disease) Status: Chronic
== END 2018-10-20 12:00 | disposition home or self-care (01) | DRG 208 ==
LOC: C.ER 09:46 → C.9E 11:58 → C.9I 12:08
PROVIDERS: ADMIT Hospitalist; ATTEND Hospitalist
PROC: 0BH17EZ Insertion of Endotracheal Airway into Trachea, Via Natural or Artificial Opening (ICD-10-PCS; principal; 2018-10-15)
PROC: 5A1945Z Respiratory Ventilation, 24-96 Consecutive Hours (ICD-10-PCS; 2018-10-15)
DX: J96.02 Acute respiratory failure with hypercapnia (principal); I21.4 Non-ST elevation (NSTEMI) myocardial infarction; J69.0 Pneumonitis due to inhalation of food and vomit; I50.22 Chronic systolic (congestive) heart failure; D62 Acute posthemorrhagic anemia; J96.01 Acute respiratory failure with hypoxia; I25.10 Atherosclerotic heart disease of native coronary artery without angina pectoris; J44.9 Chronic obstructive pulmonary disease, unspecified; M06.9 Rheumatoid arthritis, unspecified; Z72.0 Tobacco use; T22.252A Burn of second degree of left shoulder, initial encounter; X16.XXXA Contact with hot heating appliances, radiators and pipes, initial encounter; I11.0 Hypertensive heart disease with heart failure; E78.5 Hyperlipidemia, unspecified; Z99.81 Dependence on supplemental oxygen; Z95.5 Presence of coronary angioplasty implant and graft

== ENCOUNTER 2018-10-21 01:15 | Inpatient (IN) | payer MEDICARE ==
[2018-10-21 01:15] VITALS: BMI 27.0
[2018-10-21 01:59] LABS: VENOUS BLOOD GAS BASE EXCESS 22.9 mmol/L (0.0-2.0); VENOUS BLOOD GAS PCO2 96 mmHg (40-60); VENOUS BLOOD GAS PO2 82 mm/Hg (30-55); VENOUS BLOOD PH 7.36 (7.32-7.43)
[2018-10-21 03:02] LABS: BASO % 0.3 % (0.0-2.0); EOS # 0.2 K/uL (0.0-0.7); EOS % 1.8 % (0.0-4.0); LYMPH # 0.7 K/uL (1.0-4.3); LYMPH % 6.4 % (20.0-40.0); MEAN CELL VOLUME 93.5 fL (81.0-99.0); MEAN CORPUSCULAR HEMOGLOBIN 29.3 pg (27.0-31.0); MEAN CORPUSCULAR HGB CONC 31.3 g/dL (33.0-37.0); MEAN PLATELET VOLUME 10.1 fL (7.2-11.7); MONO # 1.2 K/uL (0.0-0.8); MONO % 11.4 % (0.0-10.0); NEUT # 8.7 K/uL (1.8-7.0); NEUT % 80.1 % (50.0-75.0); NRBC % 0.2 % (0.0-2.0); PLATELET COUNT 164 K/uL (130-400); RED CELL DISTRIBUTION WIDTH 15.3 % (11.5-14.5); WHITE BLOOD COUNT 10.9 K/uL (4.8-10.8)
[2018-10-21 03:15] LABS: INR 1.1
--- NOTE | 2018-10-21 03:20 | C.PDOC ---
History Of Present Illness Patient ELIE from [facility] for evaluation of SOB. As per son, patient was discharged yest from [facility] for "pneumonia". He states he thought patient might be anxious and gave her a Xanax, but she continued to c/o SOB. Patient states she is unable to lay flat. She denies fever, chest pain, palpitations, cough, abdominal pain, nausea/vomiting/diarrhea. PMHx: HTN, hyperlipidemia, COPD on home O2 2L, CHF, pneumonia, RA Time Seen by Provider: 10/21/18 01:22 Chief Complaint (Nursing): Shortness Of Breath History Per: Patient, Family History/Exam Limitations: clinical condition Onset/Duration Of Symptoms: Hrs Current Symptoms Are (Timing): Still Present Current Respiratory Medications: See Home Med List Severity: Moderate Past Medical History Reviewed: Historical Data, Nursing Documentation, Vital Signs Vital Signs: Last Vital Signs Temp 98.1 F 10/21/18 01:20 Pulse 99 H 10/21/18 02:18 Resp 32 H 10/21/18 01:20 BP 140/56 L 10/21/18 01:20 Pulse Ox 98 10/21/18 01:20 - Medical History PMH: Anxiety, Arthritis, CHF, COPD (ON OXYGEN [place]. 2L ), Gall Bladder Disease, HTN, Hypercholesterolemia, Pneumonia (JANUARY 2018), Rheumatoid Arthritis Denies: Chronic Kidney Disease Surgical History: Cholecystectomy - [facility] Procedures ASSISTANCE WITH RESPIRATORY VENTILATION, 24-96 HRS, CPAP (07/23/15) ASSISTANCE WITH RESPIRATORY VENTILATION, >96 HRS, CPAP (01/11/18) Family History: States: No Known Family Hx - Social History Hx Tobacco Use: Yes (2 years when teenager) Hx Alcohol Use: Yes (social) Hx Substance Use: No - Immunization History Hx Tetanus Toxoid Vaccination: No Hx Influenza Vaccination: No Hx Pneumococcal Vaccination: No Review Of Systems Constitutional: Negative for: Fever, Chills Cardiovascular: Negative for: Chest Pain, Palpitations Respiratory: Positive for: Shortness of Breath. Negative for: Cough Gastrointestinal: Negative for: Nausea, Vomiting, Abdominal Pain, Diarrhea Genitourinary: Negative for: Dysuria, Hematuria Skin: Negative for: Rash Neurological: Negative for: Headache, Dizziness Physical Exam - Physical Exam Appears: Non-toxic, In Acute Distress (in mild respiratory distress) Skin: Normal Color, Warm, Dry, No Rash, Ecchymosis (diffuse ecchymoses B/L extremities ) Head: Atraumatic, Normacephalic Eye(s): bilateral: Normal Inspection Oral Mucosa: Moist Respiratory: Accessory Muscle Use (mild), Rales (B/L ), No Rhonchi, No Wheezing Gastrointestinal/Abdominal: Normal Exam, Bowel Sounds, Soft, No Tenderness Extremity: Pedal Edema (diffuse pitting edema all extremities ), No Calf Tenderness Pulses: Left Dorsalis Pedis: Normal, Right Dorsalis Pedis: Normal Neurological/Psych: Oriented x3 ED Course And Treatment - Laboratory Results Result Diagrams: 10/21/18 02:57 Lab Results: pO2 82 mm/Hg (30-55) H 10/21/18 01:52 VBG pH 7.36 (7.32-7.43) 10/21/18 01:52 VBG pCO2 96 mmHg (40-60) H* 10/21/18 01:52 VBG HCO3 42.7 mmol/L 10/21/18 01:52 VBG Total CO2 57.1 mmol/L (22-28) H 10/21/18 01:52 VBG O2 Sat (Calc) 103.4 % (40-65) H 10/21/18 01:52 VBG Base Excess 22.9 mmol/L (0.0-2.0) H 10/21/18 01:52 VBG Potassium 5.1 mmol/L (3.6-5.2) 10/21/18 01:52 Sodium 142.0 mmol/l (132-148) 10/21/18 01:52 Chloride 103.0 mmol/L (98-107) 10/21/18 01:52 Glucose 113 mg/dl (65-105) H 10/21/18 01:52 Lactate 0.8 mmol/L (0.7-2.1) 10/21/18 01:52 Crit Value Called To Katie hollis rn 10/21/18 01:52 Crit Value Called By Kaci mckeon rt 10/21/18 01:52 Crit Value Read Back Y 10/21/18 01:52 Blood Gas Notified Time 200 10/21/18 01:52 PT 12.0 SECONDS (9.7-12.2) 10/21/18 02:57 INR 1.1 10/21/18 02:57 APTT 27 SECONDS (21-34) 10/21/18 02:57 O2 Sat by Pulse Oximetry: 98 (NRB) Pulse Ox Interpretation: Normal Progress Note: Prior visit reviewed - patient was admitted for hypercapnic respiratory failure (intubated in ED), pneumonia and NSTEMI. Patient placed on Bipap emergently. Blood work, CXR, EKG ordered and reviewed. Multiple attempts made by nurse for IV access, were unsuccessful. Blood obtained from right radial artery stick by me. Left sided 22 gauge EJ placed by me for IV access. Disposition - Disposition Forms: [facility] ([place])
[2018-10-21 03:30] LABS: B-TYPE NATRIURETIC PEPTIDE 7200 pg/mL (0-900)
[2018-10-21 03:51] LABS: ANISOCYTOSIS SLIGHT; LYMPHOCYTE 7 % (20-40); MONOCYTE 12 % (0-10); NEUTROPHIL 81 % (50-75); PLATELET ESTIMATE NORMAL (NORMAL); TOTAL CELLS COUNTED 100
[2018-10-21 03:52] LABS: ROULEAUX FORMATION SLIGHT
[2018-10-21 03:56] LABS: ALB/GLOB RATIO 1.4 (1.0-2.1); ALBUMIN 3.5 g/dL (3.5-5.0); ALT/SGPT 19 U/L (9-52); AST/SGOT 23 U/L (14-36); BLOOD UREA NITROGEN 32 mg/dL (7-17); CALCIUM 8.9 mg/dl (8.6-10.4); CK-MB 0.96 ng/mL (0.0-3.38); GFR NON-AFRICAN AMERICAN > 60
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
[2018-10-21] MEDS: Fluticasone-Vilanterol 100/25mcg Diskus INH SCH (08:00)
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
[2018-10-21] MEDS ORDERED: Home Med 1 UNIT (Leflunomide [Arava] 20 MG) PO SCH (10:00)
--- NOTE | 2018-10-21 10:24 | RAD ---
Date of service: 10/21/2018 PROCEDURE: CHEST RADIOGRAPH, 1 VIEW HISTORY: SOB COMPARISON: 10/16/2018. FINDINGS: LUNGS: Status post extubation the lungs are well inflated. There is mild pulmonary venous congestion. No focal consolidation PLEURA: No pneumothorax or pleural effusion. CARDIOVASCULAR: There is mild cardiomegaly. There are aortic atherosclerotic calcifications present. OSSEOUS STRUCTURES: Within normal limits for the patient's age. VISUALIZED UPPER ABDOMEN: Normal. OTHER FINDINGS: None. IMPRESSION: Post extubation, no acute findings.
[2018-10-21] MEDS: Enoxaparin 40 mg Syringe SC SCH (11:37)
[2018-10-21] MEDS: Albuterol 0.083% Inhal Sol (2.5 mg/3 mL) UD INH PRN (13:40)
[2018-10-21] MEDS: Silver Sulfadiazine 1% Cream (20 gm) TOP SCH (13:51)
[2018-10-21 17:15] LABS: EOS # 0.1 K/uL (0.0-0.7); EOS % 1.1 % (0.0-4.0); HEMOGLOBIN 9.3 g/dL (11.0-16.0); LYMPH # 0.4 K/uL (1.0-4.3); LYMPH % 4.2 % (20.0-40.0); MEAN CELL VOLUME 92.2 fL (81.0-99.0); MEAN CORPUSCULAR HEMOGLOBIN 28.3 pg (27.0-31.0); MEAN CORPUSCULAR HGB CONC 30.7 g/dL (33.0-37.0); MEAN PLATELET VOLUME 9.1 fL (7.2-11.7); MONO # 0.7 K/uL (0.0-0.8); MONO % 7.8 % (0.0-10.0); NEUT # 8.3 K/uL (1.8-7.0); NEUT % 86.9 % (50.0-75.0); RBC 3.27 Mil/uL (3.80-5.20); RED CELL DISTRIBUTION WIDTH 15.4 % (11.5-14.5); WHITE BLOOD COUNT 9.5 K/uL (4.8-10.8)
[2018-10-21 17:18] LABS: PLATELET COUNT 126 K/uL (130-400)
[2018-10-21 17:29] LABS: BLOOD UREA NITROGEN 24 mg/dL (7-17); CALCIUM 8.6 mg/dl (8.6-10.4); GFR NON-AFRICAN AMERICAN > 60
[2018-10-21 17:30] LABS: ALB/GLOB RATIO 1.3 (1.0-2.1); ALBUMIN 3.1 g/dL (3.5-5.0); ALT/SGPT 18 U/L (9-52); AST/SGOT 17 U/L (14-36); CK-MB 1.33 ng/mL (0.0-3.38)
[2018-10-21] MEDS: MethylPREDNISolone 40 mg Vial IVP SCH (18:30)
--- NOTE | 2018-10-21 18:48 | CP.PCM.CON ---
History of Present Illness - History of Present Illness History of Present Illness: Reason for consultation: Shortness of breath 83-year-old female with COPD on home oxygen, coronary artery disease status post stent placement, rheumatoid arthritis recently discharged from hospital was brought back by son for confusion and shortness of breath which is mostly at night PMD: Tiarra HTN: CAD s/p 3 stents, Rheumatoid Arthritis, COPD (on 2L) and CHF (Systolic/Diastolic), NSTEMI PSHx: Stent placement, Cholecystectomy, Allergies: NKDA SocialHx: Denies tobacco, EtoH or illicit drug use. Hx of 2nd hand smoking. FamHx: Mother - , breast cancer; father - , MS (greater than 65 yrs) Meds: Per MAR Review of Systems - Review of Systems All systems: reviewed and no additional remarkable complaints except (Shortness of breath) Past Patient History - Infectious Disease Hx of Infectious Diseases: None - Past Medical History & Family History Past Medical History?: Yes - Past Social History Smoking Status: Former Smoker - CARDIAC Hx Congestive Heart Failure: Yes Hx Hypercholesterolemia: Yes Hx Hypertension: Yes - PULMONARY Hx Chronic Obstructive Pulmonary Disease (COPD): Yes (ON OXYGEN [place] 2L ) Hx Pneumonia: Yes (JANUARY 2018) - NEUROLOGICAL Hx Neurological Disorder: No - HEENT Hx HEENT Problems: Yes Hx Cataracts: Yes (BILAT.) Other/Comment: [place] EAR - RENAL Hx Chronic Kidney Disease: No - ENDOCRINE/METABOLIC Hx Endocrine Disorders: No - HEMATOLOGICAL/ONCOLOGICAL Hx Blood Disorders: No - INTEGUMENTARY Hx Dermatological Problems: No - MUSCULOSKELETAL/RHEUMATOLOGICAL Hx Arthritis: Yes Hx Falls: Yes Hx Rheumatoid Arthritis: Yes - GASTROINTESTINAL Hx Gall Bladder Disease: Yes - GENITOURINARY/GYNECOLOGICAL Hx Genitourinary Disorders: No - PSYCHIATRIC Hx Anxiety: Yes Hx Substance Use: No - SURGICAL HISTORY Hx Cholecystectomy: Yes - ANESTHESIA Hx Anesthesia: Yes Hx Anesthesia Reactions: No Hx Malignant Hyperthermia: No Has any member of the family had a problem w/ anesthesia?: No Meds Allergies/Adverse Reactions: Allergies Allergy/AdvReac Type Severity Reaction Status Date / Time No Known Allergies Allergy Verified 10/21/18 01:26 - Medications Medications: Current Medications Albuterol Sulfate (Albuterol 0.083% Inhal Alethea (2.5 Mg/3 Ml) Ud) 2.5 mg INH RQ8 PRN PRN Reason: Shortness of Breath Last Admin: 10/21/18 13:40 Dose: 2.5 mg Alprazolam (Xanax) 0.25 mg PO DAILY PRN PRN Reason: Anxiety Stop: 10/28/18 07:16 Aspirin (Aspirin Chewable) 81 mg PO DAILY [facility] Last Admin: 10/21/18 11:37 Dose: 81 mg Bisoprolol Fumarate (Zebeta) 10 mg PO DAILY [facility] Last Admin: 10/21/18 13:51 Dose: 10 mg Chlorthalidone (Hygroton) 25 mg PO DAILY [facility] Last Admin: 10/21/18 13:52 Dose: 25 mg Clopidogrel Bisulfate (Plavix) 75 mg PO DAILY [facility] Last Admin: 10/21/18 11:37 Dose: 75 mg Enoxaparin Sodium (Lovenox) 40 mg SC DAILY [facility] Last Admin: 10/21/18 11:37 Dose: 40 mg Fluticasone/Vilanterol (Breo Ellipta 100-25 Mcg Inh) 1 puff INH RQD [facility] Last Admin: 10/21/18 08:00 Dose: Not Given Furosemide (Lasix) 20 mg IVP DAILY [facility] Home Med (Leflunomide [Arava]) 20 mg PO DAILY [facility] Methylprednisolone (Solu-Medrol) 40 mg IVP BID [facility] Last Admin: 10/21/18 18:30 Dose: 40 mg Montelukast Sodium (Singulair) 10 mg PO HS [facility] Rosuvastatin Calcium (Crestor) 10 mg PO HS [facility] Silver Sulfadiazine (Silvadene 1% 20 Gm) 0 ea TOP DAILY [facility] Last Admin: 10/21/18 13:51 Dose: 1 applic Physical Exam - Head Exam Head Exam: ATRAUMATIC, NORMOCEPHALIC - ENT Exam ENT Exam: Mucous Membranes Moist - Neck Exam Neck exam: Positive for: Normal Inspection - Respiratory Exam Respiratory Exam: Decreased Breath Sounds - GI/Abdominal Exam GI & Abdominal Exam: Normal Bowel Sounds - Extremities Exam Extremities exam: Positive for: normal inspection Results - Vital Signs Recent Vital Signs: Last Vital Signs Temp 97.8 F 10/21/18 16:00 Pulse 73 10/21/18 16:43 Resp 18 10/21/18 16:00 BP 149/80 10/21/18 16:00 Pulse Ox 100 10/21/18 16:00 - Labs Result Diagrams: 10/21/18 16:45 10/21/18 16:45 Labs: Laboratory Results - last 24 hr 10/21/18 10/21/18 10/21/18 01:52 02:57 02:57 WBC 10.9 H D RBC 3.40 L Hgb 10.0 L Hct 31.8 L MCV 93.5 MCH 29.3 MCHC 31.3 L RDW 15.3 H Plt Count 164 MPV 10.1 Neut % (Auto) 80.1 H Lymph % (Auto) 6.4 L [place] % (Auto) 11.4 H Eos % (Auto) 1.8 Baso % (Auto) 0.3 Neut # (Auto) 8.7 H Lymph # (Auto) 0.7 L [place] # (Auto) 1.2 H Eos # (Auto) 0.2 Baso # (Auto) 0.0 Neutrophils % (Manual) 81 H Lymphocytes % (Manual) 7 L Monocytes % (Manual) 12 H Platelet Estimate Normal Anisocytosis (manual) Slight Rouleaux Slight PT 12.0 INR 1.1 APTT 27 pO2 82 H VBG pH 7.36 VBG pCO2 96 H* VBG HCO3 42.7 VBG Total CO2 57.1 H VBG O2 Sat (Calc) 103.4 H VBG Base Excess 22.9 H VBG Potassium 5.1 Sodium 142.0 Chloride 103.0 Glucose 113 H Lactate 0.8 Crit Value Called To Katie hollis rn Crit Value Called By Kaci mckeon rt Crit Value Read Back Y Blood Gas Notified Time 200 Potassium Carbon Dioxide Anion Gap BUN Creatinine Est GFR ( Amer) Est GFR (Non-Af Amer) Random Glucose Calcium Phosphorus Magnesium Total Bilirubin AST ALT Alkaline Phosphatase Total Creatine Kinase CK-MB (Mass) Troponin I NT-Pro-B Natriuret Pep Total Protein Albumin Globulin Albumin/Globulin Ratio Venous Blood Potassium 5.1 10/21/18 10/21/18 10/21/18 02:57 16:45 16:45 WBC 9.5 RBC 3.27 L Hgb 9.3 L Hct 30.1 L MCV 92.2 MCH 28.3 MCHC 30.7 L RDW 15.4 H Plt Count 126 L D MPV 9.1 Neut % (Auto) 86.9 H Lymph % (Auto) 4.2 L [place] % (Auto) 7.8 Eos % (Auto) 1.1 Baso % (Auto) 0.0 Neut # (Auto) 8.3 H Lymph # (Auto) 0.4 L [place] # (Auto) 0.7 Eos # (Auto) 0.1 Baso # (Auto) 0.0 Neutrophils % (Manual) Lymphocytes % (Manual) Monocytes % (Manual) Platelet Estimate Anisocytosis (manual) Rouleaux PT INR APTT pO2 VBG pH VBG pCO2 VBG HCO3 VBG Total CO2 VBG O2 Sat (Calc) VBG Base Excess VBG Potassium Sodium 138 137 Chloride 93 L 84 L Glucose Lactate Crit Value Called To Crit Value Called By Crit Value Read Back Blood Gas Notified Time Potassium 4.2 4.1 Carbon Dioxide 46 H* 50 H* Anion Gap 3 L 7 L BUN 32 H 24 H Creatinine 0.7 0.8 Est GFR ( Amer) > 60 > 60 Est GFR (Non-Af Amer) > 60 > 60 Random Glucose 124 H 123 H Calcium 8.9 8.6 Phosphorus 2.9 Magnesium 2.1 Total Bilirubin 0.7 0.5 AST 23 17 ALT 19 18 Alkaline Phosphatase 51 57 Total Creatine Kinase 23 L < 20 L CK-MB (Mass) 0.96 1.33 Troponin I 0.0970 0.1290 H* NT-Pro-B Natriuret Pep 7200 H Total Protein 5.9 L 5.4 L Albumin 3.5 3.1 L Globulin 2.4 2.3 Albumin/Globulin Ratio 1.4 1.3 Venous Blood Potassium Assessment & Plan (1) Acute respiratory failure with hypercapnia Assessment and Plan: Continue BiPAP Nebulizer treatment and IV steroids Follow-up ABG and chest x-ray Will benefit from trilogy Status: Acute (2) COPD exacerbation Status: Chronic Priority: High
[2018-10-21 19:43] LABS: BANDS 2 % (0-2); EOSINOPHIL 1 % (0-4); LYMPHOCYTE 6 % (20-40); MONOCYTE 9 % (0-10); NEUTROPHIL 82 % (50-75); PLATELET ESTIMATE SLIGHTLY DECREASED (NORMAL); TOTAL CELLS COUNTED 100
[2018-10-21 22:58] LABS: SQUAMOUS EPITHIAL 1 /hpf (0-5); URINE BILIRUBIN NEGATIVE (NEGATIVE); URINE BLOOD NEGATIVE (NEGATIVE); URINE CLARITY Clear (Clear); URINE COLOR Straw (YELLOW); URINE GLUCOSE (UA) NORMAL (Normal); URINE LEUKOCYTE ESTERASE NEG Leu/uL (Negative); URINE PROTEIN NEGATIVE (NEGATIVE); URINE UROBILINOGEN NORMAL mg/dL (0.2-1.0)
[2018-10-22 07:47] LABS: BASO % 0.1 % (0.0-2.0); EOS % 0.1 % (0.0-4.0); HEMOGLOBIN 9.7 g/dL (11.0-16.0); LYMPH # 0.4 K/uL (1.0-4.3); LYMPH % 4.1 % (20.0-40.0); MEAN CELL VOLUME 91.7 fL (81.0-99.0); MEAN CORPUSCULAR HEMOGLOBIN 29.7 pg (27.0-31.0); MEAN CORPUSCULAR HGB CONC 32.4 g/dL (33.0-37.0); MEAN PLATELET VOLUME 9.1 fL (7.2-11.7); MONO # 0.6 K/uL (0.0-0.8); MONO % 6.6 % (0.0-10.0); NEUT % 89.1 % (50.0-75.0); PLATELET COUNT 147 K/uL (130-400); RBC 3.27 Mil/uL (3.80-5.20); RED CELL DISTRIBUTION WIDTH 15.2 % (11.5-14.5)
[2018-10-22] MEDS: MethylPREDNISolone 40 mg Vial IVP SCH ×2 (09:24→18:30)
[2018-10-22 09:25] LABS: LYMPHOCYTE 5 % (20-40); MONOCYTE 8 % (0-10); NEUTROPHIL 87 % (50-75); PLATELET ESTIMATE NORMAL (NORMAL); TOTAL CELLS COUNTED 100
[2018-10-22 09:26] LABS: ANISOCYTOSIS SLIGHT; HYPOCHROMIC SLIGHT; POIKILOCYTOSIS SLIGHT; TARGET CELLS SLIGHT
[2018-10-22] MEDS: Enoxaparin 40 mg Syringe SC SCH (09:26)
[2018-10-22] MEDS: Silver Sulfadiazine 1% Cream (20 gm) TOP SCH (09:27)
--- NOTE | 2018-10-22 14:06 | CP.PCM.PN ---
Subjective - Date & Time of Evaluation Date of Evaluation: 10/22/18 Time of Evaluation: 09:00 - Subjective Subjective: Patient seen and examined Alert, Awake, No acute distress Denies fevers, chest pain, SOB, cough, Hemoptysis Afebrile Chest X-Ray 10/21- Post extubation. No acute findings VBG pO2 82 pH 7.36 pCO2 96 HCO 42.7 Physical Exam Oxygen Saturation 96% Room General: NAD Cardio: S1. S2, No murmurs, rubs, gallops Resp: Decreased breath sounds Abd: Soft. Nontender A/P 1) Acute Respiratory Failure with Hypercapnia -Continue Steroids -Continue Nebulizer - Continue BiPAP -Patient will benefit from trilogy -F/u chest x-ray -F/u ABG 2) COPD -Chronic Objective - Vital Signs/Intake and Output Vital Signs (last 24 hours): Temp Pulse Resp BP Pulse Ox 98.4 F 72 18 116/74 98 10/22/18 07:00 10/22/18 08:00 10/22/18 07:00 10/22/18 09:25 10/22/18 07:00 Intake and Output: 10/22/18 10/22/18 06:59 18:59 Intake Total 240 Output Total 600 Balance -360 - Medications Medications: Current Medications Albuterol Sulfate (Albuterol 0.083% Inhal Alethea (2.5 Mg/3 Ml) Ud) 2.5 mg INH RQ8 PRN PRN Reason: Shortness of Breath Last Admin: 10/21/18 13:40 Dose: 2.5 mg Alprazolam (Xanax) 0.25 mg PO DAILY PRN PRN Reason: Anxiety Stop: 10/28/18 07:16 Aspirin (Aspirin Chewable) 81 mg PO DAILY [facility] Last Admin: 10/22/18 09:25 Dose: 81 mg Bisoprolol Fumarate (Zebeta) 10 mg PO DAILY [facility] Last Admin: 10/22/18 09:26 Dose: 10 mg Chlorthalidone (Hygroton) 25 mg PO DAILY [facility] Last Admin: 10/22/18 09:26 Dose: 25 mg Clopidogrel Bisulfate (Plavix) 75 mg PO DAILY [facility] Last Admin: 10/22/18 09:24 Dose: 75 mg Enoxaparin Sodium (Lovenox) 40 mg SC DAILY [facility] Last Admin: 10/22/18 09:26 Dose: 40 mg Fluticasone/Vilanterol (Breo Ellipta 100-25 Mcg Inh) 1 puff INH RQD [facility] Last Admin: 10/21/18 08:00 Dose: Not Given Furosemide (Lasix) 20 mg IVP DAILY [facility] Last Admin: 10/22/18 09:25 Dose: 20 mg Home Med (Leflunomide [Arava]) 20 mg PO DAILY [facility] Methylprednisolone (Solu-Medrol) 40 mg IVP BID [facility] Last Admin: 10/22/18 09:24 Dose: 40 mg Montelukast Sodium (Singulair) 10 mg PO HS [facility] Last Admin: 10/21/18 21:33 Dose: 10 mg Rosuvastatin Calcium (Crestor) 10 mg PO HS [facility] Last Admin: 10/21/18 21:33 Dose: 10 mg Silver Sulfadiazine (Silvadene 1% 20 Gm) 0 ea TOP DAILY [facility] Last Admin: 10/22/18 09:27 Dose: 1 applic - Labs Labs: 10/22/18 07:20 10/21/18 16:45 PT 12.0 SECONDS (9.7-12.2) 10/21/18 02:57 INR 1.1 10/21/18 02:57 APTT 27 SECONDS (21-34) 10/21/18 02:57 Assessment and Plan (1) Acute respiratory failure with hypercapnia Status: Acute (2) COPD exacerbation Status: Chronic
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
[2018-10-23 06:15] LABS: VENOUS BLOOD GAS BASE EXCESS 28.9 mmol/L (0.0-2.0); VENOUS BLOOD GAS PCO2 95 mmHg (40-60); VENOUS BLOOD GAS PO2 46 mm/Hg (30-55); VENOUS BLOOD PH 7.41 (7.32-7.43)
[2018-10-23 07:13] LABS: HEMOGLOBIN 10.6 g/dL (11.0-16.0); LYMPH # 0.4 K/uL (1.0-4.3); LYMPH % 4.1 % (20.0-40.0); MEAN CELL VOLUME 92.1 fL (81.0-99.0); MEAN CORPUSCULAR HEMOGLOBIN 28.7 pg (27.0-31.0); MEAN CORPUSCULAR HGB CONC 31.2 g/dL (33.0-37.0); MEAN PLATELET VOLUME 9.4 fL (7.2-11.7); MONO # 0.7 K/uL (0.0-0.8); MONO % 6.9 % (0.0-10.0); NEUT # 9.2 K/uL (1.8-7.0); PLATELET COUNT 153 K/uL (130-400); RBC 3.67 Mil/uL (3.80-5.20); RED CELL DISTRIBUTION WIDTH 15.5 % (11.5-14.5); WHITE BLOOD COUNT 10.3 K/uL (4.8-10.8)
[2018-10-23 08:26] LABS: ALB/GLOB RATIO 1.4 (1.0-2.1); ALBUMIN 3.3 g/dL (3.5-5.0); ALT/SGPT 12 U/L (9-52); AST/SGOT 13 U/L (14-36); BLOOD UREA NITROGEN 34 mg/dL (7-17); CALCIUM 8.5 mg/dl (8.6-10.4); GFR NON-AFRICAN AMERICAN > 60
[2018-10-23] MEDS: Fluticasone-Vilanterol 100/25mcg Diskus INH SCH (08:26)
[2018-10-23 09:11] LABS: HYPOCHROMIC SLIGHT; LYMPHOCYTE 4 % (20-40); MONOCYTE 8 % (0-10); NEUTROPHIL 88 % (50-75); OVALOCYTES SLIGHT; PLATELET ESTIMATE NORMAL (NORMAL); POIKILOCYTOSIS SLIGHT; POLYCHROMIC SLIGHT; TOTAL CELLS COUNTED 100
[2018-10-23 09:12] LABS: TOXIC GRANULATION PRESENT
[2018-10-23 09:15] LABS: ANISOCYTOSIS MODERATE; SCHISTOCYTES SLIGHT
[2018-10-23] MEDS: MethylPREDNISolone 40 mg Vial IVP SCH ×2 (10:20→17:51)
[2018-10-23] MEDS: Silver Sulfadiazine 1% Cream (20 gm) TOP SCH (10:54)
[2018-10-23] MEDS: Enoxaparin 40 mg Syringe SC SCH (10:54)
--- NOTE | 2018-10-23 17:22 | CP.PCM.PN ---
Subjective - Date & Time of Evaluation Date of Evaluation: 10/23/18 Time of Evaluation: 17:00 - Subjective Subjective: Patient seen and examined Remains on BiPAP and breathing better Afebrile No chest pain Objective - Vital Signs/Intake and Output Vital Signs (last 24 hours): Temp Pulse Resp BP Pulse Ox 97.1 F L 63 20 130/64 100 10/23/18 07:00 10/23/18 15:59 10/23/18 07:00 10/23/18 10:19 10/23/18 07:00 Intake and Output: 10/23/18 10/23/18 06:59 18:59 Intake Total 320 350 Output Total 400 400 Balance -80 -50 - Medications Medications: Current Medications Albuterol Sulfate (Albuterol 0.083% Inhal Alethea (2.5 Mg/3 Ml) Ud) 2.5 mg INH RQ8 PRN PRN Reason: Shortness of Breath Last Admin: 10/21/18 13:40 Dose: 2.5 mg Alprazolam (Xanax) 0.25 mg PO DAILY PRN PRN Reason: Anxiety Stop: 10/28/18 07:16 Aspirin (Aspirin Chewable) 81 mg PO DAILY [facility] Last Admin: 10/23/18 10:20 Dose: 81 mg Bisoprolol Fumarate (Zebeta) 10 mg PO DAILY [facility] Last Admin: 10/23/18 10:20 Dose: 10 mg Chlorthalidone (Hygroton) 25 mg PO DAILY [facility] Last Admin: 10/23/18 10:20 Dose: 25 mg Clopidogrel Bisulfate (Plavix) 75 mg PO DAILY [facility] Last Admin: 10/23/18 10:20 Dose: 75 mg Enoxaparin Sodium (Lovenox) 40 mg SC DAILY [facility] Last Admin: 10/23/18 10:54 Dose: 40 mg Fluticasone/Vilanterol (Breo Ellipta 100-25 Mcg Inh) 1 puff INH RQD [facility] Last Admin: 10/23/18 08:26 Dose: 1 puff Furosemide (Lasix) 20 mg IVP DAILY [facility] Last Admin: 10/23/18 10:19 Dose: 20 mg Home Med (Leflunomide [Arava]) 20 mg PO DAILY [facility] Methylprednisolone (Solu-Medrol) 40 mg IVP BID [facility] Last Admin: 10/23/18 10:20 Dose: 40 mg Montelukast Sodium (Singulair) 10 mg PO HS [facility] Last Admin: 10/22/18 21:14 Dose: 10 mg Rosuvastatin Calcium (Crestor) 10 mg PO HS [facility] Last Admin: 10/22/18 21:14 Dose: 10 mg Silver Sulfadiazine (Silvadene 1% 20 Gm) 0 ea TOP DAILY [facility] Last Admin: 10/23/18 10:54 Dose: 1 applic - Labs Labs: 10/23/18 07:03 10/23/18 07:03 PT 12.0 SECONDS (9.7-12.2) 10/21/18 02:57 INR 1.1 10/21/18 02:57 APTT 27 SECONDS (21-34) 10/21/18 02:57 - Head Exam Head Exam: ATRAUMATIC, NORMOCEPHALIC - ENT Exam ENT Exam: Mucous Membranes Moist - Neck Exam Neck Exam: Normal Inspection - Respiratory Exam Respiratory Exam: Decreased Breath Sounds - Cardiovascular Exam Cardiovascular Exam: REGULAR RHYTHM - GI/Abdominal Exam GI & Abdominal Exam: Soft Assessment and Plan (1) Acute respiratory failure with hypercapnia Assessment & Plan: Continue BiPAP Nebulizer treatment and tapering steroid Will arrange trilogy Home oxygen Status: Acute (2) COPD exacerbation Status: Chronic
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
[2018-10-24 08:14] LABS: BASO % 0.1 % (0.0-2.0); EOS % 0.1 % (0.0-4.0); HEMOGLOBIN 11.3 g/dL (11.0-16.0); LYMPH # 0.6 K/uL (1.0-4.3); LYMPH % 6.5 % (20.0-40.0); MEAN CELL VOLUME 91.8 fL (81.0-99.0); MEAN CORPUSCULAR HEMOGLOBIN 29.5 pg (27.0-31.0); MEAN CORPUSCULAR HGB CONC 32.2 g/dL (33.0-37.0); MEAN PLATELET VOLUME 9.6 fL (7.2-11.7); MONO # 1.2 K/uL (0.0-0.8); MONO % 12.2 % (0.0-10.0); NEUT # 7.9 K/uL (1.8-7.0); NEUT % 81.1 % (50.0-75.0); PLATELET COUNT 174 K/uL (130-400); RBC 3.83 Mil/uL (3.80-5.20); RED CELL DISTRIBUTION WIDTH 14.7 % (11.5-14.5); WHITE BLOOD COUNT 9.8 K/uL (4.8-10.8)
[2018-10-24] MEDS: Fluticasone-Vilanterol 100/25mcg Diskus INH SCH (08:22)
[2018-10-24 08:51] LABS: ALB/GLOB RATIO 1.7 (1.0-2.1); ALT/SGPT 17 U/L (9-52); AST/SGOT 15 U/L (14-36); BLOOD UREA NITROGEN 36 mg/dL (7-17); GFR NON-AFRICAN AMERICAN > 60
[2018-10-24] MEDS: MethylPREDNISolone 40 mg Vial IVP SCH ×2 (09:15→17:52)
[2018-10-24] MEDS: Enoxaparin 40 mg Syringe SC SCH (09:15)
[2018-10-24] MEDS: Silver Sulfadiazine 1% Cream (20 gm) TOP SCH (09:26)
[2018-10-24 11:53] LABS: EOSINOPHIL 1 % (0-4); LYMPHOCYTE 8 % (20-40); MONOCYTE 12 % (0-10); NEUTROPHIL 79 % (50-75); TOTAL CELLS COUNTED 100
[2018-10-24 11:58] LABS: PLATELET ESTIMATE NORMAL (NORMAL)
[2018-10-24 11:59] LABS: ANISOCYTOSIS SLIGHT; HYPOCHROMIC SLIGHT; OVALOCYTES SLIGHT; POIKILOCYTOSIS SLIGHT; POLYCHROMIC SLIGHT
[2018-10-24 12:00] LABS: LARGE PLATELETS PRESENT
--- NOTE | 2018-10-24 13:26 | CP.PCM.PN ---
Subjective - Date & Time of Evaluation Date of Evaluation: 10/24/18 Time of Evaluation: 13:25 - Subjective Subjective: Pulmonary follow up, Covering Dr Tse The Patient was seen and examined at the bedside, Medical records reviewed, and management issues were discussed and formulated with the house staff. Events reviewed Objective - Vital Signs/Intake and Output Vital Signs (last 24 hours): Temp Pulse Resp BP Pulse Ox 98.2 F 70 20 112/70 100 10/24/18 08:49 10/24/18 08:49 10/24/18 08:49 10/24/18 09:16 10/24/18 08:49 Intake and Output: 10/24/18 10/24/18 06:59 18:59 Intake Total 480 Output Total 600 Balance -120 - Medications Medications: Current Medications Albuterol Sulfate (Albuterol 0.083% Inhal Alethea (2.5 Mg/3 Ml) Ud) 2.5 mg INH RQ8 PRN PRN Reason: Shortness of Breath Last Admin: 10/21/18 13:40 Dose: 2.5 mg Alprazolam (Xanax) 0.25 mg PO DAILY PRN PRN Reason: Anxiety Stop: 10/28/18 07:16 Aspirin (Aspirin Chewable) 81 mg PO DAILY [facility] Last Admin: 10/24/18 09:14 Dose: 81 mg Bisoprolol Fumarate (Zebeta) 10 mg PO DAILY [facility] Last Admin: 10/24/18 09:26 Dose: 10 mg Chlorthalidone (Hygroton) 25 mg PO DAILY [facility] Last Admin: 10/24/18 09:26 Dose: 25 mg Clopidogrel Bisulfate (Plavix) 75 mg PO DAILY [facility] Last Admin: 10/24/18 09:15 Dose: 75 mg Enoxaparin Sodium (Lovenox) 40 mg SC DAILY [facility] Last Admin: 10/24/18 09:15 Dose: 40 mg Fluticasone/Vilanterol (Breo Ellipta 100-25 Mcg Inh) 1 puff INH RQD [facility] Last Admin: 10/24/18 08:22 Dose: 1 puff Furosemide (Lasix) 20 mg IVP DAILY [facility] Last Admin: 10/24/18 09:16 Dose: 20 mg Home Med (Leflunomide [Arava]) 20 mg PO DAILY [facility] Methylprednisolone (Solu-Medrol) 40 mg IVP BID [facility] Last Admin: 10/24/18 09:15 Dose: 40 mg Montelukast Sodium (Singulair) 10 mg PO HS [facility] Last Admin: 10/23/18 21:02 Dose: 10 mg Rosuvastatin Calcium (Crestor) 10 mg PO HS [facility] Last Admin: 10/23/18 21:02 Dose: 10 mg Silver Sulfadiazine (Silvadene 1% 20 Gm) 0 ea TOP DAILY [facility] Last Admin: 10/24/18 09:26 Dose: 1 applic - Labs Labs: 10/24/18 07:01 10/24/18 07:01 PT 12.0 SECONDS (9.7-12.2) 10/21/18 02:57 INR 1.1 10/21/18 02:57 APTT 27 SECONDS (21-34) 10/21/18 02:57
--- NOTE | 2018-10-24 20:15 | CARD ---
APPROVED REPORT Date of service: 10/21/2018 EKG Measurement Heart [id number] <Conclusion> Sinus rhythm with premature supraventricular complexes and with frequent and consecutive premature ventricular complexes and Abnormal ECG
--- NOTE | 2018-10-24 20:28 | CARD ---
APPROVED REPORT Date of service: 10/21/2018 EKG Measurement Heart [id number] <Conclusion> Sinus rhythm with occasional premature ventricular complexes and premature atrial complexes Septal infarct, age undetermined Abnormal ECG
[2018-10-25 06:44] LABS: HEMOGLOBIN 11.7 g/dL (11.0-16.0); LYMPH # 0.8 K/uL (1.0-4.3); LYMPH % 7.6 % (20.0-40.0); MEAN CELL VOLUME 90.8 fL (81.0-99.0); MEAN CORPUSCULAR HEMOGLOBIN 28.6 pg (27.0-31.0); MEAN CORPUSCULAR HGB CONC 31.5 g/dL (33.0-37.0); MEAN PLATELET VOLUME 9.7 fL (7.2-11.7); MONO # 1.3 K/uL (0.0-0.8); MONO % 12.1 % (0.0-10.0); NEUT # 8.5 K/uL (1.8-7.0); NEUT % 80.3 % (50.0-75.0); NRBC % 0.1 % (0.0-2.0); PLATELET COUNT 183 K/uL (130-400); RBC 4.11 Mil/uL (3.80-5.20); RED CELL DISTRIBUTION WIDTH 15.1 % (11.5-14.5); WHITE BLOOD COUNT 10.6 K/uL (4.8-10.8)
[2018-10-25 06:47] LABS: ALB/GLOB RATIO 1.5 (1.0-2.1); ALBUMIN 3.4 g/dL (3.5-5.0); ALT/SGPT 13 U/L (9-52); AST/SGOT 15 U/L (14-36); BLOOD UREA NITROGEN 40 mg/dL (7-17); CALCIUM 8.6 mg/dl (8.6-10.4); GFR NON-AFRICAN AMERICAN > 60
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
[2018-10-25] MEDS: Fluticasone-Vilanterol 100/25mcg Diskus INH SCH (08:35)
[2018-10-25 09:51] LABS: BANDS 3 % (0-2); LYMPHOCYTE 5 % (20-40); MONOCYTE 14 % (0-10); NEUTROPHIL 78 % (50-75); TOTAL CELLS COUNTED 100
[2018-10-25 09:53] LABS: PLATELET ESTIMATE NORMAL (NORMAL)
[2018-10-25 09:54] LABS: ANISOCYTOSIS SLIGHT
[2018-10-25 09:55] LABS: HYPOCHROMIC SLIGHT; OVALOCYTES SLIGHT
[2018-10-25] MEDS: MethylPREDNISolone 40 mg Vial IVP SCH (10:32)
[2018-10-25] MEDS: Enoxaparin 40 mg Syringe SC SCH (10:33)
[2018-10-25] MEDS: Silver Sulfadiazine 1% Cream (20 gm) TOP SCH (10:33)
--- NOTE | 2018-10-25 14:04 | CP.PCM.CON ---
History of Present Illness - History of Present Illness History of Present Illness: Palliative consult requested by Doctor Kessler for goals of care discussion Patient is a 83 yo female admitted from home, just one day after discharge from [facility], with SOB. The son , who is a main care tech, stated he thought his mother was anxious at first, as she was not able to answer his questions and acted differently from usual. Son gave her Xanax. Symptoms did not improve, just got worse. Patient felt she could not breath at all. 911 called. In ED Lasix 20 mg IV given for Pulmonary congestion seen on CXR. After Bipap and Neb treatment patient's condition improved. Pulmonary consult called. PMH: COPD, CHF, home O2, CAD, post intubation on last admission Soc. Hx: lives at home, son main care tech Fam. Hx: mother breast [place], father [place] Review of Systems - Review of Systems All systems: reviewed and no additional remarkable complaints except Review of Systems: ROS unobtainable from patient due to confusion. ROS obtained from son. per son, his mother is back to her normal. Past Patient History - Infectious Disease Hx of Infectious Diseases: None - Past Medical History & Family History Past Medical History?: Yes - Past Social History Smoking Status: Former Smoker - CARDIAC Hx Congestive Heart Failure: Yes Hx Hypercholesterolemia: Yes Hx Hypertension: Yes - PULMONARY Hx Chronic Obstructive Pulmonary Disease (COPD): Yes (ON OXYGEN [place]. 2L ) - NEUROLOGICAL Hx Neurological Disorder: No - HEENT Hx HEENT Problems: Yes Hx Cataracts: Yes (BILAT.) Other/Comment: [place] RT EAR - RENAL Hx Chronic Kidney Disease: No - ENDOCRINE/METABOLIC Hx Endocrine Disorders: No - HEMATOLOGICAL/ONCOLOGICAL Hx Blood Disorders: No - INTEGUMENTARY Hx Dermatological Problems: No - MUSCULOSKELETAL/RHEUMATOLOGICAL Hx Arthritis: Yes Hx Rheumatoid Arthritis: Yes - GASTROINTESTINAL Hx Gall Bladder Disease: Yes - GENITOURINARY/GYNECOLOGICAL Hx Genitourinary Disorders: No - PSYCHIATRIC Hx Anxiety: Yes Hx Substance Use: No - SURGICAL HISTORY Hx Cholecystectomy: Yes - ANESTHESIA Hx Anesthesia: Yes Hx Anesthesia Reactions: No Hx Malignant Hyperthermia: No Has any member of the family had a problem w/ anesthesia?: No Meds Allergies/Adverse Reactions: Allergies Allergy/AdvReac Type Severity Reaction Status Date / Time No Known Allergies Allergy Verified 10/21/18 01:26 - Medications Medications: Current Medications Albuterol Sulfate (Albuterol 0.083% Inhal Alethea (2.5 Mg/3 Ml) Ud) 2.5 mg INH RQ8 PRN PRN Reason: Shortness of Breath Last Admin: 10/21/18 13:40 Dose: 2.5 mg Alprazolam (Xanax) 0.25 mg PO DAILY PRN PRN Reason: Anxiety Stop: 10/28/18 07:16 Aspirin (Aspirin Chewable) 81 mg PO DAILY [facility] Last Admin: 10/25/18 10:32 Dose: 81 mg Bisoprolol Fumarate (Zebeta) 10 mg PO DAILY [facility] Last Admin: 10/25/18 10:33 Dose: 10 mg Chlorthalidone (Hygroton) 25 mg PO DAILY [facility] Last Admin: 10/25/18 10:33 Dose: 25 mg Clopidogrel Bisulfate (Plavix) 75 mg PO DAILY [facility] Last Admin: 10/25/18 10:33 Dose: 75 mg Enoxaparin Sodium (Lovenox) 40 mg SC DAILY [facility] Last Admin: 10/25/18 10:33 Dose: 40 mg Fluticasone/Vilanterol (Breo Ellipta 100-25 Mcg Inh) 1 puff INH RQD [facility] Last Admin: 10/25/18 08:35 Dose: 1 puff Furosemide (Lasix) 20 mg IVP DAILY [facility] Last Admin: 10/25/18 10:32 Dose: 20 mg Home Med (Leflunomide [Arava]) 20 mg PO DAILY [facility] Montelukast Sodium (Singulair) 10 mg PO HS [facility] Last Admin: 10/24/18 21:27 Dose: 10 mg Prednisone (Prednisone Tab) 40 mg PO BID [facility] Rosuvastatin Calcium (Crestor) 10 mg PO HS [facility] Last Admin: 10/24/18 21:27 Dose: 10 mg Silver Sulfadiazine (Silvadene 1% 20 Gm) 0 ea TOP DAILY [facility] Last Admin: 10/25/18 10:33 Dose: 1 applic Physical Exam - Constitutional Appears: No Acute Distress, Chronically Ill - Head Exam Head Exam: ATRAUMATIC, NORMAL INSPECTION, NORMOCEPHALIC - Eye Exam Eye Exam: EOMI, Normal appearance, PERRL Pupil Exam: NORMAL ACCOMODATION, PERRL - ENT Exam ENT Exam: Mucous Membranes Dry - Neck Exam Neck exam: Positive for: Normal Inspection - Respiratory Exam Respiratory Exam: Decreased Breath Sounds, Prolonged Expiratory Phase, NORMAL BREATHING PATTERN - Cardiovascular Exam Cardiovascular Exam: Tachycardia, Irregular Rhythm - GI/Abdominal Exam GI & Abdominal Exam: Normal Bowel Sounds, Soft - Rectal Exam Rectal Exam: Deferred - Extremities Exam Extremities exam: Positive for: normal inspection, pedal edema - Back Exam Back exam: NORMAL INSPECTION - Neurological Exam Neurological exam: Alert, Altered - Psychiatric Exam Psychiatric exam: Flat Affect - Skin Skin Exam: Dry, Intact, Normal Color, Warm Results - Vital Signs Recent Vital Signs: Last Vital Signs Temp 97.9 F 10/25/18 07:00 Pulse 56 L 10/25/18 07:00 Resp 18 10/25/18 07:00 BP 110/64 10/25/18 10:32 Pulse Ox 100 10/25/18 07:00 - Labs Result Diagrams: 10/25/18 06:22 10/25/18 06:22 Labs: Laboratory Results - last 24 hr 10/24/18 10/25/18 10/25/18 12:20 06:22 06:22 WBC 10.6 RBC 4.11 Hgb 11.7 Hct 37.3 MCV 90.8 MCH 28.6 MCHC 31.5 L RDW 15.1 H Plt Count 183 MPV 9.7 Neut % (Auto) 80.3 H Lymph % (Auto) 7.6 L [place] % (Auto) 12.1 H Eos % (Auto) 0.0 Baso % (Auto) 0.0 Neut # (Auto) 8.5 H Lymph # (Auto) 0.8 L [place] # (Auto) 1.3 H Eos # (Auto) 0.0 Baso # (Auto) 0.0 Neutrophils % (Manual) 78 H Band Neutrophils % 3 H Lymphocytes % (Manual) 5 L Monocytes % (Manual) 14 H Platelet Estimate Normal Hypochromasia (manual) Slight Anisocytosis (manual) Slight Ovalocytes Slight Sodium 134 Potassium 3.7 Chloride 83 L Carbon Dioxide 51 H* Anion Gap 4 L BUN 40 H Creatinine 0.7 Est GFR ( Amer) > 60 Est GFR (Non-Af Amer) > 60 Random Glucose 129 H Calcium 8.6 Phosphorus 2.6 Magnesium 2.0 Total Bilirubin 0.6 AST 15 ALT 13 Alkaline Phosphatase 57 Total Protein 5.7 L Albumin 3.4 L Globulin 2.3 Albumin/Globulin Ratio 1.5 C. difficile Ag & Toxin Negative Assessment & Plan - Assessment and Plan (Free Text) Assessment: Palliative consult Full Code, there is no advance directive on chart, PPS 10% I reviewed medical records, all diagnostic studies, examined patient in the bed Patient is alert, makes eye contacts, fallow simple commends, but is unable to participate in goals of acre discussion due to confusion. Skin is warm, intact, with mild pedal edema, intact. Breath sounds diminished, long expiratory phase, POCO2 95 % on admission, responds well to BiPap, o2 Sat 100%. Abdomen sot, active bowel sounds, incontinent. There is active ROM, needs moderate assistance with repositioning in bed, and OOB, unable to ambulate. BP 110/68, HR 58, afebrile WBC 10.6, Hb 11.7 Solumedrol, Lasix, Breo, Lovenox and Neb Tx on board. Goals of care discussed with patient's son at bed side. He feels relieved with his mother's improvement in condition. He felt she was to at home. Son understands the symptoms of CHF and COPD. He had discussion with Doctor Dedrick about Trilogy Tx and agreed with it. I offered more information about it. Code status discussed. Patient stated again that he had Living Will at home but never brought copy in for me even though we talked about it on last admission. However, son is requesting Full Code with utilizing all aggressive interventions if those were needed. Discharge plan discussed. Son agreed with [facility] prior to discharge home. Impression * CHF exacerbation, stable at present * Confusion * Unsteady walk * Son advocates for Full Code * Son agrees with [facility] discharge * Patient will need Trilogy to be arranged for discharge home Suggestion * Continue BiPap * Solu Medrol tapering * Promote skin integrity * OOB daily with assistance * [facility] discharge planing * Trilogy for respiratory support at home * Full Code I will sign off at this time. Advance care planing 60 min.
[2018-10-25 17:24] VITALS: RESP 20
--- NOTE | 2018-10-25 18:25 | CP.PCM.PN ---
Subjective - Date & Time of Evaluation Date of Evaluation: 10/25/18 Time of Evaluation: 11:00 - Subjective Subjective: Patient seen and examined Alert, awake, No acute distress Denies fevers, chest pain, SOB, cough Patient is improving clinically Afebrile Patient agreed to rehab outpatient Physical Exam Oxygen Saturation 100% BiPAP General: NAD Cardio: S1, S2 Resp: Decreased breath sounds Abd: Soft, Nontender A/P 1) Acute Respiratory Failure with Hypoxia -D/C BiPAP -Recommend BiPAP at night -F/u ABG - Taper steroids - Consider Trilogy - Outpaitnet Rehab 2) COPD Exacerbation -Chronic Objective - Vital Signs/Intake and Output Vital Signs (last 24 hours): Temp Pulse Resp BP Pulse Ox 98.9 F 59 L 20 136/56 L 98 10/25/18 15:20 10/25/18 15:20 10/25/18 15:20 10/25/18 15:20 10/25/18 15:20 Intake and Output: 10/25/18 10/25/18 06:59 18:59 Intake Total 400 Output Total 400 Balance 0 - Medications Medications: Current Medications Albuterol Sulfate (Albuterol 0.083% Inhal Alethea (2.5 Mg/3 Ml) Ud) 2.5 mg INH RQ8 PRN PRN Reason: Shortness of Breath Last Admin: 10/21/18 13:40 Dose: 2.5 mg Alprazolam (Xanax) 0.25 mg PO DAILY PRN PRN Reason: Anxiety Stop: 10/28/18 07:16 Aspirin (Aspirin Chewable) 81 mg PO DAILY [facility] Last Admin: 10/25/18 10:32 Dose: 81 mg Bisoprolol Fumarate (Zebeta) 10 mg PO DAILY [facility] Last Admin: 10/25/18 10:33 Dose: 10 mg Chlorthalidone (Hygroton) 25 mg PO DAILY [facility] Last Admin: 10/25/18 10:33 Dose: 25 mg Clopidogrel Bisulfate (Plavix) 75 mg PO DAILY [facility] Last Admin: 10/25/18 10:33 Dose: 75 mg Enoxaparin Sodium (Lovenox) 40 mg SC DAILY [facility] Last Admin: 10/25/18 10:33 Dose: 40 mg Fluticasone/Vilanterol (Breo Ellipta 100-25 Mcg Inh) 1 puff INH RQD [facility] Last Admin: 10/25/18 08:35 Dose: 1 puff Furosemide (Lasix) 20 mg IVP DAILY [facility] Last Admin: 10/25/18 10:32 Dose: 20 mg Home Med (Leflunomide [Arava]) 20 mg PO DAILY [facility] Montelukast Sodium (Singulair) 10 mg PO HS [facility] Last Admin: 10/24/18 21:27 Dose: 10 mg Prednisone (Prednisone Tab) 40 mg PO BID [facility] Last Admin: 10/25/18 17:36 Dose: 40 mg Rosuvastatin Calcium (Crestor) 10 mg PO HS [facility] Last Admin: 10/24/18 21:27 Dose: 10 mg Silver Sulfadiazine (Silvadene 1% 20 Gm) 0 ea TOP DAILY [facility] Last Admin: 10/25/18 10:33 Dose: 1 applic - Labs Labs: 10/25/18 06:22 10/25/18 06:22 PT 12.0 SECONDS (9.7-12.2) 10/21/18 02:57 INR 1.1 10/21/18 02:57 APTT 27 SECONDS (21-34) 10/21/18 02:57 Assessment and Plan (1) Acute respiratory failure with hypercapnia Status: Acute (2) COPD exacerbation Status: Chronic
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
[2018-10-26 08:14] LABS: BLOOD UREA NITROGEN 42 mg/dL (7-17)
[2018-10-26 08:15] LABS: ALB/GLOB RATIO 1.4 (1.0-2.1); ALBUMIN 3.4 g/dL (3.5-5.0); ALT/SGPT 14 U/L (9-52); AST/SGOT 21 U/L (14-36); CALCIUM 8.6 mg/dl (8.6-10.4); GFR NON-AFRICAN AMERICAN > 60
[2018-10-26] MEDS: Fluticasone-Vilanterol 100/25mcg Diskus INH SCH (08:28)
[2018-10-26 09:02] LABS: ABG ALLEN TEST POS; ARTERIAL BLOOD GAS HCO3 46.1 mmol/L (21-28); ARTERIAL BLOOD GAS HEMOGLOBIN 10.7 g/dL (11.7-17.4); ARTERIAL BLOOD GAS O2 SAT 98.8 % (95-98); ARTERIAL BLOOD GAS PCO2 66 mm/Hg (35-45); ARTERIAL BLOOD GAS PH 7.52 (7.35-7.45); ARTERIAL BLOOD GAS PO2 128 mm/Hg (80-100); ARTERIAL BLOOD GAS TCO2 55.9 mmol/L (22-28)
[2018-10-26] MEDS ORDERED: Potassium Chloride 20 mEq ER Tab PO STA (09:08)
[2018-10-26] MEDS: Enoxaparin 40 mg Syringe SC SCH (10:35)
--- NOTE | 2018-10-26 14:55 | CP.PCM.PN ---
Subjective - Date & Time of Evaluation Date of Evaluation: 10/26/18 Time of Evaluation: 11:20 - Subjective Subjective: Patient seen and examined Breathing much improved and is off BiPAP Afebrile Patient is alert and oriented Objective - Vital Signs/Intake and Output Vital Signs (last 24 hours): Temp Pulse Resp BP Pulse Ox 98.8 F 55 L 20 123/70 100 10/26/18 07:30 10/26/18 07:30 10/26/18 07:30 10/26/18 10:36 10/26/18 07:30 Intake and Output: 10/26/18 10/26/18 06:59 18:59 Intake Total 380 Output Total 350 Balance 30 - Medications Medications: Current Medications Albuterol Sulfate (Albuterol 0.083% Inhal Alethea (2.5 Mg/3 Ml) Ud) 2.5 mg INH RQ8 PRN PRN Reason: Shortness of Breath Last Admin: 10/21/18 13:40 Dose: 2.5 mg Alprazolam (Xanax) 0.25 mg PO DAILY PRN PRN Reason: Anxiety Stop: 10/28/18 07:16 Aspirin (Aspirin Chewable) 81 mg PO DAILY [facility] Last Admin: 10/26/18 10:35 Dose: 81 mg Bisoprolol Fumarate (Zebeta) 10 mg PO DAILY [facility] Last Admin: 10/26/18 10:35 Dose: 10 mg Chlorthalidone (Hygroton) 25 mg PO DAILY [facility] Last Admin: 10/26/18 10:35 Dose: 25 mg Clopidogrel Bisulfate (Plavix) 75 mg PO DAILY [facility] Last Admin: 10/26/18 10:35 Dose: 75 mg Enoxaparin Sodium (Lovenox) 40 mg SC DAILY [facility] Last Admin: 10/26/18 10:35 Dose: 40 mg Fluticasone/Vilanterol (Breo Ellipta 100-25 Mcg Inh) 1 puff INH RQD [facility] Last Admin: 10/26/18 08:28 Dose: 1 puff Furosemide (Lasix) 20 mg IVP DAILY [facility] Last Admin: 10/26/18 10:36 Dose: 20 mg Home Med (Leflunomide [Arava]) 20 mg PO DAILY [facility] Montelukast Sodium (Singulair) 10 mg PO HS [facility] Last Admin: 10/25/18 21:08 Dose: 10 mg Prednisone (Prednisone Tab) 40 mg PO BID [facility] Last Admin: 10/26/18 10:35 Dose: 40 mg Rosuvastatin Calcium (Crestor) 10 mg PO [facility] Last Admin: 10/25/18 21:09 Dose: 10 mg - Labs Labs: 10/25/18 06:22 10/26/18 07:04 PT 12.0 SECONDS (9.7-12.2) 10/21/18 02:57 INR 1.1 10/21/18 02:57 APTT 27 SECONDS (21-34) 10/21/18 02:57 - Head Exam Head Exam: ATRAUMATIC, NORMOCEPHALIC - ENT Exam ENT Exam: Mucous Membranes Moist - Neck Exam Neck Exam: Normal Inspection - Respiratory Exam Respiratory Exam: Decreased Breath Sounds - Cardiovascular Exam Cardiovascular Exam: REGULAR RHYTHM - GI/Abdominal Exam GI & Abdominal Exam: Soft Assessment and Plan (1) Acute respiratory failure with hypercapnia Assessment & Plan: Switch to p.o. prednisone Continue nebulizer treatment Continue lama Laba Trilogy for home Patient wants to go home Status: Acute (2) COPD exacerbation Status: Chronic
[2018-10-26] MEDS: Albuterol 0.083% Inhal Sol (2.5 mg/3 mL) UD INH PRN (16:06)
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
[2018-10-26 18:23] VITALS: BP 105/52; PULSE 57; TEMP 98.2; O2SAT 99
== END 2018-10-26 19:00 | disposition home or self-care (01) | DRG 190 ==
LOC: C.ER 01:15 → C.9E 04:25 → C.9I 07:24 → C.6T 11:06
PROVIDERS: ADMIT Internal Medicine; ATTEND Internal Medicine
PROC: 5A09557 Assistance with Respiratory Ventilation, Greater than 96 Consecutive Hours, Continuous Positive Airway Pressure (ICD-10-PCS; principal; 2018-10-21)
DX: J44.1 Chronic obstructive pulmonary disease with (acute) exacerbation (principal); J96.01 Acute respiratory failure with hypoxia; J96.02 Acute respiratory failure with hypercapnia; I50.42 Chronic combined systolic (congestive) and diastolic (congestive) heart failure; I11.0 Hypertensive heart disease with heart failure; J44.0 Chronic obstructive pulmonary disease with (acute) lower respiratory infection; I25.10 Atherosclerotic heart disease of native coronary artery without angina pectoris; E78.5 Hyperlipidemia, unspecified; T21.23XA Burn of second degree of upper back, initial encounter; Z80.3 Family history of malignant neoplasm of breast; Z87.891 Personal history of nicotine dependence; Z99.81 Dependence on supplemental oxygen; Z95.5 Presence of coronary angioplasty implant and graft; I25.2 Old myocardial infarction